=== PATIENT | female | born 1950 | race Caucasian/White ===

== ENCOUNTER 2016-12-15 07:00 | Emergency (ER) | payer SELFPAY ==
[~2016-12-15] VITALS: Ht 162.6 cm; Wt 79.4 kg
[~2016-12-15 07:00] MED LIST: AML5T; AZIT250T PO; CEFD300C3 PO; CEFP500T4 PO; ENAL20TA76 PO; EZET1TAB31; FLUT16SP22 NS; HCT25T; HYDR115S2 PO; LORA10TA7 PO; RANI150T90 PO; SIMV20TA3 PO
[2016-12-15] MEDS ORDERED: NS IV 1000 ML 1,000 ML ONE (07:21)
[2016-12-15] MEDS ORDERED: PROMETHAZINE INJ 25 MG/ML (PHENERGAN) AMP ONE (07:21)
[2016-12-15] MEDS ORDERED: NS IV 1000 ML 1,000 ML IV ONE (07:23)
[2016-12-15 07:29] LABS: BASOPHILS # (AUTO) 0.1 10^3/uL (0.0-0.1); BASOPHILS % (AUTO) 0 % (0-10); EOSINOPHILS # (AUTO) 0.2 10^3/uL (0.0-0.3); EOSINOPHILS % (AUTO) 2 % (0-10); LYMPHOCYTES # (AUTO) 2.6 X 10^3 (1.0-4.0); LYMPHOCYTES % (AUTO) 24 % (12-44); MEAN CORPUSCULAR HEMOGLOBIN 31 PG (25-34); MEAN CORPUSCULAR HGB CONC 33 G/DL (32-36); MEAN CORPUSCULAR VOLUME 94 FL (80-99); MEAN PLATELET VOLUME 10.9 FL (7.4-10.4); MONOCYTES # (AUTO) 0.6 X 10^3 (0.0-1.0); MONOCYTES % (AUTO) 6 % (0-12); NEUTROPHILS # (AUTO) 7.7 X 10^3 (1.8-7.8); NEUTROPHILS % (AUTO) 69 % (42-75); PLATELET COUNT 248 10^3/uL (130-400); RED BLOOD COUNT 4.33 10^6/uL (4.35-5.85); RED CELL DISTRIBUTION WIDTH 14.3 % (10.0-14.5); WHITE BLOOD COUNT 11.2 10^3/uL (4.3-11.0)
[2016-12-15] MEDS ORDERED: PROMETHAZINE INJ 25 MG/ML (PHENERGAN) AMP IVP ONE (07:30)
--- NOTE | 2016-12-15 07:37 | ED General ---
General Chief Complaint: Dizziness/Syncope Stated Complaint: DIZZY/N/V/HEADACHE Nursing Triage Note: PT ARRIVED PER EMS, PT CO OF DIZZINESS AND NAUSEA SINCE 0200 THIS AM, WHEN WOKE UP AT 0530 STATES HAS ROSS RATES 12/22. PT HAS SL IN L WRIST Nursing Sepsis Screen: No Definite Risk Source of Information: Patient Exam Limitations: No Limitations History of Present Illness Time Seen by Provider: 07:25 Initial Comments This 66-year-old woman presents to emergency room with relatively sudden onset of dizziness, weakness, nausea, and vomiting. She initially woke with the symptoms around 02:00. She went back to bed but then woke up again at 05:30. She needed to use the restroom but was so dizzy she could not get up. EMS was activated and patient was transported to the emergency room. EMS reports stable vital signs. Patient was ambulatory to the cot. She denies any chest pain or shortness of breath. She describes her dizziness as a vertigo or spinning sensation. It is much worse with movement of the head or position changes. gis analyst shows normal sinus rhythm with a heart rate in the 70s. She received Zofran 4 mg by EMS. She complained of left-sided earache last night which has improved today. Allergies and Home Medications Allergies Coded Allergies: green dye (Verified Allergy, Unknown, 07/06/09) red dye (Verified Allergy, Unknown, 07/06/09) Uncoded Allergies: ALLERGY TO RED/GREEN DYE (Allergy, Unknown, 05/25/09) FEMURA (Adverse Reaction, Unknown, 04/16/16) Home Medications Amlodipine Besylate 5 Mg Tablet, DAILY, Ref 0 (Reported) Azithromycin 250 Mg Tablet, 250 MG PO DAILY, #4 Ref 0 Prescribed by: SHANELLE WILLS on 04/16/16 0213 Cefdinir 300 Mg Capsule, 300 MG PO BID, #20 Ref 0 Prescribed by: SHANELLE WILLS on 04/16/16 0213 Diazepam 5 Mg Tablet, 2.5-5 MG PO TID PRN for DIZZINESS, #10 Prescribed by: ALYSIA PATEL on 12/15/16 1136 Enalapril Maleate 20 Mg Tablet, 40 MG PO DAILY, Ref 0 (Reported) Fluticasone Propionate 16 Gm [place].susp, Unknown Dose NS PRN, (Reported) Hydrochlorothiazide 25 Mg Tab, DAILY, Ref 0 (Reported) Hydrocodone/Chlorphen P-Stirex 480 Ml Tanya.er.12h, 5 ML PO Q12H PRN for COUGH/ PAIN, #120 Ref 0 Prescribed by: SHANELLE WILLS on 04/16/16 0213 Loratadine 10 Mg Tablet, 10 MG PO DAILY, (Reported) Meclizine HCl 25 Mg Tablet, 25 MG PO Q6H PRN for DIZZINESS, #20 Prescribed by: ALYSIA PATEL on 12/15/16 1136 Promethazine HCl 25 Mg Tablet, 25 MG PO Q6H PRN for NAUSEA/VOMITING, #10 Prescribed by: ALYSIA PATEL on 12/15/16 1136 Ranitidine HCl 150 Mg Tablet, 150 MG PO BID, (Reported) Simvastatin 20 Mg Tablet, 20 MG PO DAILY, (Reported) Constitutional: see HPI, weakness EENTM: see HPI Respiratory: no symptoms reported Cardiovascular: no symptoms reported Gastrointestinal: see HPI Genitourinary: no symptoms reported : No Musculoskeletal: no symptoms reported Skin: no symptoms reported Psychiatric/Neurological: See HPI Hematologic/Lymphatic: No Symptoms Reported Past Vbmilwv-Eqfilp-Xraaie Hx Patient Social History Alcohol Use: Denies Use Recreational Drug Use: No Smoking Status: Former Smoker Type Used: Cigarettes Recent Foreign Travel: No Contact w/Someone Who Travel: No Recent Infectious Disease Expo: No Recent Hopitalizations: No Seasonal Allergies Seasonal Allergies: No Surgeries HX Surgeries: Yes (R lumpectomy, 37 lymph nodes removed R side) Surgeries: Abdominal (ectopic ), Breast, Cardiac (cardiac catheter in 2009 with normal coronary arteries), Section, Orthopedic (knee) Respiratory Hx Respiratory Disorders: Yes Respiratory Disorders: Asthma Cardiovascular Hx Cardiac Disorders: Yes Cardiac Disorders: High Cholesterol, Hypertension Neurological Hx Neurological Disorders: No Reproductive System Hx Reproductive Disorders: Yes Genitourinary Hx Genitourinary Disorders: No Gastrointestinal Hx Gastrointestinal Disorders: Yes Gastrointestinal Disorders: Gastroesophageal Reflux Musculoskeletal Hx Musculoskeletal Disorders: No Endocrine Hx Endocrine Disorders: No HEENT HX ENT Disorders: No Cancer Hx Cancer: Yes Cancer: Breast Psychosocial Hx Psychiatric Problems: No Blood Transfusions Hx Blood Disorders: No Physical Exam Vital Signs Vital Sign - Last 12Hours 12/15/16 07:00 Temp 98.1 Pulse 81 Resp 18 B/P (MAP) 131/62 Pulse Ox 95 Capillary Refill : Less Than 3 Seconds General Appearance: WD/WN, Mild Distress, Obese HEENT: PERRL/EOMI, TMs Normal, Normal ENT Inspection, Other (oropharynx somewhat dry) Neck: Normal Inspection, No Carotid Bruit, No JVD Respiratory: Lungs Clear, Normal Breath Sounds, No Accessory Muscle Use, No Respiratory Distress Cardiovascular: Regular Rate, Rhythm, No Edema, No Murmur Gastrointestinal: Normal Bowel Sounds, Non Tender, Soft Extremity: Normal Inspection, No Pedal Edema Neurologic/Psychiatric: Alert, Oriented x3, No Motor/Sensory Deficits, Normal 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, 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 Norm as Tested Skin: Normal Color, Warm/Dry Progress/Results/Core Measures Results/Orders Lab Results Laboratory Tests Test 12/15/16 07:05 12/15/16 09:09 Range/Units White Blood Count 11.2 H 4.3-11.0 10^3/uL Red Blood Count 4.33 L 4.35-5.85 10^6/uL Hemoglobin 13.5 11.5-16.0 G/DL Hematocrit 41 35-52 % Mean Corpuscular Volume 94 80-99 FL Mean Corpuscular Hemoglobin 31 25-34 PG Mean Corpuscular Hemoglobin Concent 33 32-36 G/DL Red Cell Distribution Width 14.3 10.0-14.5 % Platelet Count 248 130-400 10^3/uL Mean Platelet Volume 10.9 H 7.4-10.4 FL Neutrophils (%) (Auto) 69 42-75 % Lymphocytes (%) (Auto) 24 12-44 % Monocytes (%) (Auto) 6 0-12 % Eosinophils (%) (Auto) 2 0-10 % Basophils (%) (Auto) 0 0-10 % Neutrophils # (Auto) 7.7 1.8-7.8 X 10^3 Lymphocytes # (Auto) 2.6 1.0-4.0 X 10^3 Monocytes # (Auto) 0.6 0.0-1.0 X 10^3 Eosinophils # (Auto) 0.2 0.0-0.3 10^3/uL Basophils # (Auto) 0.1 0.0-0.1 10^3/uL Sodium Level 142 135-145 MMOL/L Potassium Level 4.0 3.6-5.0 MMOL/L Chloride Level 106 98-107 MMOL/L Carbon Dioxide Level 24 21-32 MMOL/L Anion Gap 12 5-14 MMOL/L Blood Urea Nitrogen 14 7-18 MG/DL Creatinine 0.68 0.60-1.30 MG/DL Estimat Glomerular Filtration Rate > 60 BUN/Creatinine Ratio 21 Glucose Level 155 H 70-105 MG/DL Calcium Level 9.5 8.5-10.1 MG/DL Total Bilirubin 0.3 0.1-1.0 MG/DL Aspartate Amino Transf (AST/SGOT) 19 5-34 U/L Alanine Aminotransferase (ALT/SGPT) 18 0-55 U/L Alkaline Phosphatase 70 40-136 U/L Total Protein 7.7 6.4-8.2 GM/DL Albumin 3.8 3.2-4.5 GM/DL Urine Color YELLOW Urine Clarity SLIGHTLY CLOUDY Urine pH 7 5-9 Urine Specific Rueter 1.010 L 1.016-1.022 Urine Protein NEGATIVE NEGATIVE Urine Glucose (UA) NEGATIVE NEGATIVE Urine Ketones NEGATIVE NEGATIVE Urine Nitrite NEGATIVE NEGATIVE Urine Bilirubin NEGATIVE NEGATIVE Urine Urobilinogen NORMAL NORMAL MG/DL Urine Leukocyte Esterase NEGATIVE NEGATIVE Urine RBC (Auto) NEGATIVE NEGATIVE Urine RBC NONE /HPF Urine WBC NONE /HPF Urine Squamous Epithelial Cells 2-5 /HPF Urine Crystals NONE /LPF Urine Bacteria NEGATIVE /HPF Urine Casts NONE /LPF Urine Mucus NEGATIVE /LPF Urine Culture Indicated NO My Orders Orders - ALYSIA DOWELL MD Cbc With Automated Diff (12/15/16 07:23) Comprehensive Metabolic Panel (12/15/16 07:23) Ua Culture If Indicated (12/15/16 07:23) Saline Lock/Iv-Start (12/15/16 07:23) Ns Iv 1000 Ml (Sodium Chloride 0.9%) (12/15/16 07:23) Promethazine Injection (Phenergan Injec (12/15/16 07:30) Monitor-Rhythm Ecg Trace Only (12/15/16 07:23) Promethazine Injection (Phenergan Injec (12/15/16 07:21) Ns Iv 1000 Ml (Sodium Chloride 0.9%) (12/15/16 07:21) Meclizine Tablet (Antivert Tablet) (12/15/16 08:45) Meclizine Tablet (Antivert Tablet) (12/15/16 08:32) Ct Angio Head/Neck (12/15/16 09:41) Iohexol Injection (Omnipaque 350 Mg/Ml 1 (12/15/16 09:45) Ns (Ivpb) (Sodium Chloride 0.9% Ivpb Bag (12/15/16 09:45) Diazepam Tablet (Valium Tablet) (12/15/16 10:30) Medications Given in ED Current Medications Medications Dose Ordered Sig/Faith Route Start Time Stop Time Status Last Admin Dose Admin Diazepam 5 mg ONCE ONCE PO 12/15/16 10:30 12/15/16 10:31 DC 12/15/16 10:29 5 MG Iohexol 100 ml ONCE ONCE IV 12/15/16 09:45 12/15/16 09:49 DC 12/15/16 09:57 85 ML Meclizine HCl 25 mg ONCE ONCE PO 12/15/16 08:45 12/15/16 08:46 DC 12/15/16 08:41 25 MG Promethazine HCl 25 mg ONCE ONCE IVP 12/15/16 07:30 12/15/16 07:31 DC 12/15/16 07:30 25 MG Sodium Chloride 100 ml ONCE ONCE IV 12/15/16 09:45 12/15/16 09:49 DC 12/15/16 09:57 80 ML Sodium Chloride 1,000 ml @ 0 mls/hr Q0M ONCE IV 12/15/16 07:23 12/15/16 07:26 DC 12/15/16 07:30 1,000 MLS/HR Vital Signs/I&O Vital Sign - Last 12Hours 12/15/16 12/15/16 07:00 11:49 Temp 98.1 Pulse 81 81 Resp 18 18 B/P (MAP) 131/62 Pulse Ox 95 95 Blood Pressure Mean: 85 Progress Note #1: Time: 07:44 Progress Note Patient was seen and examined. Labs are pending. Phenergan and a liter of IV fluids have been ordered. Patient remains nauseated after receiving Zofran by EMS. Progress Note #2: Time: 08:28 Progress Note Cristofer-Hallpike maneuver reproduced symptoms on the right. Isaias maneuver was performed with incomplete relief of symptoms. Progress Note #3: Time: 09:42 Progress Note Patient states dizziness is improved but still significant, especially with head movement. Isaias maneuver was not successful in curing the dizziness. Patient would really like some answers regarding her dizziness. We discussed performing CT scan to evaluate for further causes. CT angiogram of the head and neck will be obtained to evaluate for possible stroke and/or prostatic disease. Patient has not had any imaging of the head at this facility since 2009. Progress Note #4: Time: 10:32 Progress Note Patient was still significantly dizzy when getting up to the commode. Valium was ordered for further treatment. CT angiogram of the head and neck is pending. Progress Note #5: Progress Note Dizziness was significantly improved with Valium prior to dismissal. Diagnostic Imaging Diagonstic Imaging: CT Plain Films/CT/US/NM/MRI: head Comments CT angiogram of the head and neck viewed by me and report reviewed. See report below: NAME: [facility]ENETTA [facility] REC#: [id number] PT STATUS: REG ER : 1950 PHYSICIAN: ALYSIA DOWELL MD ADMIT DATE: 12/15/16/ER Draft Date of Exam:12/15/16 CT ANGIO HEAD/NECK PROCEDURE: CT angiography of the head and CT angiography of the neck with and without contrast. TECHNIQUE: Contiguous noncontrast images were obtained from the skull base through the vertex. After intravenous contrast administration, helical CT angiography of the neck was performed. Source data was reformatted into multiple MIP projections. Delayed post contrast acquisitions were also obtained. INDICATION: Head and neck pain. Dizziness. CONTRAST: 75 mL of Omnipaque 350 was administered intravenously. FINDINGS: CTA NECK: The origins of the great vessels are below the mscla-ju-ldon of this study. The remaining portion of these vessels visualized including the brachiocephalic artery, left common carotid, and left subclavian arteries appear patent. The right subclavian artery is also patent. There is calcified plaque along the distal right common carotid artery. The right internal carotid artery is tortuous with no significant plaque or stenosis, however. The right external carotid artery is patent. The left common carotid artery distally demonstrates a small calcified plaque as well. The left ICA is tortuous with no significant stenosis. The left external carotid artery is patent. The vertebral arteries are patent. No significantly enlarged lymph nodes are seen in the cervical chain bilaterally. The submandibular and parotid glands as well as the thyroid gland appear grossly unremarkable. CTA HEAD: The intracranial segments of the internal carotid arteries are patent. The A1 segment of the right internal carotid artery is hypoplastic. There is an azygos single A2 segment in a common trunk and two patent A3 segments of both anterior cerebral arteries are seen. The MCA on both sides is patent. The vertebrobasilar arteries and both BOOTS AND SHOES SUPERVISOR arteries are patent. The main intracranial venous sinuses are opacified normally. No high-grade stenosis, occlusion, or aneurysm is seen. The unenhanced phase imaging of the brain demonstrates no intracranial hemorrhage, edema, or mass effect. The parenchymal enhancement phase demonstrates no enhancing mass. No hydrocephalus. No extra-axial fluid collection is seen. There is mild mucosal thickening in the left sphenoidal sinus. IMPRESSION: CTA NECK: The point of origin of the great vessels from the arch is not included on this exam. There is minimal atherosclerotic plaque along the distal common carotid artery on both sides with no significant stenosis. CTA HEAD: No high-grade stenosis, vessel occlusion, or aneurysm is seen. Dictated on workstation # [id number] Dict: 12/15/16 1025 Trans: 12/15/16 1059 [id number] Interpreted by: PERICO NEWMAN MD Departure Impression Impression: Primary Impression: Vertigo Additional Impression: Nausea and vomiting Qualified Codes: R11.2 - Nausea with vomiting, unspecified Disposition: 01 HOME, SELF-CARE Condition: Improved Departure-Patient Inst. Decision time for Depature: 11:33 Referrals: [facility] (PCP/Family) Primary Care Physician Patient Instructions: Vertigo (a Type of Dizziness) (DC) Add. Discharge Instructions: For nausea take promethazine (Phenergan) as prescribed. For dizziness, try meclizine first. If meclizine is not effective, then try the Valium (diazepam) as prescribed. Follow-up with your primary care provider as soon as possible. All discharge instructions reviewed with patient and/or family. Voiced understanding. Scripts Meclizine HCl (Meclizine HCl) 25 Mg Tablet 25 MG PO Q6H Y for DIZZINESS, #20 TAB Prov: ALYSIA DOWELL MD 12/15/16 Diazepam (Valium) 5 Mg Tablet 2.5-5 MG PO TID Y for DIZZINESS, #10 TAB Prov: ALYSIA DOWELL MD 12/15/16 Promethazine HCl (Promethazine Tablet) 25 Mg Tablet 25 MG PO Q6H Y for NAUSEA/VOMITING, #10 TAB Prov: ALYSIA DOWELL MD 12/15/16 Copy Copies To 1: EMILI STEVENS MD, JOSHUA T MD Dec 15, 2016 07:37
[2016-12-15 07:44] LABS: ALANINE AMINOTRANSFERASE 18 U/L (0-55); ALBUMIN 3.8 GM/DL (3.2-4.5); ANION GAP 12 MMOL/L (5-14); ASPARTATE AMINO TRANSFERASE 19 U/L (5-34); BILIRUBIN,TOTAL 0.3 MG/DL (0.1-1.0); BLOOD UREA NITROGEN 14 MG/DL (7-18); BUN/CREATININE RATIO 21; CALCIUM 9.5 MG/DL (8.5-10.1); CARBON DIOXIDE 24 MMOL/L (21-32); CHLORIDE 106 MMOL/L (98-107); CREATININE SERUM 0.68 MG/DL (0.60-1.30); GFR ESTIMATED > 60; GLUCOSE 155 MG/DL (70-105); SODIUM 142 MMOL/L (135-145); TOTAL PROTEIN 7.7 GM/DL (6.4-8.2)
[2016-12-15] MEDS ORDERED: MECLIZINE 25 MG (ANTIVERT) TAB ONE (08:32)
[2016-12-15] MEDS ORDERED: MECLIZINE 25 MG (ANTIVERT) TAB PO ONE (08:45)
[2016-12-15 09:15] LABS: BILIRUBIN,URINE NEGATIVE (NEGATIVE); KETONES,URINE NEGATIVE (NEGATIVE); LEUKOCYTE ESTERASE ,URINE NEGATIVE (NEGATIVE); NITRITE,URINE NEGATIVE (NEGATIVE); PH,URINE 7 (5-9); PROTEIN,URINE NEGATIVE (NEGATIVE); UROBILINOGEN,URINE NORMAL (NORMAL)
[2016-12-15] MEDS ORDERED: IOHEXOL 350 MG/ML 100 ML (OMNIPAQUE 350) VIAL IV ONE (09:45)
[2016-12-15] MEDS ORDERED: NS 100 ML (IVPB) BAG IV ONE (09:45)
[2016-12-15] MEDS ORDERED: DIAZEPAM 5 MG (VALIUM) TABLET PO ONE (10:30)
--- NOTE | 2016-12-15 10:59 | Diagnostic Imaging Report ---
PROCEDURE: CT angiography of the head and CT angiography of the neck with and without contrast. TECHNIQUE: Contiguous noncontrast images were obtained from the skull base through the vertex. After intravenous contrast administration, helical CT angiography of the neck was performed. Source data was reformatted into multiple MIP projections. Delayed post contrast acquisitions were also obtained. INDICATION: Head and neck pain. Dizziness. CONTRAST: 75 mL of Omnipaque 350 was administered intravenously. FINDINGS: CTA NECK: The origins of the great vessels are below the dmvqv-ue-gvne of this study. The remaining portion of these vessels visualized including the brachiocephalic artery, left common carotid, and left subclavian arteries appear patent. The right subclavian artery is also patent. There is calcified plaque along the distal right common carotid artery. The right internal carotid artery is tortuous with no significant plaque or stenosis, however. The right external carotid artery is patent. The left common carotid artery distally demonstrates a small calcified plaque as well. The left ICA is tortuous with no significant stenosis. The left external carotid artery is patent. The vertebral arteries are patent. No significantly enlarged lymph nodes are seen in the cervical chain bilaterally. The submandibular and parotid glands as well as the thyroid gland appear grossly unremarkable. CTA HEAD: The intracranial segments of the internal carotid arteries are patent. The A1 segment of the right internal carotid artery is hypoplastic. There is an azygos single A2 segment in a common trunk and two patent A3 segments of both anterior cerebral arteries are seen. The MCA on both sides is patent. The vertebrobasilar arteries and both ACCESS CONTROL OFFICER arteries are patent. The main intracranial venous sinuses are opacified normally. No high-grade stenosis, occlusion, or aneurysm is seen. The unenhanced phase imaging of the brain demonstrates no intracranial hemorrhage, edema, or mass effect. The parenchymal enhancement phase demonstrates no enhancing mass. No hydrocephalus. No extra-axial fluid collection is seen. There is mild mucosal thickening in the left sphenoidal sinus. IMPRESSION: CTA NECK: The point of origin of the great vessels from the arch is not included on this exam. There is minimal atherosclerotic plaque along the distal common carotid artery on both sides with no significant stenosis. CTA HEAD: No high-grade stenosis, vessel occlusion, or aneurysm is seen. Dictated by: Dictated on workstation # [id number]
[2016-12-15] MEDS ORDERED: DIAZ5TAB PO (11:36)
[2016-12-15] MEDS ORDERED: MECL-106 PO (11:36)
[2016-12-15] MEDS ORDERED: PROM25TA14 PO (11:36)
[2016-12-15 11:49] VITALS: BP 139/78
--- OUTSIDE RECORDS SUMMARY | 2016-12-17 14:40 | XMS REPORT ---
Author Author CHRISTINE PHAN [facility] eClinicalWorks Address Unknown Phone Unavailable Care Team Providers Care Gun Fertilizer Name Role Phone CHRISTINE PHAN CP Unavailable Allergies, Adverse Reactions, Alerts Substance Reaction Event Type Femara heart attack symptoms Drug Allergy Problems Problem Type Condition ICD-9 Code Onset Dates Condition Status Problem Special screening examination, human papillomavirus [HPV] V73.81 Active Problem Other specified counseling V65.49 Active Problem Special screening for malignant neoplasms, colon V76.51 Active Problem Hypertension 401.9 Active Problem Unspecified otalgia 388.70 Active Problem Asthma 493.90 Active Problem Extrinsic asthma, unspecified 493.00 Active Problem Unspecified otitis media 382.9 Active Problem Epistaxis 784.7 Active Problem 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 [address]-38 160-4.5 mcg/actuation November 29, 2013 inhale 2 puffs by inhalation route 2 times per day in the morning and evening Flonase [facility] [address]-70 50 mcg/actuation December 12, 2013 take 1 sprays by Nasal route 2 times per day in each nostril Simvastatin [facility] [address]-63 20 MG Orally Once a day 1 tablet in the evening Hydrochlorothiazide [facility] [address]-09 25 MG Orally Once a day [address] [facility] 05670646060 150 MG TAKE ONE TABLET BY MOUTH TWICE DAILY Amlodipine Besylate [facility] 83328376662 5 MG TAKE ONE TABLET BY MOUTH DAILY (MUST HAVE APPOINTMENT FOR FURTHER REFILLS!!!) Loratadine [facility] [address]-36 10 MG Orally Once a day [address] [facility] [address]-34 90 mcg/actuation November 29, 2013 inhale 1 - 2 puffs by inhalation route every 4 hours as needed Use prn shortness of breath Tizanidine HCl [facility] [address]-15 4 MG Orally 2 times a day Feb 12, 2015 0.5 -1 tablet as needed Enalapril Maleate [facility] 15967524399 20 MG TAKE TWO TABLETS BY MOUTH DAILY (MUST HAVE APPOINTMENT FOR FURTHER REFILLS!!!!) Procedures Procedure Coding System Code Date Office Visit, Est Pt., Level 3 CPT-4 66674 Feb 12, 2015 Vital Signs Date/Time: Feb 12, 2015 Temperature 97.8 F Weight 195.5 lbs Height 61 in BMI 36.94 Index Blood Pressure Diastolic 86 mmHg Blood Pressure Systolic 152 mmHg Cardiac Monitoring Heart Rate 100 bpm Results No Known Results Summary Purpose eClinicalWorks Submission
--- OUTSIDE RECORDS SUMMARY | 2016-12-17 14:40 | XMS REPORT ---
Author Author KAYLYNN COLON [facility] eClinicalWorks Address Unknown Phone Unavailable Care Team Providers Care Returned Goods Repairer Name Role Phone KAYLYNN COLON CP Unavailable Allergies, Adverse Reactions, Alerts Substance Reaction Event Type Femara heart attack symptoms Drug Allergy Problems Problem Type Condition Code Onset Dates Condition Status Problem Other specified counseling V65.49 Active Problem Extrinsic asthma, unspecified 493.00 Active Problem Unspecified otitis media 382.9 Active Problem Reactive airway disease J45.909 Active Problem Asthma 493.90 Active Problem Hypertension I10 Active Problem Epistaxis 784.7 Active Problem 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 Problem Hypertension 401.9 Active Problem Unspecified otalgia 388.70 Active Assessment Acute streptococcal pharyngitis J02.0 Active Assessment Sore throat J02.9 Active Problem Nonspecific abnormal finding in stool contents 792.1 Active Problem Screening for malignant neoplasm of the cervix V76.2 Active Problem Other and unspecified hyperlipidemia 272.4 Active Problem Special screening examination, human papillomavirus [HPV] V73.81 Active Problem Esophageal reflux 530.81 Active Problem Special screening for malignant neoplasms, colon V76.51 Active Medications Medication Code System Code Instructions Start Date End Date Status Dosage Hydrochlorothiazide [facility] [address]-88 25 MG Orally Once a day 1 tablet Symbicort [facility] [address]-37 160-4.5 mcg/actuation November 29, 2013 inhale 2 puffs by inhalation route 2 times per day in the morning and evening Ranitidine HCl [facility] 40568108786 150 MG TAKE ONE TABLET BY MOUTH TWICE DAILY Fluticasone Propionate ND 13399256720 50 MCG/ACT USE ONE SPRAY IN EACH NOSTRIL TWICE DAILY Simvastatin [facility] 61230343864 20 MG TAKE ONE TABLET BY MOUTH AT BEDTIME Loratadine [facility] 03217781735 10 MG TAKE ONE TABLET BY MOUTH DAILY Amlodipine Besylate ND 10631602913 5 MG TAKE ONE TABLET BY MOUTH DAILY (MUST HAVE APPOINTMENT FOR FURTHER REFILLS!!!) Enalapril Maleate [facility] 55626906809 20 MG TAKE TWO TABLETS BY MOUTH DAILY (MUST HAVE APPOINTMENT FOR FURTHER REFILLS!!!!) Procedures Procedure Coding System Code Date BICILLIN LA/PENICILLIN G BENZATHINE CPT-4 J0561 September 28, 2015 THER/PROPH/DIAG INJ, SC/IM CPT-4 40652 September 28, 2015 STREP A ASSAY W/OPTIC CPT-4 38973 September 28, 2015 Office Visit, Est Pt., Level 3 CPT-4 04944 September 28, 2015 Vital Signs Date/Time: September 28, 2015 Temperature 98.4 F Weight 191.0 lbs Height 61 in BMI 36.09 Index Blood Pressure Diastolic 78 mmHg Blood Pressure Systolic 144 mmHg Cardiac Monitoring Heart Rate 90 bpm Results Name Result Date Reference Range Unit Abnormality Flag STREP A (IN HOUSE) ----STREP A positive [id number] ----Control + [id number] ----Lot # [id number] ----Exp date [id number] Summary Purpose eClinicalWorks Submission
--- OUTSIDE RECORDS SUMMARY | 2016-12-17 14:40 | XMS REPORT ---
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 [address]-66 25 MG Orally Once a day 1 tablet Results No Known Results Summary Purpose eClinicalWorks Submission
--- OUTSIDE RECORDS SUMMARY | 2016-12-17 14:40 | XMS REPORT ---
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 32503031 Problem Extrinsic asthma, unspecified 493.00 Active 987626938 Problem Hypertension I10 Active 06077022 Problem Reactive airway disease J45.909 Active 051384003243 Problem Unspecified otalgia 388.70 Active 17191247 Problem Epistaxis 784.7 Active 96215750 Problem Asthma 493.90 Active 923857493 Problem Hypertension 401.9 Active 05190520 Assessment Pneumonia of right upper lobe due to Mycoplasma pneumoniae J15.7 Apr, Active 98565715 Problem Other and unspecified hyperlipidemia 272.4 Active 57539271 Problem Screening for malignant neoplasm of the cervix V76.2 Active 748260762 Problem Special screening examination, human papillomavirus [HPV] V73.81 Active 673447324 Problem Esophageal reflux 530.81 Active 209235890 Problem Special screening for malignant neoplasms, colon V76.51 Active 328808008 Problem Nonspecific abnormal finding in stool contents 792.1 Active 054002404 Problem Other specified counseling V65.49 Active 995020906 ALLERGIES Substance Reaction Event Type Date Status Femara heart attack symptoms Drug Allergy Apr, Active SOCIAL HISTORY No smoking Hx information available PLAN OF CARE VITAL SIGNS Height 61 in 2016-04-30 Weight 190.4 lbs 2016-04-30 Heart Rate 80 bpm 2016-04-30 Respiratory Rate 18 2016-04-30 BMI 35.97 kg/m2 2016-04-30 Blood pressure systolic 122 mmHg 2016-04-30 Blood pressure diastolic 82 mmHg 2016-04-30 MEDICATIONS Medication Instructions Dosage Frequency Start Date End Date Duration Status Enalapril Maleate 20 mg Orally Once a day 2 tablets 24h Sep, 90 days Active Hydrochlorothiazide 25 MG Orally Once a day 1 tablet 24h 90 Active Simvastatin 20 MG TAKE ONE TABLET BY MOUTH AT BEDTIME 30 Active Amlodipine Besylate 5 MG Orally Once a day 1 tablet 24h Sep, 90 day(s) Active Ranitidine HCl 150 MG TAKE ONE TABLET BY MOUTH TWICE DAILY 30 Active Loratadine 10 MG TAKE ONE TABLET BY MOUTH DAILY 30 Active Fluticasone Propionate 50 MCG/ACT USE ONE SPRAY IN EACH NOSTRIL TWICE DAILY 30 Active Symbicort 160-4.5 mcg/actuation inhale 2 puffs by inhalation route 2 times per day in the morning and evening Nov, Active RESULTS Name Result Date Reference Range CT Scan : Chest, low dose 2016-05-02 PROCEDURES Procedure Date Ordered Related Diagnosis Body Site Office Visit, Est Pt., Level 3 Apr 30, 2016 IMMUNIZATIONS No Known Immunizations
--- OUTSIDE RECORDS SUMMARY | 2016-12-17 14:41 | XMS REPORT ---
Author Author CHRISTINE PHAN [facility] [employer] Address Unknown Phone Unavailable Care Team Providers Care Personnel Interviewer Name Role Phone CHRISTINE PHAN CP Unavailable [...] Active Problem Unspecified otalgia 388.70 Active Assessment Hypertension I10 Active Problem Nonspecific abnormal finding in stool contents 792.1 Active Problem Screening for malignant neoplasm of the cervix V76.2 Active Problem Other and unspecified hyperlipidemia 272.4 Active Problem Special screening examination, human papillomavirus [HPV] V73.81 Active Problem Esophageal reflux 530.81 Active Problem Special screening for malignant neoplasms, colon V76.51 Active Medications Medication Code System Code Instructions Start Date End Date Status Dosage Augmentin [facility] [address]-26 875-125 MG Orally every 12 hrs Mar 06, 2016 Mar 16, 2016 1 tablet Loratadine [facility] 76414097014 10 MG TAKE ONE TABLET BY MOUTH DAILY Fluticasone Propionate [facility] 01878649927 50 MCG/ACT USE ONE SPRAY IN EACH NOSTRIL TWICE DAILY Hydrochlorothiazide [facility] [address]-40 25 MG Orally Once a day 1 tablet Ranitidine HCl [facility] 38855973783 150 MG TAKE ONE TABLET BY MOUTH TWICE DAILY Enalapril Maleate [facility] [address]-22 20 mg Orally Once a day October 01, 2015 2 tablets Amlodipine Besylate [facility] [address]-86 5 MG Orally Once a day October 01, 2015 1 tablet Simvastatin [facility] [address]-36 20 MG TAKE ONE TABLET BY MOUTH AT BEDTIME Symbicort [facility] [address]-91 160-4.5 mcg/actuation November 29, 2013 inhale 2 puffs by inhalation route 2 times per day in the morning and evening Procedures Procedure Coding System Code Date Office Visit, Est Pt., Level 3 CPT-4 22338 Mar 13, 2016 Vital Signs Date/Time: Mar 13, 2016 Cardiac Monitoring Heart Rate 84 bpm Weight 190.8 lbs Height 61 in BMI 36.05 Index Blood Pressure Diastolic 79 mmHg Blood Pressure Systolic 166 mmHg Results No Known Results Summary Purpose eClinicalWorks Submission
== END 2016-12-15 11:49 | disposition home or self-care (01) ==
LOC: EDUNIT# 07:00 → ER 07:04
DX: R42 Dizziness and giddiness (principal); R11.2 Nausea with vomiting, unspecified; K21.9 Gastro-esophageal reflux disease without esophagitis; E78.00 Pure hypercholesterolemia, unspecified; I10 Essential (primary) hypertension; Z85.3 Personal history of malignant neoplasm of breast; Z87.891 Personal history of nicotine dependence
CPT/HCPCS: 36415; 70496; 70498; 80053; 81000; 85025; 93041; 96361; 96374

== ENCOUNTER → 2017-01-06 | Outpatient (CLI) | payer OTHER ==
[~2017-01-06] MED LIST changes: +DIAZ5TAB PO; +MECL-106 PO; +PROM25TA14 PO
--- NOTE | 2017-01-08 11:24 | Diagnostic Imaging Report ---
EXAM: Bilateral screening mammogram 2D views with tomosynthesis The current study was also evaluated with a Computer Aided Detection (CAD) system. INDICATION: Screening. No current complaints stated on the questionnaire. COMPARISON: 11/10/2013. FINDINGS: The breasts are composed of scattered fibroglandular densities. There are postoperative changes seen in the right breast with scarring and overall smaller size of the right breast remaining tissue. There are bilateral benign-appearing calcifications. Allowing for technique and positional differences, no suspicious change is seen. IMPRESSION: No significant change. ACR BI-RADS Category 2: Benign findings. Result letter will be mailed to the patient. Note: At least 10% of breast cancer is not imaged by mammography. Dictated by: Dictated on workstation # [id number]
== END ==
LOC: RAD 09:30
PROVIDERS: ATTEND Nurse Practitioner Family
DX: Z12.31 Encounter for screening mammogram for malignant neoplasm of breast (principal)
CPT/HCPCS: 77067

== ENCOUNTER 2017-05-07 19:21 | Emergency (ER) | payer SELFPAY ==
[~2017-05-07] VITALS: Ht 162.6 cm; Wt 81.6 kg
--- NOTE | 2017-05-07 19:58 | ED Back Pain ---
General Chief Complaint: Back Problems Stated Complaint: PAIN,DIZZINESS FROM FALL Nursing Triage Note: PT TO ED 8 W/ FAMILY FOR C/O BACK PAIN, DIZZINESS ET NAUSEA ONSET AFTER BEING HIT ON THE BACK W/ A LARGE TV WHILE AT [email or web address] DURING THE Thursday SALE. PT DENIES HITTING HER HEAD. DENIES LOC. DENIES NECK PAIN Nursing Sepsis Screen: No Definite Risk Source of Information: Patient Exam Limitations: No Limitations History of Present Illness Time Seen by Provider: 19:58 Allergies and Home Medications Allergies Coded Allergies: green dye (Verified Allergy, Unknown, 07/06/09) red dye (Verified Allergy, Unknown, 07/06/09) Uncoded Allergies: ALLERGY TO RED/GREEN DYE (Allergy, Unknown, 05/25/09) FEMURA (Adverse Reaction, Unknown, 04/16/16) Home Medications Amlodipine Besylate 5 Mg Tablet, DAILY, Ref 0 (Reported) Enalapril Maleate 20 Mg Tablet, 40 MG PO DAILY, Ref 0 (Reported) Fluticasone Propionate 16 Gm [place].susp, Unknown Dose NS PRN, (Reported) Hydrochlorothiazide 25 Mg Tab, DAILY, Ref 0 (Reported) Loratadine 10 Mg Tablet, 10 MG PO DAILY, (Reported) Meclizine HCl 25 Mg Tablet, 25 MG PO Q6H PRN for DIZZINESS, #20 Prescribed by: ALYSIA PATEL on 12/15/16 1136 Ranitidine HCl 150 Mg Tablet, 150 MG PO BID, (Reported) Simvastatin 20 Mg Tablet, 20 MG PO DAILY, (Reported) Past Pmilgse-Onyypo-Ayxezu Hx Patient Social History Alcohol Use: Denies Use Recreational Drug Use: No Smoking Status: Never a Smoker Type Used: Cigarettes Recent Foreign Travel: No Contact w/Someone Who Travel: No Recent Infectious Disease Expo: No Recent Hopitalizations: No Physical Abuse: No Sexual Abuse: No Mistreated: No Fear: No Seasonal Allergies Seasonal Allergies: No Surgeries History of Surgeries: Yes (R lumpectomy, 37 lymph nodes removed R side) Surgeries: Abdominal, Breast, Cardiac, Section, Orthopedic Respiratory History of Respiratory Disorde: Yes Respiratory Disorders: Asthma Cardiovascular History of Cardiac Disorders: Yes Cardiac Disorders: High Cholesterol, Hypertension Neurological History of Neurological Disord: No Reproductive System Hx Reproductive Disorders: Yes Gastrointestinal History of Gastrointestinal Di: Yes Gastrointestinal Disorders: Gastroesophageal Reflux Musculoskeletal History of Musculoskeletal Dis: No Endocrine History of Endocrine Disorders: No Cancer History of Cancer: Yes Cancer: Breast Psychosocial History of Psychiatric Problem: No Suicide Risk Score: 0 Blood Transfusions History of Blood Disorders: No Physical Exam Vital Signs Vital Sign - Last 12Hours 05/07/17 19:27 Temp 97.6 Pulse 101 Resp 20 B/P (MAP) 137/69 Pulse Ox 97 O2 Delivery Room Air Capillary Refill : Less Than 3 Seconds Progress/Results/Core Measures Results/Orders My Orders Orders - RYLEY AMOS Ondansetron Oral Dissolve Tab (Zofran (05/07/17 20:09) Ct Thoracic Spine Wo (05/07/17 20:09) Ketorolac Injection (Toradol Injection) (05/07/17 20:09) Orphenadrine Injection (Norflex Injectio (05/07/17 20:09) Vital Signs/I&O Vital Sign - Last 12Hours 05/07/17 19:27 Temp 97.6 Pulse 101 Resp 20 B/P (MAP) 137/69 Pulse Ox 97 O2 Delivery Room Air Blood Pressure Mean: 91 Diagnostic Imaging Diagonstic Imaging: CT Plain Films/CT/US/NM/MRI: other (thoracic spine) Comments CT THORACIC SPINE WO PROCEDURE: CT thoracic spine without contrast. TECHNIQUE: Multiple axial computerized tomography images were obtained from the base of the thoracic spine to the vertex without intravenous contrast. INDICATION: Back injury and pain. COMPARISON: None. FINDINGS: Normal alignment. Vertebral body heights are preserved. No fractures. There are moderate diffuse degenerative endplate changes. No evidence of high-grade spinal canal or neural foraminal narrowing on this non-intrathecal contrast examination. Moderate atherosclerotic calcifications. The visualized paravertebral soft tissues are otherwise unremarkable. IMPRESSION: No acute thoracic spine CT findings. Moderate spondylotic changes result in no high-grade neural impingement. Dictated on workstation # [id number] Reviewed: Reviewed by Me (radiology report reviewed by me) Departure Impression Impression: Primary Impression: Upper back strain Additional Impression: Contusion of mid back Disposition: 01 HOME, SELF-CARE Condition: Improved Departure-Patient Inst. Decision time for Depature: 21:24 Referrals: [facility] (PCP/Family) Primary Care Physician Patient Instructions: Upper Back Pain (DC) Add. Discharge Instructions: All discharge instructions reviewed with patient and/or family. Voiced understanding. Medications as instructed. Tylenol owaj-eny-gyywnhu as directed for pain. Ice packs or heating pad as needed for pain. Avoid heavy lifting or strenuous activity for 3-5 days. Follow-up with your family practitioner if no improvement in symptoms in 7-10 days. Return to the emergency department for worsened symptoms or any other concerns. Scripts Naproxen (Naprosyn) 500 Mg Tablet 500 MG PO BID Y for pain, #20 TAB 0 Refills Prov: RYLEY AMOS 05/07/17 Orphenadrine Citrate (Orphenadrine Citrate) 100 Mg Tablet.er 100 MG PO BID Y for SPASMS, #10 TAB 0 Refills Prov: RYLEY AMOS 05/07/17 RYLEY AMOS May 07, 2017 19:58
[2017-05-07] MEDS ORDERED: ORPHENADRINE 60 MG/2 ML (NORFLEX) AMP IM STA (20:09)
[2017-05-07] MEDS ORDERED: ONDANSETRON 4 MG (ZOFRAN) ORAL DISSOLVE TAB SL STA (20:09)
[2017-05-07] MEDS ORDERED: KETOROLAC 60 MG/2 ML VIAL IM STA (20:09)
--- NOTE | 2017-05-07 21:07 | Diagnostic Imaging Report ---
PROCEDURE: CT thoracic spine without contrast. TECHNIQUE: Multiple axial computerized tomography images were obtained from the base of the thoracic spine to the vertex without intravenous contrast. INDICATION: Back injury and pain. COMPARISON: None. FINDINGS: Normal alignment. Vertebral body heights are preserved. No fractures. There are moderate diffuse degenerative endplate changes. No evidence of high-grade spinal canal or neural foraminal narrowing on this non-intrathecal contrast examination. Moderate atherosclerotic calcifications. The visualized paravertebral soft tissues are otherwise unremarkable. IMPRESSION: No acute thoracic spine CT findings. Moderate spondylotic changes result in no high-grade neural impingement. Dictated by: Dictated on workstation # [id number]
[2017-05-07] MEDS ORDERED: NAPR500T PO (21:40)
[2017-05-07] MEDS ORDERED: ORPH100T PO (21:40)
[2017-05-07] MEDS ORDERED: RX-HYDROCODONE/APAP 5/325 MG #4 TAB PK PO PRN (21:45)
[2017-05-07 21:47] VITALS: BP 131/70
== END 2017-05-07 21:47 | disposition home or self-care (01) ==
LOC: EDUNIT# 19:21 → ER 19:25
DX: S20.229A Contusion of unspecified back wall of thorax, initial encounter (principal); J45.909 Unspecified asthma, uncomplicated; E78.00 Pure hypercholesterolemia, unspecified; I10 Essential (primary) hypertension; K21.9 Gastro-esophageal reflux disease without esophagitis; Z85.3 Personal history of malignant neoplasm of breast; Z90.11 Acquired absence of right breast and nipple; Z87.59 Personal history of other complications of pregnancy, childbirth and the puerperium; W01.198A Fall on same level from slipping, tripping and stumbling with subsequent striking against other object, initial encounter; Y92.59 Other trade areas as the place of occurrence of the external cause
CPT/HCPCS: 72128; 99284

== ENCOUNTER 2018-06-08 19:51 | Inpatient (IN) | payer MEDICARE ==
[~2018-06-08] VITALS: Ht 154.9 cm; Wt 89.8 kg
[~2018-06-08 19:51] MED LIST changes: +NAPR-1071 PO; +ORPH100T PO
[2018-06-08] MEDS ORDERED: KETOROLAC 30 MG/ML VIAL IVP STA (20:43)
[2018-06-08] MEDS ORDERED: cefTRIAXone FOR IV USE 1,000 MG in NS (IVPB) 50 ML IV ONE (20:45)
[2018-06-08 20:51] LABS: BASOPHILS % (AUTO) 0 % (0-10); EOSINOPHILS # (AUTO) 0.3 10^3/uL (0.0-0.3); EOSINOPHILS % (AUTO) 2 % (0-10); HEMATOCRIT 41 % (35-52); HEMOGLOBIN 13.8 G/DL (11.5-16.0); LYMPHOCYTES # (AUTO) 2.8 X 10^3 (1.0-4.0); LYMPHOCYTES % (AUTO) 20 % (12-44); MEAN CORPUSCULAR HEMOGLOBIN 32 PG (25-34); MEAN CORPUSCULAR HGB CONC 34 G/DL (32-36); MEAN CORPUSCULAR VOLUME 96 FL (80-99); MEAN PLATELET VOLUME 10.4 FL (7.4-10.4); MONOCYTES # (AUTO) 1.1 X 10^3 (0.0-1.0); MONOCYTES % (AUTO) 8 % (0-12); NEUTROPHILS # (AUTO) 9.4 X 10^3 (1.8-7.8); NEUTROPHILS % (AUTO) 69 % (42-75); PLATELET COUNT 269 10^3/uL (130-400); RED BLOOD COUNT 4.28 10^6/uL (4.35-5.85); RED CELL DISTRIBUTION WIDTH 14.6 % (10.0-14.5); WHITE BLOOD COUNT 13.6 10^3/uL (4.3-11.0)
[2018-06-08 21:05] LABS: ALANINE AMINOTRANSFERASE 21 U/L (0-55); ALBUMIN 4.2 GM/DL (3.2-4.5); ALKALINE PHOSPHATASE 77 U/L (40-136); BILIRUBIN,TOTAL 0.5 MG/DL (0.1-1.0); BUN/CREATININE RATIO 23; CALCIUM 10.1 MG/DL (8.5-10.1); CARBON DIOXIDE 26 MMOL/L (21-32); CHLORIDE 102 MMOL/L (98-107); GFR ESTIMATED > 60; GLUCOSE 176 MG/DL (70-105); POTASSIUM 3.7 MMOL/L (3.6-5.0); SODIUM 138 MMOL/L (135-145); TOTAL PROTEIN 8.1 GM/DL (6.4-8.2)
[2018-06-08 21:10] LABS: ERYTHROCYTE SEDIMENTATION RATE 39 MM/HR (0-30)
[2018-06-08 21:17] LABS: PROTHROMBIN TIME PATIENT 13.1 SEC (12.2-14.7)
[2018-06-08] MEDS ORDERED: VANCOMYCIN INJECTION 1,000 MG in NS (IVPB) 250 ML IV ONE (21:45)
[2018-06-08] MEDS ORDERED: ENOXAPARIN 100 MG/1 ML (LOVENOX) SYR SC ONE (21:45)
[2018-06-09] VITALS: BP 133/60
[2018-06-09] MEDS ORDERED: ACETAMINOPHEN 500 MG TAB (TYLENOL) PO PRN (01:00)
[2018-06-09] MEDS ORDERED: KETOROLAC 30 MG/ML VIAL IV PRN (01:00)
[2018-06-09 04:00] VITALS: BP 130/63
[2018-06-09 04:59] LABS: BASOPHILS % (AUTO) 0 % (0-10); EOSINOPHILS # (AUTO) 0.3 10^3/uL (0.0-0.3); EOSINOPHILS % (AUTO) 3 % (0-10); HEMATOCRIT 39 % (35-52); HEMOGLOBIN 12.7 G/DL (11.5-16.0); LYMPHOCYTES # (AUTO) 2.9 X 10^3 (1.0-4.0); LYMPHOCYTES % (AUTO) 28 % (12-44); MEAN CORPUSCULAR HEMOGLOBIN 32 PG (25-34); MEAN CORPUSCULAR HGB CONC 33 G/DL (32-36); MEAN CORPUSCULAR VOLUME 97 FL (80-99); MEAN PLATELET VOLUME 10.4 FL (7.4-10.4); MONOCYTES % (AUTO) 10 % (0-12); NEUTROPHILS # (AUTO) 6.2 X 10^3 (1.8-7.8); NEUTROPHILS % (AUTO) 59 % (42-75); PLATELET COUNT 258 10^3/uL (130-400); RED BLOOD COUNT 3.99 10^6/uL (4.35-5.85); RED CELL DISTRIBUTION WIDTH 14.6 % (10.0-14.5); WHITE BLOOD COUNT 10.5 10^3/uL (4.3-11.0)
[2018-06-09 05:19] LABS: ALANINE AMINOTRANSFERASE 19 U/L (0-55); ALBUMIN 3.7 GM/DL (3.2-4.5); ALKALINE PHOSPHATASE 65 U/L (40-136); BILIRUBIN,TOTAL 0.3 MG/DL (0.1-1.0); BUN/CREATININE RATIO 26; CALCIUM 9.4 MG/DL (8.5-10.1); CARBON DIOXIDE 25 MMOL/L (21-32); CHLORIDE 105 MMOL/L (98-107); CREATININE SERUM 0.68 MG/DL (0.60-1.30); GFR ESTIMATED > 60; GLUCOSE 106 MG/DL (70-105); POTASSIUM 3.6 MMOL/L (3.6-5.0); SODIUM 140 MMOL/L (135-145); TOTAL PROTEIN 6.9 GM/DL (6.4-8.2)
[2018-06-09] MEDS: inSUlin ASPART (NovoLOG) 1 UNIT/0.01 ML (CHARGE PER UNIT) SC SCH ×2 (06:54→11:19)
[2018-06-09] MEDS ORDERED: FLU QUADRIvalent (5+ YOA) 2018-2019 (AFLURIA) 0.5 ML IM ONE (07:15)
[2018-06-09] MEDS ORDERED: CATHETER FLUSH 10 ML SYR IV PRN (07:15)
[2018-06-09] MEDS ORDERED: VANCOMYCIN 1500 MG/NS 500 ML IVPB IV SCH ×2 (08:00)
[2018-06-09 08:58] VITALS: BP 119/57
--- NOTE | 2018-06-09 09:57 | Short Stay Summary ---
History of Present Illness History of Present Illness Reason for visit/HPI This is a 67yo female patient of Nicolasa Velazquez APRN at [facility]. Pt reports on the day of admission she was typing on the computer when she noticed that her right hand was swollen. She rolled up her sleeve and noted that the redness extended up to her shoulder. No known injury. Pt denied fever but admits to warmth in the arm. Pt has had eczema on her fingers and noted that her fingers have been cracking recently. Pt has hx of lymphedema to the RUE following mastectomy for breast cancer. She reports she intermittently has swelling and the swelling takes a long time to subside. Pt denies fever or chills and feels better since admission. Erythema has decreased since admission. Pt was admitted on IV Vanco, no recent treatment with po antibiotics. Date of Admission Jun 08, 2018 at 21:40 Date of Discharge Jun 09, 2018 Time Seen by Provider: 09:15 Attending Physician Vic Zapata DO Admitting Physician [place] Consult Allergies and Home Medications Allergies Coded Allergies: green dye (Verified Allergy, Unknown, 07/06/09) red dye (Verified Allergy, Unknown, 07/06/09) Uncoded Allergies: ALLERGY TO RED/GREEN DYE (Allergy, Unknown, 05/25/09) FEMURA (Adverse Reaction, Unknown, 04/16/16) Home Medications Albuterol Sulfate 1 Puff Puff, 2 PUFF INH Q4H PRN for SHORTNESS OF BREATH, ( Reported) Amlodipine Besylate 5 Mg Tablet, 5 MG PO DAILY, (Reported) Budesonide/Formoterol Fumarate 10.2 Gm Hfa.aer.ad, 2 PUFF INH BID PRN for SHORTNESS OF BREATH, (Reported) Enalapril Maleate 20 Mg Tablet, 40 MG PO DAILY, (Reported) Fluticasone Propionate 9.9 Ml [place].susp, 1 SPRAY NS DAILY PRN for CONGESTION, ( Reported) Hydrochlorothiazide 25 Mg Tablet, 25 MG PO DAILY, (Reported) Loratadine 10 Mg Tablet, 10 MG PO DAILY, (Reported) Ranitidine HCl 150 Mg Tablet, 150 MG PO BID, (Reported) Sulfamethoxazole/Trimethoprim 1 Each Tablet, 1 EACH PO BID Prescribed by: VIC ZAPATA on 06/09/18 1210 Patient Home Medication List Home Medication List Reviewed: Yes Past Qqracwf-Wykaos-Ftmztj Hx Patient Social History Alcohol Use: Denies Use Recreational Drug Use: No Smoking Status: Never a Smoker Type Used: Cigarettes Physical Abuse Screen: No Sexual Abuse: No Recent Foreign Travel: No Contact w/other who traveled: No Recent Hopitalizations: No Recent Infectious Disease Expo: No Seasonal Allergies Seasonal Allergies: No Surgeries Yes (R lumpectomy, 37 lymph nodes removed R side) Abdominal, Breast, Cardiac, Section, Orthopedic Respiratory Yes Cardiovascular Yes High Cholesterol, Hypertension Neurological No Reproductive System Hx Reproductive Disorders: Yes Genitourinary No Gastrointestinal Yes Gastroesophageal Reflux Musculoskeletal No Endocrine History of Endocrine Disorders: No Cancer Yes Breast Type of Treatment: Surgical Intervention Psychosocial History of Psychiatric Problem: No Integumentary History of Skin or Integumenta: No Blood Transfusions History of Blood Disorders: No Adverse Reaction to a Blood Tr: No Family Medical History Significant Family History: No Pertinent Family Hx Review of Systems Constitutional: see HPI Physical Exam Vital Signs Vital Signs - First Documented 06/08/18 20:32 Temp 99.3 Pulse 101 Resp 20 B/P (MAP) 147/67 (93) Pulse Ox 96 O2 Delivery Room Air Capillary Refill : Less Than 3 Seconds Height, Weight, BMI Height: 5'1.00" Weight: 198lbs. 0.0oz. 89.038241zu; 37.4 BMI Method:Stated General Appearance: No Apparent Distress, WD/WN HEENT: PERRL/EOMI Respiratory: Lungs Clear, Normal Breath Sounds Cardiovascular: Regular Rate, Rhythm Extremity: Swelling (RUE, mild erythema decreased for marked borders. Cracked fingertips, no other break in the skin.) Skin: Normal Color, Warm/Dry Clinical Quality Measures DVT/VTE Risk/Contraindication: Risk Factor Score Per Nursin RFS Level Per Nursing on Admit: 3=High Short Stay Diagnosis Discharge Diagnosis-Short Stay Admission Diagnosis: 1. RUE cellulitis 2. Hx of lymphedema secondary to mastectomy Final Discharge Diagnosis: 1. RUE cellulitis 2. Hx of lymphedema secondary to mastectomy Conclusion Labs Laboratory Tests 06/08/18 20:38: White Blood Count 13.6H, Red Blood Count 4.28L, Hemoglobin 13.8, Hematocrit 41, Mean Corpuscular Volume 96, Mean Corpuscular Hemoglobin 32, Mean Corpuscular Hemoglobin Concent 34, Red Cell Distribution Width 14.6H, Platelet Count 269, Mean Platelet Volume 10.4, Neutrophils (%) (Auto) 69, Lymphocytes (%) (Auto) 20 , Monocytes (%) (Auto) 8, Eosinophils (%) (Auto) 2, Basophils (%) (Auto) 0, Neutrophils # (Auto) 9.4H, Lymphocytes # (Auto) 2.8, Monocytes # (Auto) 1.1H, Eosinophils # (Auto) 0.3, Basophils # (Auto) 0.0, Erythrocyte Sedimentation Rate 39H, Prothrombin Time 13.1, INR Comment 1.0, Activated Partial Thromboplast Time 33, Sodium Level 138, Potassium Level 3.7, Chloride Level 102 , Carbon Dioxide Level 26, Anion Gap 10, Blood Urea Nitrogen 18, Creatinine 0.80 , Estimat Glomerular Filtration Rate > 60, BUN/Creatinine Ratio 23, Glucose Level 176H, Calcium Level 10.1, Corrected Calcium 9.9, Total Bilirubin 0.5, Aspartate Amino Transf (AST/SGOT) 20, Alanine Aminotransferase (ALT/SGPT) 21, Alkaline Phosphatase 77, C-Reactive Protein High Sensitivity 6.94H, Total Protein 8.1, Albumin 4.2 06/08/18 20:54: Lactic Acid Level 1.67 06/09/18 04:40: White Blood Count 10.5, Red Blood Count 3.99L, Hemoglobin 12.7, Hematocrit 39, Mean Corpuscular Volume 97, Mean Corpuscular Hemoglobin 32, Mean Corpuscular Hemoglobin Concent 33, Red Cell Distribution Width 14.6H, Platelet Count 258, Mean Platelet Volume 10.4, Neutrophils (%) (Auto) 59, Lymphocytes (%) (Auto) 28 , Monocytes (%) (Auto) 10, Eosinophils (%) (Auto) 3, Basophils (%) (Auto) 0, Neutrophils # (Auto) 6.2, Lymphocytes # (Auto) 2.9, Monocytes # (Auto) 1.0, Eosinophils # (Auto) 0.3, Basophils # (Auto) 0.0, Sodium Level 140, Potassium Level 3.6, Chloride Level 105, Carbon Dioxide Level 25, Anion Gap 10, Blood Urea Nitrogen 18, Creatinine 0.68, Estimat Glomerular Filtration Rate > 60, BUN/ Creatinine Ratio 26, Glucose Level 106H, Calcium Level 9.4, Corrected Calcium 9.6, Total Bilirubin 0.3, Aspartate Amino Transf (AST/SGOT) 18, Alanine Aminotransferase (ALT/SGPT) 19, Alkaline Phosphatase 65, Total Protein 6.9, Albumin 3.7 06/09/18 06:40: Glucometer 101 Conclusion/Plan 1. RUE cellulitis - Admitted and started on IV antibiotics - improving, wbc normal, afebrile - DC home on po Bactrim x7 days. 2. Hx of lymphedema secondary to mastectomy Discharge Inst-[facility] Discharge Medications New, Converted or Re-Newed RX: Transmitted to Pharmacy ([facility]) New Medications: Sulfamethoxazole/Trimethoprim (Bactrim Ds Tablet) 1 Each Tablet 1 EACH PO BID for 7 Days, #14 TAB 0 Refills Continued Medications: Albuterol Sulfate (Proair Hfa) 1 Puff Puff 2 PUFF INH Q4H PRN for SHORTNESS OF BREATH, INHALER Amlodipine Besylate (Amlodipine Besylate) 5 Mg Tablet 5 MG PO DAILY, TAB Budesonide/Formoterol Fumarate (Symbicort 160-4.5 Mcg Inhaler) 10.2 Gm Hfa.aer.ad 2 PUFF INH BID PRN for SHORTNESS OF BREATH, INHALER Enalapril Maleate (Enalapril Maleate) 20 Mg Tablet 40 MG PO DAILY, TAB Fluticasone Propionate (Flonase Allergy Relief) 9.9 Ml [place].susp 1 SPRAY NS DAILY PRN for CONGESTION, EACH Hydrochlorothiazide (Hydrochlorothiazide) 25 Mg Tablet 25 MG PO DAILY, TAB Loratadine (Loratadine) 10 Mg Tablet 10 MG PO DAILY, TAB Ranitidine HCl (Acid Molding Engineer (RANITIDINE)) 150 Mg Tablet 150 MG PO BID, TAB Patient Instructions Goal/Follow Up Appt: F/u with Nicolasa Velazquez at [facility] 06/16/17 at 1:20pm Activity & Diet Discharge Diet: No Restrictions Orders-Post D/C & Referrals Pneu Vac Indicated: Yes VIC ZAPATA DO Jun 09, 2018 09:56
--- NOTE | 2018-06-09 10:09 | Diagnostic Imaging Report ---
INDICATION: Right arm pain and swelling. FINDINGS: The right internal jugular vein as well as the right subclavian and axillary vein are patent. The brachial vein is patent. Basilic and cephalic as well as the radial and ulnar veins are patent. No thrombus is seen. IMPRESSION: No evidence of right upper extremity DVT. Dictated by: Dictated on workstation # [id number]
[2018-06-09] MEDS ORDERED: FLUT9.9S NS (10:32)
[2018-06-09] MEDS ORDERED: HYDR25TA4 PO (10:32)
[2018-06-09] MEDS ORDERED: AMLO5TAB7 PO (10:32)
[2018-06-09] MEDS ORDERED: RT-ALBUINH INH (10:34)
[2018-06-09] MEDS ORDERED: ENAL20TA PO (10:34)
[2018-06-09] MEDS ORDERED: BUDE10.2 INH (10:34)
[2018-06-09 11:16] VITALS: BP 131/62
[2018-06-09] MEDS ORDERED: SULF1TAB35 PO (12:10)
--- NOTE | 2018-06-09 12:12 | Discharge Instructions ---
Discharge Inst-[facility] Discharge Medications New, Converted or Re-Newed RX: Transmitted to Pharmacy ([facility]) New Medications: Sulfamethoxazole/Trimethoprim (Bactrim Ds Tablet) 1 Each Tablet 1 EACH PO BID for 7 Days, #14 TAB 0 Refills Continued Medications: Albuterol Sulfate (Proair Hfa) 1 Puff Puff 2 PUFF INH Q4H PRN for SHORTNESS OF BREATH, INHALER Amlodipine Besylate (Amlodipine Besylate) 5 Mg Tablet 5 MG PO DAILY, TAB Budesonide/Formoterol Fumarate (Symbicort 160-4.5 Mcg Inhaler) 10.2 Gm Hfa.aer.ad 2 PUFF INH BID PRN for SHORTNESS OF BREATH, INHALER Enalapril Maleate (Enalapril Maleate) 20 Mg Tablet 40 MG PO DAILY, TAB Fluticasone Propionate (Flonase Allergy Relief) 9.9 Ml [place].susp 1 SPRAY NS DAILY PRN for CONGESTION, EACH Hydrochlorothiazide (Hydrochlorothiazide) 25 Mg Tablet 25 MG PO DAILY, TAB Loratadine (Loratadine) 10 Mg Tablet 10 MG PO DAILY, TAB Ranitidine HCl (Acid Jewelry Engraver (RANITIDINE)) 150 Mg Tablet 150 MG PO BID, TAB Patient Instructions Goal/Follow Up Appt: F/u with Nicolasa Velazquez at [facility] 06/16/17 at 1:20pm Activity & Diet Discharge Diet: No Restrictions Orders-Post D/C & Referrals Pneu Vac Indicated: Yes VIC ZAPATA DO Jun 09, 2018 12:11
[2018-06-09] MEDS ORDERED: CATHETER FLUSH 10 ML SYR IV SCH (14:00)
[2018-06-10] MEDS ORDERED: TROUGH ORDER-PHARMACY XX NR (19:00)
== END 2018-06-09 12:44 | disposition home or self-care (01) | DRG 603 ==
LOC: EDUNIT# 19:51 → ER 19:53 → 4TH 21:40
PROVIDERS: ADMIT Family Medicine; ATTEND Family Medicine
DX: L03.113 Cellulitis of right upper limb (principal); I10 Essential (primary) hypertension; E78.00 Pure hypercholesterolemia, unspecified; K21.9 Gastro-esophageal reflux disease without esophagitis; Z85.3 Personal history of malignant neoplasm of breast; Z90.11 Acquired absence of right breast and nipple; Z87.898 Personal history of other specified conditions
CPT/HCPCS: 36415; 80053; 82962; 83036; 83605; 85025; 85610; 85652; 85730; 86141; 87040; 96365; 96367; 96372; 96375

== ENCOUNTER 2019-01-07 13:28 | Emergency (ER) | payer MEDICARE ==
[~2019-01-07] VITALS: Ht 154.9 cm; Wt 88.5 kg
[~2019-01-07 13:28] MED LIST changes: +AMLO5TAB9 PO; +BUDE10.2 INH; +ENAL20TA PO; +FLUT9.9S NS; +HYDR25TA4 PO; +RT-ALBUINH INH; +SULF1TAB35 PO
[2019-01-07] MEDS ORDERED: LIDOCAINE 1% INJ 20 ML 20 ML VIAL INJ ONE (13:45)
--- OUTSIDE RECORDS SUMMARY | 2019-01-07 14:01 | XMS REPORT ---
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 Name Role Phone CHRISTINE PHAN Unavailable PROBLEMS Type Condition ICD9-CM Code PQZ52-BJ Code Onset Dates Condition Status SNOMED Code Problem Hyperlipidemia, unspecified E78.5 Active 95265411 Problem Current chronic use of systemic steroids Z79.52 Active 800407301004261 Problem Gastroesophageal reflux disease without esophagitis K21.9 Active 498410535 Problem Reactive airway disease J45.909 Active 454436945118 Problem Hypertension I10 Active 58159538 Problem Psoriasis L40.9 Active 4906645 ALLERGIES No Information ENCOUNTERS Encounter Location Date Diagnosis [facility] [address] [address] Sep, Psoriasis L40.9 ; Hypertension I10 ; Hyperlipidemia, unspecified E78.5 ; Weight gain R63.5 and Current chronic use of systemic steroids Z79.52 [facility] [id number] [place] [address] Sep, Wheezing R06.2 [facility] IN [facility] [address] [place] [id number] [place] [address] Jul, Non-recurrent acute suppurative otitis media of left ear without spontaneous rupture of tympanic membrane H66.002 [facility] [address] [place] [address] Jun, Cellulitis of right upper extremity L03.113 and Psoriasis L40.9 [facility] [address] [place] [id number] [place] [address] Jan, Moderate asthma with exacerbation, unspecified whether persistent J45.[id number] [address] 09 Dec, 2017 Psoriasis L40.9 [facility] [place] [address] [address] Sep, Seasonal allergic rhinitis, unspecified trigger J30.2 and Acute bronchitis, unspecified organism J20.9 [facility] [address] [address] Jun, Fever R50.9 and Acute nasopharyngitis [address] [place] [address] [address] Jun, Psoriasis L40.9 [place] [address] [address] May, Hyperlipidemia, unspecified E78.[address] [address] Apr, Exposure to hepatitis C Z20.5 [facility] [address] [place] [address] Feb, Acute recurrent maxillary sinusitis J01.01 [facility] [address] [address] Jan, Sore throat J02.9 and Acute non-recurrent maxillary sinusitis J01.[address] [address] Jan, [facility] [address] [place] [address] Dec, Partial thickness burn of palm of right hand, initial encounter T23.251A [address] [address] Dec, Screening for breast cancer Z12.[address] [address] Nov, Hyperlipidemia, unspecified E78.5 [place] [address] [place] [address] 08 Nov, 2016 Hypertension I10 ; Hyperlipidemia, unspecified E78.5 ; Reactive airway disease J45.909 and Breast cancer screening Z12.39 [place] [address] [id number] [place] [address] 10 Sep, 2016 Psoriasis L40.9 [place] [address] [address] 16 Apr, 2016 Pneumonia of right upper lobe due to Mycoplasma pneumoniae J15.7 [place] [address] [place] [id number] [place] [address] 29 Feb, 2016 Hypertension I10 [facility] [place] [id number] [place] [address] 22 Feb, 2016 Acute non-recurrent maxillary sinusitis J01.00 [facility] [place] [id number] [place] [address] October, Upper respiratory tract infection, unspecified type J06.9 [facility] [place] [id number] [place] [address] 15 Sep, 2015 Sore throat J02.9 and Acute streptococcal pharyngitis J02.0 [place] [address] [address] [id number] [place] [address] 10 Aug, 2015 Hypertension I10 and Reactive airway disease J45.909 [place] [address] [address] [id number] [place] [address] 10 Aug, 2015 Hypertension 401.9 [place] [address] [id number] [place] [address] 09 Aug, 2015 [place] [address] [id number] [place] [address] 07 Aug, 2015 [facility] [place] [id number] [place] [address] Jul, Acute bacterial sinusitis J01.90 [facility] [address] [id number] [address] May, [facility] [address] [address] Jan, Carpal tunnel syndrome 354.0 ; Hypertension 401.9 and Other and unspecified hyperlipidemia 272.4 [facility] [address] [address] Nov, Screening for breast cancer V76.10 and URI, acute 465.9 [facility] [address] [address] October, Asthma 493.90 ; Hypertension 401.9 and Visit for screening mammogram V76.12 [facility] [address], [place] [address] Sep, [facility] [address], [place] [address] Sep, [facility] [address], [place] [address] Aug, [facility] [address], [place] [address] Aug, [facility] [address], [place] [address] Jul, [facility] [address] [address] Jun, [facility] [id number] [address] Jun, [facility] [address] [id number] [address] Apr, [facility] [id number] [address] Apr, [facility] [address] [address] Mar, [facility] [place] [facility] [address] [id number] [place] [address] Mar, [facility] [place] [facility] [address] [id number] [place] [address] Mar, [facility] [place] [facility] [address] [id number] [place] [address] Mar, [facility] [place] [facility] [address] [id number] [place] [address] Mar, [facility] [place] [facility] [address] [id number] [place] [address] 30 Feb, 2014 [facility] [place] [facility] [address] [id number] [place] [address] 30 Feb, 2013 [facility] [place] [facility] [address] [id number] [place] [address] 29 Feb, 2013 [facility] [place] [facility] [address] [id number] [place] [address] 29 Feb, 2013 [facility] [place] [facility] [address] [id number] [place] [address] 23 Feb, 2013 [facility] [place] [facility] [address] [id number] [place] [address] 23 Feb, 2013 [facility] [place] [facility] [address] [id number] [place] [address] 23 Feb, 2013 [facility] [place] [facility] [address] [id number] [place] [address] 23 Feb, 2013 [facility] [place] [facility] [address] [id number] [place] [address] 22 Feb, 2013 [facility] [place] [facility] [address] [id number] [place] [address] 22 Feb, 2013 [facility] [place] [facility] [address] [id number] [place] [address] 12 Feb, 2013 [facility] [place] [facility] [address] [id number] [place] [address] Feb, [facility] [place] [facility] [address] [id number] [place] [address] Feb, [facility] [place] [facility] [address] [id number] [place] [address] Feb, [facility] [place] [facility] [address] [id number] [place] [address] Jan, [facility] [place] [facility] [address] [id number] [place] [address] Dec, [facility] [place] [facility] [address] [id number] [place] [address] Nov, [facility] [place] [facility] [address] [id number] [place] [address] Nov, [facility] [place] [facility] [address] [id number] [place] [address] Nov, [facility] [place] [facility] [address] [id number] [place] [address] Nov, [facility] [place] [facility] [address] [id number] [place] [address] Nov, [facility] [place] [facility] [address] [id number] [place] [address] Nov, [facility] [place] [facility] [address] [id number] [place] [address] Nov, [facility] [place] [facility] [address] [id number] [place] [address] Nov, [facility] [place] [facility] [address] [id number] [place] [address] October, [facility] [place] [facility] [address] [id number] [place] [address] October, [facility] [place] [facility] [address] [id number] [place] [address] October, [facility] [place] [facility] [address] [id number] [place] [address] October, [facility] [place] [facility] [address] [id number] [place] [address] October, [facility] [place] [facility] [address] [id number] [place] [address] October, [facility] [place] [facility] [address] [id number] [place] [address] October, [facility] [place] [facility] [address] [id number] [place] [address] Sep, [facility] [place] [facility] [address] [id number] [place] [address] Sep, [facility] [place] [facility] [address] [id number] [place] [address] Aug, [facility] [place] [facility] [address] [id number] [place] [address] Aug, [facility] [place] [facility] [address] [id number] [place] [address] Aug, [facility] [place] [facility] [address] [id number] [place] [address] Aug, [facility] [place] [facility] [address] [id number] [place] [address] Jun, [facility] [place] [facility] [address] [id number] [place] [address] Jun, [facility] [place] [facility] [address] [id number] [place] [address] Jun, [facility] [place] [facility] [address] [id number] [place] [address] Jun, [facility] [place] [facility] [address] [id number] [place] [address] Apr, [facility] [place] [facility] [address] [id number] [place] [address] Apr, [facility] [place] [facility] [address] [id number] [place] [address] Apr, [facility] [place] [facility] [address] [id number] [place] [address] Apr, [facility] [place] [facility] [address] [id number] [place] [address] Mar, [facility] [place] [facility] [address] [id number] [place] [address] Mar, [facility] [place] [facility] [address] [id number] [place] [address] Mar, [facility] [place] [facility] [address] [id number] [place] [address] Mar, [facility] [place] [facility] [address] [id number] [place] [address] Mar, [facility] [place] [facility] [address] [id number] [address] Mar, [facility] [place] [facility] [address] [id number] [place] [address] Mar, [facility] [place] [facility] [address] [id number] [place] [address] 16 Mar, 2013 [facility] [place] [facility] [address] [id number], [place] [address] Mar, [facility] [place] [facility] [address] [id number], [place] [address] 24 Feb, 2013 [facility] [place] [facility] [address] [id number] [place] [address] 24 Feb, 2013 [facility] [place] [facility] [address] [id number], [place] [address] Feb, [facility] [place] [facility] [address] [id number], [place] [address] Jan, [facility] [place] [facility] [address] [id number] [place] [address] Dec, [facility] [place] [facility] [address] [id number] [place] [address] Nov, [facility] [place] [facility] [address] [id number] [place] [address] Sep, [facility] [place] [facility] [address] [id number] [place] [address] Aug, [facility] [place] [facility] [address] [id number] [place] [address] Aug, [facility] [place] [facility] [address] [id number] [place] [address] Jul, [facility] [place] [facility] [address] [id number] [place] [address] Jun, [facility] [place] [facility] [address] [id number] [place] [address] Mar, [facility] [place] [facility] [address] [id number] [place] [address] Mar, [facility] [place] [facility] [address] [id number] [place] [address] Mar, [facility] [place] [facility] [address] [id number] [place] [address] Mar, [facility] [place] [facility] [address] [id number] [place] [address] Mar, [facility] [place] [facility] [address] [id number] [place] [address] Mar, [facility] [place] [facility] [address] [id number] [place] [address] 30 Feb, 2012 [facility] [place] [facility] [address] [id number] [place] [address] Feb, [facility] [place] [facility] [address] [id number] [place] [address] Dec, [facility] [address] [facility] [id number] [place] [address] Sep, [facility] [address] [facility] [id number] [address] Sep, [facility] [address] [facility] [id number] [place] [address] Sep, [facility] [address] [facility] [id number], [place] [address] Aug, [facility] [address] [facility] [id number] [place] [address] Aug, [facility] [address] [facility] [id number] [address] Aug, [facility] [address] [facility] [id number], [place] [address] Jul, [facility] [address] [facility] [id number], [place] [address] Jun, [facility] [id number], [place] [address] Jun, [facility] [id number], [place] [address] May, [facility] [id number], [place] [address] Apr, [facility] [id number], [place] [address] 14 Mar, 2011 [facility] [address] [facility] [id number], [place] [address] Apr, [facility] [address] [facility] [id number], [place] [address] Apr, [facility] [id number], [place] [address] 14 Feb, 2010 IMMUNIZATIONS No Known Immunizations SOCIAL HISTORY Never Assessed REASON FOR VISIT PLAN OF CARE VITAL SIGNS MEDICATIONS No Known Medications RESULTS No Results PROCEDURES No Known procedures INSTRUCTIONS MEDICATIONS ADMINISTERED No Known Medications MEDICAL (GENERAL) HISTORY Type Description Date Medical History hypertension Medical History gastroesophageal reflux disease (GERD) Medical History hyperlipidemia Medical History ascites Medical History breast cancer Medical History pre-diabetes Medical History post-menopausal bleeding Medical History asthma Surgical History arthroscopic knee surgery Surgical History lumpectomy w/ removal of 37 nodes Surgical History oopherectomy (R) s/p ectopic Surgical History section Hospitalization History surgeries Hospitalization History Vertigo ER visit 12/15/16 Hospitalization History Lymphedema
--- OUTSIDE RECORDS SUMMARY | 2019-01-07 14:02 | XMS REPORT ---
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 Name Role Phone CHRISTINE PHAN Unavailable PROBLEMS Type Condition ICD9-CM Code RTU34-AT Code Onset Dates Condition Status SNOMED Code Problem Hyperlipidemia, unspecified E78.5 Active 29032913 Problem Current chronic use of systemic steroids Z79.52 Active 177582428381239 Problem Gastroesophageal reflux disease without esophagitis K21.9 Active 116313274 Problem Reactive airway disease J45.909 Active 269593095393 Problem Hypertension I10 Active 31584970 Problem Psoriasis L40.9 Active 9193186 ALLERGIES No Information ENCOUNTERS Encounter Location Date Diagnosis [facility] [address] [address] Sep, Psoriasis L40.9 ; Hypertension I10 ; Hyperlipidemia, unspecified E78.5 ; Weight gain R63.5 and Current chronic use of systemic steroids Z79.52 [facility] [id number] [place] [address] Sep, Wheezing R06.2 [facility] [address] [place] [id number] [place] [address] Jul, Non-recurrent acute suppurative otitis media of left ear without spontaneous rupture of tympanic membrane H66.002 [facility] [address] [place] [address] Jun, Cellulitis of right upper extremity L03.113 and Psoriasis L40.9 [facility] [address] [place] [id number] [place] [address] Jan, Moderate asthma with exacerbation, unspecified whether persistent J45.[address] [place] [id number] [address] 09 Dec, 2017 Psoriasis L40.9 [facility] [place] [address] [address] Sep, Seasonal allergic rhinitis, unspecified trigger J30.2 and Acute bronchitis, unspecified organism J20.9 [facility] [address] [address] Jun, Fever R50.9 and Acute nasopharyngitis [address] [place] [address] [address] Jun, Psoriasis L40.9 [place] [address] [address] May, Hyperlipidemia, unspecified E78.[address] [address] Apr, Exposure to hepatitis C Z20.5 [facility] [address] [place] [address] Feb, Acute recurrent maxillary sinusitis J01.01 [facility] [address] [address] Jan, Sore throat J02.9 and Acute non-recurrent maxillary sinusitis J01.[address] [address] Jan, [facility] [address] [place] [address] Dec, Partial thickness burn of palm of right hand, initial encounter T23.251A [address] [address] Dec, Screening for breast cancer Z12.[address] [address] Nov, Hyperlipidemia, unspecified E78.5 [place] [id number] [place] [address] 08 Nov, 2016 Hypertension I10 ; Hyperlipidemia, unspecified E78.5 ; Reactive airway disease J45.909 and Breast cancer screening Z12.39 [place] [id number] [place] [address] 10 Sep, 2016 Psoriasis L40.9 [place] [address] [address] 16 Apr, 2016 Pneumonia of right upper lobe due to Mycoplasma pneumoniae J15.7 [place] [address] [id number] [place] [address] 29 Feb, 2016 Hypertension I10 [facility] [place] [id number] [place] [address] 22 Feb, 2016 Acute non-recurrent maxillary sinusitis J01.00 [facility] [place] [id number] [place] [address] October, Upper respiratory tract infection, unspecified type J06.9 [facility] [place] [id number] [place] [address] 15 Sep, 2015 Sore throat J02.9 and Acute streptococcal pharyngitis J02.0 [place] [id number] [place] [address] 10 Aug, 2015 Hypertension I10 and Reactive airway disease J45.909 [place] [id number] [place] [address] 10 Aug, 2015 Hypertension 401.9 [place] [address] [id number] [place] [address] 09 Aug, 2015 [place] [address] [id number] [place] [address] 07 Aug, 2015 [facility] [place] [id number] [place] [address] Jul, Acute bacterial sinusitis J01.90 [facility] [id number] [address] May, [facility] [address] [address] Jan, Carpal tunnel syndrome 354.0 ; Hypertension 401.9 and Other and unspecified hyperlipidemia 272.4 [facility] [address] [address] Nov, Screening for breast cancer V76.10 and URI, acute 465.9 [facility] [address] [address] October, Asthma 493.90 ; Hypertension 401.9 and Visit for screening mammogram V76.12 [facility] [address] [address] Sep, [facility] [address] [address] Sep, [facility] [address] [address] Aug, [facility] [address] [address] Aug, [facility] [address] [address] Jul, [facility] [address] [address] Jun, [facility] [id number] [address] Jun, [facility] [id number] [address] Apr, [facility] [id number] [address] Apr, [facility] [address] [address] Mar, [facility] [place] [facility] [address] [id number] [place] [address] Mar, [facility] [place] [facility] [address] [id number] [place] [address] Mar, [facility] [place] [facility] [address] [id number] [place] [address] Mar, [facility] [place] [facility] [address] [id number] [place] [address] Mar, [facility] [place] [facility] [address] [id number] [place] [address] 30 Feb, 2014 [facility] [place] [facility] [address] [id number] [place] [address] 30 Feb, 2013 [facility] [place] [facility] [address] [id number] [place] [address] 29 Feb, 2013 [facility] [place] [facility] [address] [id number] [place] [address] 29 Feb, 2013 [facility] [place] [facility] [address] [id number] [place] [address] 23 Feb, 2013 [facility] [place] [facility] [address] [id number] [place] [address] 23 Feb, 2013 [facility] [place] [facility] [address] [id number] [place] [address] 23 Feb, 2013 [facility] [place] [facility] [address] [id number] [place] [address] 23 Feb, 2013 [facility] [place] [facility] [address] [id number] [place] [address] 22 Feb, 2013 [facility] [place] [facility] [address] [id number] [place] [address] 22 Feb, 2013 [facility] [place] [facility] [address] [id number] [place] [address] 12 Feb, 2013 [facility] [place] [facility] [address] [id number] [place] [address] Feb, [facility] [place] [facility] [address] [id number] [place] [address] Feb, [facility] [place] [facility] [address] [id number] [place] [address] Feb, [facility] [place] [facility] [address] [id number] [place] [address] Jan, [facility] [place] [facility] [address] [id number] [place] [address] Dec, [facility] [place] [facility] [address] [id number] [place] [address] Nov, [facility] [place] [facility] [address] [id number] [place] [address] Nov, [facility] [place] [facility] [address] [id number] [place] [address] Nov, [facility] [place] [facility] [address] [id number] [place] [address] Nov, [facility] [place] [facility] [address] [id number] [place] [address] Nov, [facility] [place] [facility] [address] [id number] [place] [address] Nov, [facility] [place] [facility] [address] [id number] [place] [address] Nov, [facility] [place] [facility] [address] [id number] [place] [address] Nov, [facility] [place] [facility] [address] [id number] [place] [address] October, [facility] [place] [facility] [address] [id number] [place] [address] October, [facility] [place] [facility] [address] [id number] [place] [address] October, [facility] [place] [facility] [address] [id number] [place] [address] October, [facility] [place] [facility] [address] [id number] [place] [address] October, [facility] [place] [facility] [address] [id number] [place] [address] October, [facility] [place] [facility] [address] [id number] [place] [address] October, [facility] [place] [facility] [address] [id number] [place] [address] Sep, [facility] [place] [facility] [address] [id number] [place] [address] Sep, [facility] [place] [facility] [address] [id number] [place] [address] Aug, [facility] [place] [facility] [address] [id number] [place] [address] Aug, [facility] [place] [facility] [address] [id number] [place] [address] Aug, [facility] [place] [facility] [address] [id number] [place] [address] Aug, [facility] [place] [facility] [address] [id number] [place] [address] Jun, [facility] [place] [facility] [address] [id number] [place] [address] Jun, [facility] [place] [facility] [address] [id number] [place] [address] Jun, [facility] [place] [facility] [address] [id number] [place] [address] Jun, [facility] [place] [facility] [address] [id number] [place] [address] Apr, [facility] [place] [facility] [address] [id number] [place] [address] Apr, [facility] [place] [facility] [address] [id number] [place] [address] Apr, [facility] [place] [facility] [address] [id number] [place] [address] Apr, [facility] [place] [facility] [address] [id number] [place] [address] Mar, [facility] [place] [facility] [address] [id number] [place] [address] Mar, [facility] [place] [facility] [address] [id number] [place] [address] Mar, [facility] [place] [facility] [address] [id number] [place] [address] Mar, [facility] [place] [facility] [address] [id number] [place] [address] Mar, [facility] [place] [facility] [address] [id number], [place] [address] Mar, [facility] [place] [facility] [address] [id number] [place] [address] Mar, [facility] [place] [facility] [address] [id number] [place] [address] 16 Mar, 2013 [facility] [place] [facility] [address] [id number] [address] Mar, [facility] [place] [facility] [address] [id number], [place] [address] 24 Feb, 2013 [facility] [place] [facility] [address] [id number] [place] [address] 24 Feb, 2013 [facility] [place] [facility] [address] [id number], [place] [address] Feb, [facility] [place] [facility] [address] [id number], [place] [address] Jan, [facility] [place] [facility] [address] [id number] [place] [address] Dec, [facility] [place] [facility] [address] [id number] [place] [address] Nov, [facility] [place] [facility] [address] [id number] [place] [address] Sep, [facility] [place] [facility] [address] [id number] [place] [address] Aug, [facility] [place] [facility] [address] [id number] [place] [address] Aug, [facility] [place] [facility] [address] [id number] [place] [address] Jul, [facility] [place] [facility] [address] [id number] [place] [address] Jun, [facility] [place] [facility] [address] [id number] [place] [address] Mar, [facility] [place] [facility] [address] [id number] [place] [address] Mar, [facility] [place] [facility] [address] [id number] [place] [address] Mar, [facility] [place] [facility] [address] [id number] [place] [address] Mar, [facility] [place] [facility] [address] [id number] [place] [address] Mar, [facility] [place] [facility] [address] [id number] [place] [address] Mar, [facility] [place] [facility] [address] [id number] [place] [address] 30 Feb, 2012 [facility] [place] [facility] [address] [id number] [place] [address] Feb, [facility] [place] [facility] [address] [id number] [place] [address] Dec, [facility] [address] [facility] [id number] [place] [address] Sep, [facility] [address] [facility] [id number] [address] Sep, [facility] [address] [facility] [id number] [place] [address] Sep, [facility] [address] [facility] [id number] [address] Aug, [facility] [address] [facility] [id number] [place] [address] Aug, [facility] [address] [facility] [id number] [address] Aug, [facility] [address] [facility] [id number], [place] [address] Jul, [facility] [address] [facility] [id number], [place] [address] Jun, [facility] [id number] [address] Jun, [facility] [id number] [address] May, [facility] [id number] [address] Apr, [facility] [id number] [address] 14 Mar, 2011 [facility] [address] [facility] [id number], [place] [address] Apr, [facility] [address] [facility] [id number], [place] [address] Apr, [facility] [id number] [address] 14 Feb, 2010 IMMUNIZATIONS No Known Immunizations [...]
--- OUTSIDE RECORDS SUMMARY | 2019-01-07 14:02 | XMS REPORT ---
Author Author Migration, Doctor Organization [facility] Address Unknown Phone Unavailable Care Team Providers Care Lawn Service Manager Name Role Phone Migration, Doctor Unavailable Unavailable PROBLEMS Type Condition ICD9-CM Code JWF51-IP Code Onset Dates Condition Status SNOMED Code Problem Hyperlipidemia, unspecified E78.5 Active 40376759 Problem Current chronic use of systemic steroids Z79.52 Active 876201826501722 Problem Gastroesophageal reflux disease without esophagitis K21.9 Active 386826857 Problem Reactive airway disease J45.909 Active 896832554230 Problem Hypertension I10 Active 05496831 Problem Psoriasis L40.9 Active 3937853 ALLERGIES No Information ENCOUNTERS Encounter Location Date Diagnosis [address] [address] Sep, Psoriasis L40.9 ; Hypertension I10 ; Hyperlipidemia, unspecified E78.5 ; Weight gain R63.5 and Current chronic use of systemic steroids Z79.52 [facility] [address] [place] [address] Sep, Wheezing R06.2 [facility] [address] [address] Jul, Non-recurrent acute suppurative otitis media of left ear without spontaneous rupture of tympanic membrane H66.[address] [address] Jun, Cellulitis of right upper extremity L03.113 and Psoriasis L40.9 [facility] [address] [place] [address] Jan, Moderate asthma with exacerbation, unspecified whether persistent J45.[address] [address] Dec, Psoriasis L40.9 [facility] [id number] [place] [address] Sep, Seasonal allergic rhinitis, unspecified trigger J30.2 and Acute bronchitis, unspecified organism J20.9 [facility] WALK IN [facility] [address] [address] Jun, Fever R50.9 and Acute nasopharyngitis J00 [place] [address] [address] 2017 Psoriasis L40.9 [place] [address] [address] May, Hyperlipidemia, unspecified E78.5 [place] [address] [address] Apr, Exposure to hepatitis C Z20.5 [facility] WALK IN [place] [address] [address] Feb, Acute recurrent maxillary sinusitis J01.01 [facility] WALK IN [place] [address] [address] Jan, Sore throat J02.9 and Acute non-recurrent maxillary sinusitis J01.00 [place] [address] [address] Jan, [facility] WALK IN [facility] [address] [address] Dec, Partial thickness burn of palm of right hand, initial encounter T23.251A [place] [address] [address] Dec, Screening for breast cancer Z12.31 [place] [address] [address] 09 Nov, 2016 Hyperlipidemia, unspecified E78.5 [place] [address] [address] Nov, Hypertension I10 ; Hyperlipidemia, unspecified E78.5 ; Reactive airway disease J45.909 and Breast cancer screening Z12.39 [place] [id number] [place] [address] 10 Sep, 2016 Psoriasis L40.9 [place] [id number] [place] [address] 16 Apr, 2016 Pneumonia of right upper lobe due to Mycoplasma pneumoniae J15.7 [place] [id number] [place] [address] 29 Feb, 2016 Hypertension I10 [facility] WALK IN [place] [address] [address] 22 Feb, 2016 Acute non-recurrent maxillary sinusitis J01.00 [facility] WALK IN [place] [id number] [place] [address] October, Upper respiratory tract infection, unspecified type J06.9 [facility] WALK IN [place] [id number] [place] [address] 15 Sep, 2015 Sore throat J02.9 and Acute streptococcal pharyngitis J02.0 [place] [address] [id number] [place] [address] Aug, Hypertension I10 and Reactive airway disease J45.909 [place] [address] [place] [id number] [place] [address] 10 Aug, 2015 Hypertension 401.9 [place] [id number] [place] [address] 09 Aug, 2015 [place] [id number] [place] [address] 07 Aug, 2015 [facility] WALK IN [place] [id number] [place] [address] 20 Jul, 2015 Acute bacterial sinusitis J01.90 [place] [address] [address] May, [facility] [address] [address] Jan, Carpal tunnel syndrome 354.0 ; Hypertension 401.9 and Other and unspecified hyperlipidemia 272.4 [facility] [address] [place] [address] Nov, Screening for breast cancer V76.10 and URI, acute 465.9 [facility] [id number] [place] [address] October, Asthma 493.90 ; Hypertension 401.9 and Visit for screening mammogram V76.12 [facility] [id number] [place] [address] 14 Sep, 2014 [facility] [id number] [place] [address] Sep, [facility] [id number] [place] [address] Aug, [facility] [address] [address] Aug, [facility] [address] [place] [address] Jul, [facility] [address] [place] [address] Jun, [facility] [address] [place] [address] Jun, [facility] [address] [place] [address] Apr, [facility] [id number] [address] Apr, [facility] [id number] [address] Mar, [facility] [id number] [address] Mar, [facility] [place] [facility] [address] [id number] [place] [address] Mar, [facility] [place] [facility] [address] [id number] [place] [address] Mar, [facility] [place] [facility] [address] [id number] [place] [address] Mar, [facility] [place] [facility] [address] [id number] [place] [address] 30 Feb, 2013 [facility] [place] [facility] [address] [id number] [place] [address] 30 Feb, 2013 [facility] [place] [facility] [address] [id number] [place] [address] 29 Feb, 2013 [facility] [place] [facility] [address] [id number] [place] [address] 29 Feb, 2013 [facility] [place] [facility] [address] [id number] [place] [address] 23 Feb, 2013 [facility] [place] [facility] [address] [id number] [place] [address] 23 Feb, 2013 [facility] [place] [facility] [address] [id number] [place] [address] 23 Feb, 2013 [facility] [place] [facility] [address] [id number] [place] [address] 23 Feb, 2013 [facility] [place] [facility] [address] [id number] [place] [address] 22 Feb, 2013 [facility] [place] [facility] [address] [id number] [place] [address] 22 Feb, 2013 [facility] [place] [facility] [address] [id number] [place] [address] 12 Feb, 2013 [facility] [place] [facility] [address] [id number] [place] [address] 12 Feb, 2013 [facility] [place] [facility] [address] [id number] [place] [address] Feb, [facility] [place] [facility] [address] [id number] [place] [address] Feb, [facility] [place] [facility] [address] [id number] [place] [address] Jan, [facility] [place] [facility] [address] [id number] [place] [address] Dec, [facility] [place] [facility] [address] [id number] [place] [address] Nov, [facility] [place] [facility] [address] [id number] [place] [address] Nov, [facility] [place] [facility] [address] [id number] [place] [address] Nov, [facility] [place] [facility] [address] [id number] [place] [address] Nov, [facility] [place] [facility] [address] [id number] [place] [address] Nov, [facility] [place] [facility] [address] [id number] [place] [address] Nov, [facility] [place] [facility] [address] [id number] [place] [address] Nov, [facility] [place] [facility] [address] [id number] [place] [address] Nov, [facility] [place] [facility] [address] [id number] [place] [address] October, [facility] [place] [facility] [address] [id number] [place] [address] October, [facility] [place] [facility] [address] [id number] [place] [address] October, [facility] [place] [facility] [address] [id number] [place] [address] October, [facility] [place] [facility] [address] [id number] [place] [address] October, [facility] [place] [facility] [address] [id number] [place] [address] October, [facility] [place] [facility] [address] [id number] [place] [address] October, [facility] [place] [facility] [address] [id number] [place] [address] Sep, [facility] [place] [facility] [address] [id number] [place] [address] Sep, [facility] [place] [facility] [address] [id number] [place] [address] Aug, [facility] [place] [facility] [address] [id number] [place] [address] Aug, [facility] [place] [facility] [address] [id number] [place] [address] Aug, [facility] [place] [facility] [address] [id number] [place] [address] Aug, [facility] [place] [facility] [address] [id number] [place] [address] Jun, [facility] [place] [facility] [address] [id number] [place] [address] Jun, [facility] [place] [facility] [address] [id number] [address] Jun, [facility] [place] [facility] [address] [id number] [place] [address] Jun, [facility] [place] [facility] [address] [id number] [place] [address] Apr, [facility] [place] [facility] [address] [id number] [place] [address] Apr, [facility] [place] [facility] [address] [id number] [place] [address] Apr, [facility] [place] [facility] [address] [id number] [place] [address] Apr, [facility] [place] [facility] [address] [id number] [place] [address] Mar, [facility] [place] [facility] [address] [id number] [place] [address] Mar, [facility] [place] [facility] [address] [id number] [place] [address] Mar, [facility] [place] [facility] [address] [id number] [place] [address] Mar, [facility] [place] [facility] [address] [id number] [place] [address] Mar, [facility] [place] [facility] [address] [id number] [place] [address] Mar, [facility] [place] [facility] [address] [id number] [place] [address] Mar, [facility] [place] [facility] [address] [id number] [place] [address] Mar, [facility] [place] [facility] [address] [id number] [place] [address] Mar, [facility] [place] [facility] [address] [id number] [place] [address] 24 Feb, 2013 [facility] [place] [facility] [address] [id number] [place] [address] Feb, [facility] [place] [facility] [address] [id number] [place] [address] Feb, [facility] [place] [facility] [address] [id number] [place] [address] Jan, [facility] [place] [facility] [address] [id number] [place] [address] Dec, [facility] [place] [facility] [address] [id number] [place] [address] Nov, [facility] [place] [facility] [address] [id number] [place] [address] Sep, [facility] [place] [facility] [address] [id number] [place] [address] Aug, [facility] [place] [facility] [address] [id number] [place] [address] Aug, [facility] [place] [facility] [address] [id number] [place] [address] Jul, [facility] [place] [facility] [address] [id number] [place] [address] Jun, [facility] [place] [facility] [address] [id number] [place] [address] Mar, [facility] [place] [facility] [address] [id number] [place] [address] Mar, [facility] [place] [facility] [address] [id number] [place] [address] Mar, [facility] [place] [facility] [address] [id number] [place] [address] Mar, [facility] [place] [facility] [address] [id number] [place] [address] Mar, [facility] [place] [facility] [address] [id number] [place] [address] Mar, [facility] [place] [facility] [address] [id number] [place] [address] 30 Feb, 2012 [facility] [place] [facility] [address] [id number] [place] [address] Feb, [facility] [place] [facility] [address] [id number] [place] [address] Dec, [facility] [place] [facility] [address] [id number] [address] Sep, [facility] [address], [place] [address] Sep, [facility] [address], [place] [address] Sep, [facility] [address], [place] [address] Aug, [facility] [id number] [place] [address] Aug, [facility] [address], [place] [address] Aug, [facility] [id number] [place] [address] Jul, [facility] [id number] [place] [address] Jun, [facility] [address], [place] [address] Jun, [facility] [id number] [place] [address] May, [facility] [address], [place] [address] Apr, [facility] [address], [place] [address] Mar, [facility] [address], [place] [address] Apr, [facility] [address], [place] [address] Apr, [facility] [address], [place] [address] Feb, IMMUNIZATIONS No Known Immunizations SOCIAL HISTORY Never Assessed REASON FOR VISIT EMR-[facility] [place] PLAN OF CARE VITAL SIGNS MEDICATIONS No [...]
--- OUTSIDE RECORDS SUMMARY | 2019-01-07 14:03 | XMS REPORT ---
Author Author Migration, Doctor Organization [facility] Address Unknown Phone Unavailable Care Team Providers Care Production Associate Name Role Phone Migration, Doctor Unavailable Unavailable PROBLEMS Type Condition ICD9-CM Code DBU47-PB Code Onset Dates Condition Status SNOMED Code Problem Hyperlipidemia, unspecified E78.5 Active 40558130 Problem Current chronic use of systemic steroids Z79.52 Active 524508700835430 Problem Gastroesophageal reflux disease without esophagitis K21.9 Active 923427279 Problem Reactive airway disease J45.909 Active 589701221524 Problem Hypertension I10 Active 79685918 Problem Psoriasis L40.9 Active 8262255 ALLERGIES No Information ENCOUNTERS Encounter Location Date Diagnosis [address] [address] October, [address] [address] Sep, Psoriasis L40.9 ; Hypertension I10 ; Hyperlipidemia, unspecified E78.5 ; Weight gain R63.5 and Current chronic use of systemic steroids Z79.52 [facility] [address] [place] [id number] [place] [address] Sep, Wheezing R06.2 [facility] [address] [address] Jul, Non-recurrent acute suppurative otitis media of left ear without spontaneous rupture of tympanic membrane H66.[address] [address] Jun, Cellulitis of right upper extremity L03.113 and Psoriasis L40.9 [facility] [address] [place] [id number] [place] [address] Jan, Moderate asthma with exacerbation, unspecified whether persistent J45.901 [place] [address] [address] Dec, Psoriasis L40.9 [facility] [place] [address] [address] Sep, Seasonal allergic rhinitis, unspecified trigger J30.2 and Acute bronchitis, unspecified organism J20.9 [facility] [address] [address] Jun, Fever R50.9 and Acute nasopharyngitis J00 [place] [address] [address] Jun, Psoriasis L40.9 [place] [address] [address] May, Hyperlipidemia, unspecified E78.[address] [address] Apr, Exposure to hepatitis C Z20.5 [facility] [address] [address] Feb, Acute recurrent maxillary sinusitis J01.01 [facility] [address] [address] Jan, Sore throat J02.9 and Acute non-recurrent maxillary sinusitis J01.00 [place] [address] [address] Jan, [facility] [address] [address] Dec, Partial thickness burn of palm of right hand, initial encounter T23.251A [place] [address] [address] Dec, Screening for breast cancer Z12.[address] [address] 09 Jere, 2017 Hyperlipidemia, unspecified E78.5 [facility] [address] [place] [address] 08 Nov, 2016 Hypertension I10 ; Hyperlipidemia, unspecified E78.5 ; Reactive airway disease J45.909 and Breast cancer screening Z12.39 [place] [address] [address] [place] [id number] [place] [address] 10 Sep, 2016 Psoriasis L40.9 [place] [address] [address] [place] [id number] [place] [address] 16 Apr, 2016 Pneumonia of right upper lobe due to Mycoplasma pneumoniae J15.7 [place] [address] [address] [place] [id number] [place] [address] 29 Feb, 2016 Hypertension I10 [facility] [place] [address] [address] [place] [id number] [place] [address] 22 Feb, 2016 Acute non-recurrent maxillary sinusitis J01.00 [facility] [place] [address] [address] [place] [id number] [place] [address] October, Upper respiratory tract infection, unspecified type J06.9 [facility] [place] [address] [address] [place] [id number] [place] [address] 15 Sep, 2015 Sore throat J02.9 and Acute streptococcal pharyngitis J02.0 [place] [address] [place] [address] 10 Aug, 2015 Hypertension I10 and Reactive airway disease J45.909 [place] [address] [place] [address] 10 Aug, 2015 Hypertension 401.9 [place] [address] [address] [place] [id number] [place] [address] 09 Aug, 2015 [place] [address] [place] [id number] [place] [address] 07 Aug, 2015 [facility] [place] [address] [address] [place] [id number] [place] [address] Jul, Acute bacterial sinusitis J01.90 [facility] [address] [address] May, [facility] [address] [place] [id number] [address] Jan, Carpal tunnel syndrome 354.0 ; Hypertension 401.9 and Other and unspecified hyperlipidemia 272.4 [facility] [address] [place] [id number] [place] [address] Nov, Screening for breast cancer V76.10 and URI, acute 465.9 [facility] [address] [place] [id number] [address] October, Asthma 493.90 ; Hypertension 401.9 and Visit for screening mammogram V76.12 [facility] [address] [address] Sep, [facility] [address] [place] [id number] [address] Sep, [facility] [address] [address] Aug, [facility] [address] [address] Aug, [facility] [address] [place] [address] Jul, [facility] [address] [address] Jun, [facility] [address] [place] [id number] [address] Jun, [facility] [address] [place] [address] Apr, [facility] [address] [place] [id number] [address] Apr, [facility] [address] [place] [address] Mar, [facility] [place] [facility] [address] [id number] [place] [address] Mar, [facility] [place] [facility] [address] [id number] [place] [address] Mar, [facility] [place] [facility] [address] [id number] [place] [address] Mar, [facility] [place] [facility] [address] [id number] [place] [address] Mar, [facility] [place] [facility] [address] [id number] [place] [address] 30 Feb, 2014 [facility] [place] [facility] [address] [id number] [place] [address] 30 Feb, 2013 [facility] [place] [facility] [address] [id number] [place] [address] 29 Feb, 2013 [facility] [place] [facility] [address] [id number] [place] [address] 29 Feb, 2013 [facility] [place] [facility] [address] [id number] [place] [address] 23 Feb, 2013 [facility] [place] [facility] [address] [id number] [place] [address] 23 Feb, 2013 [facility] [place] [facility] [address] [id number] [place] [address] 23 Feb, 2013 [facility] [place] [facility] [address] [id number] [place] [address] 23 Feb, 2013 [facility] [place] [facility] [address] [id number] [place] [address] 22 Feb, 2013 [facility] [place] [facility] [address] [id number] [place] [address] 22 Feb, 2013 [facility] [place] [facility] [address] [id number] [place] [address] 12 Feb, 2013 [facility] [place] [facility] [address] [id number] [place] [address] Feb, [facility] [place] [facility] [address] [id number] [place] [address] Feb, [facility] [place] [facility] [address] [id number] [place] [address] Feb, [facility] [place] [facility] [address] [id number] [place] [address] Jan, [facility] [place] [facility] [address] [id number] [place] [address] Dec, [facility] [place] [facility] [address] [id number] [place] [address] Nov, [facility] [place] [facility] [address] [id number] [place] [address] Nov, [facility] [place] [facility] [address] [id number] [place] [address] Nov, [facility] [place] [facility] [address] [id number] [place] [address] Nov, [facility] [place] [facility] [address] [id number] [place] [address] Nov, [facility] [place] [facility] [address] [id number] [place] [address] Nov, [facility] [place] [facility] [address] [id number] [place] [address] Nov, [facility] [place] [facility] [address] [id number] [place] [address] Nov, [facility] [place] [facility] [address] [id number] [place] [address] October, [facility] [place] [facility] [address] [id number] [place] [address] October, [facility] [place] [facility] [address] [id number] [place] [address] October, [facility] [place] [facility] [address] [id number] [place] [address] October, [facility] [place] [facility] [address] [id number] [place] [address] October, [facility] [place] [facility] [address] [id number] [place] [address] October, [facility] [place] [facility] [address] [id number] [place] [address] October, [facility] [place] [facility] [address] [id number] [place] [address] Sep, [facility] [place] [facility] [address] [id number] [place] [address] Sep, [facility] [place] [facility] [address] [id number] [place] [address] Aug, [facility] [place] [facility] [address] [id number] [place] [address] Aug, [facility] [place] [facility] [address] [id number] [place] [address] Aug, [facility] [place] [facility] [address] [id number] [place] [address] Aug, [facility] [place] [facility] [address] [id number] [place] [address] Jun, [facility] [place] [facility] [address] [id number] [place] [address] Jun, [facility] [place] [facility] [address] [id number] [place] [address] Jun, [facility] [place] [facility] [address] [id number] [place] [address] Jun, [facility] [place] [facility] [address] [id number] [place] [address] Apr, [facility] [place] [facility] [address] [id number] [place] [address] Apr, [facility] [place] [facility] [address] [id number] [place] [address] Apr, [facility] [place] [facility] [address] [id number] [place] [address] Apr, [facility] [place] [facility] [address] [id number] [place] [address] Mar, [facility] [place] [facility] [address] [id number] [place] [address] Mar, [facility] [place] [facility] [address] [id number] [place] [address] Mar, [facility] [place] [facility] [address] [id number] [place] [address] Mar, [facility] [place] [facility] [address] [id number] [place] [address] Mar, [facility] [place] [facility] [address] [id number] [place] [address] Mar, [facility] [place] [facility] [address] [id number] [place] [address] Mar, [facility] [place] [facility] [address] [id number] [place] [address] Mar, [facility] [place] [facility] [address] [id number] [place] [address] Mar, [facility] [place] [facility] [address] [id number], [place] [address] 24 Feb, 2013 [facility] [place] [facility] [address] [id number] [place] [address] 24 Feb, 2013 [facility] [place] [facility] [address] [id number] [place] [address] Feb, [facility] [place] [facility] [address] [id number] [place] [address] Jan, [facility] [place] [facility] [address] [id number] [place] [address] Dec, [facility] [place] [facility] [address] [id number] [place] [address] Nov, [facility] [place] [facility] [address] [id number] [place] [address] Sep, [facility] [place] [facility] [address] [id number] [place] [address] Aug, [facility] [place] [facility] [address] [id number] [place] [address] Aug, [facility] [place] [facility] [address] [id number] [place] [address] Jul, [facility] [place] [facility] [address] [id number] [place] [address] Jun, [facility] [place] [facility] [address] [id number] [place] [address] Mar, [facility] [place] [facility] [address] [id number] [place] [address] Mar, [facility] [place] [facility] [address] [id number] [place] [address] Mar, [facility] [place] [facility] [address] [id number] [place] [address] Mar, [facility] [place] [facility] [address] [id number] [place] [address] Mar, [facility] [place] [facility] [address] [id number] [place] [address] Mar, [facility] [place] [facility] [address] [id number] [place] [address] 30 Feb, 2012 [facility] [place] [facility] [address] [id number] [place] [address] Feb, [facility] [place] [facility] [address] [id number], [place] [address] Dec, [facility] [address] [facility] [id number] [place] [address] Sep, [facility] [address] [facility] [id number], [place] [address] Sep, [facility] [address] [facility] [id number] [place] [address] Sep, [facility] [address] [facility] [id number], [place] [address] Aug, [facility] [address] [facility] [id number] [place] [address] Aug, [facility] [address] [facility] [id number] [place] [address] Aug, [facility] [address] [facility] [id number], [place] [address] Jul, [facility] [address] [facility] [id number], [place] [address] Jun, [facility] [address] [facility] [id number], [place] [address] Jun, [facility] [address] [facility] [id number], [place] [address] May, [facility] [address] [facility] [id number], [place] [address] Apr, [facility] [address] [facility] [id number], [place] [address] 14 Mar, 2011 [facility] [address] [facility] [id number], [place] [address] Apr, [facility] [address] [facility] [id number], [place] [address] Apr, [facility] [address] [facility] [id number], [place] [address] 14 Feb, 2010 IMMUNIZATIONS No Known Immunizations SOCIAL HISTORY Never Assessed REASON FOR VISIT [facility] [place] PLAN OF CARE VITAL SIGNS MEDICATIONS Unknown Medications RESULTS No Results PROCEDURES No Known [...]
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
--- OUTSIDE RECORDS SUMMARY | 2019-01-07 14:04 | XMS REPORT ---
Author Author DOMINIC ESPINOSA [facility] WALK IN [facility] Address [address] [place] [address] Care Team Providers Care Manometer Technician Name Role Phone FRANCISCAGERTRUDISDOMINIC Unavailable PROBLEMS Type Condition ICD9-CM Code OAC81-QY Code Onset Dates Condition Status SNOMED Code Problem Hyperlipidemia, unspecified E78.5 Active 77138173 Problem Psoriasis L40.9 Active 6802669 Problem Gastroesophageal reflux disease without esophagitis K21.9 Active 246722562 Problem Hypertension I10 Active 15937665 Problem Reactive airway disease J45.909 Active [id number] ALLERGIES Substance Reaction Event Type Date Status Femara heart attack symptoms Drug Allergy Sep, Active ENCOUNTERS Encounter Location Date Diagnosis [facility] [address] [address] Dec, Psoriasis L40.9 [facility]ALK IN [facility] [address] [address] Sep, Seasonal allergic rhinitis, unspecified trigger J30.2 and Acute bronchitis, unspecified organism J20.[address] [facility] IN [facility] [id number] [place] [address] Jun, Fever R50.9 and Acute nasopharyngitis J00 [facility] [address] [address] Jun, Psoriasis L40.9 [facility] [address] [address] May, Hyperlipidemia, unspecified E78.5 [facility] [address] [address] 04 Apr, 2017 Exposure to hepatitis C Z20.5 [facility]ALK IN [facility] [address] [place] [address] 13 Feb, 2017 Acute recurrent maxillary sinusitis J01.01 [facility] [place] [id number] [place] [address] Jan, Sore throat J02.9 and Acute non-recurrent maxillary sinusitis J01.00 [place] [id number] [place] [address] Jan, [facility] [place] [id number] [place] [address] Dec, Partial thickness burn of palm of right hand, initial encounter T23.251A [place] [address] [address] Dec, Screening for breast cancer Z12.31 [place] [id number] [place] [address] 09 Nov, 2016 Hyperlipidemia, unspecified E78.5 [place] [id number] [place] [address] 08 Nov, 2016 Hypertension I10 ; Hyperlipidemia, unspecified E78.5 ; Reactive airway disease J45.909 and Breast cancer screening Z12.39 [place] [id number] [place] [address] Sep, Psoriasis L40.9 [place] [id number] [place] [address] Apr, Pneumonia of right upper lobe due to Mycoplasma pneumoniae J15.7 [place] [id number] [place] [address] Feb, Hypertension I10 [facility] [place] [id number] [place] [address] 22 Feb, 2016 Acute non-recurrent maxillary sinusitis J01.00 [facility] [place] [id number] [place] [address] 20 May, 2016 Upper respiratory tract infection, unspecified type J06.9 [facility] [address] [address] 15 Sep, 2016 Sore throat J02.9 and Acute streptococcal pharyngitis J02.0 [facility] [address] [address] 10 Aug, 2015 Hypertension I10 and Reactive airway disease J45.909 [place] [id number] [place] [address] 10 Aug, 2015 Hypertension 401.9 [place] [id number] [place] [address] 09 Aug, 2015 [place] [id number] [place] [address] 07 Aug, 2015 [facility]ALK IN [facility] [id number] [place] [address] 20 Jul, 2015 Acute bacterial sinusitis J01.90 [place] [id number] [place] [address] May, [place] [id number] [place] [address] Jan, Carpal tunnel syndrome 354.0 ; Hypertension 401.9 and Other and unspecified hyperlipidemia 272.4 [place] [id number] [place] [address] Nov, Screening for breast cancer V76.10 and URI, acute 465.9 [place] [id number] [place] [address] October, Asthma 493.90 ; Hypertension 401.9 and Visit for screening mammogram V76.12 [place] [id number] [place] [address] 14 Sep, 2014 [place] [id number] [place] [address] Sep, [place] [address] [id number] [place] [address] Aug, [facility] [place] [facility] [address] [id number] [place] [address] Aug, [facility] [place] [facility] [address] [id number] [place] [address] Jul, [facility] [place] [facility] [address] [id number] [place] [address] Jun, [facility] [place] [facility] [address] [id number] [place] [address] Jun, [facility] [place] [facility] [address] [id number] [place] [address] Apr, [facility] [place] [facility] [address] [id number] [place] [address] Apr, [facility] [place] [facility] [address] [id number] [place] [address] Mar, [facility] [place] [facility] [address] [id number] [place] [address] Mar, [facility] [place] [facility] [address] [id number] [place] [address] Mar, [facility] [place] [facility] [address] [id number] [place] [address] Mar, [facility] [place] [facility] [address] [id number] [place] [address] Mar, [facility] [place] [facility] [address] [id number] [place] [address] 30 Feb, 2014 [facility] [place] [facility] [address] [id number] [place] [address] 30 Feb, 2014 [facility] [place] [facility] [address] [id number] [place] [address] 29 Feb, 2014 [facility] [place] [facility] [address] [id number] [place] [address] 29 Feb, 2013 [facility] [place] [facility] [address] [id number] [place] [address] Feb, 2013 [facility] [place] [facility] [address] [id number] [place] [address] Feb, 2013 [facility] [place] [facility] [address] [id number] [place] [address] Feb, 2013 [facility] [place] [facility] [address] [id number] [place] [address] Feb, 2013 [facility] [place] [facility] [address] [id number] [place] [address] Feb, [facility] [place] [facility] [address] [id number] [place] [address] Feb, [facility] [place] [facility] [address] [id number] [place] [address] Feb, [facility] [place] [facility] [address] [id number] [place] [address] Feb, [facility] [place] [facility] [address] [id number] [place] [address] Feb, [facility] [place] [facility] [address] [id number] [place] [address] Feb, [facility] [place] [facility] [address] [id number] [address] Jan, [facility] [place] [facility] [address] [id number], [place] [address] Dec, [facility] [place] [facility] [address] [id number] [place] [address] Nov, [facility] [place] [facility] [address] [id number] [place] [address] 30 Nov, 2013 [facility] [place] [facility] [address] [id number] [place] [address] Nov, [facility] [place] [facility] [address] [id number] [place] [address] Nov, [facility] [place] [facility] [address] [id number] [place] [address] Nov, [facility] [place] [facility] [address] [id number] [place] [address] Nov, [facility] [place] [facility] [address] [id number] [place] [address] Nov, [facility] [place] [facility] [address] [id number] [place] [address] Nov, [facility] [place] [facility] [address] [id number] [place] [address] October, [facility] [place] [facility] [address] [id number] [place] [address] October, [facility] [place] [facility] [address] [id number] [place] [address] October, [facility] [place] [facility] [address] [id number] [place] [address] October, [facility] [place] [facility] [address] [id number] [place] [address] October, [facility] [place] [facility] [address] [id number] [place] [address] October, [facility] [place] [facility] [address] [id number] [place] [address] October, [facility] [place] [facility] [address] [id number] [place] [address] Sep, [facility] [place] [facility] [address] [id number] [place] [address] Sep, [facility] [place] [facility] [address] [id number] [place] [address] Aug, [facility] [place] [facility] [address] [id number] [place] [address] Aug, [facility] [place] [facility] [address] [id number] [place] [address] Aug, [facility] [place] [facility] [address] [id number] [place] [address] Aug, [facility] [place] [facility] [address] [id number] [place] [address] Jun, [facility] [place] [facility] [address] [id number] [place] [address] Jun, [facility] [place] [facility] [address] [id number] [place] [address] Jun, [facility] [place] [facility] [address] [id number] [place] [address] Jun, [facility] [place] [facility] [address] [id number] [place] [address] Apr, [facility] [place] [facility] [address] [id number] [place] [address] Apr, [facility] [place] [facility] [address] [id number] [place] [address] Apr, [facility] [place] [facility] [address] [id number] [place] [address] Apr, [facility] [place] [facility] [address] [id number] [place] [address] Mar, [facility] [place] [facility] [address] [id number] [place] [address] Mar, [facility] [place] [facility] [address] [id number] [place] [address] Mar, [facility] [place] [facility] [address] [id number] [place] [address] Mar, [facility] [place] [facility] [address] [id number] [place] [address] Mar, [facility] [place] [facility] [address] [id number] [place] [address] Mar, [facility] [place] [facility] [address] [id number] [place] [address] Mar, [facility] [place] [facility] [address] [id number] [place] [address] 16 Mar, 2013 [facility] [place] [facility] [address] [id number] [place] [address] Mar, [facility] [place] [facility] [address] [id number] [place] [address] 24 Feb, 2013 [facility] [place] [facility] [address] [id number] [place] [address] 24 Feb, 2013 [facility] [place] [facility] [address] [id number] [place] [address] Feb, [facility] [place] [facility] [address] [id number] [place] [address] Jan, [facility] [place] [facility] [address] [id number] [place] [address] Dec, [facility] [place] [facility] [address] [id number] [place] [address] Nov, [facility] [place] [facility] [address] [id number] [place] [address] Sep, [facility] [place] [facility] [address] [id number] [place] [address] Aug, [facility] [place] [facility] [address] [id number] [place] [address] Aug, [facility] [place] [facility] [address] [id number] [place] [address] Jul, [facility] [place] [facility] [address] [id number] [place] [address] Jun, [facility] [place] [facility] [address] [id number] [place] [address] Mar, [facility] [place] [facility] [address] [id number] [place] [address] 30 Mar, 2012 [facility] [address] [id number] [place] [address] Mar, [facility] [place] [facility] [address] [id number] [place] [address] Mar, [facility] [address] [id number] [place] [address] Mar, [facility] [place] [facility] [address] [id number] [place] [address] Mar, [facility] [address] [id number] [place] [address] Feb, [facility] [place] [facility] [address] [id number] [place] [address] Feb, [facility] [place] [facility] [address] [id number] [place] [address] Dec, [facility] [address] [id number] [place] [address] Sep, [facility] [place] [facility] [address] [id number] [place] [address] Sep, [facility] [address] [id number] [place] [address] Sep, [facility] [place] [facility] [address] [id number] [place] [address] Aug, [facility] [place] [facility] [address] [id number] [place] [address] Aug, [facility] [place] [facility] [address] [id number] [place] [address] Aug, [facility] [place] [facility] [address] [id number] [place] [address] Jul, [facility] [place] [facility] [address] [id number] [place] [address] Jun, [facility] [address] [facility] [id number] [address] Jun, [facility] [address] [address] May, [facility] [id number] [address] Apr, [facility] [id number] [address] Mar, [facility] [id number] [address] Apr, [facility] [address] [address] Apr, [facility] [address] [id number] [address] Feb, IMMUNIZATIONS No Known Immunizations SOCIAL HISTORY Never Assessed REASON FOR VISIT congestion/cough started about 3 weeks ago Yara PLAN OF CARE Activity Details Follow Up prn Reason: VITAL SIGNS Height 61 in 2017-09-24 Weight 189.2 lbs 2017-09-24 Temperature 97.7 degrees Fahrenheit 2017-09-24 Heart Rate 88 bpm 2017-09-24 Respiratory Rate 22 2017-09-24 Oximetry 96 % 2017-09-24 BMI 35.75 kg/m2 2017-09-24 Blood pressure systolic 132 mmHg 2017-09-24 Blood pressure diastolic 78 mmHg 2017-09-24 MEDICATIONS Medication Instructions Dosage Frequency Start Date End Date Duration Status Fluticasone Propionate 50 MCG/ACT USE ONE SPRAY IN EACH NOSTRIL TWICE DAILY 30 Active Loratadine 10 MG TAKE ONE TABLET BY MOUTH DAILY 30 Active Ventolin HFA 90 mcg/actuation Inhalation every 4 hrs inhale 1 - 2 puffs by inhalation route every 4 hours as needed Use prn shortness of breath 4h Nov, Active PredniSONE 20 MG Orally Once a day 2 tablet 24h Sep, Sep, 5 days Active Simvastatin 20 mg Orally Once a day 1 tablet in the evening 24h 90 Active ProAir HFA 108 (90 Base) MCG/ACT Inhalation every 6 hrs 2 puffs as needed 6h Sep, 7 days Active Symbicort 160-4.5 mcg/actuation inhale 2 puffs by inhalation route 2 times per day in the morning and evening Nov, 30 Active Amlodipine Besylate 5 MG TAKE ONE TABLET BY MOUTH ONCE DAILY 90 Active Ranitidine HCl 150 MG TAKE ONE TABLET BY MOUTH TWICE DAILY 30 Active Singulair 10 MG Orally Once a day 1 tablet in the evening 24h Sep, 30 day(s) Active Hydrochlorothiazide 25 MG TAKE ONE TABLET BY MOUTH ONCE DAILY 90 Active Enalapril Maleate 20 mg Orally Once a day 2 tablets 24h 90 Active RESULTS No Results PROCEDURES No Known [...]
--- OUTSIDE RECORDS SUMMARY | 2019-01-07 14:04 | XMS REPORT ---
Author Author CHRISTINE PHAN Organization [facility] Address [address] [place] [address] Care Team Providers Care Pipe Coverer Helper Name Role Phone CHRISTINE PHAN Unavailable PROBLEMS Type Condition ICD9-CM Code NSZ99-MY Code Onset Dates Condition Status SNOMED Code Problem Hyperlipidemia, unspecified E78.5 Active 91030059 Problem Psoriasis L40.9 Active 0276545 Problem Gastroesophageal reflux disease without esophagitis K21.9 Active 971656185 Problem Hypertension I10 Active 06816684 Problem Reactive airway disease J45.909 Active [id number] ALLERGIES No Information ENCOUNTERS Encounter Location Date Diagnosis [facility] [address] [address] Dec, [facility] [address] [address] 12 Sep, 2017 Seasonal allergic rhinitis, unspecified trigger J30.2 and Acute bronchitis, unspecified organism J20.9 [facility] [address] [place] [place] [id number] [place] [address] Jun, Fever R50.9 and Acute nasopharyngitis J00 [place] [address] [address] Jun, Psoriasis L40.9 [facility] [address] [address] 18 May, 2017 Hyperlipidemia, unspecified E78.5 [facility] [address] [address] 04 Apr, 2017 Exposure to hepatitis C Z20.5 [facility] [address] [address] 13 Feb, 2017 Acute recurrent maxillary sinusitis J01.01 [facility] [address] [address] Jan, Sore throat J02.9 and Acute non-recurrent maxillary sinusitis J01.00 [place] [address] [place] [address] Jan, [facility] [place] [id number] [place] [address] Dec, Partial thickness burn of palm of right hand, initial encounter T23.251A [place] [address] [address] 11 Dec, 2016 Screening for breast cancer Z12.31 [place] [id number] [place] [address] 09 Nov, 2016 Hyperlipidemia, unspecified E78.5 [place] [id number] [place] [address] 08 Nov, 2016 Hypertension I10 ; Hyperlipidemia, unspecified E78.5 ; Reactive airway disease J45.909 and Breast cancer screening Z12.39 [place] [id number] [place] [address] Sep, Psoriasis L40.9 [place] [id number] [place] [address] Apr, Pneumonia of right upper lobe due to Mycoplasma pneumoniae J15.7 [place] [id number] [place] [address] Feb, Hypertension I10 [facility] [place] [id number] [place] [address] Feb, Acute non-recurrent maxillary sinusitis J01.00 [facility] [place] [id number] [place] [address] October, Upper respiratory tract infection, unspecified type J06.9 [facility] [id number] [address] 15 Sep, 2015 Sore throat J02.9 and Acute streptococcal pharyngitis J02.0 [facility] [id number] [place] [address] 10 Aug, 2015 Hypertension I10 and Reactive airway disease J45.909 [facility] [id number] [place] [address] 10 Aug, 2015 Hypertension 401.9 [facility] [id number] [place] [address] 09 Aug, 2015 [place] [id number] [place] [address] 07 Aug, 2015 [facility] [id number] [place] [address] 20 Jul, 2015 Acute bacterial sinusitis J01.90 [place] [id number] [place] [address] May, [facility] [id number] [place] [address] Jan, Carpal tunnel syndrome 354.0 ; Hypertension 401.9 and Other and unspecified hyperlipidemia 272.4 [place] [id number] [place] [address] Nov, Screening for breast cancer V76.10 and URI, acute 465.9 [place] [address] [place] [address] October, Asthma 493.90 ; Hypertension 401.9 and Visit for screening mammogram V76.12 [place] [id number] [place] [address] 14 Sep, 2014 [place] [address] [place] [address] 13 Sep, 2014 [place] [id number] [place] [address] Aug, [facility] [place] [facility] [address] [id number] [place] [address] Aug, [facility] [place] [facility] [address] [id number] [place] [address] Jul, [facility] [place] [facility] [address] [facility] [id number] [place] [address] Jun, [facility] [place] [facility] [address] [id number] [place] [address] Jun, [facility] [place] [facility] [address] [id number] [place] [address] Apr, [facility] [place] [facility] [address] [id number] [place] [address] Apr, [facility] [place] [facility] [address] [id number] [place] [address] Mar, [facility] [place] [facility] [address] [id number] [place] [address] Mar, [facility] [place] [facility] [address] [id number] [place] [address] Mar, [facility] [place] [facility] [address] [facility] [id number] [place] [address] Mar, [facility] [place] [facility] [address] [id number], [place] [address] Mar, [facility] [place] [facility] [address] [id number], [place] [address] 30 Feb, 2014 [facility] [place] [facility] [address] [id number] [place] [address] 30 Feb, 2014 [facility] [place] [facility] [address] [id number] [place] [address] 29 Feb, 2014 [facility] [place] [facility] [address] [id number] [place] [address] Feb, [facility] [place] [facility] [address] [id number] [place] [address] 23 Feb, 2013 [facility] [place] [facility] [address] [id number] [place] [address] 23 Feb, 2013 [facility] [place] [facility] [address] [id number] [place] [address] Feb, 2013 [facility] [place] [facility] [address] [id number] [place] [address] Feb, 2013 [facility] [place] [facility] [address] [id number] [place] [address] Feb, 2013 [facility] [place] [facility] [address] [id number] [place] [address] Feb, 2013 [facility] [place] [facility] [address] [id number] [place] [address] Feb, 2013 [facility] [place] [facility] [address] [id number] [place] [address] Feb, 2013 [facility] [place] [facility] [address] [id number] [place] [address] Feb, 2013 [facility] [place] [facility] [address] [id number] [place] [address] Feb, 2013 [facility] [place] [facility] [address] [id number] [place] [address] Jan, [facility] [place] [facility] [address] [id number] [place] [address] Dec, [facility] [place] [facility] [address] [id number] [place] [address] Nov, [facility] [place] [facility] [address] [id number] [place] [address] Nov, [facility] [place] [facility] [address] [id number] [place] [address] Nov, [facility] [place] [facility] [address] [id number] [place] [address] Nov, [facility] [place] [facility] [address] [id number] [place] [address] Nov, [facility] [place] [facility] [address] [id number] [place] [address] Nov, [facility] [place] [facility] [address] [id number] [place] [address] Nov, [facility] [place] [facility] [address] [id number] [place] [address] Nov, [facility] [place] [facility] [address] [id number] [place] [address] October, [facility] [place] [facility] [address] [id number] [place] [address] October, [facility] [place] [facility] [address] [id number] [place] [address] October, [facility] [place] [facility] [address] [id number] [place] [address] October, [facility] [place] [facility] [address] [id number] [place] [address] October, [facility] [place] [facility] [address] [id number] [place] [address] October, [facility] [place] [facility] [address] [id number] [place] [address] October, [facility] [place] [facility] [address] [id number] [place] [address] Sep, [facility] [place] [facility] [address] [id number] [place] [address] Sep, [facility] [place] [facility] [address] [id number] [place] [address] Aug, [facility] [place] [facility] [address] [id number] [place] [address] Aug, [facility] [place] [facility] [address] [id number], [place] [address] Aug, [facility] [place] [facility] [address] [id number] [place] [address] Aug, [facility] [place] [facility] [address] [id number] [place] [address] Jun, [facility] [place] [facility] [address] [id number] [place] [address] Jun, [facility] [place] [facility] [address] [id number] [place] [address] Jun, [facility] [place] [facility] [address] [id number] [place] [address] Jun, [facility] [place] [facility] [address] [id number] [place] [address] Apr, [facility] [place] [facility] [address] [id number] [place] [address] Apr, [facility] [place] [facility] [address] [id number] [place] [address] Apr, [facility] [place] [facility] [address] [id number] [place] [address] Apr, [facility] [place] [facility] [address] [id number] [place] [address] Mar, [facility] [place] [facility] [address] [id number], [place] [address] Mar, [facility] [place] [facility] [address] [id number], [place] [address] Mar, [facility] [place] [facility] [address] [id number] [place] [address] Mar, [facility] [place] [facility] [address] [id number] [place] [address] Mar, [facility] [place] [facility] [address] [id number] [place] [address] Mar, [facility] [place] [facility] [address] [id number] [place] [address] 16 Mar, 2013 [facility] [address] [id number] [place] [address] 16 Mar, 2013 [facility] [address] [id number] [place] [address] Mar, [facility] [address] [id number] [place] [address] 24 Feb, 2013 [facility] [address] [id number] [place] [address] 24 Feb, 2013 [facility] [address] [id number] [place] [address] Feb, [facility] [address] [id number] [place] [address] Jan, [facility] [address] [id number] [place] [address] Dec, [facility] [address] [id number] [place] [address] Nov, [facility] [address] [id number] [place] [address] Sep, [facility] [address] [id number] [place] [address] Aug, [facility] [address] [id number] [place] [address] Aug, [facility] [address] [id number] [place] [address] Jul, [facility] [place] [facility] [address] [id number] [place] [address] Jun, [facility] [place] [facility] [address] [id number] [place] [address] Mar, [facility] [place] [facility] [address] [id number] [place] [address] Mar, [facility] [place] [facility] [address] [id number] [place] [address] Mar, [facility] [place] [facility] [address] [id number] [place] [address] Mar, [facility] [place] [facility] [address] [id number] [place] [address] Mar, [facility] [place] [facility] [address] [id number] [place] [address] Mar, [facility] [place] [facility] [address] [id number] [place] [address] Feb, [facility] [place] [facility] [address] [id number] [place] [address] Feb, [facility] [place] [facility] [address] [facility] [id number] [place] [address] Dec, [facility] [place] [facility] [address] [id number], [place] [address] Sep, [facility] [place] [facility] [address] [id number] [place] [address] Sep, [facility] [place] [facility] [address] [facility] [id number], [place] [address] Sep, [facility] [place] [facility] [address] [id number], [place] [address] Aug, [facility] [place] [facility] [address] [id number], [place] [address] Aug, [facility] [place] [facility] [address] [id number] [place] [address] Aug, [facility] [place] [facility] [address] [id number], [place] [address] Jul, [facility] [place] [facility] [address] [facility] [id number] [place] [address] Jun, [facility] [place] [facility] [address] [facility] [id number], [place] [address] Jun, [facility] [id number] [address] May, [facility] [id number] [address] Apr, [facility] [id number] [address] Mar, [facility] [address] [address] Apr, [facility] [address] [address] Apr, [facility] [id number] [address] 14 Feb, 2010 IMMUNIZATIONS No Known Immunizations SOCIAL HISTORY Never Assessed REASON FOR VISIT Refill request PLAN OF CARE VITAL SIGNS MEDICATIONS Medication Instructions Dosage Frequency Start Date End Date Duration Status Ranitidine HCl 150 MG TAKE ONE TABLET BY MOUTH TWICE DAILY 30 Active Simvastatin 20 mg Orally Once a day 1 tablet in the evening 24h Active RESULTS No Results PROCEDURES No Known [...]
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
--- OUTSIDE RECORDS SUMMARY | 2019-01-07 14:06 | XMS REPORT ---
Author Author FREDIS ALVARADO Organization [facility] Address [address] [place] [address] Care Team Providers Care Numerologist Name Role Phone FREDIS ALVARADO Unavailable PROBLEMS Type Condition ICD9-CM Code [id number] Code Onset Dates Condition Status SNOMED Code Problem Hyperlipidemia, unspecified E78.5 Active 85669760 Problem Psoriasis L40.9 Active 5441731 Problem Gastroesophageal reflux disease without esophagitis K21.9 Active 516218264 Problem Hypertension I10 Active 45864861 Problem Reactive airway disease J45.909 Active [id number] ALLERGIES No Information ENCOUNTERS Encounter Location Date Diagnosis [facility] [address] [address] Sep, Seasonal allergic rhinitis, unspecified trigger J30.2 and Acute bronchitis, unspecified organism J20.9 [facility] [address] [address] Jun, Fever R50.9 and Acute nasopharyngitis J00 [facility] [address] [address] Jun, Psoriasis L40.9 [facility] [address] [address] May, Hyperlipidemia, unspecified E78.5 [facility] [address] [address] Apr, Exposure to hepatitis C Z20.5 [facility] [address] [address] 13 Feb, 2017 Acute recurrent maxillary sinusitis J01.01 [facility] [address] [address] Jan, Sore throat J02.9 and Acute non-recurrent maxillary sinusitis J01.00 [place] [id number] [place] [address] Jan, [facility] [place] [address] [place] [id number] [place] [address] Dec, Partial thickness burn of palm of right hand, initial encounter T23.251A [place] [address] [place] [id number] [place] [address] 11 Dec, 2016 Screening for breast cancer Z12.31 [place] [address] [id number] [place] [address] 09 Nov, 2016 Hyperlipidemia, unspecified E78.5 [place] [address] [place] [id number] [place] [address] 08 Nov, 2016 Hypertension I10 ; Hyperlipidemia, unspecified E78.5 ; Reactive airway disease J45.909 and Breast cancer screening Z12.39 [place] [address] [id number] [place] [address] Sep, Psoriasis L40.9 [place] [address] [place] [id number] [place] [address] Apr, Pneumonia of right upper lobe due to Mycoplasma pneumoniae J15.7 [place] [address] [place] [id number] [place] [address] Feb, Hypertension I10 [facility] [place] [address] [id number] [place] [address] Feb, Acute non-recurrent maxillary sinusitis J01.00 [facility] [place] [address] [id number] [place] [address] October, Upper respiratory tract infection, unspecified type J06.9 [facility] [place] [address] [place] [address] 15 Sep, 2015 Sore throat J02.9 and Acute streptococcal pharyngitis J02.0 [facility] [address] [address] 10 Aug, 2015 Hypertension I10 and Reactive airway disease J45.909 [facility] [address] [place] [address] 10 Aug, [address] [facility] [address] [place] [id number] [place] [address] 09 Aug, [address] [facility] [address] [id number] [place] [address] Aug, [facility] [address] [id number] [place] [address] Jul, Acute bacterial sinusitis J01.90 [facility] [address] [place] [address] [id number] [place] [address] May, [facility] [address] [address] [id number] [place] [address] Jan, Carpal tunnel syndrome 354.0 ; Hypertension 401.9 and Other and unspecified hyperlipidemia 272.4 [place] [address] [id number] [place] [address] Nov, Screening for breast cancer V76.10 and URI, acute 465.9 [facility] [address] [place] [address] October, Asthma 493.90 ; Hypertension 401.9 and Visit for screening mammogram V76.12 [facility] [address] [place] [address] Sep, [place] [address] [place] [id number] [place] [address] Sep, [facility] [address] [id number] [place] [address] Aug, [facility] [address] [id number] [place] [address] Aug, [facility] [place] [facility] [address] [id number] [place] [address] Jul, [facility] [place] [facility] [address] [id number] [place] [address] Jun, [facility] [place] [facility] [address] [id number] [place] [address] Jun, [facility] [place] [facility] [address] [id number] [place] [address] Apr, [facility] [place] [facility] [address] [id number] [place] [address] Apr, [facility] [place] [facility] [address] [id number] [place] [address] Mar, [facility] [place] [facility] [address] [id number] [place] [address] Mar, [facility] [place] [facility] [address] [id number] [place] [address] Mar, [facility] [place] [facility] [address] [id number] [place] [address] Mar, [facility] [place] [facility] [address] [id number] [address] Mar, [facility] [place] [facility] [address] [id number], [place] [address] 30 Feb, 2014 [facility] [place] [facility] [address] [id number], [place] [address] 30 Feb, 2014 [facility] [place] [facility] [address] [id number] [place] [address] 29 Feb, 2014 [facility] [place] [facility] [address] [id number] [place] [address] 29 Feb, 2014 [facility] [place] [facility] [address] [id number], [place] [address] 23 Feb, 2014 [facility] [place] [facility] [address] [id number], [place] [address] 23 Feb, 2013 [facility] [place] [facility] [address] [id number] [place] [address] 23 Feb, 2013 [facility] [place] [facility] [address] [id number] [place] [address] Feb, 2013 [facility] [place] [facility] [address] [id number] [place] [address] Feb, 2013 [facility] [place] [facility] [address] [id number] [place] [address] Feb, 2013 [facility] [place] [facility] [address] [id number] [place] [address] Feb, [facility] [place] [facility] [address] [id number] [place] [address] Feb, [facility] [place] [facility] [address] [id number] [place] [address] Feb, [facility] [place] [facility] [address] [id number] [place] [address] Feb, [facility] [place] [facility] [address] [id number] [place] [address] Jan, [facility] [place] [facility] [address] [id number] [place] [address] Dec, [facility] [place] [facility] [address] [id number] [place] [address] Nov, [facility] [place] [facility] [address] [id number] [address] Nov, [facility] [place] [facility] [address] [id number] [place] [address] Nov, [facility] [place] [facility] [address] [id number] [place] [address] Nov, [facility] [place] [facility] [address] [id number] [place] [address] Nov, [facility] [place] [facility] [address] [id number] [place] [address] Nov, [facility] [place] [facility] [address] [id number] [place] [address] Nov, [facility] [place] [facility] [address] [id number] [place] [address] Nov, [facility] [place] [facility] [address] [id number] [place] [address] October, [facility] [place] [facility] [address] [id number] [place] [address] October, [facility] [place] [facility] [address] [id number] [place] [address] October, [facility] [place] [facility] [address] [id number] [place] [address] October, [facility] [place] [facility] [address] [id number] [place] [address] October, [facility] [place] [facility] [address] [id number] [place] [address] October, [facility] [place] [facility] [address] [id number] [place] [address] October, [facility] [place] [facility] [address] [id number] [place] [address] Sep, [facility] [place] [facility] [address] [id number] [place] [address] Sep, [facility] [place] [facility] [address] [id number] [place] [address] Aug, [facility] [place] [facility] [address] [id number] [place] [address] Aug, [facility] [place] [facility] [address] [id number] [place] [address] Aug, [facility] [place] [facility] [address] [id number] [place] [address] Aug, [facility] [place] [facility] [address] [id number] [place] [address] Jun, [facility] [place] [facility] [address] [id number] [place] [address] Jun, [facility] [place] [facility] [address] [id number] [place] [address] Jun, [facility] [place] [facility] [address] [id number] [place] [address] Jun, [facility] [place] [facility] [address] [id number] [place] [address] Apr, [facility] [place] [facility] [address] [id number] [place] [address] Apr, [facility] [place] [facility] [address] [id number] [place] [address] Apr, [facility] [place] [facility] [address] [id number], [place] [address] Apr, [facility] [place] [facility] [address] [id number], [place] [address] Mar, [facility] [place] [facility] [address] [id number], [place] [address] Mar, [facility] [place] [facility] [address] [id number], [place] [address] Mar, [facility] [place] [facility] [address] [id number], [place] [address] 31 Mar, 2013 [facility] [place] [facility] [address] [id number], [place] [address] Mar, [facility] [place] [facility] [address] [id number], [place] [address] Mar, [facility] [place] [facility] [address] [id number], [place] [address] 16 Mar, 2013 [facility] [place] [facility] [address] [id number] [place] [address] 16 Mar, 2013 [facility] [address] [id number] [place] [address] Mar, [facility] [place] [facility] [address] [id number] [place] [address] 24 Feb, 2013 [facility] [place] [facility] [address] [id number] [place] [address] 24 Feb, 2013 [facility] [place] [facility] [address] [id number] [place] [address] Feb, [facility] [place] [facility] [address] [id number] [place] [address] Jan, [facility] [place] [facility] [address] [id number] [place] [address] Dec, [facility] [place] [facility] [address] [id number] [place] [address] Nov, [facility] [place] [facility] [address] [id number] [place] [address] Sep, [facility] [place] [facility] [address] [id number] [place] [address] Aug, [facility] [place] [facility] [address] [id number] [place] [address] Aug, [facility] [place] [facility] [address] [id number] [place] [address] Jul, [facility] [place] [facility] [address] [id number] [place] [address] Jun, [facility] [place] [facility] [address] [id number] [place] [address] Mar, [facility] [place] [facility] [address] [id number] [place] [address] Mar, [facility] [place] [facility] [address] [id number] [place] [address] Mar, [facility] [place] [facility] [address] [id number] [place] [address] Mar, [facility] [place] [facility] [address] [id number] [place] [address] Mar, [facility] [place] [facility] [address] [id number] [place] [address] Mar, [facility] [place] [facility] [address] [id number] [place] [address] Feb, [facility] [address] [id number] [place] [address] Feb, [facility] [place] [facility] [address] [id number] [place] [address] Dec, [facility] [address] [facility] [id number] [place] [address] Sep, [facility] [place] [facility] [address] [id number] [place] [address] Sep, [facility] [place] [facility] [address] [id number] [place] [address] Sep, [facility] [place] [facility] [address] [id number] [place] [address] Aug, [facility] [place] [facility] [address] [id number] [place] [address] Aug, [facility] [place] [facility] [address] [id number], [place] [address] Aug, [facility] [place] [facility] [address] [id number] [place] [address] Jul, [facility] [place] [facility] [address] [id number] [place] [address] Jun, [facility] [place] [facility] [address] [id number] [place] [address] Jun, [facility] [place] [facility] [address] [id number], [place] [address] May, [facility] [address] [facility] [id number] [address] Apr, [facility] [address] [facility] [id number], [place] [address] Mar, [facility] [address] [facility] [id number], [place] [address] Apr, [facility] [address] [facility] [id number], [place] [address] Apr, [facility] [address] [facility] [id number], [place] [address] 14 Feb, 2010 IMMUNIZATIONS No Known Immunizations SOCIAL HISTORY Never Assessed REASON FOR VISIT Lab (walk-in) PLAN OF CARE VITAL SIGNS MEDICATIONS Unknown Medications RESULTS Name Result Date Reference Range HEP C ANTIBODY 2017-04-18 HEPATITIS C ANTIBODY NON-REACTIVE NON-REACTIVE SIGNAL TO CUT-OFF 0.02 <1.00 PROCEDURES Procedure Date Ordered Result Body Site HEPATITIS C AB TEST Apr 18, 2017 VENIPUNCT, ROUTINE* Apr 18, 2017 INSTRUCTIONS MEDICATIONS ADMINISTERED No Known Medications [...]
--- OUTSIDE RECORDS SUMMARY | 2019-01-07 14:06 | XMS REPORT ---
Author Author CHRISTINE PHAN [facility] Address [address] [place] [address] Care Team Providers Care Customer Order Clerk Name Role Phone CHRISTINE PHAN Unavailable PROBLEMS Type Condition ICD9-CM Code CMM20-XO Code Onset Dates Condition Status SNOMED Code Problem Hyperlipidemia, unspecified E78.5 Active 79786496 Problem Psoriasis L40.9 Active 1942761 Problem Gastroesophageal reflux disease without esophagitis K21.9 Active 626320078 Problem Hypertension I10 Active 05236586 Problem Reactive airway disease J45.909 Active 222532209641 ALLERGIES No Information ENCOUNTERS Encounter Location Date Diagnosis [facility] [address] [address] Jun, Fever R50.9 and Acute nasopharyngitis J00 [facility] [address] [place] [address] Jun, Psoriasis L40.9 [facility] [address] [address] May, Hyperlipidemia, unspecified E78.[address] [address] 04 Apr, 2017 Exposure to hepatitis C Z20.5 [facility] [address] [place] [address] 13 Feb, 2017 Acute recurrent maxillary sinusitis J01.01 [facility] [place] [address] [address] Jan, Sore throat J02.9 and Acute non-recurrent maxillary sinusitis J01.00 [facility] [address] [address] Jan, [facility] [place] [id number] [place] [address] Dec, Partial thickness burn of palm of right hand, initial encounter T23.251A [place] [address] [place] [id number] [place] [address] 11 Dec, 2016 Screening for breast cancer Z12.31 [place] [address] [address] 09 Nov, 2016 Hyperlipidemia, unspecified E78.5 [place] [address] [place] [id number] [place] [address] 08 Nov, 2016 Hypertension I10 ; Hyperlipidemia, unspecified E78.5 ; Reactive airway disease J45.909 and Breast cancer screening Z12.39 [place] [id number] [place] [address] Sep, Psoriasis L40.9 [place] [address] [place] [id number] [place] [address] Apr, Pneumonia of right upper lobe due to Mycoplasma pneumoniae J15.7 [place] [id number] [place] [address] Feb, Hypertension I10 [facility] [place] [id number] [place] [address] Feb, Acute non-recurrent maxillary sinusitis J01.00 [facility] [place] [id number] [place] [address] October, Upper respiratory tract infection, unspecified type J06.9 [facility] [place] [id number] [place] [address] 15 Sep, 2015 Sore throat J02.9 and Acute streptococcal pharyngitis J02.0 [place] [id number] [place] [address] Aug, Hypertension I10 and Reactive airway disease J45.909 [facility] [address] [place] [id number] [address] 10 Aug, 2015 Hypertension 401.9 [facility] [address] [address] 09 Aug, 2015 [facility] [address] [place] [id number] [address] Aug, [facility] [address] [address] Jul, Acute bacterial sinusitis J01.90 [facility] [address] [address] May, [facility] [address] [address] Jan, Carpal tunnel syndrome 354.0 ; Hypertension 401.9 and Other and unspecified hyperlipidemia 272.4 [facility] [address] [address] Nov, Screening for breast cancer V76.10 and URI, acute 465.9 [facility] [address] [address] October, Asthma 493.90 ; Hypertension 401.9 and Visit for screening mammogram V76.12 [facility] [address] [address] Sep, [facility] [id number] [address] Sep, [facility] [address] [place] [id number] [address] Aug, [facility] [id number] [address] Aug, [facility] [address] [place] [id number] [address] Jul, [facility] [id number] [place] [address] Jun, [facility] [place] [facility] [address] [id number] [place] [address] Jun, [facility] [place] [facility] [address] [id number] [place] [address] Apr, [facility] [place] [facility] [address] [id number] [place] [address] Apr, [facility] [place] [facility] [address] [id number] [place] [address] Mar, [facility] [place] [facility] [address] [id number] [place] [address] Mar, [facility] [place] [facility] [address] [id number] [place] [address] Mar, [facility] [place] [facility] [address] [id number] [place] [address] Mar, [facility] [place] [facility] [address] [id number] [place] [address] Mar, [facility] [place] [facility] [address] [id number] [place] [address] 30 Feb, 2013 [facility] [place] [facility] [address] [id number] [place] [address] 30 Feb, 2013 [facility] [place] [facility] [address] [id number] [place] [address] 29 Feb, 2013 [facility] [place] [facility] [address] [id number] [place] [address] 29 Feb, 2013 [facility] [place] [facility] [address] [id number] [place] [address] 23 Feb, 2013 [facility] [place] [facility] [address] [id number] [place] [address] Feb, 2013 [facility] [place] [facility] [address] [id number] [place] [address] 23 Feb2013 [facility] [place] [facility] [address] [id number] [place] [address] 23 Feb, 2013 [facility] [place] [facility] [address] [id number] [place] [address] Feb, [facility] [place] [facility] [address] [id number] [place] [address] Feb, 2013 [facility] [place] [facility] [address] [id number] [place] [address] Feb, [facility] [place] [facility] [address] [id number] [place] [address] Feb, [facility] [place] [facility] [address] [id number] [place] [address] Feb, [facility] [place] [facility] [address] [id number] [place] [address] Feb, [facility] [place] [facility] [address] [id number] [place] [address] Jan, [facility] [place] [facility] [address] [id number] [place] [address] Dec, [facility] [place] [facility] [address] [id number] [place] [address] Nov, [facility] [place] [facility] [address] [id number] [place] [address] Nov, [facility] [place] [facility] [address] [id number] [place] [address] Nov, [facility] [place] [facility] [address] [id number] [place] [address] Nov, [facility] [place] [facility] [address] [id number] [place] [address] Nov, [facility] [place] [facility] [address] [id number] [place] [address] Nov, [facility] [place] [facility] [address] [id number] [place] [address] Nov, [facility] [place] [facility] [address] [id number] [place] [address] Nov, [facility] [place] [facility] [address] [id number] [place] [address] October, [facility] [place] [facility] [address] [id number] [place] [address] October, [facility] [place] [facility] [address] [id number] [place] [address] October, [facility] [place] [facility] [address] [id number] [place] [address] October, [facility] [place] [facility] [address] [id number] [place] [address] October, [facility] [place] [facility] [address] [id number] [place] [address] October, [facility] [place] [facility] [address] [id number] [place] [address] October, [facility] [place] [facility] [address] [id number] [place] [address] Sep, [facility] [place] [facility] [address] [id number] [place] [address] Sep, [facility] [place] [facility] [address] [id number] [place] [address] Aug, [facility] [place] [facility] [address] [id number] [place] [address] Aug, [facility] [place] [facility] [address] [id number] [place] [address] Aug, [facility] [place] [facility] [address] [id number] [place] [address] Aug, [facility] [place] [facility] [address] [id number] [place] [address] Jun, [facility] [place] [facility] [address] [id number] [place] [address] Jun, [facility] [address] [id number] [place] [address] Jun, [facility] [place] [facility] [address] [id number] [place] [address] Jun, [facility] [address] [id number] [place] [address] Apr, [facility] [place] [facility] [address] [id number] [place] [address] Apr, [facility] [place] [facility] [address] [id number] [place] [address] Apr, [facility] [place] [facility] [address] [id number] [place] [address] Apr, [facility] [address] [id number] [place] [address] Mar, [facility] [address] [id number] [place] [address] 31 Mar, 2013 [facility] [place] [facility] [address] [id number] [place] [address] Mar, [facility] [address] [id number] [place] [address] 31 Mar, 2013 [facility] [place] [facility] [address] [id number] [place] [address] 23 Mar, 2013 [facility] [place] [facility] [address] [id number] [place] [address] 23 Mar, 2013 [facility] [place] [facility] [address] [id number] [place] [address] 16 Mar, 2012 [facility] [place] [facility] [address] [id number] [place] [address] 16 Mar, 2012 [facility] [place] [facility] [address] [id number] [place] [address] Mar, [facility] [place] [facility] [address] [id number] [place] [address] Feb, [facility] [place] [facility] [address] [id number] [place] [address] Feb, [facility] [place] [facility] [address] [id number] [place] [address] Feb, [facility] [place] [facility] [address] [id number] [place] [address] Jan, [facility] [place] [facility] [address] [id number] [place] [address] Dec, [facility] [place] [facility] [address] [id number] [place] [address] Nov, [facility] [place] [facility] [address] [id number] [place] [address] Sep, [facility] [place] [facility] [address] [id number] [place] [address] Aug, [facility] [place] [facility] [address] [id number] [place] [address] Aug, [facility] [place] [facility] [address] [id number] [place] [address] Jul, [facility] [place] [facility] [address] [id number], [place] [address] Jun, [facility] [place] [facility] [address] [id number], [place] [address] Mar, [facility] [place] [facility] [address] [id number] [place] [address] Mar, [facility] [place] [facility] [address] [id number] [place] [address] Mar, [facility] [place] [facility] [address] [id number], [place] [address] Mar, [facility] [place] [facility] [address] [id number], [place] [address] Mar, [facility] [address] [id number] [place] [address] Mar, [facility] [place] [facility] [address] [id number] [place] [address] Feb, [facility] [address] [id number] [place] [address] Feb, [facility] [place] [facility] [address] [id number] [place] [address] Dec, [facility] [address] [id number] [place] [address] Sep, [facility] [place] [facility] [address] [id number] [place] [address] Sep, [facility] [address] [place] [id number] [place] [address] Sep, [facility] [place] [facility] [address] [id number] [place] [address] Aug, [facility] [address] [facility] [id number] [place] [address] Aug, [facility] [place] [facility] [address] [facility] [id number] [place] [address] Aug, [facility] [address] [id number] [place] [address] Jul, [facility] [place] [facility] [address] [id number], [place] [address] Jun, [facility] [place] [facility] [address] [id number] [place] [address] Jun, [facility] [place] [facility] [address] [facility] [id number] [place] [address] May, [facility] [place] [facility] [address] [facility] [id number] [place] [address] Apr, [facility] [place] [facility] [address] [facility] [id number] [place] [address] 14 Mar, 2011 [facility] [address] [facility] [id number], [place] [address] 12 Apr, 2010 [facility] [address] [facility] [id number], [place] [address] 12 Apr, 2010 [facility] [address] [facility] [id number], [place] [address] 14 Feb, 2010 IMMUNIZATIONS No Known Immunizations SOCIAL HISTORY Never Assessed REASON FOR VISIT Lab (walk-in) [place] [facility] PLAN OF CARE VITAL SIGNS MEDICATIONS No Known Medications RESULTS Name Result Date Reference Range LIPID PANEL 2016-11-21 Cholesterol, Total 202 100-199 Triglycerides 121 0-149 HDL Cholesterol 47 >39 VLDL Cholesterol Walker 24 5-40 LDL Cholesterol Calc 131 0-99 Comment: CMP 2016-11-21 Glucose, Serum 93 65-99 BUN 15 8-27 Creatinine, Serum 0.66 0.57-1.00 eGFR If NonAfricn Am 94 >59 eGFR If Africn Am 108 >59 BUN/Creatinine Ratio 23 12-28 Sodium, Serum 141 134-144 Potassium, Serum 4.2 3.5-5.2 Chloride, Serum 97 96-106 Carbon Dioxide, Total 26 18-29 Calcium, Serum 9.9 8.7-10.3 Protein, Total, Serum 7.6 6.0-8.5 Albumin, Serum 4.3 3.6-4.8 Globulin, Total 3.3 1.5-4.5 A/G Ratio 1.3 1.2-2.2 Bilirubin, Total 0.5 0.0-1.2 Alkaline Phosphatase, S 78 39-117 AST (SGOT) 17 0-40 ALT (SGPT) 17 0-32 PROCEDURES Procedure Date Ordered Result Body Site LIPID PANEL November 21, 2016 COMPREHEN METABOLIC PANEL November 21, 2016 VENIPUNCT, ROUTINE* November 21, 2016 INSTRUCTIONS MEDICATIONS ADMINISTERED No Known Medications MEDICAL [...]
--- OUTSIDE RECORDS SUMMARY | 2019-01-07 14:07 | XMS REPORT ---
Author Author CHRISTINE PHAN [facility] Address [address] [place] [address] Care Team Providers Care Carpenter Rough Name Role Phone CHRISTINE PHAN Unavailable PROBLEMS Type Condition ICD9-CM Code YIR69-OB Code Onset Dates Condition Status SNOMED Code Problem Hyperlipidemia, unspecified E78.5 Active 80676385 Problem Psoriasis L40.9 Active 4642911 Problem Gastroesophageal reflux disease without esophagitis K21.9 Active 511041731 Problem Hypertension I10 Active 67671339 Problem Reactive airway disease J45.909 Active 165514289314 ALLERGIES Substance Reaction Event Type Date Status Femara heart attack symptoms Drug Allergy Sep, Active SOCIAL HISTORY Never Assessed PLAN OF CARE Activity Details Follow Up prn Reason: VITAL SIGNS Height 61 in 2016-09-22 Weight 196.4 lbs 2016-09-22 Temperature 98.2 degrees Fahrenheit 2016-09-22 Heart Rate 88 bpm 2016-09-22 Respiratory Rate 20 2016-09-22 BMI 37.11 kg/m2 2016-09-22 Blood pressure systolic 158 mmHg 2016-09-22 Blood pressure diastolic 70 mmHg 2016-09-22 MEDICATIONS Medication Instructions Dosage Frequency Start Date End Date Duration Status Ranitidine HCl 150 MG Orally 2 times a day 1 tablet 12h 30 days Active Hydrochlorothiazide 25 MG Orally Once a day 1 tablet 24h 90 Active Enalapril Maleate 20 mg Orally Once a day 2 tablets 24h Sep, 90 days Active Fluticasone Propionate 50 MCG/ACT USE ONE SPRAY IN EACH NOSTRIL TWICE DAILY 30 Active Amlodipine Besylate 5 MG Orally Once a day 1 tablet 24h Sep, 90 day(s) Active Loratadine 10 MG TAKE ONE TABLET BY MOUTH DAILY 30 Active Ventolin HFA 90 mcg/actuation inhale 1 - 2 puffs by inhalation route every 4 hours as needed Use prn shortness of breath Nov, Active Symbicort 160-4.5 mcg/actuation inhale 2 puffs by inhalation route 2 times per day in the morning and evening Nov, Active RESULTS No Results PROCEDURES No Known procedures IMMUNIZATIONS No Known Immunizations MEDICAL (GENERAL) HISTORY Type Description Date Medical [...]
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
--- OUTSIDE RECORDS SUMMARY | 2019-01-07 14:08 | XMS REPORT | Continuity of Care Document ---
Author Organization Unknown Address Unknown Allergies Active Description Code Type Severity Reaction Onset Reported/Identified Relationship to Patient Clinical Status Yes ALLERGY TO RED/GREEN DYE ALLERGY TO RED/GREEN DYE Unknown N/A 05/25/2009 Yes green dye [id number] Drug Allergy Unknown N/A 07/06/2009 Yes red dye [id number] Drug Allergy Unknown N/A 07/06/2009 Yes Femara Drug Allergy 02/26/2010 Yes Femara Drug Allergy N/A N/A 02/26/2010 Yes FEMURA FEMURA Unknown N/A 04/16/2016 Medications There is no data. Problems Date Dx Coded Attending Type Code Diagnosis Diagnosed By 02/26/2010 461.0 Acute Maxillary Sinusitis 02/26/2010 461.0 Acute Maxillary Sinusitis 02/26/2010 IVC ZAPATA DO K 461.0 Acute Maxillary Sinusitis 02/26/2010 CARROLL PHAN APRNA S 461.0 Acute Maxillary Sinusitis 02/26/2010 CARROLL PHAN APRNA S 461.0 Acute Maxillary Sinusitis 02/26/2010 FABBY DELA CRUZ APRN N 461.0 Acute Maxillary Sinusitis 02/26/2010 EMILI STEVENS MD N 461.0 Acute Maxillary Sinusitis 02/26/2010 RADHAKEATON UMANZOR ANGELES A 461.0 Acute Maxillary Sinusitis 02/26/2010 RADHAOlga UMANZOR ANGELES A 461.0 Acute Maxillary Sinusitis 02/26/2010 461.0 Acute Maxillary Sinusitis 02/26/2010 CARROLL PHAN APRNA S 461.0 Acute Maxillary Sinusitis 02/26/2010 IVAN ARRINGTON APRN R 461.0 Acute Maxillary Sinusitis 02/26/2010 CARROLL PHAN APRNA S 461.0 Acute Maxillary Sinusitis 02/26/2010 CARROLL PHAN APRNA S 461.0 Acute Maxillary Sinusitis 04/26/2010 465.9 Upper Respiratory Infection 04/26/2010 465.9 Upper Respiratory Infection 04/26/2010 ZAPATA DO, VIC K 465.9 Upper Respiratory Infection 04/26/2010 EMILIE YARDAGE CONTROL OPERATOR FORMING, CHRISTINE S 465.9 Upper Respiratory Infection 04/26/2010 EMILIE YARDAGE CONTROL OPERATOR FORMING, CHRISTINE S 465.9 Upper Respiratory Infection 04/26/2010 ROSY GUTIERREZ YARDAGE CONTROL OPERATOR FORMING, FABBY N 465.9 Upper Respiratory Infection 04/26/2010 EMILI STEVENS MD 465.9 Upper Respiratory Infection 04/26/2010 RADHA YARDAGE CONTROL OPERATOR FORMING, ANGELES A 465.9 Upper Respiratory Infection 04/26/2010 RADHA YARDAGE CONTROL OPERATOR FORMING, ANGELES A 465.9 Upper Respiratory Infection 04/26/2010 465.9 Upper Respiratory Infection 04/26/2010 EMILIE YARDAGE CONTROL OPERATOR FORMING, CHRISTINE S 465.9 Upper Respiratory Infection 04/26/2010 MURPHY YARDAGE CONTROL OPERATOR FORMING, IVAN R 465.9 Upper Respiratory Infection 04/26/2010 EMILIE YARDAGE CONTROL OPERATOR FORMING, CHRISTINE S 465.9 Upper Respiratory Infection 04/26/2010 EMILIE YARDAGE CONTROL OPERATOR FORMING, CHRISTINE S 465.9 Upper Respiratory Infection 07/22/2010 272.2 HYPERLIPIDEMIA, MIXED 07/22/2010 401.1 HYPERTENSION, BENIGN ESSENTIAL 07/22/2010 272.2 HYPERLIPIDEMIA, MIXED 07/22/2010 401.1 HYPERTENSION, BENIGN ESSENTIAL 07/22/2010 ZAPATA DO, VIC K 272.2 HYPERLIPIDEMIA, MIXED 07/22/2010 ZAPATA DO, VIC K 401.1 HYPERTENSION, BENIGN ESSENTIAL 07/22/2010 EMILIE YARDAGE CONTROL OPERATOR FORMING, CHRISTINE S 272.2 HYPERLIPIDEMIA, MIXED 07/22/2010 EMILIE YARDAGE CONTROL OPERATOR FORMING, CHRISTINE S 401.1 HYPERTENSION, BENIGN ESSENTIAL 07/22/2010 EMILIE YARDAGE CONTROL OPERATOR FORMING, CHRISTINE S 272.2 HYPERLIPIDEMIA, MIXED 07/22/2010 EMILIE YARDAGE CONTROL OPERATOR FORMING, CHRISTINE S 401.1 HYPERTENSION, BENIGN ESSENTIAL 07/22/2010 GALLEGOS CASHERO YARDAGE CONTROL OPERATOR FORMING, FABBY N 272.2 HYPERLIPIDEMIA, MIXED 07/22/2010 GALLEGOS CASHERO YARDAGE CONTROL OPERATOR FORMING, FABBY N 401.1 HYPERTENSION, BENIGN ESSENTIAL 07/22/2010 EMILI STEVENS MD N 272.2 HYPERLIPIDEMIA, MIXED 07/22/2010 EMILI STEVENS MD N 401.1 HYPERTENSION, BENIGN ESSENTIAL 07/22/2010 RADHA YARDAGE CONTROL OPERATOR FORMING, ANGELES A 272.2 HYPERLIPIDEMIA, MIXED 07/22/2010 RADHA YARDAGE CONTROL OPERATOR FORMING, ANGELES A 401.1 HYPERTENSION, BENIGN ESSENTIAL 07/22/2010 RADHA YARDAGE CONTROL OPERATOR FORMING, ANGELES A 272.2 HYPERLIPIDEMIA, MIXED 07/22/2010 RADHA YARDAGE CONTROL OPERATOR FORMING, ANGELES A 401.1 HYPERTENSION, BENIGN ESSENTIAL 07/22/2010 272.2 HYPERLIPIDEMIA, MIXED 07/22/2010 401.1 HYPERTENSION, BENIGN ESSENTIAL 07/22/2010 EMILIE YARDAGE CONTROL OPERATOR FORMING, CHRISTINE S 272.2 HYPERLIPIDEMIA, MIXED 07/22/2010 EMILIE YARDAGE CONTROL OPERATOR FORMING, CHRISTINE S 401.1 HYPERTENSION, BENIGN ESSENTIAL 07/22/2010 MURPHY YARDAGE CONTROL OPERATOR FORMING, IVAN R 272.2 HYPERLIPIDEMIA, MIXED 07/22/2010 MURPHY YARDAGE CONTROL OPERATOR FORMING, IVAN R 401.1 HYPERTENSION, BENIGN ESSENTIAL 07/22/2010 EMILIE YARDAGE CONTROL OPERATOR FORMING, CHRISTINE S 272.2 HYPERLIPIDEMIA, MIXED 07/22/2010 EMILIE YARDAGE CONTROL OPERATOR FORMING, CHRISTINE S 401.1 HYPERTENSION, BENIGN ESSENTIAL 07/22/2010 EMILIE YARDAGE CONTROL OPERATOR FORMING, CHRISTINE S 272.2 HYPERLIPIDEMIA, MIXED 07/22/2010 EMILIE YARDAGE CONTROL OPERATOR FORMING, CHRISTINE S 401.1 HYPERTENSION, BENIGN ESSENTIAL 01/06/2011 461.9 Acute Sinusitis Unspecified 01/06/2011 461.9 Acute Sinusitis Unspecified 01/06/2011 VIC ZAPATA DO K 461.9 Acute Sinusitis Unspecified 01/06/2011 EMILIE YARDAGE CONTROL OPERATOR FORMING, CHRISTINE S 461.9 Acute Sinusitis Unspecified 01/06/2011 EMILIE KERRN, CHRISTINE S 461.9 Acute Sinusitis Unspecified 01/06/2011 ROSY GUTIERREZ APRN, FABBY N 461.9 Acute Sinusitis Unspecified 01/06/2011 EMILI STEVENS MD N 461.9 Acute Sinusitis Unspecified 01/06/2011 RADHA YARDAGE CONTROL OPERATOR FORMING, ANGELES A 461.9 Acute Sinusitis Unspecified 01/06/2011 RADHA YARDAGE CONTROL OPERATOR FORMING, ANGELES A 461.9 Acute Sinusitis Unspecified 01/06/2011 461.9 Acute Sinusitis Unspecified 01/06/2011 EMILIE YARDAGE CONTROL OPERATOR FORMING, CHRISTINE S 461.9 Acute Sinusitis Unspecified 01/06/2011 MURPHY YARDAGE CONTROL OPERATOR FORMING, IVAN R 461.9 Acute Sinusitis Unspecified 01/06/2011 EMILIE YARDAGE CONTROL OPERATOR FORMING, CHRISTINE S 461.9 Acute Sinusitis Unspecified 01/06/2011 EMILIE YARDAGE CONTROL OPERATOR FORMING, CHRISTINE S 461.9 Acute Sinusitis Unspecified 01/14/2011 626.8 DYSFUNCTIONAL UTERINE BLEEDING 01/14/2011 626.8 DYSFUNCTIONAL UTERINE BLEEDING 01/14/2011 VIC ZAPATA DO K 626.8 DYSFUNCTIONAL UTERINE BLEEDING 01/14/2011 EMILIE YARDAGE CONTROL OPERATOR FORMING, CHRISTINE S 626.8 DYSFUNCTIONAL UTERINE BLEEDING 01/14/2011 EMILIE YARDAGE CONTROL OPERATOR FORMING, CHRISTINE S 626.8 DYSFUNCTIONAL UTERINE BLEEDING 01/14/2011 ROSY GUTIERREZ APRN, FABBY N 626.8 DYSFUNCTIONAL UTERINE BLEEDING 01/14/2011 EMILI STEVENS MD N 626.8 DYSFUNCTIONAL UTERINE BLEEDING 01/14/2011 RADHA YARDAGE CONTROL OPERATOR FORMING, ANGELES A 626.8 DYSFUNCTIONAL UTERINE BLEEDING 01/14/2011 RADHA YARDAGE CONTROL OPERATOR FORMING, ANGELES A 626.8 DYSFUNCTIONAL UTERINE BLEEDING 01/14/2011 626.8 DYSFUNCTIONAL UTERINE BLEEDING 01/14/2011 EMILIE YARDAGE CONTROL OPERATOR FORMING, CHRISTINE S 626.8 DYSFUNCTIONAL UTERINE BLEEDING 01/14/2011 MURPHY UMANZOR IVAN R 626.8 DYSFUNCTIONAL UTERINE BLEEDING 01/14/2011 EMILIE YARDAGE CONTROL OPERATOR FORMING, CHRISTINE S 626.8 DYSFUNCTIONAL UTERINE BLEEDING 01/14/2011 EMILIE YARDAGE CONTROL OPERATOR FORMING, CHRISTINE S 626.8 DYSFUNCTIONAL UTERINE BLEEDING 02/05/2011 790.29 HYPERGLYCEMIA 02/05/2011 V10.3 Personal History of Malignant Neoplasm of Breast 02/05/2011 V72.31 ROUTINE PELVIC EXAM 02/05/2011 V76.10 visit for: screening exam malignant neoplasm breast 02/05/2011 790.29 HYPERGLYCEMIA 02/05/2011 V10.3 Personal History of Malignant Neoplasm of Breast 02/05/2011 V72.31 ROUTINE PELVIC EXAM 02/05/2011 V76.10 visit for: screening exam malignant neoplasm breast 02/05/2011 VIC ZAPATA DO 790.29 HYPERGLYCEMIA 02/05/2011 VIC ZAPATA DO V10.3 Personal History of Malignant Neoplasm of Breast 02/05/2011 VIC ZAPATA DO V72.31 ROUTINE PELVIC EXAM 02/05/2011 VIC ZAPATA DO V76.10 visit for: screening exam malignant neoplasm breast 02/05/2011 EMILIE YARDAGE CONTROL OPERATOR FORMING, CHRISTINE S 790.29 HYPERGLYCEMIA 02/05/2011 EMILIE YARDAGE CONTROL OPERATOR FORMING, CHRISTINE S V10.3 Personal History of Malignant Neoplasm of Breast 02/05/2011 EMILIE YARDAGE CONTROL OPERATOR FORMING, CHRISTINE S V72.31 ROUTINE PELVIC EXAM 02/05/2011 EIMLIE YARDAGE CONTROL OPERATOR FORMING CHRISTINE S V76.10 visit for: screening exam malignant neoplasm breast 02/05/2011 EMILIE YARDAGE CONTROL OPERATOR FORMING, CHRISTINE S 790.29 HYPERGLYCEMIA 02/05/2011 EMILIE YARDAGE CONTROL OPERATOR FORMING, CHRISTINE S V10.3 Personal History of Malignant Neoplasm of Breast 02/05/2011 EMILIE YARDAGE CONTROL OPERATOR FORMING, CHRISTINE S V72.31 ROUTINE PELVIC EXAM 02/05/2011 EMILIE UMANZOR CHRISTINE S V76.10 visit for: screening exam malignant neoplasm breast 02/05/2011 FABBY DELA CRUZ APRN N 790.29 HYPERGLYCEMIA 02/05/2011 FABBY DELA CRUZ APRN N V10.3 Personal History of Malignant Neoplasm of Breast 02/05/2011 FABBY DELA CRUZ APRN N V72.31 ROUTINE PELVIC EXAM 02/05/2011 FABBY DELA CRUZ APRN N V76.10 visit for: screening exam malignant neoplasm breast 02/05/2011 EMILI STEVENS MD N 790.29 HYPERGLYCEMIA 02/05/2011 EMILI STEVENS MD N V10.3 Personal History of Malignant Neoplasm of Breast 02/05/2011 EMILI STEVENS MD N V72.31 ROUTINE PELVIC EXAM 02/05/2011 EMILI STEVENS MD V76.10 visit for: screening exam malignant neoplasm breast 02/05/2011 ANGELES GARCIA APRN A 790.29 HYPERGLYCEMIA 02/05/2011 ANGELES GARCIA APRN A V10.3 Personal History of Malignant Neoplasm of Breast 02/05/2011 ANGELES GARCIA APRN A V72.31 ROUTINE PELVIC EXAM 02/05/2011 ANGELES GARCIA APRN A V76.10 visit for: screening exam malignant neoplasm breast 02/05/2011 RADHA YARDAGE CONTROL OPERATOR FORMING, ANGELES A 790.29 HYPERGLYCEMIA 02/05/2011 RADHA YARDAGE CONTROL OPERATOR FORMING, ANGELES A V10.3 Personal History of Malignant Neoplasm of Breast 02/05/2011 RADHA YARDAGE CONTROL OPERATOR FORMING, ANGELES A V72.31 ROUTINE PELVIC EXAM 02/05/2011 RADHA YARDAGE CONTROL OPERATOR FORMING, ANGELES A V76.10 visit for: screening exam malignant neoplasm breast 02/05/2011 790.29 HYPERGLYCEMIA 02/05/2011 V10.3 Personal History of Malignant Neoplasm of Breast 02/05/2011 V72.31 ROUTINE PELVIC EXAM 02/05/2011 V76.10 visit for: screening exam malignant neoplasm breast 02/05/2011 EMILIE YARDAGE CONTROL OPERATOR FORMING, CHRISTINE S 790.29 HYPERGLYCEMIA 02/05/2011 EMILIE KERRN, CHRISTINE S V10.3 Personal History of Malignant Neoplasm of Breast 02/05/2011 EMILIE YARDAGE CONTROL OPERATOR FORMING, CHRISTINE S V72.31 ROUTINE PELVIC EXAM 02/05/2011 EMILIE YARDAGE CONTROL OPERATOR FORMING, CHRISTINE S V76.10 visit for: screening exam malignant neoplasm breast 02/05/2011 MURPHY KERRN, IVAN R 790.29 HYPERGLYCEMIA 02/05/2011 MURPHY KERRN, IVAN R V10.3 Personal History of Malignant Neoplasm of Breast 02/05/2011 MURPHY YARDAGE CONTROL OPERATOR FORMING, IVAN R V72.31 ROUTINE PELVIC EXAM 02/05/2011 MURPHY YARDAGE CONTROL OPERATOR FORMING, IVAN R V76.10 visit for: screening exam malignant neoplasm breast 02/05/2011 EMILIE KERRN, CHRISTINE S 790.29 HYPERGLYCEMIA 02/05/2011 EMILIE UMANZOR CHRISTINE S V10.3 PERSONAL HISTORY OF MALIGNANT NEOPLASM OF BREAST 02/05/2011 EMILIE KERRN, CHRISTINE S V72.31 ROUTINE PELVIC EXAM 02/05/2011 EMILIE YARDAGE CONTROL OPERATOR FORMING, CHRISTINE S V76.10 VISIT FOR: SCREENING EXAM MALIGNANT NEOPLASM BREAST 02/05/2011 EMILIE YARDAGE CONTROL OPERATOR FORMING, CHRISTINE S 790.29 HYPERGLYCEMIA 02/05/2011 EMILIE YARDAGE CONTROL OPERATOR FORMING, CHRISTINE S V10.3 PERSONAL HISTORY OF MALIGNANT NEOPLASM OF BREAST 02/05/2011 EMILIE YARDAGE CONTROL OPERATOR FORMING, CHRISTINE S V72.31 ROUTINE PELVIC EXAM 02/05/2011 EMILIE KERRN, CHRISTINE S V76.10 VISIT FOR: SCREENING EXAM MALIGNANT NEOPLASM BREAST 02/19/2011 708.9 URTICARIA/HIVES UNSPEC 02/19/2011 708.9 URTICARIA/HIVES UNSPEC 02/19/2011 ZAPATA DO, VIC K 708.9 URTICARIA/HIVES UNSPEC 02/19/2011 EMILIE YARDAGE CONTROL OPERATOR FORMING, CHRISTINE S 708.9 URTICARIA/HIVES UNSPEC 02/19/2011 EMILIE UMANZOR, CHRISTINE S 708.9 URTICARIA/HIVES UNSPEC 02/19/2011 ROSY GUTIERREZ YARDAGE CONTROL OPERATOR FORMINGFABBY Espinoza N 708.9 URTICARIA/HIVES UNSPEC 02/19/2011 EMILI STEVENS MD N 708.9 URTICARIA/HIVES UNSPEC 02/19/2011 RADHA YARDAGE CONTROL OPERATOR FORMING, ANGELES A 708.9 URTICARIA/HIVES UNSPEC 02/19/2011 RADHA YARDAGE CONTROL OPERATOR FORMING, ANGELES A 708.9 URTICARIA/HIVES UNSPEC 02/19/2011 708.9 URTICARIA/HIVES UNSPEC 02/19/2011 EMILIE UMANZOR CHRISTINE S 708.9 URTICARIA/HIVES UNSPEC 02/19/2011 IVAN ARRINGTON APRN R 708.9 URTICARIA/HIVES UNSPEC 02/19/2011 EMILIE YARDAGE CONTROL OPERATOR FORMING, CHRISTINE S 708.9 URTICARIA/HIVES UNSPEC 02/19/2011 EMILIE UMANZOR CHRISTINE S 708.9 URTICARIA/HIVES UNSPEC 04/21/2011 461.9 SINUSITIS ACUTE 04/21/2011 466.0 BRONCHITIS, ACUTE 04/21/2011 461.9 SINUSITIS ACUTE 04/21/2011 466.0 BRONCHITIS, ACUTE 04/21/2011 JODI GARCIA VIC K 461.9 SINUSITIS ACUTE 04/21/2011 KIM ZAPATA DOA K 466.0 BRONCHITIS, ACUTE 04/21/2011 EMILIE YARDAGE CONTROL OPERATOR FORMING, CHRISTINE S 461.9 SINUSITIS ACUTE 04/21/2011 EMILIE UMANZOR CHRISTINE S 466.0 BRONCHITIS, ACUTE 04/21/2011 EMILIE YARDAGE CONTROL OPERATOR FORMING, CHRISTINE S 461.9 SINUSITIS ACUTE 04/21/2011 EMILIE UMANZOR, CHRISTINE S 466.0 BRONCHITIS, ACUTE 04/21/2011 FABBY DELA CRUZ APRN N 461.9 SINUSITIS ACUTE 04/21/2011 ROSY GUTIERREZ YARDAGE CONTROL OPERATOR FORMING, FABBY N 466.0 BRONCHITIS, ACUTE 04/21/2011 EMILI STEVENS MD N 461.9 SINUSITIS ACUTE 04/21/2011 EMILI STEVENS MD N 466.0 BRONCHITIS, ACUTE 04/21/2011 RADHA YARDAGE CONTROL OPERATOR FORMING, ANGELES A 461.9 SINUSITIS ACUTE 04/21/2011 RADHA YARDAGE CONTROL OPERATOR FORMING, ANGELES A 466.0 BRONCHITIS, ACUTE 04/21/2011 RADHA YARDAGE CONTROL OPERATOR FORMING, ANGELES A 461.9 SINUSITIS ACUTE 04/21/2011 RADHA YARDAGE CONTROL OPERATOR FORMING, ANGELES A 466.0 BRONCHITIS, ACUTE 04/21/2011 461.9 SINUSITIS ACUTE 04/21/2011 466.0 BRONCHITIS, ACUTE 04/21/2011 EMILIE YARDAGE CONTROL OPERATOR FORMING, CHRISTINE S 461.9 SINUSITIS ACUTE 04/21/2011 EMILIE YARDAGE CONTROL OPERATOR FORMING, CHRISTINE S 466.0 BRONCHITIS, ACUTE 04/21/2011 MURPHY YARDAGE CONTROL OPERATOR FORMING, IVAN R 461.9 SINUSITIS ACUTE 04/21/2011 MURPHY YARDAGE CONTROL OPERATOR FORMING, IVAN R 466.0 BRONCHITIS, ACUTE 04/21/2011 EMILIE YARDAGE CONTROL OPERATOR FORMING, CHRISTINE S 461.9 SINUSITIS ACUTE 04/21/2011 EMILIE YARDAGE CONTROL OPERATOR FORMING, CHRISTINE S 466.0 BRONCHITIS, ACUTE 04/21/2011 EMILIE YARDAGE CONTROL OPERATOR FORMING, CHRISTINE S 461.9 SINUSITIS ACUTE 04/21/2011 EMILIE YARDAGE CONTROL OPERATOR FORMING, CHRISTINE S 466.0 BRONCHITIS, ACUTE 06/26/2011 465.9 UPPER RESPIRATORY INFECTION 06/26/2011 786.2 COUGH 06/26/2011 465.9 UPPER RESPIRATORY INFECTION 06/26/2011 786.2 COUGH 06/26/2011 ZAPATA DO, VIC K 465.9 UPPER RESPIRATORY INFECTION 06/26/2011 ZAPATA DO, VIC K 786.2 COUGH 06/26/2011 EMILIE YARDAGE CONTROL OPERATOR FORMING, CHRISTINE S 465.9 UPPER RESPIRATORY INFECTION 06/26/2011 EMILIE YARDAGE CONTROL OPERATOR FORMING, CHRISTINE S 786.2 COUGH 06/26/2011 EMILIE YARDAGE CONTROL OPERATOR FORMING, CHRISTINE S 465.9 UPPER RESPIRATORY INFECTION 06/26/2011 EMILIE YARDAGE CONTROL OPERATOR FORMING, CHRISTINE S 786.2 COUGH 06/26/2011 ROSY GUTIERREZ YARDAGE CONTROL OPERATOR FORMING, FABBY N 465.9 UPPER RESPIRATORY INFECTION 06/26/2011 ROSY GUTIERREZ YARDAGE CONTROL OPERATOR FORMING, FABBY N 786.2 COUGH 06/26/2011 EMILI STEVENS MD N 465.9 UPPER RESPIRATORY INFECTION 06/26/2011 EMILI STEVENS MD N 786.2 COUGH 06/26/2011 RADHA YARDAGE CONTROL OPERATOR FORMING, ANGELES A 465.9 UPPER RESPIRATORY INFECTION 06/26/2011 RADHA YARDAGE CONTROL OPERATOR FORMING, ANGELES A 786.2 COUGH 06/26/2011 RADHA YARDAGE CONTROL OPERATOR FORMING, ANGELES A 465.9 UPPER RESPIRATORY INFECTION 06/26/2011 RADHA YARDAGE CONTROL OPERATOR FORMING, ANGELES A 786.2 COUGH 06/26/2011 465.9 UPPER RESPIRATORY INFECTION 06/26/2011 786.2 COUGH 06/26/2011 EMILIE UMANZOR, CHRISTINE S 465.9 UPPER RESPIRATORY INFECTION 06/26/2011 EMILIE YARDAGE CONTROL OPERATOR FORMING, CHRISTINE S 786.2 COUGH 06/26/2011 MURPHY YARDAGE CONTROL OPERATOR FORMING, IVAN R 465.9 UPPER RESPIRATORY INFECTION 06/26/2011 MURPHY YARDAGE CONTROL OPERATOR FORMING, IVAN R 786.2 COUGH 06/26/2011 EMILIE KERRN, CHRISTINE S 465.9 UPPER RESPIRATORY INFECTION 06/26/2011 EMILIE KERRN, CHRISTINE S 786.2 COUGH 06/26/2011 EMILIE KERRN, CHRISTINE S 465.9 UPPER RESPIRATORY INFECTION 06/26/2011 EMILIE UMANZOR, CHRISTINE S 786.2 COUGH 07/30/2011 457.1 OTHER LYMPHEDEMA 07/30/2011 457.1 OTHER LYMPHEDEMA 07/30/2011 VIC ZAPATA DO 457.1 OTHER LYMPHEDEMA 07/30/2011 EMILIE UMANZOR CHRISTINE S 457.1 OTHER LYMPHEDEMA 07/30/2011 EMILIE UMANZOR CHRISTINE S 457.1 OTHER LYMPHEDEMA 07/30/2011 ROSY GUTIERREZ APRN, FABBY N 457.1 OTHER LYMPHEDEMA 07/30/2011 EMILI STEVENS MD N 457.1 OTHER LYMPHEDEMA 07/30/2011 RADHA UMANZOR, ANGELES A 457.1 OTHER LYMPHEDEMA 07/30/2011 RADHA UMANZOR, ANGELES A 457.1 OTHER LYMPHEDEMA 07/30/2011 457.1 OTHER LYMPHEDEMA 07/30/2011 CARROLL PHAN APRNA S 457.1 OTHER LYMPHEDEMA 07/30/2011 MICHAEL ARRINGTON APRNINA R 457.1 OTHER LYMPHEDEMA 07/30/2011 LONDON PHAN APRNNDA S 457.1 OTHER LYMPHEDEMA 07/30/2011 LONDON PHAN APRNNDA S 457.1 OTHER LYMPHEDEMA 09/15/2011 274.01 ACUTE GOUTY ARTHROPATHY 09/15/2011 274.01 ACUTE GOUTY ARTHROPATHY 09/15/2011 VIC ZAPATA DO K 274.01 ACUTE GOUTY ARTHROPATHY 09/15/2011 LONDON PHAN APRNNDA S 274.01 ACUTE GOUTY ARTHROPATHY 09/15/2011 LONDON PHAN APRNNDA S 274.01 ACUTE GOUTY ARTHROPATHY 09/15/2011 FABBY DELA CRUZ APRN N 274.01 ACUTE GOUTY ARTHROPATHY 09/15/2011 EMILI STEVENS MD 274.01 ACUTE GOUTY ARTHROPATHY 09/15/2011 ANGELES GARCIA APRN A 274.01 ACUTE GOUTY ARTHROPATHY 09/15/2011 SOTERO GARCIA APRNIDI A 274.01 ACUTE GOUTY ARTHROPATHY 09/15/2011 274.01 ACUTE GOUTY ARTHROPATHY 09/15/2011 LONDON PHAN APRNNDA S 274.01 ACUTE GOUTY ARTHROPATHY 09/15/2011 MICHAEL ARRINGTON APRNINA R 274.01 ACUTE GOUTY ARTHROPATHY 09/15/2011 LONDON PHAN APRNNDA S 274.01 ACUTE GOUTY ARTHROPATHY 09/15/2011 EMILIE UMANZOR CHRISTINE S 274.01 ACUTE GOUTY ARTHROPATHY 04/09/2012 784.91 POSTNASAL DRIP 04/09/2012 784.91 POSTNASAL DRIP 04/09/2012 VIC ZAPATA DO K 784.91 POSTNASAL DRIP 04/09/2012 LONDON PHAN APRNNDA S 784.91 POSTNASAL DRIP 04/09/2012 LONDON PHAN APRNNDA S 784.91 POSTNASAL DRIP 04/09/2012 FABBY DELA CRUZ APRN N 784.91 POSTNASAL DRIP 04/09/2012 EMILI STEVENS MD 784.91 POSTNASAL DRIP 04/09/2012 RADHA UMANZOR ANGELES A 784.91 POSTNASAL DRIP 04/09/2012 RADHA YARDAGE CONTROL OPERATOR FORMING, ANGELES A 784.91 POSTNASAL DRIP 04/09/2012 784.91 POSTNASAL DRIP 04/09/2012 EMILIE YARDAGE CONTROL OPERATOR FORMING, CHRISTINE S 784.91 POSTNASAL DRIP 04/09/2012 MURPHY YARDAGE CONTROL OPERATOR FORMING, IVAN R 784.91 POSTNASAL DRIP 04/09/2012 EMILIE YARDAGE CONTROL OPERATOR FORMING, CHRISTINE S 784.91 POSTNASAL DRIP 04/09/2012 EMILIE YARDAGE CONTROL OPERATOR FORMING, CHRISTINE S 784.91 POSTNASAL DRIP 08/09/2012 530.81 GERD 08/09/2012 JODI DO, VIC K 530.81 GERD 08/09/2012 EMILIE YARDAGE CONTROL OPERATOR FORMING, CHRISTINE S 530.81 GERD 08/09/2012 EMILIE YARDAGE CONTROL OPERATOR FORMING, CHRISTINE S 530.81 GERD 08/09/2012 ROSY GUTIERREZ APRN, FABBY N 530.81 GERD 08/09/2012 EMILI STEVENS MD N 530.81 GERD 08/09/2012 RADHA YARDAGE CONTROL OPERATOR FORMING, ANGELES A 530.81 GERD 08/09/2012 RADHA YARDAGE CONTROL OPERATOR FORMING, ANGELES A 530.81 GERD 08/09/2012 EMILIE YARDAGE CONTROL OPERATOR FORMING, CHRISTINE S 530.81 GERD 08/09/2012 MURPHY UMANZOR, IVAN R 530.81 GERD 08/09/2012 EMILIE YARDAGE CONTROL OPERATOR FORMING, CHRISTINE S 530.81 GERD 08/09/2012 EMILIE YARDAGE CONTROL OPERATOR FORMING, CHRISTINE S 530.81 GERD 04/14/2013 EMILIE KERRN, CHRISTINE S 272.4 HYPERLIPIDEMIA 04/14/2013 ROSY GUTIERREZ APRN, FABBY N 272.4 HYPERLIPIDEMIA 04/14/2013 EMILI STEVENS MD N 272.4 HYPERLIPIDEMIA 04/14/2013 RADHA YARDAGE CONTROL OPERATOR FORMING, ANGELES A 272.4 HYPERLIPIDEMIA 04/14/2013 RADHA YARDAGE CONTROL OPERATOR FORMING, ANGELES A 272.4 HYPERLIPIDEMIA 04/14/2013 EMILIE YARDAGE CONTROL OPERATOR FORMING, CHRISTINE S 272.4 HYPERLIPIDEMIA 04/14/2013 MURPHY UMANZOR, IVAN R 272.4 HYPERLIPIDEMIA 04/14/2013 EMILIE YARDAGE CONTROL OPERATOR FORMING, CHRISTINE S 272.4 HYPERLIPIDEMIA 04/14/2013 EMILIE KERRN, CHRISTINE S 272.4 HYPERLIPIDEMIA 06/16/2013 GALLEGOS CASHERO YARDAGE CONTROL OPERATOR FORMING, FABBY N 388.70 OTALGIA UNSPECIFIED 06/16/2013 GALLEGOS CASHERO YARDAGE CONTROL OPERATOR FORMING, FABBY N 461.9 ACUTE SINUSITIS UNSPECIFIED 06/16/2013 GALLEGOS CASHERO YARDAGE CONTROL OPERATOR FORMING, FABBY N 465.9 ACUTE UPPER RESPIRATORY INFECTIONS OF UNSPECIFIED SITE 06/16/2013 EMILI STEVENS MD N 388.70 OTALGIA UNSPECIFIED 06/16/2013 EMILI STEVENS MD N 461.9 ACUTE SINUSITIS UNSPECIFIED 06/16/2013 EMILI STEVENS MD N 465.9 ACUTE UPPER RESPIRATORY INFECTIONS OF UNSPECIFIED SITE 06/16/2013 RADHA YARDAGE CONTROL OPERATOR FORMING, ANGELES A 388.70 OTALGIA UNSPECIFIED 06/16/2013 RADHA YARDAGE CONTROL OPERATOR FORMING, ANGELES A 461.9 ACUTE SINUSITIS UNSPECIFIED 06/16/2013 RADHA YARDAGE CONTROL OPERATOR FORMING, ANGELES A 465.9 ACUTE UPPER RESPIRATORY INFECTIONS OF UNSPECIFIED SITE 06/16/2013 RADHA YARDAGE CONTROL OPERATOR FORMING, ANGELES A 388.70 OTALGIA UNSPECIFIED 06/16/2013 RADHA YARDAGE CONTROL OPERATOR FORMING, ANGELES A 461.9 ACUTE SINUSITIS UNSPECIFIED 06/16/2013 RADHA YARDAGE CONTROL OPERATOR FORMING, ANGELES A 465.9 ACUTE UPPER RESPIRATORY INFECTIONS OF UNSPECIFIED SITE 06/16/2013 EMILIE YARDAGE CONTROL OPERATOR FORMING, CHRISTINE S 388.70 OTALGIA UNSPECIFIED 06/16/2013 EMILIE YARDAGE CONTROL OPERATOR FORMING, CHRISTINE S 461.9 ACUTE SINUSITIS UNSPECIFIED 06/16/2013 EMILIE YARDAGE CONTROL OPERATOR FORMING, CHRISTINE S 465.9 ACUTE UPPER RESPIRATORY INFECTIONS OF UNSPECIFIED SITE 06/16/2013 MURPHY YARDAGE CONTROL OPERATOR FORMING, IVAN R 388.70 OTALGIA UNSPECIFIED 06/16/2013 MURPHY YARDAGE CONTROL OPERATOR FORMING, IVAN R 461.9 ACUTE SINUSITIS UNSPECIFIED 06/16/2013 MURPHY YARDAGE CONTROL OPERATOR FORMING, IVAN R 465.9 ACUTE UPPER RESPIRATORY INFECTIONS OF UNSPECIFIED SITE 06/16/2013 EMILIE YARDAGE CONTROL OPERATOR FORMING, CHRISTINE S 388.70 OTALGIA UNSPECIFIED 06/16/2013 EMILIE YARDAGE CONTROL OPERATOR FORMING, CHRISTINE S 461.9 ACUTE SINUSITIS UNSPECIFIED 06/16/2013 EMILIE YARDAGE CONTROL OPERATOR FORMING, CHRISTINE S 465.9 ACUTE UPPER RESPIRATORY INFECTIONS OF UNSPECIFIED SITE 06/16/2013 EMILIE YARDAGE CONTROL OPERATOR FORMING, CHRISTINE S 388.70 OTALGIA UNSPECIFIED 06/16/2013 EMILIE YARDAGE CONTROL OPERATOR FORMING, CHRISTINE S 461.9 ACUTE SINUSITIS UNSPECIFIED 06/16/2013 EMILIE YARDAGE CONTROL OPERATOR FORMING, CHRISTINE S 465.9 ACUTE UPPER RESPIRATORY INFECTIONS OF UNSPECIFIED SITE 08/30/2013 EMILI STEVENS MD N 382.9 OTITIS MEDIA 08/30/2013 RDAHA YARDAGE CONTROL OPERATOR FORMING, ANGELES A 382.9 OTITIS MEDIA 08/30/2013 RADHA YARDAGE CONTROL OPERATOR FORMING, ANGELES A 382.9 OTITIS MEDIA 08/30/2013 EMILIE YARDAGE CONTROL OPERATOR FORMING, CHRISTINE S 382.9 OTITIS MEDIA 08/30/2013 MURPHY YARDAGE CONTROL OPERATOR FORMING, IVAN R 382.9 OTITIS MEDIA 08/30/2013 EMILIE YARDAGE CONTROL OPERATOR FORMING, CHRISTINE S 382.9 OTITIS MEDIA 08/30/2013 EMILIE YARDAGE CONTROL OPERATOR FORMING, CHRISTINE S 382.9 OTITIS MEDIA 10/31/2013 RADHA UMANZOR, ANGELES A 786.2 COUGH 10/31/2013 RADHA UMANZOR, ANGELES A 786.2 COUGH 10/31/2013 EMILIE KERRN, CHRISTINE S 786.2 COUGH 10/31/2013 MURPHY YARDAGE CONTROL OPERATOR FORMING, IVAN R 786.2 COUGH 10/31/2013 EMILIE YARDAGE CONTROL OPERATOR FORMING, CHRISTINE S 786.2 COUGH 10/31/2013 EMILIE KERRN, CHRISTINE S 786.2 COUGH 11/02/2013 RADHA APRN, ANGELES A V65.49 OTHER SPECIFIED COUNSELING 11/02/2013 RADHA UMANZOR, ANGELES A V72.31 APPEALS COORDINATOR EXAM, ROUTINE 11/02/2013 RADHA UMANZOR, ANGELES A V73.81 HPV SCREENING 11/02/2013 RADHA YARDAGE CONTROL OPERATOR FORMING, ANGELES A V76.2 CERVICAL CANCER SCREENING (PAP SMEAR) 11/02/2013 RADHA YARDAGE CONTROL OPERATOR FORMING, ANGELES A V76.51 COLON CANCER SCREENING 11/02/2013 RADHA APRN, ANGELES A V65.49 OTHER SPECIFIED COUNSELING 11/02/2013 RADHA YARDAGE CONTROL OPERATOR FORMING, ANGELES A V72.31 APPEALS COORDINATOR EXAM, ROUTINE 11/02/2013 RADHA YARDAGE CONTROL OPERATOR FORMING, ANGELES A V73.81 HPV SCREENING 11/02/2013 RADHA YARDAGE CONTROL OPERATOR FORMING, ANGELES A V76.2 CERVICAL CANCER SCREENING (PAP SMEAR) 11/02/2013 RADHA UMANZOR ANGELES A V76.51 COLON CANCER SCREENING 11/02/2013 EMILIE UMANZOR CHRISTINE S V65.49 OTHER SPECIFIED COUNSELING 11/02/2013 EMILIE UMANZOR CHRISTINE S V72.31 APPEALS COORDINATOR EXAM, ROUTINE 11/02/2013 EMILIE UMANZOR CHRISTINE S V73.81 HPV SCREENING 11/02/2013 EMILIE UMANZOR CHRISTINE S V76.2 CERVICAL CANCER SCREENING (PAP SMEAR) 11/02/2013 EMILIE UMANZOR CHRISTINE S V76.51 COLON CANCER SCREENING 11/02/2013 MURPHY YARDAGE CONTROL OPERATOR FORMING, IVAN R V65.49 OTHER SPECIFIED COUNSELING 11/02/2013 MURPHY YARDAGE CONTROL OPERATOR FORMING, IVAN R V72.31 APPEALS COORDINATOR EXAM, ROUTINE 11/02/2013 MURPHY YARDAGE CONTROL OPERATOR FORMING, IVAN R V73.81 HPV SCREENING 11/02/2013 MURPHY YARDAGE CONTROL OPERATOR FORMING, IVAN R V76.2 CERVICAL CANCER SCREENING (PAP SMEAR) 11/02/2013 MURPHY YARDAGE CONTROL OPERATOR FORMING, IVAN R V76.51 COLON CANCER SCREENING 11/02/2013 EMILIE UMANZOR CHRISTINE S V65.49 OTHER SPECIFIED COUNSELING 11/02/2013 EMILIE UMANZOR CHRISTINE S V72.31 APPEALS COORDINATOR EXAM, ROUTINE 11/02/2013 EMILIE UMANZOR CHRISTINE S V73.81 HPV SCREENING 11/02/2013 EMILIE UMANZOR CHRISTINE S V76.2 CERVICAL CANCER SCREENING (PAP SMEAR) 11/02/2013 EMILIE UMANZOR CHRISTINE S V76.51 COLON CANCER SCREENING 11/02/2013 EMILIE UMANZOR CHRISTINE S V65.49 OTHER SPECIFIED COUNSELING 11/02/2013 EMILIE UMANZOR CHRISTINE S V72.31 APPEALS COORDINATOR EXAM, ROUTINE 11/02/2013 EMILIE YARDAGE CONTROL OPERATOR FORMING, CHRISTINE S V73.81 HPV SCREENING 11/02/2013 EMILIE UMANZOR CHRISTINE S V76.2 CERVICAL CANCER SCREENING (PAP SMEAR) 11/02/2013 EMILIE UMANZOR CHRISTINE S V76.51 COLON CANCER SCREENING 11/04/2013 ANGELES GARCIA APRN A 792.1 Hemoccult positive stool 11/04/2013 ANGELES GARCIA APRN A 792.1 Hemoccult positive stool 11/04/2013 EMILIE UMANZOR, CHRISTINE S 792.1 Hemoccult positive stool 11/04/2013 MURPHY YARDAGE CONTROL OPERATOR FORMING, IVAN R 792.1 Hemoccult positive stool 11/04/2013 EMILIE YARDAGE CONTROL OPERATOR FORMING, CHRISTINE S 792.1 HEMOCCULT POSITIVE STOOL 11/04/2013 EMILIE KERRN, CHRISTINE S 792.1 HEMOCCULT POSITIVE STOOL 11/29/2013 EMILIE UMANZOR, CHRISTINE S 493.00 EXTRINSIC ASTHMA UNSPECIFIED 11/29/2013 MURPHY YARDAGE CONTROL OPERATOR FORMING, IVAN R 493.00 EXTRINSIC ASTHMA UNSPECIFIED 11/29/2013 EMILIE YARDAGE CONTROL OPERATOR FORMING, CHRISTINE S 493.00 EXTRINSIC ASTHMA UNSPECIFIED 11/29/2013 EMILIE KERRN, CHRISTINE S 493.00 EXTRINSIC ASTHMA UNSPECIFIED 02/18/2014 MURPHY UMANZOR, IVAN R 784.7 EPISTAXIS 02/18/2014 LONDON PHAN APRNNDA S 784.7 EPISTAXIS 02/18/2014 EMILIE UMANZOR, CHRISTINE S 784.7 EPISTAXIS 02/24/2014 L[place] PHAN APRNNDA S V81.1 HYPERTENSION SCREENING 02/24/2014 L[place] PHAN APRNNDA S V81.1 HYPERTENSION SCREENING 04/16/2016 Ot J18.9 PNEUMONIA, UNSPECIFIED ORGANISM 04/16/2016 Ot R07.89 OTHER CHEST PAIN 04/16/2016 Ot J18.9 PNEUMONIA, UNSPECIFIED ORGANISM 04/16/2016 Ot R07.89 OTHER CHEST PAIN 04/16/2016 Ot J18.9 PNEUMONIA, UNSPECIFIED ORGANISM 04/16/2016 Ot R07.89 OTHER CHEST PAIN 05/01/2016 Ot 626.8 MENSTRUAL DISORDER NEC 05/01/2016 ANGELES GARCIA APRN Ot V65.49 OTHER SPECIFIED COUNSELING 05/01/2016 ANGELES GARCIA APRN Ot V72.31 ROUTINE GYNECOLOGICAL EXAMINATION 05/01/2016 ANGELES GARCIA APRN Ot V73.81 SPECIAL SCREENING EXAMINATION, HUMAN PAP 05/01/2016 ANGELES GARCIA APRN Ot V76.12 OTH SCREEN MAMMO-MALIGN NEOPLASM OF KARLY 05/01/2016 ANGELES GARCIA APRN Ot V76.2 SCREEN MAL NEOP-CERVIX 05/01/2016 ANGELES GARCIA APRN Ot V76.51 SCREEN MAL NEOP-COLON 05/06/2016 CHRISTINE PHAN ADMISSIONS REPRESENTATIVE Ot J15.7 PNEUMONIA DUE TO MYCOPLASMA PNEUMONIAE 05/08/2016 CHRISTINE PHAN ADMISSIONS REPRESENTATIVE Ot J15.7 PNEUMONIA DUE TO MYCOPLASMA PNEUMONIAE 12/15/2016 ALYSIA DOWELL MD Ot E78.00 PURE HYPERCHOLESTEROLEMIA, UNSPECIFIED 12/15/2016 ALYSIA DOWELL MD Ot I10 ESSENTIAL (PRIMARY) HYPERTENSION 12/15/2016 ALYSIA DOEWLL MD Ot K21.9 GASTRO-ESOPHAGEAL REFLUX DISEASE WITHOUT 12/15/2016 ALYSIA DOWELL MD Ot R11.2 NAUSEA WITH VOMITING, UNSPECIFIED 12/15/2016 ALYSIA DOWELL MD Ot R42 DIZZINESS AND GIDDINESS 12/15/2016 ALYSIA DOWELL MD T Ot Z85.3 PERSONAL HISTORY OF MALIGNANT NEOPLASM O 12/15/2016 ALYSIA DOWELL MD T Ot Z87.891 PERSONAL HISTORY OF NICOTINE DEPENDENCE 12/17/2016 ALYSIA DOWELL MD Ot E78.00 PURE HYPERCHOLESTEROLEMIA, UNSPECIFIED 12/17/2016 ALYSIA DOWELL MD T Ot I10 ESSENTIAL (PRIMARY) HYPERTENSION 12/17/2016 ALYSIA DOWELL MD T Ot K21.9 GASTRO-ESOPHAGEAL REFLUX DISEASE WITHOUT 12/17/2016 ALYSIA DOWELL MD T Ot R11.2 NAUSEA WITH VOMITING, UNSPECIFIED 12/17/2016 ALYSIA DOWELL MD T Ot R42 DIZZINESS AND GIDDINESS 12/17/2016 ALYSIA DOWELL MD T Ot Z85.3 PERSONAL HISTORY OF MALIGNANT NEOPLASM O 12/17/2016 ALYSIA DOWELL MD T Ot Z87.891 PERSONAL HISTORY OF NICOTINE DEPENDENCE 01/06/2017 ANGELES GARCIA APRN Ot V65.49 OTHER SPECIFIED COUNSELING 01/06/2017 ANGELES GARCIA YARDAGE CONTROL OPERATOR FORMING Ot V72.31 ROUTINE GYNECOLOGICAL EXAMINATION 01/06/2017 ANGELES GARCIA YARDAGE CONTROL OPERATOR FORMING Ot V73.81 SPECIAL SCREENING EXAMINATION, HUMAN PAP 01/06/2017 ANGELES GARCIA YARDAGE CONTROL OPERATOR FORMING Ot V76.12 OTH SCREEN MAMMO-MALIGN NEOPLASM OF KARLY 01/06/2017 ANGELES GARCIA YARDAGE CONTROL OPERATOR FORMING Ot V76.2 SCREEN MAL NEOP-CERVIX 01/06/2017 SOTERO GARCIAIDI Marquez YARDAGE CONTROL OPERATOR FORMING Ot V76.51 SCREEN MAL NEOP-COLON 01/06/2017 CHRISTINE PHAN ADMISSIONS REPRESENTATIVE Ot J15.7 PNEUMONIA DUE TO MYCOPLASMA PNEUMONIAE 06/08/2018 ANGELES GARCIA YARDAGE CONTROL OPERATOR FORMING Ot V65.49 OTHER SPECIFIED COUNSELING 06/08/2018 ANGELES GARCIA YARDAGE CONTROL OPERATOR FORMING Ot V72.31 ROUTINE GYNECOLOGICAL EXAMINATION 06/08/2018 ANGELES GARCIA YARDAGE CONTROL OPERATOR FORMING Ot V73.81 SPECIAL SCREENING EXAMINATION, HUMAN PAP 06/08/2018 ANGELES GARCIA YARDAGE CONTROL OPERATOR FORMING Ot V76.12 OTH SCREEN MAMMO-MALIGN NEOPLASM OF KARLY 06/08/2018 ANGELES GARCIA YARDAGE CONTROL OPERATOR FORMING Ot V76.2 SCREEN MAL NEOP-CERVIX 06/08/2018 ANGELES GARCIA YARDAGE CONTROL OPERATOR FORMING Ot V76.51 SCREEN MAL NEOP-COLON 06/08/2018 CHRISTINE PHAN ADMISSIONS REPRESENTATIVE Ot J15.7 PNEUMONIA DUE TO MYCOPLASMA PNEUMONIAE 06/08/2018 ANTHONY OAKLEY ADMISSIONS REPRESENTATIVE Ot Z12.31 ENCNTR SCREEN MAMMOGRAM FOR MALIGNANT NE 06/09/2018 ALEXIS SPENCER MD Ot E78.00 PURE HYPERCHOLESTEROLEMIA, UNSPECIFIED 06/09/2018 ALEXIS SPENCER MD Ot I10 ESSENTIAL (PRIMARY) HYPERTENSION 06/09/2018 ALEXIS SPENCER MD Ot K21.9 GASTRO-ESOPHAGEAL REFLUX DISEASE WITHOUT 06/09/2018 ALEXIS SPENCER MD, Ot L03.113 CELLULITIS OF RIGHT UPPER LIMB 06/09/2018 ALEXIS SPENCER MD, Ot Z85.3 PERSONAL HISTORY OF MALIGNANT NEOPLASM O 06/09/2018 ALEXIS SPENCER MD, Ot Z87.898 PERSONAL HISTORY OF OTHER SPECIFIED COND 06/09/2018 ALEXIS SPENCER MD, Ot Z90.11 ACQUIRED ABSENCE OF RIGHT BREAST AND NIP Procedures Code Description [place] [address] OXIMETRY 03/21/2013 95797 ROUTINE VENIPUNCTURE 04/14/2013 63365 CBC 04/14/2013 8580893 GFR CALC (RESULT ONLY) 04/14/2013 08992 CMP 04/14/2013 68706 LIPID PANEL 04/14/2013 42113 INFLUENZA A & B (IN-HOUSE) 06/16/2013 77877 MAMMOGRAM, SCREENING 11/02/2013 Q0091 PAP SMEAR OBTAIN SMEAR 11/02/2013 33578 HEMOCCULT 11/02/2013 77185 PAP SMEAR 11/04/2013 2000F BLOOD PRESSURE CHECK 02/24/2014 87039 ROUTINE VENIPUNCTURE 03/06/2014 67132 CMP 03/06/2014 47152 LIPID PANEL 03/06/2014 3289659 GFR CALC (RESULT ONLY) 03/06/2014 60641 CBC 03/06/2014 88289 TSH 03/06/2014 89223 HEMOCCULT 03/14/2014 Results Test Result Range Complete blood count (CBC) with automated white blood cell (WBC) differential - 12/15/16 07:05 Blood leukocytes automated count (number/volume) 11.2 10*3/uL 4.3-11.0 Blood erythrocytes automated count (number/volume) 4.33 10*6/uL 4.35-5.85 Venous blood hemoglobin measurement (mass/volume) 13.5 g/dL 11.5-16.0 Blood hematocrit (volume fraction) 41 % 35-52 Automated erythrocyte mean corpuscular volume 94 [foz_us] 80-99 Automated erythrocyte mean corpuscular hemoglobin (mass per erythrocyte) 31 pg 25-34 Automated erythrocyte mean corpuscular hemoglobin concentration measurement (mass/volume) 33 g/dL 32-36 Automated erythrocyte distribution width ratio 14.3 % 10.0- 14.5 Automated blood platelet count (count/volume) 248 10*3/uL 130-400 Automated blood platelet mean volume measurement 10.9 [foz_us] 7.4-10.4 Automated blood neutrophils/100 leukocytes 69 % 42-75 Automated blood lymphocytes/100 leukocytes 24 % 12-44 Blood monocytes/100 leukocytes 6 % 0-12 Automated blood eosinophils/100 leukocytes 2 % 0-10 Automated blood basophils/100 leukocytes 0 % 0-10 Blood neutrophils automated count (number/volume) 7.7 10*3 1.8-7.8 Blood lymphocytes automated count (number/volume) 2.6 10*3 1.0-4.0 Blood monocytes automated count (number/volume) 0.6 10*3 0.0- 1.0 Automated eosinophil count 0.2 10*3/uL 0.0-0.3 Automated blood basophil count (count/volume) 0.1 10*3/uL 0.0-0.1 Comprehensive metabolic panel - 12/15/16 07:05 Serum or plasma sodium measurement (moles/volume) 142 mmol/L 135-145 Serum or plasma potassium measurement (moles/volume) 4.0 mmol/L 3.6-5.0 Serum or plasma chloride measurement (moles/volume) 106 mmol/L 98-107 Carbon dioxide 24 mmol/L 21-32 Serum or plasma anion gap determination (moles/volume) 12 mmol/L 5-14 Serum or plasma urea nitrogen measurement (mass/volume) 14 mg/dL 7-18 Serum or plasma creatinine measurement (mass/volume) 0.68 mg/dL 0.60-1.30 Serum or plasma urea nitrogen/creatinine mass ratio 21 NRG Serum or plasma creatinine measurement with calculation of estimated glomerular filtration rate > NRG Serum or plasma glucose measurement (mass/volume) 155 mg/dL 70-105 Serum or plasma calcium measurement (mass/volume) 9.5 mg/dL 8.5-10.1 Serum or plasma total bilirubin measurement (mass/volume) 0.3 mg/dL 0.1-1.0 Serum or plasma alkaline phosphatase measurement (enzymatic activity/volume) 70 U/L 40-136 Serum or plasma aspartate aminotransferase measurement (enzymatic activity/volume) 19 U/L 5-34 Serum or plasma alanine aminotransferase measurement (enzymatic activity/volume) 18 U/L 0-55 Serum or plasma protein measurement (mass/volume) 7.7 g/dL 6.4-8.2 Serum or plasma albumin measurement (mass/volume) 3.8 g/dL 3.2-4.5 Complete urinalysis with reflex to culture - 12/15/16 09:09 Urine color determination YELLOW NRG Urine clarity determination SLIGHTLY CLOUDY NRG Urine pH measurement by test strip 7 5-9 Specific gravity of urine by test strip 1.010 1.016-1.022 Urine protein assay by test strip, semi-quantitative NEGATIVE NEGATIVE Urine glucose detection by automated test strip NEGATIVE NEGATIVE Erythrocytes detection in urine sediment by light microscopy NEGATIVE NEGATIVE Urine ketones detection by automated test strip NEGATIVE NEGATIVE Urine nitrite detection by test strip NEGATIVE NEGATIVE Urine total bilirubin detection by test strip NEGATIVE NEGATIVE Urine urobilinogen measurement by automated test strip (mass/volume) NORMAL NORMAL Urine leukocyte esterase detection by dipstick NEGATIVE NEGATIVE Automated urine sediment erythrocyte count by microscopy (number/high power field) NONE NRG Automated urine sediment leukocyte count by microscopy (number/high power field) NONE NRG Bacteria detection in urine sediment by light microscopy NEGATIVE NRG Squamous epithelial cells detection in urine sediment by light microscopy 2-5 NRG Crystals detection in urine sediment by light microscopy NONE NRG Casts detection in urine sediment by light microscopy NONE NRG Mucus detection in urine sediment by light microscopy NEGATIVE NRG Complete urinalysis with reflex to culture NO NRG HEP C ANTIBODY - 04/18/17 10:06 HEPATITIS C ANTIBODY NON-REACTIVE NON-REACTIVE SIGNAL TO CUT-OFF 0.02 <1.00 Complete blood count (CBC) with automated white blood cell (WBC) differential - 06/08/18 20:38 Blood leukocytes automated count (number/volume) 13.6 10*3/uL 4.3-11.0 Blood erythrocytes automated count (number/volume) 4.28 10*6/uL 4.35-5.85 Venous blood hemoglobin measurement (mass/volume) 13.8 g/dL 11.5-16.0 Blood hematocrit (volume fraction) 41 % 35-52 Automated erythrocyte mean corpuscular volume 96 [foz_us] 80-99 Automated erythrocyte mean corpuscular hemoglobin (mass per erythrocyte) 32 pg 25-34 Automated erythrocyte mean corpuscular hemoglobin concentration measurement (mass/volume) 34 g/dL 32-36 Automated erythrocyte distribution width ratio 14.6 % 10.0- 14.5 Automated blood platelet count (count/volume) 269 10*3/uL 130-400 Automated blood platelet mean volume measurement 10.4 [foz_us] 7.4-10.4 Automated blood neutrophils/100 leukocytes 69 % 42-75 Automated blood lymphocytes/100 leukocytes 20 % 12-44 Blood monocytes/100 leukocytes 8 % 0-12 Automated blood eosinophils/100 leukocytes 2 % 0-10 Automated blood basophils/100 leukocytes 0 % 0-10 Blood neutrophils automated count (number/volume) 9.4 10*3 1.8-7.8 Blood lymphocytes automated count (number/volume) 2.8 10*3 1.0-4.0 Blood monocytes automated count (number/volume) 1.1 10*3 0.0- 1.0 Automated eosinophil count 0.3 10*3/uL 0.0-0.3 Automated blood basophil count (count/volume) 0.0 10*3/uL 0.0-0.1 Comprehensive metabolic panel - 06/08/18 20:38 Serum or plasma sodium measurement (moles/volume) 138 mmol/L 135-145 Serum or plasma potassium measurement (moles/volume) 3.7 mmol/L 3.6-5.0 Serum or plasma chloride measurement (moles/volume) 102 mmol/L 98-107 Carbon dioxide 26 mmol/L 21-32 Serum or plasma anion gap determination (moles/volume) 10 mmol/L 5-14 Serum or plasma urea nitrogen measurement (mass/volume) 18 mg/dL 7-18 Serum or plasma creatinine measurement (mass/volume) 0.80 mg/dL 0.60-1.30 Serum or plasma urea nitrogen/creatinine mass ratio 23 NRG Serum or plasma creatinine measurement with calculation of estimated glomerular filtration rate > NRG Serum or plasma glucose measurement (mass/volume) 176 mg/dL 70-105 Serum or plasma calcium measurement (mass/volume) 10.1 mg/dL 8.5-10.1 Serum or plasma total bilirubin measurement (mass/volume) 0.5 mg/dL 0.1-1.0 Serum or plasma alkaline phosphatase measurement (enzymatic activity/volume) 77 U/L 40-136 Serum or plasma aspartate aminotransferase measurement (enzymatic activity/volume) 20 U/L 5-34 Serum or plasma alanine aminotransferase measurement (enzymatic activity/volume) 21 U/L 0-55 Serum or plasma protein measurement (mass/volume) 8.1 g/dL 6.4-8.2 Serum or plasma albumin measurement (mass/volume) 4.2 g/dL 3.2-4.5 CALCIUM CORRECTED 9.9 mg/dL 8.5-10.1 Serum or plasma C reactive protein measurement (mass/volume) - 06/08/18 20:38 Serum or plasma C reactive protein measurement (mass/volume) 6.94 mg/dL 0.00-0.50 Erythrocyte sedimentation rate by westergren method - 06/08/18 20:38 Erythrocyte sedimentation rate by westergren method 39 mm 0-30 PT panel in platelet poor plasma by coagulation assay - 06/08/18 20:38 Prothrombin time (PT) in platelet poor plasma by coagulation assay 13.1 s 12.2-14.7 INR in platelet poor plasma or blood by coagulation assay 1.0 0.8-1.4 Activated partial thromboplastin time (aPTT) in platelet poor plasma bycoagulation assay - 06/08/18 20:38 Activated partial thromboplastin time (aPTT) in platelet poor plasma bycoagulation assay 33 s 24-35 Hemoglobin A1c - 06/08/18 20:38 Blood hemoglobin A1C measurement (mass/volume) 6.0 % 4.0-5.6 MEAN BLOOD GLUCOSE 126 % <=126 Blood lactic acid measurement (moles/volume) - 06/08/18 20:54 Blood lactic acid measurement (moles/volume) 1.67 mmol/L 0.50- 2.00 Bacterial blood culture - 06/08/18 20:54 Bacterial blood culture NG NRG Bacterial blood culture - 06/08/18 21:06 Bacterial blood culture NG NRG Complete blood count (CBC) with automated white blood cell (WBC) differential - 06/09/18 04:40 Blood leukocytes automated count (number/volume) 10.5 10*3/uL 4.3-11.0 Blood erythrocytes automated count (number/volume) 3.99 10*6/uL 4.35-5.85 Venous blood hemoglobin measurement (mass/volume) 12.7 g/dL 11.5-16.0 Blood hematocrit (volume fraction) 39 % 35-52 Automated erythrocyte mean corpuscular volume 97 [foz_us] 80-99 Automated erythrocyte mean corpuscular hemoglobin (mass per erythrocyte) 32 pg 25-34 Automated erythrocyte mean corpuscular hemoglobin concentration measurement (mass/volume) 33 g/dL 32-36 Automated erythrocyte distribution width ratio 14.6 % 10.0- 14.5 Automated blood platelet count (count/volume) 258 10*3/uL 130-400 Automated blood platelet mean volume measurement 10.4 [foz_us] 7.4-10.4 Automated blood neutrophils/100 leukocytes 59 % 42-75 Automated blood lymphocytes/100 leukocytes 28 % 12-44 Blood monocytes/100 leukocytes 10 % 0-12 Automated blood eosinophils/100 leukocytes 3 % 0-10 Automated blood basophils/100 leukocytes 0 % 0-10 Blood neutrophils automated count (number/volume) 6.2 10*3 1.8-7.8 Blood lymphocytes automated count (number/volume) 2.9 10*3 1.0-4.0 Blood monocytes automated count (number/volume) 1.0 10*3 0.0- 1.0 Automated eosinophil count 0.3 10*3/uL 0.0-0.3 Automated blood basophil count (count/volume) 0.0 10*3/uL 0.0-0.1 Comprehensive metabolic panel - 06/09/18 04:40 Serum or plasma sodium measurement (moles/volume) 140 mmol/L 135-145 Serum or plasma potassium measurement (moles/volume) 3.6 mmol/L 3.6-5.0 Serum or plasma chloride measurement (moles/volume) 105 mmol/L 98-107 Carbon dioxide 25 mmol/L 21-32 Serum or plasma anion gap determination (moles/volume) 10 mmol/L 5-14 Serum or plasma urea nitrogen measurement (mass/volume) 18 mg/dL 7-18 Serum or plasma creatinine measurement (mass/volume) 0.68 mg/dL 0.60-1.30 Serum or plasma urea nitrogen/creatinine mass ratio 26 NRG Serum or plasma creatinine measurement with calculation of estimated glomerular filtration rate > NRG Serum or plasma glucose measurement (mass/volume) 106 mg/dL 70-105 Serum or plasma calcium measurement (mass/volume) 9.4 mg/dL 8.5-10.1 Serum or plasma total bilirubin measurement (mass/volume) 0.3 mg/dL 0.1-1.0 Serum or plasma alkaline phosphatase measurement (enzymatic activity/volume) 65 U/L 40-136 Serum or plasma aspartate aminotransferase measurement (enzymatic activity/volume) 18 U/L 5-34 Serum or plasma alanine aminotransferase measurement (enzymatic activity/volume) 19 U/L 0-55 Serum or plasma protein measurement (mass/volume) 6.9 g/dL 6.4-8.2 Serum or plasma albumin measurement (mass/volume) 3.7 g/dL 3.2-4.5 CALCIUM CORRECTED 9.6 mg/dL 8.5-10.1 Capillary blood glucose measurement by glucometer (mass/volume) - 06/09/18 06:40 Capillary blood glucose measurement by glucometer (mass/volume) 101 mg/dL 70-110 Capillary blood glucose measurement by glucometer (mass/volume) - 06/09/18 11:17 Capillary blood glucose measurement by glucometer (mass/volume) 105 mg/dL 70-110 LIPID PANEL - 12/23/18 08:48 CHOLESTEROL, TOTAL 161 mg/dL <200 HDL CHOLESTEROL 53 mg/dL >50 TRIGLYCERIDES 94 mg/dL <150 LDL-CHOLESTEROL 89 mg/dL (calc) NRG CHOL/HDLC RATIO 3.0 (calc) <5.0 NON HDL CHOLESTEROL 108 mg/dL (calc) <130 CMP - 12/23/18 08:48 GLUCOSE 99 mg/dL 65-99 UREA NITROGEN (BUN) 17 mg/dL 7-25 CREATININE 0.68 mg/dL 0.50-0.99 eGFR NON-AFR. BURKINAN 91 mL/min/1.73m2 > OR=60 eGFR 106 mL/min/1.73m2 > OR=60 BUN/CREATININE RATIO NOT APPLICABLE (calc) 6-22 SODIUM 141 mmol/L 135-146 POTASSIUM 3.9 mmol/L 3.5-5.3 CHLORIDE 102 mmol/L 98-110 CARBON DIOXIDE 30 mmol/L 20-32 CALCIUM 9.8 mg/dL 8.6-10.4 PROTEIN, TOTAL 7.4 g/dL 6.1-8.1 ALBUMIN 4.2 g/dL 3.6-5.1 GLOBULIN 3.2 g/dL (calc) 1.9-3.7 ALBUMIN/GLOBULIN RATIO 1.3 (calc) 1.0-2.5 BILIRUBIN, TOTAL 0.6 mg/dL 0.2-1.2 ALKALINE PHOSPHATASE 69 U/L 33-130 AST 15 U/L 10-35 ALT 15 U/L 6-29 Encounters ACCT No. Visit Date/Time Discharge Status Pt. Type Provider Facility Loc./Unit Complaint [id number] 12/23/2018 08:40:00 12/23/2018 23:59:59 CLS Outpatient CHRISTINE PHAN APRN [facility] [id number] 12/23/2018 08:40:00 Document Registration [id number] 04/18/2017 10:00:00 Document Registration [id number] 03/14/2014 17:40:00 03/14/2014 23:59:59 CLS Outpatient CHRISTINE PHAN APRN [id number] 03/07/2014 08:50:00 03/07/2014 23:59:59 CLS Outpatient CHRISTINE PHAN APRN [id number] 02/18/2014 09:25:00 02/18/2014 23:59:59 CLS Outpatient IVAN ARRINGTON APRN [place] [id number] 11/29/2013 13:53:00 11/29/2013 23:59:59 CLS Outpatient EMILIE UMANZOR CHRISTINE Riley [id number] 11/02/2013 14:08:00 11/02/2013 23:59:59 CLS Outpatient ANGELES GARCIA APRN A [id number] 11/02/2013 14:08:00 11/02/2013 23:59:59 CLS Outpatient ANGELES GARCIA APRN A [id number] 08/30/2013 14:30:00 08/30/2013 23:59:59 CLS Outpatient EMILI STEVENS MD [id number] 06/16/2013 09:04:00 06/16/2013 23:59:59 CLS Outpatient FABBY DELA CRUZ APRN [place] [id number] 04/14/2013 08:21:00 04/14/2013 23:59:59 CLS Outpatient EMILIE YARDAGE CONTROL OPERATOR FORMINGCHRISTINE Espinoza [id number] 03/30/2013 15:21:00 03/30/2013 23:59:59 CLS Outpatient EMILIE YARDAGE CONTROL OPERATOR FORMINGCHRISTINE Espinoza [id number] 09/01/2012 10:53:00 09/01/2012 23:59:59 CLS Outpatient VIC ZAPATA DO [id number] 08/09/2012 10:01:00 08/09/2012 23:59:59 CLS Outpatient [id number] 07/05/2012 14:04:00 07/05/2012 23:59:59 CLS Outpatient [id number] 04/13/2012 10:38:00 04/13/2012 23:59:59 CLS Outpatient [id number] 06/08/2018 21:40:00 06/09/2018 12:44:00 DIS Inpatient TJ GUZMAN, ALEXIS Cornejo [facility] 4TH CELLULITIS R ARM,HX OF LYMPHEDEMA [id number] 05/07/2017 19:25:00 05/07/2017 21:47:00 DIS Emergency DANDRE LORENZO, RYLEY Drake [facility] ER PAIN,DIZZINESS FROM FALL [id number] 01/06/2017 09:30:00 01/06/2017 23:59:59 CLS Outpatient CELE ANTHONYDINESH OLSEN [facility] RAD Z12.31 SCREENING [id number] 12/15/2016 07:04:00 12/15/2016 11:49:00 DIS Emergency DELMER GUZMAN, ALYSIA Velasquez [facility] ER DIZZY/N/V/HEADACHE [id number] 05/02/2016 13:08:00 05/02/2016 23:59:59 CLS Outpatient CHRISTINE PHAN [facility] RAD PNUEMONIA OF RT UPPER LOBE [id number] 11/10/2013 08:50:00 11/10/2013 23:59:59 CLS Outpatient ANGELES GARCIA APRN [facility] RAD ROUTINE [id number] 05/01/2016 09:02:00 Document Registration [id number] 05/01/2016 09:02:00 Document Registration [id number] 04/15/2016 22:56:00 Document Registration [id number] 01/28/2011 10:44:00 Document Registration
[2019-01-07] MEDS ORDERED: TETANUS,DIPTH,PERTUSS P/F (BOOSTRIX) 0.5 ML VIAL IM ONE (14:15)
[2019-01-07] MEDS ORDERED: CEPH500T PO (14:20)
--- NOTE | 2019-01-07 14:20 | ED Upper Extremity ---
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 Nursing Sepsis Screen: No Definite Risk History of Present Illness Date Seen by Provider: Jan 07, 2019 Time Seen by Provider: 13:48 Initial Comments 68 -year-old female presents for a splinter under her right ring finger nail. She states that she was picking something up off the floor when her nail caught the would trend at the baseboard resulting in a splinter. She went to [facility] and it was attempted to be removed that she would not tolerate a digital block. She has a history of lymphedema after multiple node removals in the right arm. Onset: this morning Pain/Injury Location: right 4th finger Method of Injury: other (Foreign body right 4th finger nail) Allergies and Home Medications Allergies Coded Allergies: green dye (Verified Allergy, Unknown, 07/06/09) red dye (Verified Allergy, Unknown, 07/06/09) Uncoded Allergies: ALLERGY TO RED/GREEN DYE (Allergy, Unknown, 05/25/09) FEMURA (Adverse Reaction, Unknown, 04/16/16) Home Medications Albuterol Sulfate 1 Puff Puff, 2 PUFF INH Q4H PRN for SHORTNESS OF BREATH, (Reported) Amlodipine Besylate 5 Mg Tablet, 5 MG PO DAILY, (Reported) Budesonide/Formoterol Fumarate 10.2 Gm Hfa.aer.ad, 2 PUFF INH BID PRN for SHORTNESS OF BREATH, (Reported) Cephalexin 500 Mg Tablet, 500 MG PO QID Prescribed by: JODI BEAN on 01/07/19 1420 Enalapril Maleate 20 Mg Tablet, 40 MG PO DAILY, (Reported) Fluticasone Propionate 9.9 Ml [place].susp, 1 SPRAY NS DAILY PRN for CONGESTION, (Reported) Hydrochlorothiazide 25 Mg Tablet, 25 MG PO DAILY, (Reported) Loratadine 10 Mg Tablet, 10 MG PO DAILY, (Reported) Ranitidine HCl 150 Mg Tablet, 150 MG PO BID, (Reported) Sulfamethoxazole/Trimethoprim 1 Each Tablet, 1 EACH PO BID Prescribed by: VIC ZAPATA on 06/09/18 1210 Patient Home Medication List Home Medication List Reviewed: Yes Review of Systems Constitutional: no symptoms reported, see HPI Skin: see HPI, other (Foreign body right 4th nail) All Other Systems Reviewed Negative Unless Noted: Yes Past Afravyw-Zgqjwu-Vlwati Hx Past Med/Social Hx: Reviewed Nursing Past Med/Soc Hx Patient Social History Alcohol Use: Denies Use Recreational Drug Use: No Smoking Status: Never a Smoker Type Used: Cigarettes Recent Foreign Travel: No Contact w/Someone Who Travel: No Recent Infectious Disease Expo: No Recent Hopitalizations: No Seasonal Allergies Seasonal Allergies: No Past Medical History Surgeries: Yes Abdominal, Breast, Cardiac, Section, Orthopedic, Tonsillectomy Respiratory: Yes (OCCASIONALLY USES INHALER) Asthma Cardiac: Yes (NORMAL CARDIAC CATH 2009) High Cholesterol, Hypertension Neurological: No Reproductive Disorders: Yes Genitourinary: No Gastrointestinal: Yes Gastroesophageal Reflux Musculoskeletal: Yes (OCCASIONAL LYMPHEDEMA RIGHT ARM. RIGHT KNEE SURGERY X 2 ) Endocrine: No HEENT: Yes (S/P TONSILLECTOMY) Tonsilitis Cancer: Yes Breast Did You Recieve Any Treatments: Yes What Type of Treatment Did You: Surgical Intervention Psychosocial: No Integumentary: No Blood Disorders: No Adverse Reaction/Blood Tranf: No Family Medical History No Pertinent Family Hx Physical Exam Vital Signs Vital Signs - First Documented 01/07/19 13:45 Temp 98.0 Pulse 83 Resp 14 B/P (MAP) 146/80 (102) Pulse Ox 96 O2 Delivery Room Air Capillary Refill : Less Than 3 Seconds Height, Weight, BMI Height: 5'1.00" Weight: 195lbs. 0.0oz. 88.833509oi; 37.4 BMI Method:Stated General Appearance: WD/WN, no apparent distress Cardiovascular: normal peripheral pulses, regular rate, rhythm Respiratory: chest non-tender, lungs clear, normal breath sounds Hand: normal inspection, Right, nail injury (small splinter noted under right 4th nail, tender to palpation. ) Neurologic/Psychiatric: no motor/sensory deficits, alert, normal mood/affect, oriented x 3 Skin: normal color, warm/dry Procedures/Interventions I&D : Site: right 4th nail I & D Procedure: betadine prep Progress Explanation of plan of care explained to the patient and her , they agreed with this. Sterile technique for right 4th finger Digital block with 8ml of Lidocaine 1%. Once adequate local anesthesia obtained, the nail was trimmed back to the site of the splinter and it was removed. The finger and wound were copiously irrigated with 500 ml of sterile saline. A bulky sterile dressings, there was good hemostasis. Patient tolerated the procedure well. Progress/Results/Core Measures Results/Orders My Orders Orders - JODI BEAN PRETTY Lidocaine 1% Inj 20 Ml (Xylocaine 1% Inj (01/07/19 13:45) Dipht,Pertuss(Acell),Tet Adult (Boostrix (01/07/19 14:15) Medications Given in ED Current Medications Medications Dose Ordered Sig/Faith Route Start Time Stop Time Status Last Admin Dose Admin Diphtheria/ Tetanus/Acell Pertussis 0.5 ml ONCE ONCE IM 01/07/19 14:15 01/07/19 14:16 DC 01/07/19 14:18 0.5 ML Lidocaine HCl 20 ml ONCE ONCE INJ 01/07/19 13:45 01/07/19 13:46 DC 01/07/19 13:50 20 ML Vital Signs/I&O 01/07/19 01/07/19 13:45 14:25 Temp 98.0 Pulse 83 83 Resp 14 14 B/P (MAP) 146/80 (102) 146/80 (102) Pulse Ox 96 96 O2 Delivery Room Air Room Air Blood Pressure Mean: 102 Departure Impression Primary Impression: Foreign body of right ring finger Disposition: HOME, SELF-CARE Condition: Improved Departure-Patient Inst. Decision time for Depature: 14:15 Referrals: [facility] (PCP/Family) Primary Care Physician Patient Instructions: Foreign Body in Skin (DC) Add. Discharge Instructions: Keep wound clean and dry 24 hours. You may shower tomorrow, just don't submerge the right ring finger in sink of water, bath tub, hot tub or swimming pool for 3 weeks. Take Antibiotic as prescribed. May alternate between Tylenol 650 mg and ibuprofen 600 mg every 4 hours for pain or fever. Ice and elevate right ring finger every 2 hours for pain or swelling. Follow-up with your primary care provider if symptoms are not improving or worsen Return to emergency department for fever greater than 101 not relieved by Tylenol or ibuprofen, increased pain or redness, discolored or foul-smelling drainage from wound, or new urgent concerns. All discharge instructions reviewed with patient and/or family. Voiced understanding. Scripts Cephalexin (Cephalexin) 500 Mg Tablet 500 MG PO QID, #20 TAB 0 Refills Prov: JODI BEAN 01/07/19 JODI BEAN Jan 07, 2019 14:20
[2019-01-07 14:25] VITALS: BP 146/80
== END 2019-01-07 14:30 | disposition home or self-care (01) ==
LOC: EDUNIT# 13:28 → ER 13:30
DX: S60.454A Superficial foreign body of right ring finger, initial encounter (principal); J45.909 Unspecified asthma, uncomplicated; I10 Essential (primary) hypertension; E78.00 Pure hypercholesterolemia, unspecified; K21.9 Gastro-esophageal reflux disease without esophagitis; Z85.3 Personal history of malignant neoplasm of breast; Z88.8 Allergy status to other drugs, medicaments and biological substances; Z79.51 Long term (current) use of inhaled steroids; Z90.89 Acquired absence of other organs; W45.8XXA Other foreign body or object entering through skin, initial encounter
CPT/HCPCS: 64450; 90471; 90715

== ENCOUNTER → 2019-01-28 | Outpatient (CLI) | payer MEDICARE ==
[~2019-01-28] MED LIST changes: +CEPH500T PO
--- NOTE | 2019-01-28 19:11 | Diagnostic Imaging Report ---
INDICATION: Routine screening. COMPARISON: Comparison is made with prior mammograms from 01/06/2017 and 11/10/2013. TECHNIQUE: 2-D and 3-D bilateral screening mammography was performed. The current study was also evaluated with a Computer Aided Detection (CAD) system. 3-D tomosynthesis was also performed and reviewed. FINDINGS: Scattered fibroglandular densities are identified bilaterally. There are benign calcifications in both breasts. There are post-therapeutic changes in the right breast. This appears to be stable. No new mass or malignant-appearing microcalcifications are identified. The axillae are unremarkable. IMPRESSION: No mammographic features suspicious for malignancy are identified. ACR BI-RADS Category 2: Benign findings. Result letter will be mailed to the patient. Note: At least 10% of breast cancer is not imaged by mammography. Dictated by: Dictated on workstation # [id number]
== END ==
LOC: RAD 09:24
PROVIDERS: ATTEND Nurse Practitioner Community Health
DX: Z12.31 Encounter for screening mammogram for malignant neoplasm of breast (principal)
CPT/HCPCS: 77067

== ENCOUNTER 2019-02-16 17:35 | Emergency (ER) | payer MEDICARE ==
[~2019-02-16] VITALS: Ht 154.9 cm; Wt 88.5 kg
--- NOTE | 2019-02-16 17:48 | NUR ---
Patient ambulatory to ER room 7 with complaint of pain and swelling to the right arm. patient states she noticed the swelling and pain around 12:30 today. Patient states she was painting this weekend and had several small cuts on the right fingers that have appeared to have healed that she is concerned is cause for infection. Patient also states she had a right breast lumpectomy with 37 lymph nodes removed from the right arm years ago.
[2019-02-16 18:20] LABS: BILIRUBIN,URINE NEGATIVE (NEGATIVE); CLARITY,URINE CLEAR; COLOR,URINE YELLOW; GLUCOSE, URINE (UA) NEGATIVE (NEGATIVE); KETONES,URINE NEGATIVE (NEGATIVE); LEUKOCYTE ESTERASE ,URINE NEGATIVE (NEGATIVE); NITRITE,URINE NEGATIVE (NEGATIVE); PH,URINE 6 (5-9); PROTEIN,URINE NEGATIVE (NEGATIVE); UROBILINOGEN,URINE NORMAL (NORMAL)
[2019-02-16 18:28] LABS: BASOPHILS % (AUTO) 0 % (0-10); EOSINOPHILS # (AUTO) 0.2 10^3/uL (0.0-0.3); EOSINOPHILS % (AUTO) 1 % (0-10); HEMATOCRIT 41 % (35-52); HEMOGLOBIN 13.5 G/DL (11.5-16.0); LYMPHOCYTES # (AUTO) 2.3 X 10^3 (1.0-4.0); LYMPHOCYTES % (AUTO) 17 % (12-44); MEAN CORPUSCULAR HEMOGLOBIN 32 PG (25-34); MEAN CORPUSCULAR HGB CONC 33 G/DL (32-36); MEAN CORPUSCULAR VOLUME 96 FL (80-99); MEAN PLATELET VOLUME 10.8 FL (7.4-10.4); MONOCYTES # (AUTO) 1.3 X 10^3 (0.0-1.0); MONOCYTES % (AUTO) 9 % (0-12); NEUTROPHILS % (AUTO) 73 % (42-75); PLATELET COUNT 236 10^3/uL (130-400); RED CELL DISTRIBUTION WIDTH 14.8 % (10.0-14.5); WHITE BLOOD COUNT 13.8 10^3/uL (4.3-11.0)
[2019-02-16 18:34] LABS: BACTERIA,URINE NEGATIVE /HPF; SQUAMOUS EPITHELIAL CELL,UR 0-2 /HPF
[2019-02-16] MEDS ORDERED: SIMV20TA3 PO (18:37)
[2019-02-16 18:44] LABS: ALANINE AMINOTRANSFERASE 18 U/L (0-55); ALBUMIN 4.1 GM/DL (3.2-4.5); ALKALINE PHOSPHATASE 71 U/L (40-136); BILIRUBIN,TOTAL 0.5 MG/DL (0.1-1.0); BUN/CREATININE RATIO 19; CALCIUM 9.9 MG/DL (8.5-10.1); CARBON DIOXIDE 30 MMOL/L (21-32); CHLORIDE 103 MMOL/L (98-107); CREATININE SERUM 0.67 MG/DL (0.60-1.30); GFR ESTIMATED > 60; GLUCOSE 83 MG/DL (70-105); POTASSIUM 3.5 MMOL/L (3.6-5.0); SODIUM 141 MMOL/L (135-145); TOTAL PROTEIN 7.9 GM/DL (6.4-8.2)
[2019-02-16] MEDS ORDERED: TRIM/SULFAMETH 160/800 (SEPTRA DS) TAB PO ONE (19:30)
[2019-02-16] MEDS ORDERED: SULF-222 PO (19:30)
--- NOTE | 2019-02-16 19:30 | ED Upper Extremity ---
General Chief Complaint: Upper Extremity Stated Complaint: RIGHT ARM SWELLING Nursing Triage Note: BELIEVES SHE HAS LYMPHODEMA IN LEFT ARM AGAIN. COMPLAINS OF EDEMA, PAIN, REDNESS STARTING THIS AM. Nursing Sepsis Screen: No Definite Risk History of Present Illness Date Seen by Provider: Feb 16, 2019 Time Seen by Provider: 17:40 Initial Comments 68 year old female with history of lymphedema, had onset of right arm pain, rash and swelling. She denies any trauma or injuries to her right upper extremity. She did pain in her kitchen this weekend and is right-hand dominant. Most of her pain and swelling is around the elbow that extends distally to the wrist. She denies any fevers. She denies paresthesias or radicular symptoms to the right upper extremity. Onset: yesterday Pain/Injury Location: left arm Method of Injury: other (lymphedema possible overuse) Modifying Factors: Improves With Rest, Improves With Other (elevation) Allergies and Home Medications Allergies Coded Allergies: green dye (Verified Allergy, Unknown, 07/06/09) red dye (Verified Allergy, Unknown, 07/06/09) Uncoded Allergies: ALLERGY TO RED/GREEN DYE (Allergy, Unknown, 05/25/09) FEMURA (Adverse Reaction, Unknown, 04/16/16) Home Medications Albuterol Sulfate 1 Puff Puff, 2 PUFF INH Q4H PRN for SHORTNESS OF BREATH, (Reported) Amlodipine Besylate 5 Mg Tablet, 5 MG PO DAILY, (Reported) Budesonide/Formoterol Fumarate 10.2 Gm Hfa.aer.ad, 2 PUFF INH BID PRN for SHORTNESS OF BREATH, (Reported) Enalapril Maleate 20 Mg Tablet, 40 MG PO DAILY, (Reported) Fluticasone Propionate 9.9 Ml [place].susp, 1 SPRAY NS DAILY PRN for CONGESTION, (Reported) Hydrochlorothiazide 25 Mg Tablet, 25 MG PO DAILY, (Reported) Loratadine 10 Mg Tablet, 10 MG PO DAILY, (Reported) Ranitidine HCl 150 Mg Tablet, 150 MG PO BID, (Reported) Simvastatin 20 Mg Tablet, 20 MG PO DAILY, (Reported) Sulfamethoxazole/Trimethoprim 1 Each Tablet, 1 EACH PO BID Prescribed by: JODI BEAN on 02/16/191929 Patient Home Medication List Home Medication List Reviewed: Yes Review of Systems Constitutional: no symptoms reported, see HPI Musculoskeletal: see HPI, muscle pain (right upper extremity) Skin: see HPI, rash, other (pain and swelling right upper extremity) All Other Systems Reviewed Negative Unless Noted: Yes Past Ouoyjhz-Gatpky-Pojijh Hx Past Med/Social Hx: Reviewed Nursing Past Med/Soc Hx Patient Social History Alcohol Use: Denies Use Recreational Drug Use: No Smoking Status: Former Smoker Type Used: Cigarettes 2nd Hand Smoke Exposure: No Recent Foreign Travel: No Contact w/Someone Who Travel: No Recent Infectious Disease Expo: No Recent Hopitalizations: No Physical Abuse: No Sexual Abuse: No Mistreated: No Fear: No Seasonal Allergies Seasonal Allergies: No Past Medical History Surgeries: Yes Abdominal, Breast, Cardiac, Section, Orthopedic, Tonsillectomy Respiratory: Yes (OCCASIONALLY USES INHALER) Asthma Cardiac: Yes (NORMAL CARDIAC CATH 2009) High Cholesterol, Hypertension Neurological: No Reproductive Disorders: Yes Genitourinary: No Gastrointestinal: Yes Gastroesophageal Reflux Musculoskeletal: Yes (OCCASIONAL LYMPHEDEMA RIGHT ARM. RIGHT KNEE SURGERY X 2 ) Endocrine: No HEENT: Yes (S/P TONSILLECTOMY) Tonsilitis Cancer: Yes Breast Did You Recieve Any Treatments: Yes What Type of Treatment Did You: Surgical Intervention Psychosocial: No Integumentary: No Blood Disorders: No Adverse Reaction/Blood Tranf: No Family Medical History No Pertinent Family Hx Physical Exam Vital Signs Vital Signs - First Documented 02/16/19 17:35 Temp 99.6 Pulse 87 Resp 16 B/P (MAP) 159/84 (109) Pulse Ox 97 O2 Delivery Room Air Capillary Refill : Less Than 3 Seconds Height, Weight, BMI Height: 5'1.00" Weight: 195lbs. 0.0oz. 88.884309ed; 37.4 BMI Method:Stated General Appearance: WD/WN, no apparent distress HEENT: PERRL/EOMI, normal ENT inspection, TMs normal, pharynx normal Neck: non-tender, full range of motion, supple, normal inspection Cardiovascular: normal peripheral pulses, regular rate, rhythm, no murmur, other (radial and ulnar pulses 2+ and symmetric. Cap refill on the right hand is less than 2 seconds.) Respiratory: chest non-tender, lungs clear, normal breath sounds Gastrointestinal: normal bowel sounds, non tender, soft Elbow/Forearm: Right, soft tissue tenderness, swelling Wrist: Yes normal ROM; No bone tenderness, No limited ROM; Yes soft tissue tenderness, Yes swelling Hand: normal inspection, non-tender, no evidence of injury, normal ROM, Right Neurologic/Tendon: normal sensation, normal motor functions, normal tendon functions Neurologic/Psychiatric: no motor/sensory deficits, alert, normal mood/affect, oriented x 3 Skin: normal color, warm/dry, rash (trace macular rash to right upper extremity, nontender) Progress/Results/Core Measures Results/Orders Lab Results Laboratory Tests Test 02/16/19 18:00 02/16/19 18:16 Range/Units Urine Color YELLOW Urine Clarity CLEAR Urine pH 6 5-9 Urine Specific [place] 1.010 L 1.016-1.022 Urine Protein NEGATIVE NEGATIVE Urine Glucose (UA) NEGATIVE NEGATIVE Urine Ketones NEGATIVE NEGATIVE Urine Nitrite NEGATIVE NEGATIVE Urine Bilirubin NEGATIVE NEGATIVE Urine Urobilinogen NORMAL NORMAL MG/DL Urine Leukocyte Esterase NEGATIVE NEGATIVE Urine RBC (Auto) NEGATIVE NEGATIVE Urine RBC NONE /HPF Urine WBC NONE /HPF Urine Squamous Epithelial Cells 0-2 /HPF Urine Crystals NONE /LPF Urine Bacteria NEGATIVE /HPF Urine Casts NONE /LPF Urine Mucus NEGATIVE /LPF Urine Culture Indicated NO Sodium Level 141 135-145 MMOL/L Potassium Level 3.5 L 3.6-5.0 MMOL/L Chloride Level 103 98-107 MMOL/L Carbon Dioxide Level 30 21-32 MMOL/L Anion Gap 8 5-14 MMOL/L Blood Urea Nitrogen 13 7-18 MG/DL Creatinine 0.67 0.60-1.30 MG/DL Estimat Glomerular Filtration Rate > 60 BUN/Creatinine Ratio 19 Glucose Level 83 70-105 MG/DL Calcium Level 9.9 8.5-10.1 MG/DL Corrected Calcium 9.8 8.5-10.1 MG/DL Total Bilirubin 0.5 0.1-1.0 MG/DL Aspartate Amino Transf (AST/SGOT) 17 5-34 U/L Alanine Aminotransferase (ALT/SGPT) 18 0-55 U/L Alkaline Phosphatase 71 40-136 U/L C-Reactive Protein High Sensitivity 2.32 H 0.00-0.50 MG/DL Total Protein 7.9 6.4-8.2 GM/DL Albumin 4.1 3.2-4.5 GM/DL White Blood Count 13.8 H 4.3-11.0 10^3/uL Red Blood Count 4.25 L 4.35-5.85 10^6/uL Hemoglobin 13.5 11.5-16.0 G/DL Hematocrit 41 35-52 % Mean Corpuscular Volume 96 80-99 FL Mean Corpuscular Hemoglobin 32 25-34 PG Mean Corpuscular Hemoglobin Concent 33 32-36 G/DL Red Cell Distribution Width 14.8 H 10.0-14.5 % Platelet Count 236 130-400 10^3/uL Mean Platelet Volume 10.8 H 7.4-10.4 FL Neutrophils (%) (Auto) 73 42-75 % Lymphocytes (%) (Auto) 17 12-44 % Monocytes (%) (Auto) 9 0-12 % Eosinophils (%) (Auto) 1 0-10 % Basophils (%) (Auto) 0 0-10 % Neutrophils # (Auto) 10.0 H 1.8-7.8 X 10^3 Lymphocytes # (Auto) 2.3 1.0-4.0 X 10^3 Monocytes # (Auto) 1.3 H 0.0-1.0 X 10^3 Eosinophils # (Auto) 0.2 0.0-0.3 10^3/uL Basophils # (Auto) 0.0 0.0-0.1 10^3/uL My Orders Orders - JODI BEAN Cbc With Automated Diff (02/16/19 17:52) Comprehensive Metabolic Panel (02/16/19 17:52) Hs C Reactive Protein (02/16/19 17:52) Ua Culture If Indicated (02/16/19 17:52) Sulfamethoxazole/Trimet Ds Tab (Bactrim (02/16/19 19:30) Medications Given in ED Current Medications Medications Dose Ordered Sig/Faith Route Start Time Stop Time Status Last Admin Dose Admin Trimethoprim/ Sulfamethoxazole 1 ea ONCE ONCE PO 02/16/19 19:30 02/16/19 19:31 DC 02/16/19 19:38 1 EA Vital Signs/I&O 02/16/19 02/16/19 17:35 19:38 Temp 99.6 99.8 Pulse 87 81 Resp 16 14 B/P (MAP) 159/84 (109) 144/74 (97) Pulse Ox 97 99 O2 Delivery Room Air Room Air Blood Pressure Mean: 109 Progress Progress Note : Time: 17:40 Progress Note Patient seen and evaluated, will obtain labs.right arm elevated. 1830 labs essentially normal, 4 inch Elio wrap applied to the right upper extremity. Discharge instructions and return precautions reviewed. Departure Impression Primary Impression: Lymphedema of right upper extremity Disposition: HOME, SELF-CARE Condition: Improved Departure-Patient Inst. Decision time for Depature: 19:10 Referrals: [facility] (PCP) Primary Care Physician CHRISTINE PHAN (Family) Primary Care Physician Patient Instructions: Lymphedema (DC) Add. Discharge Instructions: Keep right arm elevated. Keep right arm wrapped with Elio wrap. Take antibiotics as prescribed. Follow-up with your primary care provider if symptoms are not improving or worsen. You may alternate between Tylenol 650 mg and ibuprofen 600 mg every 4 hours for pain or fever Return to emergency department for fever greater than 101 not relieved by Tylenol or ibuprofen, increased redness/warmth/pain in the right arm or new, urgent health care problems. All discharge instructions reviewed with patient and/or family. Voiced understanding. Scripts Sulfamethoxazole/Trimethoprim (Sulfamethoxazole-Tmp Ds Tablet) 1 Each Tablet 1 EACH PO BID, #20 TAB 0 Refills Prov: JODI BEAN 02/16/19 JODI BEAN Feb 16, 2019 19:30
[2019-02-16 19:38] VITALS: BP 144/74
== END 2019-02-16 19:42 | disposition home or self-care (01) ==
LOC: EDUNIT# 17:35 → ER 17:37
DX: I89.0 Lymphedema, not elsewhere classified (principal); J45.909 Unspecified asthma, uncomplicated; I10 Essential (primary) hypertension; E78.00 Pure hypercholesterolemia, unspecified; K21.9 Gastro-esophageal reflux disease without esophagitis; Z85.3 Personal history of malignant neoplasm of breast; Z88.8 Allergy status to other drugs, medicaments and biological substances; Z87.891 Personal history of nicotine dependence; Z90.89 Acquired absence of other organs
CPT/HCPCS: 36415; 80053; 81000; 85025; 86141

== ENCOUNTER 2020-04-23 05:37 | Emergency (ER) | payer MEDICARE ==
[~2020-04-23] VITALS: Ht 154 cm; Wt 90.0 kg
[~2020-04-23 05:37] MED LIST changes: +AMLO-250 PO; -AMLO5TAB9 PO; -ENAL20TA PO; +ENAL20TA16 PO; -MECL-106 PO; +MECL-149 PO; +SIMV20TA26 PO; -SIMV20TA3 PO; +SULF-222 PO
[2020-04-23 05:52] LABS: BILIRUBIN,URINE NEGATIVE (NEGATIVE); CLARITY,URINE CLEAR; COLOR,URINE YELLOW; GLUCOSE, URINE (UA) NEGATIVE (NEGATIVE); KETONES,URINE NEGATIVE (NEGATIVE); LEUKOCYTE ESTERASE ,URINE NEGATIVE (NEGATIVE); NITRITE,URINE NEGATIVE (NEGATIVE); PROTEIN,URINE NEGATIVE (NEGATIVE)
--- NOTE | 2020-04-23 06:05 | ED Back Pain ---
General Chief Complaint: Back Problems Stated Complaint: R LOWER BACK PAIN Nursing Triage Note: PT TO ED W/ C/O RT LOWER BACK PAIN ONSET 1800 YESTERDAY. DENIES INJURY Nursing Sepsis Screen: No Definite Risk Source of Information: Patient History of Present Illness Date Seen by Provider: Apr 23, 2020 Time Seen by Provider: 05:50 Initial Comments PT ARRIVES VIA POV FROM HOME C/O RIGHT FLANK PAIN SINCE 1800 LAST NIGHT PAIN BEGAN WHILE SITTING ON COUCH PAIN IS WORSENED AND IMPROVED BY CERTAIN POSITIONC NO RADIATION OF PAIN NO PARESTHESIAS OR MOTOR DEFICITS NO URINARY SYMPTOMS NO NAUSEA/VOMITING/DIARRHEA OR ABDOMINAL PAIN NO COUGH OR SHORTNESS OF BREATH NO FEVER NO HISTORY OF SIMILAR HAS NOT TAKEN ANYTHING FOR PAIN AT ANY TIME HAS NOT APPLIED ICE OR HEAT NO INJURY OR UNUSUAL ACTIVITY PT HAS IN-HOME DAY CARE. Other Comments PCP: [facility], STEVIE PHAN Allergies and Home Medications Allergies Coded Allergies: green dye (Verified Allergy, Unknown, 07/06/09) red dye (Verified Allergy, Unknown, 07/06/09) Uncoded Allergies: ALLERGY TO RED/GREEN DYE (Allergy, Unknown, 05/25/09) FEMURA (Adverse Reaction, Unknown, 04/16/16) Home Medications Albuterol Sulfate 1 Puff Puff, 2 PUFF INH Q4H PRN for SHORTNESS OF BREATH, (Reported) Amlodipine Besylate 5 Mg Tablet, 5 MG PO DAILY, (Reported) Budesonide/Formoterol Fumarate 10.2 Gm Hfa.aer.ad, 2 PUFF INH BID PRN for SHORT NESS OF BREATH, (Reported) Cyclobenzaprine HCl 10 Mg Tablet, 10 MG PO Q8H PRN for SPASMS Prescribed by: JALIL PAEZ on 04/23/20623 Enalapril Maleate 20 Mg Tablet, 40 MG PO DAILY, (Reported) Fluticasone Propionate 9.9 Ml [place].susp, 1 SPRAY NS DAILY PRN for CONGESTION, (Reported) Hydrochlorothiazide 25 Mg Tablet, 25 MG PO DAILY, (Reported) Loratadine 10 Mg Tablet, 10 MG PO DAILY, (Reported) Meloxicam 15 Mg Tablet, 15 MG PO DAILY Prescribed by: JALIL PAEZ on 04/23/20623 Ranitidine HCl 150 Mg Tablet, 150 MG PO BID, (Reported) Simvastatin 20 Mg Tablet, 20 MG PO DAILY, (Reported) Sulfamethoxazole/Trimethoprim 1 Each Tablet, 1 EACH PO BID Prescribed by: JODI BEAN on 02/16/191929 Patient Home Medication List Home Medication List Reviewed: Yes Review of Systems Constitutional: no symptoms reported Respiratory: no symptoms reported Cardiovascular: no symptoms reported Gastrointestinal: no symptoms reported Genitourinary: no symptoms reported : No Musculoskeletal: see HPI, back pain Skin: no symptoms reported Psychiatric/Neurological: No Symptoms Reported Past Skinxas-Mywgcy-Fkarmw Hx Past Med/Social Hx: Reviewed and Corrections made Patient Social History Alcohol Use: Denies Use Recreational Drug Use: No Smoking Status: Never a Smoker 2nd Hand Smoke Exposure: No Recent Foreign Travel: No Contact w/Someone Who Travel: No Recent Infectious Disease Expo: No Recent Hopitalizations: No Physical Abuse: No Sexual Abuse: No Mistreated: No Fear: No Seasonal Allergies Seasonal Allergies: Yes Past Medical History Surgeries: Yes Abdominal, Breast, Cardiac, Section, Orthopedic, Tonsillectomy Respiratory: Yes (OCCASIONALLY USES INHALER) Asthma Cardiac: Yes (NORMAL CARDIAC CATH 2009) High Cholesterol, Hypertension Neurological: No Reproductive Disorders: 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 RIGHT KNEE SURGERY X 2 ) Endocrine: No HEENT: Yes (S/P TONSILLECTOMY) Tonsilitis Cancer: Yes Breast Did You Recieve Any Treatments: Yes What Type of Treatment Did You: Surgical Intervention BREAST CANCER 2003 S/P RIGHT BREAST LUMPECTOMY WITH 37 LYMPH NODES REMOVED Psychosocial: No Integumentary: No Blood Disorders: No Adverse Reaction/Blood Tranf: No Family Medical History No Pertinent Family Hx PAST SURGICAL HISTORY: -TONSILLECTOMY -ECTOPIC - X 1 -RIGHT KNEE SURGERY X 2-TO REMOVE BONE CHIPS -RIGHT BREAST LUMPECTOMY WITH 37 LYMPH NODES REMOVED Physical Exam Vital Signs Vital Signs - First Documented 04/23/20 05:41 Temp 36.5 Pulse 109 Resp 20 B/P (MAP) 144/80 (101) Pulse Ox 95 O2 Delivery Room Air Capillary Refill : Less Than 3 Seconds Height, Weight, BMI Height: 5'1.00" Weight: 195lbs. 0.0oz. 88.123991rd; 37.00 BMI Method:Stated General Appearance: No Apparent Distress, WD/WN, Obese Neck: Normal Inspection Cardiovascular: Regular Rate, Rhythm, No Murmur, Normal Peripheral Pulses Respiratory: Normal Breath Sounds, No Accessory Muscle Use, No Respiratory Distress Gastrointestinal: Non Tender, Soft Back: No Vertebral Tenderness, CVA Tenderness (R), Decreased Range of Motion, Muscle Spasm Extremity: Normal Inspection Neurologic/Psychiatric: Alert, Oriented x3, No Motor/Sensory Deficits, Normal Mood/Affect, solicitor patent II-XII Norm as Tested Skin: Normal Color, Warm/Dry; No Rash Progress/Results/Core Measures Results/Orders Lab Results Laboratory Tests Test 04/23/20 05:43 Range/Units Urine Color YELLOW Urine Clarity CLEAR Urine pH 6.0 5-9 Urine Specific [place] 1.015 L 1.016-1.022 Urine Protein NEGATIVE NEGATIVE Urine Glucose (UA) NEGATIVE NEGATIVE Urine Ketones NEGATIVE NEGATIVE Urine Nitrite NEGATIVE NEGATIVE Urine Bilirubin NEGATIVE NEGATIVE Urine Urobilinogen 0.2 < = 1.0 MG/DL Urine Leukocyte Esterase NEGATIVE NEGATIVE Urine RBC (Auto) NEGATIVE NEGATIVE Urine RBC NONE /HPF Urine WBC NONE /HPF Urine Squamous Epithelial Cells 0-2 /HPF Urine Crystals NONE /LPF Urine Bacteria NEGATIVE /HPF Urine Casts NONE /LPF Urine Mucus NEGATIVE /LPF Urine Culture Indicated NO My Orders Orders - JALIL PAEZ DO Ketorolac Injection (Toradol Injection) (04/23/20 06:21) Orphenadrine Inj (Ed Only) (Norflex Inje (04/23/20 06:30) Medications Given in ED Current Medications Medications Dose Ordered Sig/Faith Route Start Time Stop Time Status Last Admin Dose Admin Orphenadrine Citrate 60 mg ONCE ONCE IM 04/23/20 06:30 04/23/20 06:31 DC 04/23/20 06:29 60 MG Vital Signs/I&O 04/23/20 04/23/20 05:41 06:43 Temp 36.5 Pulse 109 98 Resp 20 20 B/P (MAP) 144/80 (101) 140/78 Pulse Ox 95 96 O2 Delivery Room Air Room Air Blood Pressure Mean: 101 Departure Impression Primary Impression: Right flank pain Disposition: 01 HOME, SELF-CARE Condition: Stable Departure-Patient Inst. Referrals: [facility] (PCP) Primary Care Physician CHRISTINE PHAN (Family) Primary Care Physician Patient Instructions: Flank Pain (DC) Add. Discharge Instructions: LOTS OF CLEAR LIQUIDS MOIST HEAT TO AREA AT 20 MINUTE INTERVALS NO LIFTING OVER 5 LBS, NO TWISTING OR BENDING AT WAIST UNTIL YOU ARE BETTER FOLLOW UP WITH [facility] IN 2-3 DAYS IF NO BETTER All discharge instructions reviewed with patient and/or family. Voiced understanding. Scripts Meloxicam (Mobic) 15 Mg Tablet 15 MG PO DAILY, #10 TAB Prov: JALIL PAEZ DO 04/23/20 Cyclobenzaprine HCl (Cyclobenzaprine HCl) 10 Mg Tablet 10 MG PO Q8H PRN for SPASMS, #15 TAB 0 Refills Prov: JALIL PAEZ DO 04/23/20 JALIL PAEZ DO Apr 23, 2020 06:05
[2020-04-23 06:15] LABS: BACTERIA,URINE NEGATIVE /HPF; SQUAMOUS EPITHELIAL CELL,UR 0-2 /HPF
--- NOTE | 2020-04-23 06:18 | NUR ---
DR PAEZ IN W/ PT
[2020-04-23] MEDS ORDERED: KETOROLAC 60 MG/2 ML VIAL IM STA (06:21)
[2020-04-23] MEDS ORDERED: CYCL10TA9 PO (06:24)
[2020-04-23] MEDS ORDERED: MELO15TA14 PO (06:24)
[2020-04-23] MEDS ORDERED: ORPHENADRINE 60 MG/2 ML (NORFLEX) AMP (ED ONLY) IM ONE (06:30)
[2020-04-23 06:43] VITALS: BP 140/78
== END 2020-04-23 06:43 | disposition home or self-care (01) ==
LOC: EDUNIT# 05:37 → ER 05:39
DX: R10.31 Right lower quadrant pain (principal); I10 Essential (primary) hypertension; J45.909 Unspecified asthma, uncomplicated; K21.00 Gastro-esophageal reflux disease with esophagitis, without bleeding; E78.00 Pure hypercholesterolemia, unspecified; Z85.3 Personal history of malignant neoplasm of breast
CPT/HCPCS: 81000; 99284

== ENCOUNTER → 2021-03-21 | Outpatient (CLI) | payer MEDICARE ==
[~2021-03-21] MED LIST changes: +CYCL10TA9 PO; +MELO15TA14 PO; +RT-ALBUTEROL SULF 2.5 MG/3 ML PRE-MIX VIAL INH ONE; -SULF1TAB35 PO; +SULF1TAB38 PO
== END ==
LOC: RT 09:15
PROVIDERS: ATTEND Nurse Practitioner Family
DX: J45.909 Unspecified asthma, uncomplicated (principal); J41.1 Mucopurulent chronic bronchitis
CPT/HCPCS: 94060; 94726; 94729

== ENCOUNTER 2021-09-28 18:24 | Emergency (ER) | payer MEDICARE ==
[~2021-09-28] VITALS: Ht 154 cm; Wt 83.0 kg
[~2021-09-28 18:24] MED LIST changes: +CYCL10TA25 PO; -CYCL10TA9 PO; -RT-ALBUTEROL SULF 2.5 MG/3 ML PRE-MIX VIAL INH ONE
[2021-09-28 18:30] VITALS: BP 153/71
--- NOTE | 2021-09-28 18:47 | ED Back Pain ---
General Chief Complaint: Back Problems Stated Complaint: RIGHT SIDE BACK PAIN Nursing Triage Note: WOKE UP AT 0230 WITH RIGHT LOWER BACK PAIN. STATES HE HAS TAKEN TYLENOL AND MELOXICAM FOR PAIN WHICH HAS NOT HELP. DENIES INJURY OR ANY OTHER URINARY SX. Source of Information: Patient Exam Limitations: No Limitations History of Present Illness Date Seen by Provider: Sep 28, 2021 Time Seen by Provider: 18:41 Initial Comments Patient is a 71-year-old female who presents to the emergency department today with a chief complaint of right upper posterior hip pain. She woke up with the pain about 230 this morning. Took some Tylenol at 330 and has had no relief of symptoms. She states the pain has progressively worsened throughout the day and evening. She also took some meloxicam without much relief. She denies any recent injuries or overuse activities that would have precipitated the pain. 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 She denies any numbness, tingling or weakness to her right leg. No incontinence of bowel or bladder. No problems urinating, dysuria urgency or frequency. No rashes. She is up-to-date on her shingles vaccine. She recently had a well visit with her primary care physician. Movement and bearing weight makes the pain worse nothing really makes it any better. It comes and intense waves. All other review of systems reviewed and negative except as stated. Location: Other (ight posterior hip) Timing/Duration: 12 Hours Severity: Severe Method of Injury: Unknown Modifying Factors: Worse With Movement Associated Symptoms: denies symptoms Allergies and Home Medications Allergies Coded Allergies: green dye (Verified Allergy, Unknown, 07/06/09) red dye (Verified Allergy, Unknown, 07/06/09) Uncoded Allergies: ALLERGY TO RED/GREEN DYE (Allergy, Unknown, 05/25/09) FEMURA (Adverse Reaction, Unknown, 04/16/16) Patient Home Medication List Home Medication List Reviewed: Yes Albuterol Sulfate (Proair Hfa) 1 Puff Puff, 2 PUFF INH Q4H PRN for SHORTNESS OF BREATH, (Reported) Entered as Reported by: TAMICA BELTRAN on 06/09/18 1034 Amlodipine Besylate (Amlodipine Besylate) 5 Mg Tablet, 5 MG PO DAILY, (Reported) Entered as Reported by: TAMICA BELTRAN on 06/09/18 1032 Budesonide/Formoterol Fumarate (Symbicort 160-4.5 Mcg Inhaler) 10.2 Gm Hfa.aer.ad, 2 PUFF INH BID PRN for SHORTNESS OF BREATH, (Reported) Entered as Reported by: TAMICA BELTRAN on 06/09/18 1034 Cyclobenzaprine HCl (Cyclobenzaprine HCl) 10 Mg Tablet, 10 MG PO Q8H PRN for SPASMS Prescribed by: JALIL PAEZ on 04/23/20623 Enalapril Maleate (Enalapril Maleate) 20 Mg Tablet, 40 MG PO DAILY, (Reported) Entered as Reported by: TAMICA BELTRAN on 06/09/18 1034 Fluticasone Propionate (Flonase Allergy Relief) 9.9 Ml [place].susp, 1 SPRAY NS DAILY PRN for CONGESTION, (Reported) Entered as Reported by: TAMICA BELTRAN on 06/09/18 1032 Hydrochlorothiazide (Hydrochlorothiazide) 25 Mg Tablet, 25 MG PO DAILY, (Reported) Entered as Reported by: TAMICA BELTRAN on 06/09/18 1032 Loratadine (Loratadine) 10 Mg Tablet, 10 MG PO DAILY, (Reported) Entered as Reported by: JANEL FARR on 04/15/162312 Meloxicam (Mobic) 15 Mg Tablet, 15 MG PO DAILY Prescribed by: JALIL PAEZ on 04/23/20623 Ranitidine HCl (Acid Stage Director (RANITIDINE)) 150 Mg Tablet, 150 MG PO BID, (Reported) Entered as Reported by: JANEL FARR on 04/15/162312 Simvastatin (Simvastatin) 20 Mg Tablet, 20 MG PO DAILY, (Reported) Entered as Reported by: LEONA REIS on 02/16/191836 Sulfamethoxazole/Trimethoprim (Sulfamethoxazole-Tmp Ds Tablet) 1 Each Tablet, 1 EACH PO BID Prescribed by: JODI BEAN on 02/16/191929 Review of Systems Constitutional: see HPI EENTM: no symptoms reported Respiratory: no symptoms reported Cardiovascular: no symptoms reported Gastrointestinal: no symptoms reported Genitourinary: no symptoms reported Musculoskeletal: other (right upper posterior hip pain) Skin: no symptoms reported Psychiatric/Neurological: No Symptoms Reported All Other Systems Reviewed Negative Unless Noted: Yes Past Hexsmip-Ucesvv-Vpgzoe Hx Seasonal Allergies Seasonal Allergies: Yes Past Medical History Surgeries: Yes Abdominal, Breast, Cardiac, Section, Orthopedic, Tonsillectomy Respiratory: Yes (OCCASIONALLY USES INHALER) Asthma Cardiac: Yes (NORMAL CARDIAC CATH 2009) High Cholesterol, Hypertension Neurological: No 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 RIGHT KNEE SURGERY X 2 ) Endocrine: No HEENT: Yes (S/P TONSILLECTOMY) Tonsilitis Cancer: Yes Breast Did You Recieve Any Treatments: Yes What Type of Treatment Did You: Surgical Intervention Psychosocial: No Integumentary: No Blood Disorders: No Adverse Reaction/Blood Tranf: No Family Medical History No Pertinent Family Hx PAST SURGICAL HISTORY: -TONSILLECTOMY -ECTOPIC - X 1 -RIGHT KNEE SURGERY X 2-TO REMOVE BONE CHIPS -RIGHT BREAST LUMPECTOMY WITH 37 LYMPH NODES REMOVED Physical Exam Vital Signs Vital Signs - First Documented 09/28/21 18:30 Temp 36.9 Pulse 105 Resp 16 B/P (MAP) 153/71 (98) Pulse Ox 97 O2 Delivery Room Air Capillary Refill : Less Than 3 Seconds Height, Weight, BMI Height: 5'1.00" Weight: 195lbs. 0.0oz. 88.726541fl; 34.00 BMI Method:Stated General Appearance: No Apparent Distress, WD/WN Cardiovascular: Regular Rate, Rhythm, Normal Peripheral Pulses Respiratory: Lungs Clear, Normal Breath Sounds, No Accessory Muscle Use, No Respiratory Distress Gastrointestinal: Normal Bowel Sounds, Non Tender, Soft Back: No Vertebral Tenderness, Other (Patient has point tenderness over the right posterior superior iliac crest and down to the right in the region of the sciatic nerve. No overlying rashes to the buttock. Pain is exacerbated by straight leg raise on the right. Motor and sensory function are intact to the right lower extremity.) Extremity: Normal Inspection, Normal Range of Motion Neurologic/Psychiatric: Alert, Oriented x3, No Motor/Sensory Deficits, Normal Mood/Affect Skin: Normal Color, Warm/Dry Progress/Results/Core Measures Results/Orders Vital Signs/I&O 09/28/21 18:30 Temp 36.9 Pulse 105 Resp 16 B/P (MAP) 153/71 (98) Pulse Ox 97 O2 Delivery Room Air Blood Pressure Mean: 98 Progress Progress Note : Time: 18:54 Progress Note Discussed plan of care with the patient to include a round of steroids, pain me dication, heating pad, lidocaine patches. Instructed her to follow-up with her primary care physician. Return precautions discussed. Patient verbalized understanding. All questions are sought and answered. Departure Impression Primary Impression: Sacro-iliac pain Disposition: 01 HOME, SELF-CARE Condition: Stable Departure-Patient Inst. Decision time for Depature: 18:55 Referrals: [facility] (PCP/Family) Primary Care Physician Patient Instructions: Sacroiliac Joint Pain Add. Discharge Instructions: Take the prednisone as directed, it will be a taper over several days. This medication may make you feel a little bit hot and sweaty, increase your blood pressure slightly. 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 Heating pad to the affected area will help. Lben-kws-mcbqxci lidocaine patches, apply as directed on the packaging. Hydrocodone 1 pill every 6 hours as needed for more severe pain. This medi cation can cause constipation you should take a stool softener while taking hydrocodone. Please use it only as needed. You may supplement all of the above with the little Tylenol as needed as well. If you develop any numbness, tingling or weakness to the right leg please return to the emergency department for reevaluation. Please also follow-up with your primary care physician Scripts Hydrocodone/Acetaminophen (Hydrocodone-Acetamin 5-325 mg) 1 Each Tablet 1 TAB PO Q6H PRN for PAIN-MODERATE (5-7), #10 TAB Prov: CHAVEZ SUTTON MD 09/28/21 Prednisone (Prednisone) 10 Mg Tab.ds.pk 10 MG PO DAILY, #42 EA Take 6 tabs(60mg)daily,decrease by 1 tab(10mg)every other day. Prov: CHAVEZ SUTTON MD 09/28/21 CHAVEZ SUTTON MD Sep 28, 2021 18:46
[2021-09-28] MEDS ORDERED: ACHD5005 PO (18:58)
[2021-09-28] MEDS ORDERED: PRED10TA22 PO (18:58)
[2021-09-28] MEDS ORDERED: predniSONE 20 MG TAB PO ONE (19:00)
[2021-09-28] MEDS ORDERED: HYDROcodone/APAP 5 MG/325 MG (LORTAB) TAB PO ONE (19:00)
[2021-09-28] MEDS ORDERED: predniSONE 10 MG TAB PO ONE (19:00)
[2021-09-29] MEDS ORDERED: LIDOCAINE 4% (SALONPAS) PATCH TOP SCH (09:00)
== END 2021-09-28 19:13 | disposition home or self-care (01) ==
LOC: EDUNIT# 18:24 → ER 18:26
DX: M53.3 Sacrococcygeal disorders, not elsewhere classified (principal)
CPT/HCPCS: 99283

== ENCOUNTER 2022-12-07 10:35 | Emergency (ER) | payer MEDICARE ==
[~2022-12-07] VITALS: Ht 154.9 cm; Wt 89.4 kg
[~2022-12-07 10:35] MED LIST changes: +ACHD5005 PO; +ALBU8.5H6 INH; +ENAL-70 PO; -ENAL20TA16 PO; -ORPH100T PO; +ORPH100T3 PO; +PRED10TA22 PO; -RT-ALBUINH INH
--- NOTE | 2022-12-07 11:18 | ED Abdominal Pain ---
General Chief Complaint: - Reproductive Stated Complaint: AB PAIN/VAG BLEEDING Source of Information: Patient Exam Limitations: No Limitations History of Present Illness Date Seen by Provider: Dec 07, 2022 Time Seen by Provider: 11:00 Initial Comments 72-year-old female presents to the ER with complaints of abdominal pain for the last month and problems with constipation for the last 2 months. She also reports history of hemorrhoids due to constipation. She states that she came in today because she is tired of the pain and she also started spotting. She thinks that the bleeding is coming from her vagina. She reports she went through menopause 20 years ago when she was being treated for breast cancer. Lien ku is complaining of abdominal pain on bilateral sides, mid lower, and mid upper. She states she last had a bowel movement this morning, states that it was very small and soft. She reports she has been taking many ysss-vpz-dkpyiuu medications for constipation and she has been using suppositories for her hemorrhoids. She reports she is passing gas, but states she has a lot of diff iculty doing this. She denies fevers, dysuria. Reports some nausea, no vomiting. Abdominal surgeries include surgery for an ectopic . Other past medical history includes asthma, hypertension, hyperlipidemia. Allergies and Home Medications Allergies Coded Allergies: green dye (Verified Allergy, Unknown, 07/06/09) red dye (Verified Allergy, Unknown, 07/06/09) Uncoded Allergies: ALLERGY TO RED/GREEN DYE (Allergy, Unknown, 05/25/09) FEMURA (Adverse Reaction, Unknown, 04/16/16) Patient Home Medication List Home Medication List Reviewed: Yes Albuterol Sulfate (Ventolin Hfa) 1 Puff Puff, 2 PUFF INH Q4H PRN for SHORTNESS OF BREATH, (Reported) Entered as Reported by: TAMICA BELTRAN on 06/09/18 1034 Amlodipine Besylate (Amlodipine Besylate) 5 Mg Tablet, 5 MG PO DAILY, (Reported) Entered as Reported by: TAMICA BELTRAN on 06/09/18 1032 Budesonide/Formoterol Fumarate (Symbicort 160-4.5 Mcg Inhaler) 10.2 Gm Hfa.aer.ad, 2 PUFF INH BID PRN for SHORTNESS OF BREATH, (Reported) Entered as Reported by: TAMICA BELTRAN on 06/09/18 1034 Cyclobenzaprine HCl (Cyclobenzaprine HCl) 10 Mg Tablet, 10 MG PO Q8H PRN for SPASMS Prescribed by: JALIL PAEZ on 04/23/20623 Enalapril Maleate (Enalapril Maleate) 20 Mg Tablet, 40 MG PO DAILY, (Reported) Entered as Reported by: TAMICA BELTRAN on 06/09/18 1034 Fluticasone Propionate (Flonase Allergy Relief) 9.9 Ml [place].susp, 1 SPRAY NS DAILY PRN for CONGESTION, (Reported) Entered as Reported by: TAMICA BELTRAN on 06/09/18 1032 Hydrochlorothiazide (Hydrochlorothiazide) 25 Mg Tablet, 25 MG PO DAILY, (R eported) Entered as Reported by: TAMICA BELTRAN on 06/09/18 1032 Hydrocodone/Acetaminophen (Hydrocodone-Acetamin 5-325 mg) 1 Each Tablet, 1 TAB PO Q6H PRN for PAIN-MODERATE (5-7) Prescribed by: CHAVEZ SUTTON on 09/28/211857 Loratadine (Loratadine) 10 Mg Tablet, 10 MG PO DAILY, (Reported) Entered as Reported by: JANEL FARR on 04/15/162312 Meloxicam (Mobic) 15 Mg Tablet, 15 MG PO DAILY Prescribed by: JALIL PAEZ on 04/23/20623 Prednisone (Prednisone) 10 Mg Tab.ds.pk, 10 MG PO DAILY Prescribed by: CHAVEZ SUTTON on 09/28/211857 Ranitidine HCl (Acid Cessation Systems Outreach Specialist (RANITIDINE)) 150 Mg Tablet, 150 MG PO BID, (Reported) Entered as Reported by: JANEL FARR on 04/15/162312 Simvastatin (Simvastatin) 20 Mg Tablet, 20 MG PO DAILY, (Reported) Entered as Reported by: LEONA REIS on 02/16/191836 Sulfamethoxazole/Trimethoprim (Sulfamethoxazole-Tmp Ds Tablet) 1 Each Tablet, 1 EACH PO BID Prescribed by: JODI BEAN on 02/16/191929 Review of Systems Review of Systems Constitutional: see HPI Past Gcknmqv-Zrphzk-Kpkmsu Hx Seasonal Allergies Seasonal Allergies: Yes Past Medical History Surgeries: Yes Abdominal, Breast, Cardiac, Section, Orthopedic, Tonsillectomy Respiratory: Yes (OCCASIONALLY USES INHALER) Asthma Cardiac: Yes (NORMAL CARDIAC CATH 2009) High Cholesterol, Hypertension Neurological: No 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 RIGHT KNEE SURGERY X 2 ) Endocrine: No HEENT: Yes (S/P TONSILLECTOMY) Tonsilitis Cancer: Yes Breast Did You Recieve Any Treatments: Yes What Type of Treatment Did You: Surgical Intervention Psychosocial: No Integumentary: No Blood Disorders: No Adverse Reaction/Blood Tranf: No Family Medical History No Pertinent Family Hx PAST SURGICAL HISTORY: -TONSILLECTOMY -ECTOPIC - X 1 -RIGHT KNEE SURGERY X 2-TO REMOVE BONE CHIPS -RIGHT BREAST LUMPECTOMY WITH 37 LYMPH NODES REMOVED Physical Exam Vital Signs Vital Signs - First Documented 12/07/22 12/07/22 10:56 13:40 Temp 36.3 Pulse 94 Resp 18 B/P (MAP) 142/83 (102) Pulse Ox 95 O2 Delivery Room Air Capillary Refill : Height/Weight/BMI Height: 5'1.00" Weight: 195lbs. 0.0oz. 88.804763ch; 34.00 BMI Method:Stated General Appearance: WD/WN, no apparent distress Neck: supple, normal inspection Respiratory: lungs clear, normal breath sounds, no respiratory distress, no accessory muscle use Cardiovascular: tachycardia Gastrointestinal: normal bowel sounds, soft, guarding (Left upper quadrant), tenderness (All 4 quadrants) Genital/Rectal: heme negative stool Extremities: normal range of motion, normal inspection Pelvic: normal external exam; No mass (No obvious mass, but difficult to examine due to patient discomfort and inability to tolerate exam); tender w/ cervical motion, vaginal bleeding (Small amount, 1 small clot noted) Neurologic/Psychiatric: alert, normal mood/affect Skin: normal color, warm/dry Progress/Results/Core Measures Results/Orders Lab Results Laboratory Tests Test 12/07/22 11:28 Range/Units White Blood Count 13.8 H 4.3-11.0 10^3/uL Red Blood Count 4.56 3.80-5.11 10^6/uL Hemoglobin 14.0 11.5-16.0 g/dL Hematocrit 43 35-52 % Mean Corpuscular Volume 94 80-99 fL Mean Corpuscular Hemoglobin 31 25-34 pg Mean Corpuscular Hemoglobin Concent 33 32-36 g/dL Red Cell Distribution Width 13.8 10.0-14.5 % Platelet Count 323 130-400 10^3/uL Mean Platelet Volume 10.9 9.0-12.2 fL Immature Granulocyte % (Auto) 0 % Neutrophils (%) (Auto) 77 H 42-75 % Lymphocytes (%) (Auto) 14 12-44 % Monocytes (%) (Auto) 7 0-12 % Eosinophils (%) (Auto) 2 0-10 % Basophils (%) (Auto) 1 0-10 % Neutrophils # (Auto) 10.7 H 1.8-7.8 10^3/uL Lymphocytes # (Auto) 1.9 1.0-4.0 10^3/uL Monocytes # (Auto) 0.9 0.0-1.0 10^3/uL Eosinophils # (Auto) 0.2 0.0-0.3 10^3/uL Basophils # (Auto) 0.1 0.0-0.1 10^3/uL Immature Granulocyte # (Auto) 0.0 0.0-0.1 10^3/uL Urine Color YELLOW Urine Clarity CLEAR Urine pH 6.0 5-9 Urine Specific [place] 1.010 L 1.016-1.022 Urine Protein TRACE H NEGATIVE Urine Glucose (UA) NEGATIVE NEGATIVE Urine Ketones 1+ H NEGATIVE Urine Nitrite NEGATIVE NEGATIVE Urine Bilirubin 1+ H NEGATIVE Urine Urobilinogen 1.0 < = 1.0 MG/DL Urine Leukocyte Esterase NEGATIVE NEGATIVE Urine RBC (Auto) 3+ H NEGATIVE Urine RBC 2-5 H /HPF Urine WBC NONE /HPF Urine Squamous Epithelial Cells 0-2 /HPF Urine Crystals NONE /LPF Urine Bacteria NEGATIVE /HPF Urine Casts NONE /LPF Urine Mucus NEGATIVE /LPF Urine Culture Indicated NO Sodium Level 141 135-145 MMOL/L Potassium Level 3.8 3.6-5.0 MMOL/L Chloride Level 104 98-107 MMOL/L Carbon Dioxide Level 25 21-32 MMOL/L Anion Gap 12 5-14 MMOL/L Blood Urea Nitrogen 9 7-18 MG/DL Creatinine 0.68 0.60-1.30 MG/DL Estimat Glomerular Filtration Rate 94 BUN/Creatinine Ratio 13 Glucose Level 102 70-105 MG/DL Calcium Level 10.0 8.5-10.1 MG/DL Corrected Calcium 10.0 8.5-10.1 MG/DL Total Bilirubin 0.4 0.1-1.0 MG/DL Aspartate Amino Transf (AST/SGOT) 15 5-34 U/L Alanine Aminotransferase (ALT/SGPT) 13 0-55 U/L Alkaline Phosphatase 71 40-136 U/L Total Protein 7.5 6.4-8.2 GM/DL Albumin 4.0 3.2-4.5 GM/DL Lipase 5 L 8-78 U/L Micro Results Microbiology 12/07/22 Wet Prep - Final, Complete My Orders Orders - HARRISON DEL CID APRN Comprehensive Metabolic Panel (12/07/22 11:11) Lipase (12/07/22 11:11) Ua Culture If Indicated (12/07/22 11:11) Ed Iv/Invasive Line Start (12/07/22 11:11) Cbc With Automated Diff (12/07/22 11:11) Ct Abdomen/Pelvis W (12/07/22 11:11) Iohexol Injection (Omnipaque 350 Mg/Ml 1 (12/07/22 11:30) Received Contrast (Hold Metformin- Contr (12/07/22 11:30) Ns (Ivpb) (Sodium Chloride 0.9% Ivpb Bag (12/07/22 11:30) Ns Iv 1000 Ml (Sodium Chloride 0.9%) (12/07/22 11:30) Fentanyl Inj (Sublimaze Injection) (12/07/22 11:30) Wet Prep (12/07/22 12:34) Fecal Occult Bedside (12/07/22 12:34) Medications Given in ED Current Medications Medications Dose Ordered Sig/Faith Route Start Time Stop Time Status Last Admin Dose Admin Fentanyl Citrate 50 mcg ONCE ONCE IVP 12/07/22 11:30 12/07/22 11:31 DC 12/07/22 11:58 50 MCG Iohexol 100 ml ONCE ONCE IV 12/07/22 11:30 12/07/22 11:31 DC 12/07/22 12:22 100 ML Sodium Chloride 100 ml ONCE ONCE IV 12/07/22 11:30 12/07/22 11:31 DC 12/07/22 12:22 80 ML Vital Signs/I&O 12/07/22 12/07/22 10:56 13:40 Temp 36.3 Pulse 94 99 Resp 18 18 B/P (MAP) 142/83 (102) 136/67 Pulse Ox 95 97 O2 Delivery Room Air Progress Progress Note : Time: 11:18 Progress Note Patient seen and evaluated, resting comfortably in bed, no acute distress. Based on exam and symptoms, work-up initiated including CBC, CMP, lipase, CT abdomen pelvis. Will perform a pelvic exam. IV fluids and fentanyl ordered. 1238 labs reviewed. CBC shows elevated WBC 13.8, slightly elevated neutrophil percentage 77. CMP grossly normal. Lipase normal. Urinalysis shows trace protein, 1+ ketones, 1+ bilirubin, 3+ RBCs. No WBCs, leukocytes, nitrates or bacteria. Pelvic exam performed, small amount of blood noted in vaginal canal, patient had a lot of pain with examination, did not tolerate exam well. 1300 CT reviewed. Small amount of ascites with infiltrative edema in the omentum. Possible omental caking noted, this could indicate neoplasm including metastasis. Results discussed with patient. Patient instructed that she needs to follow-up with gynecology, informed that she can call [facility] to get it set up with a provider there. She has an appointment scheduled with a new primary care provider, but it is not until January 10. She is going to call to get an appointment scheduled sooner. I offered a prescription for a stronger pain medication, patient declined. Discharge instructions and return precautions provided. I had attempted to call [facility] earlier, they called me back and were able to schedule a follow-up appointment for patient on December 22 at 10 AM with Trinidad Ventura APRN. Patient was informed of this appointment. Diagnostic Imaging Diagonstic Imaging: CT Plain Films/CT/US/NM/MRI: abdomen, pelvis Comments [facility] [place], [place] NAME: RENETTA CONLEY [facility] REC#: [id number] PT STATUS: REG ER : 1950 PHYSICIAN: HARRISON DEL CID APRN ADMIT DATE: 12/07/22/ER Signed Date of Exam:12/07/22 CT ABDOMEN/PELVIS W PROCEDURE: CT abdomen and pelvis with contrast. TECHNIQUE: Multiple contiguous axial images were obtained through the abdomen and pelvis after administration of intravenous contrast. Auto Exposure Controls were utilized during the CT exam to meet ALARA standards for radiation dose reduction. All CT scans use one or more of the following dose optimizing techniques: automated exposure control, MA and/or KvP adjustment based on patient size and exam type or iterative reconstruction. INDICATION: Generalized abdominal pain. COMPARISON: None. FINDINGS: The lung bases are clear. The heart is normal in size. There is no pericardial effusion. The liver demonstrates no focal lesions. There is a small amount of ascites in the abdomen. The spleen appears normal. The pancreas is mildly atrophic but otherwise unremarkable. The adrenal glands appear normal. The kidneys demonstrate no enhancing lesions and no hydronephrosis. The appendix appears normal. The bowel loops are nondistended without obstruction. No significant bowel wall thickening is appreciated. There is diffuse infiltrative edema throughout the mesentery and anterior omentum. There may be some nodularity to this as well. No acute osseous abnormality is seen. There are degenerative changes in the spine. IMPRESSION: Small amount of ascites with infiltrative edema in the omentum. Somewhat nodular appearance could be due to omental caking and neoplasm including metastasis is in the differential. Dictated by: Dictated on workstation # [id number] Dict: 12/07/22 1228 Trans: 12/07/22 1239 [id number] Interpreted by: MOIRA DAWSON MD Electronically signed by: MOIRA DAWSON MD 12/07/22 1239 Departure Impression Primary Impression: Postmenopausal vaginal bleeding Additional Impression: Abdominal pain Qualified Codes: R10.9 - Unspecified abdominal pain Disposition: 01 HOME, SELF-CARE Condition: Stable Departure-Patient Inst. Decision time for Depature: 13:05 Referrals: [facility] (PCP/Family) Primary Care Physician Patient Instructions: Bleeding After Menopause Add. Discharge Instructions: You have an appointment with Trinidad Ventura APRN on December 22 at 10 AM. You will need to be evaluated because this could be cancer. Return if you are saturating a heavy menstrual pad every hour for several hours, feeling dizzy or lightheaded, pass out, or any other new, concerning, or worsening symptoms. All discharge instructions reviewed with patient and/or family. Voiced understanding. Copy Copies To 1: [facility]/HARRISON NIX APRN Dec 07, 2022 11:18
[2022-12-07] MEDS ORDERED: fentaNYL INJ 100 MCG/2 ML AMP IVP ONE (11:30)
[2022-12-07] MEDS ORDERED: HOLD METFORMIN - RECEIVED CONTRAST 20 ML VIAL IV SCH (11:30)
[2022-12-07] MEDS ORDERED: IOHEXOL 350 MG/ML 100 ML (OMNIPAQUE 350) VIAL IV ONE (11:30)
[2022-12-07] MEDS ORDERED: NS 100 ML (IVPB) BAG IV ONE (11:30)
[2022-12-07] MEDS ORDERED: NS IV 1000 ML 1,000 ML IV SCH (11:30)
[2022-12-07 11:32] LABS: BASOPHILS # (AUTO) 0.1 10^3/uL (0.0-0.1); BASOPHILS % (AUTO) 1 % (0-10); CLARITY,URINE CLEAR; COLOR,URINE YELLOW; EOSINOPHILS # (AUTO) 0.2 10^3/uL (0.0-0.3); EOSINOPHILS % (AUTO) 2 % (0-10); GLUCOSE, URINE (UA) NEGATIVE (NEGATIVE); HEMATOCRIT 43 % (35-52); KETONES,URINE 1+ (NEGATIVE); LEUKOCYTE ESTERASE ,URINE NEGATIVE (NEGATIVE); LYMPHOCYTES # (AUTO) 1.9 10^3/uL (1.0-4.0); LYMPHOCYTES % (AUTO) 14 % (12-44); MEAN CORPUSCULAR HEMOGLOBIN 31 pg (25-34); MEAN CORPUSCULAR HGB CONC 33 g/dL (32-36); MEAN CORPUSCULAR VOLUME 94 fL (80-99); MEAN PLATELET VOLUME 10.9 fL (9.0-12.2); MONOCYTES # (AUTO) 0.9 10^3/uL (0.0-1.0); MONOCYTES % (AUTO) 7 % (0-12); NEUTROPHILS # (AUTO) 10.7 10^3/uL (1.8-7.8); NEUTROPHILS % (AUTO) 77 % (42-75); NITRITE,URINE NEGATIVE (NEGATIVE); PLATELET COUNT 323 10^3/uL (130-400); PROTEIN,URINE TRACE (NEGATIVE); WHITE BLOOD COUNT 13.8 10^3/uL (4.3-11.0)
[2022-12-07 12:06] LABS: POTASSIUM 3.8 MMOL/L (3.6-5.0)
[2022-12-07 12:09] LABS: TOTAL PROTEIN 7.5 GM/DL (6.4-8.2)
[2022-12-07 12:11] LABS: BILIRUBIN,TOTAL 0.4 MG/DL (0.1-1.0)
[2022-12-07 12:12] LABS: CREATININE SERUM 0.68 MG/DL (0.60-1.30)
[2022-12-07 12:19] LABS: BACTERIA,URINE NEGATIVE /HPF; BILIRUBIN,URINE 1+ (NEGATIVE); SQUAMOUS EPITHELIAL CELL,UR 0-2 /HPF
--- NOTE | 2022-12-07 12:38 | Diagnostic Imaging Report ---
PROCEDURE: CT abdomen and pelvis with contrast. TECHNIQUE: Multiple contiguous axial images were obtained through the abdomen and pelvis after administration of intravenous contrast. Auto Exposure Controls were utilized during the CT exam to meet ALARA standards for radiation dose reduction. All CT scans use one or more of the following dose optimizing techniques: automated exposure control, MA and/or KvP adjustment based on patient size and exam type or iterative reconstruction. INDICATION: Generalized abdominal pain. COMPARISON: None. FINDINGS: The lung bases are clear. The heart is normal in size. There is no pericardial effusion. The liver demonstrates no focal lesions. There is a small amount of ascites in the abdomen. The spleen appears normal. The pancreas is mildly atrophic but otherwise unremarkable. The adrenal glands appear normal. The kidneys demonstrate no enhancing lesions and no hydronephrosis. The appendix appears normal. The bowel loops are nondistended without obstruction. No significant bowel wall thickening is appreciated. There is diffuse infiltrative edema throughout the mesentery and anterior omentum. There may be some nodularity to this as well. No acute osseous abnormality is seen. There are degenerative changes in the spine. IMPRESSION: Small amount of ascites with infiltrative edema in the omentum. Somewhat nodular appearance could be due to omental caking and neoplasm including metastasis is in the differential. Dictated by: Dictated on workstation # [id number]
[2022-12-07 13:40] VITALS: BP 136/67
== END 2022-12-07 13:45 | disposition home or self-care (01) ==
LOC: EDUNIT# 10:35 → ER 10:37
DX: N95.0 Postmenopausal bleeding (principal); R10.12 Left upper quadrant pain; D72.829 Elevated white blood cell count, unspecified
CPT/HCPCS: 36415; 74177; 80053; 81000; 82274; 83690; 85025; 87210

== ENCOUNTER 2023-01-09 12:20 | Inpatient (IN) | payer MEDICARE ==
[~2023-01-09] VITALS: Ht 154.9 cm; Wt 86.6 kg
[2023-01-09] MEDS ORDERED: NS IV 1000 ML 1,000 ML IV SCH (13:00)
[2023-01-09] MEDS ORDERED: ONDANSETRON 4 MG/2 ML (SDV) Z0FRAN IVP ONE (13:00)
[2023-01-09 13:07] LABS: BASOPHILS # (AUTO) 0.1 10^3/uL (0.0-0.1); BASOPHILS % (AUTO) 1 % (0-10); EOSINOPHILS # (AUTO) 0.1 10^3/uL (0.0-0.3); EOSINOPHILS % (AUTO) 1 % (0-10); HEMATOCRIT 41 % (35-52); HEMOGLOBIN 13.6 g/dL (11.5-16.0); LYMPHOCYTES # (AUTO) 1.1 10^3/uL (1.0-4.0); LYMPHOCYTES % (AUTO) 9 % (12-44); MEAN CORPUSCULAR HEMOGLOBIN 30 pg (25-34); MEAN CORPUSCULAR HGB CONC 33 g/dL (32-36); MEAN CORPUSCULAR VOLUME 92 fL (80-99); MEAN PLATELET VOLUME 11.1 fL (9.0-12.2); MONOCYTES # (AUTO) 1.3 10^3/uL (0.0-1.0); MONOCYTES % (AUTO) 10 % (0-12); NEUTROPHILS # (AUTO) 10.5 10^3/uL (1.8-7.8); NEUTROPHILS % (AUTO) 80 % (42-75); PLATELET COUNT 399 10^3/uL (130-400); WHITE BLOOD COUNT 13.2 10^3/uL (4.3-11.0)
--- NOTE | 2023-01-09 13:08 | ED Abdominal Pain ---
General Chief Complaint: Abdominal/GI Problems Stated Complaint: NAUSEA | VOMITING | WEAKNESS Nursing Triage Note: SENT FROM [facility] WITH N/V, WEAKNESS, POSITIVE ORTHOSTATS. DX WITH ENDOMETRIAL CA LAST WEEK AT . Source of Information: Patient Exam Limitations: No Limitations History of Present Illness Date Seen by Provider: Jan 09, 2023 Time Seen by Provider: 12:49 Initial Comments 72-year-old female presents to the ER with complaint of weakness, nausea, vomiting for the past week. She states she has been unable to keep anything down, thinks the last time she kept food down was about a week ago. She states she has been able to sip water, and sometimes able to keep it down. She reports she has been belching a lot, and she still is passing gas. She was seen here 1 month ago for abdominal pain, and was found to have possible cancer, since then she was diagnosed with endometrial cancer by biopsy. She has an appointment next Thursday with for a consult for a hysterectomy. She denies chest pain, shortness of air, diarrhea, dysuria. She reports current abdominal pain which she has been dealing for for a many months, she states there has been no change in this abdominal pain and states that it feels the same as it always does. She reports that she felt warm the other day, but did not check her temperature. After the hysterectomy, if she needs chemo and/or radiation it will be completed here in [place]. Allergies and Home Medications Allergies Coded Allergies: green dye (Verified Allergy, Unknown, 07/06/09) red dye (Verified Allergy, Unknown, 07/06/09) Uncoded Allergies: ALLERGY TO RED/GREEN DYE (Allergy, Unknown, 05/25/09) FEMURA (Adverse Reaction, Unknown, 04/16/16) Patient Home Medication List Home Medication List Reviewed: Yes Albuterol Sulfate (Ventolin Hfa) 1 Puff Puff, 2 PUFF INH Q4H PRN for SHORTNESS OF BREATH, (Reported) Entered as Reported by: TAMICA BELTRAN on 06/09/18 1034 Amlodipine Besylate (Amlodipine Besylate) 5 Mg Tablet, 5 MG PO DAILY, (Reported) Entered as Reported by: TAMICA BELTRAN on 06/09/18 1032 Budesonide/Formoterol Fumarate (Symbicort 160-4.5 Mcg Inhaler) 10.2 Gm Hfa.aer.ad, 2 PUFF INH BID PRN for SHORTNESS OF BREATH, (Reported) Entered as Reported by: TAMICA BELTRAN on 06/09/18 1034 Cyclobenzaprine HCl (Cyclobenzaprine HCl) 10 Mg Tablet, 10 MG PO Q8H PRN for SPASMS Prescribed by: JALIL PAEZ on 04/23/20 0624 Enalapril Maleate (Enalapril Maleate) 20 Mg Tablet, 40 MG PO DAILY, (Reported) Entered as Reported by: TAMICA BELTRAN on 06/09/18 1034 Fluticasone Propionate (Flonase Allergy Relief) 9.9 Ml Nimitz.susp, 1 SPRAY NS DAILY PRN for CONGESTION, (Reported) Entered as Reported by: TAMICA BELTRAN on 06/09/18 1032 Hydrochlorothiazide (Hydrochlorothiazide) 25 Mg Tablet, 25 MG PO DAILY, ( Reported) Entered as Reported by: TAMICA BELTRAN on 06/09/18 1032 Hydrocodone/Acetaminophen (Hydrocodone-Acetamin 5-325 mg) 1 Each Tablet, 1 TAB PO Q6H PRN for PAIN-MODERATE (5-7) Prescribed by: CHAVEZ SUTTON on 09/28/211857 Loratadine (Loratadine) 10 Mg Tablet, 10 MG PO DAILY, (Reported) Entered as Reported by: JANEL FARR on 04/15/162312 Meloxicam (Mobic) 15 Mg Tablet, 15 MG PO DAILY Prescribed by: JALIL PAEZ on 04/23/20 0624 Prednisone (Prednisone) 10 Mg Tab.ds.pk, 10 MG PO DAILY Prescribed by: CHAVEZ USTTON on 09/28/211857 Ranitidine HCl (Acid [employer] Counter Salesperson (RANITIDINE)) 150 Mg Tablet, 150 MG PO BID, (Reported) Entered as Reported by: JANEL FARR on 04/15/162312 Simvastatin (Simvastatin) 20 Mg Tablet, 20 MG PO DAILY, (Reported) Entered as Reported by: LEONA REIS on 02/16/191836 Sulfamethoxazole/Trimethoprim (Sulfamethoxazole-Tmp Ds Tablet) 1 Each Tablet, 1 EACH PO BID Prescribed by: JODI BEAN on 02/16/19 193 Review of Systems Review of Systems Constitutional: see HPI Past Tsggjdp-Yuadtk-Wqhanl Hx Patient Social History Tobacco Use?: Yes Smoking Status: Former Smoker Substance use?: No Alcohol Use?: No Immunizations Up To Date First/Initial COVID19 Vaccinat: UNKNOWN DATE Second COVID19 Vaccination Valerio: UNKNOWN DATE Third COVID19 Vaccination Date: UNKNOWN DATE Seasonal Allergies Seasonal Allergies: Yes Past Medical History Surgery/Hospitalization HX: BREASET CANCER, ETOPIC , ASTHMA HTN, HIGH CHOLESTEROL Surgeries: Yes Abdominal, Breast, Cardiac, Section, Orthopedic, Tonsillectomy Respiratory: Yes (OCCASIONALLY USES INHALER) Asthma Cardiac: Yes (NORMAL CARDIAC CATH 2009) High Cholesterol, Hypertension Neurological: No Reproductive Disorders: Yes 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 RIGHT KNEE SURGERY X 2 ) Endocrine: No HEENT: Yes (S/P TONSILLECTOMY) Tonsilitis Cancer: Yes Breast Did You Recieve Any Treatments: Yes What Type of Treatment Did You: Surgical Intervention Psychosocial: No Integumentary: No Blood Disorders: No Adverse Reaction/Blood Tranf: No Family Medical History No Pertinent Family Hx PAST SURGICAL HISTORY: -TONSILLECTOMY -ECTOPIC - X 1 -RIGHT KNEE SURGERY X 2-TO REMOVE BONE CHIPS -RIGHT BREAST LUMPECTOMY WITH 37 LYMPH NODES REMOVED Physical Exam Vital Signs Vital Signs - First Documented 01/09/23 12:30 Temp 37.7 Pulse 116 Resp 16 B/P (MAP) 129/63 (85) Pulse Ox 87 O2 Delivery Room Air Capillary Refill : Less Than 3 Seconds Height/Weight/BMI Height: 5'1.00" Weight: 195lbs. 0.0oz. 88.145813mg; 34.00 BMI Method:Stated General Appearance: WD/WN, no apparent distress Neck: supple, normal inspection Respiratory: lungs clear, normal breath sounds, no respiratory distress, no accessory muscle use Cardiovascular: regular rate, rhythm Gastrointestinal: normal bowel sounds, soft, distended, tenderness (Left upper and left lower quadrant) Extremities: normal range of motion, normal inspection Neurologic/Psychiatric: alert, normal mood/affect Skin: normal color, warm/dry Focused Exam Lactate Level 01/09/23 15:10: Lactic Acid Level 0.83 Lactic Acid Level Laboratory Tests Test 01/09/23 15:10 Lactic Acid Level 0.83 MMOL/L (0.50-2.00) Progress/Results/Core Measures Results/Orders Lab Results Laboratory Tests Test 01/09/23 12:40 01/09/23 15:10 01/09/23 16:43 Range/Units White Blood Count 13.2 H 4.3-11.0 10^3/uL Red Blood Count 4.51 3.80-5.11 10^6/uL Hemoglobin 13.6 11.5-16.0 g/dL Hematocrit 41 35-52 % Mean Corpuscular Volume 92 80-99 fL Mean Corpuscular Hemoglobin 30 25-34 pg Mean Corpuscular Hemoglobin Concent 33 32-36 g/dL Red Cell Distribution Width 13.8 10.0-14.5 % Platelet Count 399 130-400 10^3/uL Mean Platelet Volume 11.1 9.0-12.2 fL Immature Granulocyte % (Auto) 0 % Neutrophils (%) (Auto) 80 H 42-75 % Lymphocytes (%) (Auto) 9 L 12-44 % Monocytes (%) (Auto) 10 0-12 % Eosinophils (%) (Auto) 1 0-10 % Basophils (%) (Auto) 1 0-10 % Neutrophils # (Auto) 10.5 H 1.8-7.8 10^3/uL Lymphocytes # (Auto) 1.1 1.0-4.0 10^3/uL Monocytes # (Auto) 1.3 H 0.0-1.0 10^3/uL Eosinophils # (Auto) 0.1 0.0-0.3 10^3/uL Basophils # (Auto) 0.1 0.0-0.1 10^3/uL Immature Granulocyte # (Auto) 0.0 0.0-0.1 10^3/uL Sodium Level 137 135-145 MMOL/L Potassium Level 3.3 L 3.6-5.0 MMOL/L Chloride Level 95 L 98-107 MMOL/L Carbon Dioxide Level 28 21-32 MMOL/L Anion Gap 14 5-14 MMOL/L Blood Urea Nitrogen 13 7-18 MG/DL Creatinine 0.78 0.60-1.30 MG/DL Estimat Glomerular Filtration Rate 82 BUN/Creatinine Ratio 17 Glucose Level 103 70-105 MG/DL Calcium Level 10.2 H 8.5-10.1 MG/DL Corrected Calcium 10.6 H 8.5-10.1 MG/DL Magnesium Level 1.7 1.6-2.4 MG/DL Total Bilirubin 0.6 0.1-1.0 MG/DL Aspartate Amino Transf (AST/SGOT) 15 5-34 U/L Alanine Aminotransferase (ALT/SGPT) 8 0-55 U/L Alkaline Phosphatase 60 40-136 U/L Total Protein 7.4 6.4-8.2 GM/DL Albumin 3.5 3.2-4.5 GM/DL Lipase 13 8-78 U/L Lactic Acid Level 0.83 0.50-2.00 MMOL/L Blood Gas Puncture Site L RADIAL Blood Gas Patient Temperature 37.7 Arterial Blood pH 7.41 7.37-7.43 Arterial Blood Partial Pressure CO2 46 H 35-45 MMHG Arterial Blood Partial Pressure O2 82 79-93 MMHG Arterial Blood HCO3 28 H 23-27 MMOL/L Arterial Blood Total CO2 29.6 21.0-31.0 MMOL/L Arterial Blood Oxygen Saturation 97 94-100 % Arterial Blood Base Excess 3.9 H -2.5-2.5 MMOL/L Keenan Test POSITIVE Blood Gas Ventilator Setting NO Blood Gas Inspired Oxygen 2 L My Orders Orders - HARRISON AYON APRN Comprehensive Metabolic Panel (01/09/23 12:59) Lipase (01/09/23 12:59) Ua Culture If Indicated (01/09/23 12:59) Ed Iv/Invasive Line Start (01/09/23 12:59) Acute Abd Series (01/09/23 12:59) Cbc With Automated Diff (01/09/23 12:59) Magnesium (01/09/23 12:59) Ns Iv 1000 Ml (Sodium Chloride 0.9%) (01/09/23 13:00) Ondansetron Injection (Zofran Injectio (01/09/23 13:00) Ct Chest W (01/09/23 14:44) Blood Culture (01/09/23 14:45) Lactic Acid Analyzer (01/09/23 14:45) Potassium Chloride (Tablet) (K Dur Table (01/09/23 15:15) Cefepime Injection (Cefepime Injection) (01/09/23 16:15) Vancomycin Injection (Vancomycin Injecti (01/09/23 16:15) Ed Admission (Communication) (01/09/23 16:07) Arterial Blood Gas (01/09/23 16:43) Medications Given in ED Current Medications Medications Dose Ordered Sig/Faith Route Start Time Stop Time Status Last Admin Dose Admin Cefepime HCl 1000 mg/Sodium Chloride 50 ml @ 100 mls/hr ONCE ONCE IV 01/09/23 16:15 01/09/23 16:44 DC 01/09/23 16:18 100 MLS/HR Iohexol 75 ml ONCE ONCE IV 01/09/23 15:00 01/09/23 15:14 DC 01/09/23 15:32 75 ML Ondansetron HCl 4 mg ONCE ONCE IVP 01/09/23 13:00 01/09/23 13:02 DC 01/09/23 13:22 4 MG Potassium Chloride 40 meq ONCE ONCE PO 01/09/23 15:15 01/09/23 15:16 DC 01/09/23 16:18 40 MEQ Sodium Chloride 100 ml ONCE ONCE IV 01/09/23 15:00 01/09/23 15:14 DC 01/09/23 15:32 100 ML Vancomycin HCl 1000 mg/Sodium Chloride 250 ml @ 250 mls/hr ONCE ONCE IV 01/09/23 16:15 01/09/23 18:15 DC 01/09/23 17:24 250 MLS/HR Vital Signs/I&O 01/09/23 12:30 Temp 37.7 Pulse 116 Resp 16 B/P (MAP) 129/63 (85) Pulse Ox 87 O2 Delivery Room Air Blood Pressure Mean: 85 Progress Progress Note : Progress Note Patient seen and evaluated, resting comfortably in bed, no acute distress. Based on exam and symptoms, work-up initiated including CBC, CMP, lipase, UA, magnesium level, acute abdominal series which includes the chest. IV fluids and Zofran ordered. Patient declined pain medication at this time. Patient's oxygen saturation is low at 91%. 1445 Labs reviewed. CBC shows elevated WBC 13.2. CMP shows decreased potassium 3.3. Decreased chloride 95. Waiting on urinalysis. Acute abdominal series shows moderate left pleural effusions and overlying atelectasis. Normal gas pattern. Patient has continued to have low oxygen saturation, dropping down to as low as 84% on room air. Patient placed on 2 L of O2 via nasal cannula. CT chest ordered to evaluate the pleural effusion and to further assess for pneumonia. 1557 CT reviewed. It shows a large left pleural effusion. There is associated total relaxation atelectasis within the left lower lobe. No pneumonia or edema. Small right pleural effusion. Moderate to large volume abdominal ascites has increased from previous as well. I call Dr. Roque, [facility] hospitalist, regarding admission. She agrees to admit patient to ICU for acute respiratory failure. She would also like to treat for possible pneumonia, she would like cefepime and vancomycin. These have been ordered. She also request an ABG which has been ordered. She would like me to consult with Dr. Gonzales, surgery, regarding pleural effusion and ascites. [address] oGnzales, surgery, regarding patient. He agrees to see patient. Results and plan of care has been discussed with patient. Patient agreeable to admission. Diagnostic Imaging Diagonstic Imaging: Xray Plain Films/CT/US/NM/MRI: abdomen Comments [facility], [place] NAME: RENETTA CONLEY [facility] REC#: [id number] PT STATUS: REG ER : 1950 PHYSICIAN: HARRISON AYON APRN ADMIT DATE: 01/09/23/ER Draft Date of Exam:01/09/23 ACUTE ABD SERIES EXAMINATION: Abdominal series and chest radiograph. HISTORY: Abdominal pain. COMPARISON: None available. FINDINGS: There is a moderate left pleural effusion with overlying atelectasis. No pneumothorax. No dilated bowel. No free air. IMPRESSION: 1. Moderate left pleural effusion and overlying atelectasis. 2. Normal bowel gas pattern. Dictated on workstation # [id number] Dict: 01/09/23 1335 Trans: 01/09/23 1338 [id number] Interpreted by: MARK RAMIREZ MD Electronically signed by: Departure Communication (Admissions) Time/Spoke to Admitting Phy: 15:57 Dr. Roque, [facility] hospitalist, see progress note. Time/Spoke to Consulting Phy: 16:05 Dr. Gonzales, surgery, see progress note. Impression Primary Impression: Acute respiratory failure Additional Impressions: Ascites Pleural effusion Disposition: ADMITTED INPATIENT Condition: Improved Admissions Decision to Admit Reason: Admit from ER (General) Decision to Admit/Date: Jan 09, 2023 Time/Decision to Admit Time: 15:57 Departure-Patient Inst. Referrals: MAIK PATEL APRN (PCP/Family) Primary Care Physician HARRISON AYON APRN Jan 09, 2023 13:08
[2023-01-09 13:09] LABS: ALBUMIN 3.5 GM/DL (3.2-4.5)
[2023-01-09 13:10] LABS: POTASSIUM 3.3 MMOL/L (3.6-5.0)
[2023-01-09 13:11] LABS: CALCIUM 10.2 MG/DL (8.5-10.1)
[2023-01-09 13:12] LABS: TOTAL PROTEIN 7.4 GM/DL (6.4-8.2)
[2023-01-09 13:14] LABS: BILIRUBIN,TOTAL 0.6 MG/DL (0.1-1.0)
[2023-01-09 13:16] LABS: CREATININE SERUM 0.78 MG/DL (0.60-1.30)
[2023-01-09 13:19] LABS: MAGNESIUM 1.7 MG/DL (1.6-2.4)
--- NOTE | 2023-01-09 13:38 | Diagnostic Imaging Report ---
EXAMINATION: Abdominal series and chest radiograph. HISTORY: Abdominal pain. COMPARISON: None available. FINDINGS: There is a moderate left pleural effusion with overlying atelectasis. No pneumothorax. No dilated bowel. No free air. IMPRESSION: 1. Moderate left pleural effusion and overlying atelectasis. 2. Normal bowel gas pattern. Dictated by: Dictated on workstation # [id number]
[2023-01-09] MEDS ORDERED: HOLD METFORMIN - RECEIVED CONTRAST 20 ML VIAL IV SCH (15:00)
[2023-01-09] MEDS ORDERED: NS 100 ML (IVPB) BAG IV ONE (15:00)
[2023-01-09] MEDS ORDERED: IOHEXOL 350 MG/ML 100 ML (OMNIPAQUE 350) VIAL IV ONE (15:00)
[2023-01-09] MEDS ORDERED: KCL 20 MEQ TAB (K-DUR) PO ONE (15:15)
--- NOTE | 2023-01-09 15:47 | Diagnostic Imaging Report ---
CT CHEST W TECHNIQUE: Multiple contiguous axial images were obtained through the chest without the use of intravenous contrast. All CT scans use one or more of the following dose optimizing techniques: automated exposure control, MA and/or KvP adjustment based on patient size and exam type or iterative reconstruction. INDICATION: Pleural effusion and hypoxia. COMPARISON: CT abdomen and pelvis from 12/07/2022. Low-dose CT chest of 05/02/2016. FINDINGS: Lungs and airway: No abnormality in the trachea. There is no pneumonia or edema. Subtotal relaxation atelectasis is present in the left lower lobe associated with the pleural effusion. Pleura: Large left pleural effusion is nonloculated. Small left pleural effusion is also present. Heart and mediastinum: Thyroid is normal. No supraclavicular or axillary lymphadenopathy. No mediastinal or hilar lymphadenopathy. Heart is normal in size without pericardial effusion. Normal caliber thoracic aorta. Mild circumferential wall thickening of the esophagus. Upper abdomen: A moderate to large amount of ascites is present. Musculoskeletal: No worrisome focal osseous lesion. IMPRESSION: 1. Large left pleural effusion is nonloculated. 2. There is associated subtotal relaxation atelectasis within the left lower lobe. No pneumonia or edema. 3. Small right pleural effusion. 4. Moderate to large volume of abdominal ascites has increased since prior exam of 12/07/2022. Dictated by: Dictated on workstation # [id number]
[2023-01-09] MEDS ORDERED: CEFEPIME 1 GM/10 ML VIAL ONE (16:10)
[2023-01-09] MEDS ORDERED: CEFEPIME INJECTION 1,000 MG in NS (IVPB) 50 ML 50 ML IV ONE (16:15)
[2023-01-09] MEDS ORDERED: VANCOMYCIN INJECTION 1,000 MG in NS (IVPB) 250 ML 250 ML IV ONE (16:15)
--- NOTE | 2023-01-09 16:45 | Consultation - Surgery ---
History of Present Illness History of Present Illness Patient Consulted On(myriam/time) 01/09/23 16:38 Time Seen by Provider: 16:19 History of Present Illness Surgery asked to consult regarding hypoxia, pleural effusion. HPI per ED: 72-year-old female presents to the ER with complaint of weakness, nausea, vomiting for the past week. She states she has been unable to keep anything down, thinks the last time she kept food down was about a week ago. She states she has been able to sip water, and sometimes able to keep it down. She reports she has been belching a lot, and she still is passing gas. She was seen here 1 month ago for abdominal pain, and was found to have possible cancer, since then she was diagnosed with endometrial cancer by biopsy. She has an appointment next Thursday with for a consult for hysterectomy. She denies chest pain, shortness of air, diarrhea, dysuria. She reports current abdominal pain, but states there has been no change in this abdominal pain and states that it feels the same as it always does. She reports that she felt warm the other day, but did not check her temperature. After the hysterectomy, if she needs chemoradiation it will be completed here in [place]. When I spoke to pt she stated she came in because she hasn't been able to eat of keep anything down for a couple of weeks. Last thing she tried was spoonful of mashed potatoes 2 days ago and vomited it back up. Has been able to keep down "water and some orange Gatorade". She stated she has appt up at to talk to surgeon about possible Hysterectomy. She states she gets some occasional sharp pains in her stomach, but they don't last long. She didn't think she was having trouble breathing, but stated she has been having some "shallow breathing". Allergies and Home Medications Allergies Coded Allergies: green dye (Verified Allergy, Unknown, 07/06/09) red dye (Verified Allergy, Unknown, 07/06/09) Uncoded Allergies: ALLERGY TO RED/GREEN DYE (Allergy, Unknown, 05/25/09) FEMURA (Adverse Reaction, Unknown, 04/16/16) Patient Home Medication List Home Medication List Reviewed: Yes Albuterol Sulfate (Ventolin Hfa) 1 Puff Puff, 2 PUFF INH Q4H PRN for SHORTNESS OF BREATH, (Reported) Entered as Reported by: TAMICA BELTRAN on 06/09/18 1034 Amlodipine Besylate (Amlodipine Besylate) 5 Mg Tablet, 5 MG PO DAILY, (Reported) Entered as Reported by: TAMICA BELTRAN on 06/09/18 1032 Budesonide/Formoterol Fumarate (Symbicort 160-4.5 Mcg Inhaler) 10.2 Gm Hfa.aer.ad, 2 PUFF INH BID PRN for SHORTNESS OF BREATH, (Reported) Entered as Reported by: TAMICA BELTRAN on 06/09/18 1034 Cyclobenzaprine HCl (Cyclobenzaprine HCl) 10 Mg Tablet, 10 MG PO Q8H PRN for SPASMS Prescribed by: JALIL PAEZ on 04/23/20 0624 Enalapril Maleate (Enalapril Maleate) 20 Mg Tablet, 40 MG PO DAILY, (Reported) Entered as Reported by: TAMICA BELTRAN on 06/09/18 1034 Fluticasone Propionate (Flonase Allergy Relief) 9.9 Ml Bow.susp, 1 SPRAY NS DAILY PRN for CONGESTION, (Reported) Entered as Reported by: TAMICA BELTRAN on 06/09/18 1032 Hydrochlorothiazide (Hydrochlorothiazide) 25 Mg Tablet, 25 MG PO DAILY, (Reported) Entered as Reported by: TAMICA BELTRAN on 06/09/18 1032 Hydrocodone/Acetaminophen (Hydrocodone-Acetamin 5-325 mg) 1 Each Tablet, 1 TAB PO Q6H PRN for PAIN-MODERATE (5-7) Prescribed by: CHAVEZ SUTTON on 09/28/211857 Loratadine (Loratadine) 10 Mg Tablet, 10 MG PO DAILY, (Reported) Entered as Reported by: JANEL FARR on 04/15/162312 Meloxicam (Mobic) 15 Mg Tablet, 15 MG PO DAILY Prescribed by: JALIL PAEZ on 04/23/20 0624 Prednisone (Prednisone) 10 Mg Tab.ds.pk, 10 MG PO DAILY Prescribed by: CHAVEZ SUTTON on 09/28/211857 Ranitidine HCl (Acid Procurement Cost Coordinator (RANITIDINE)) 150 Mg Tablet, 150 MG PO BID, (Reported) Entered as Reported by: JANEL FARR on 11/1/16 2313 Simvastatin (Simvastatin) 20 Mg Tablet, 20 MG PO DAILY, (Reported) Entered as Reported by: LEONA REIS on 02/16/19 1837 Sulfamethoxazole/Trimethoprim (Sulfamethoxazole-Tmp Ds Tablet) 1 Each Tablet, 1 EACH PO BID Prescribed by: JODI BEAN on 02/16/19 1930 Past Vpotsra-Sggpyr-Larear Hx Patient Social History Smoking Status: Former Smoker 2nd Hand Smoke Exposure: No Recent Hopitalizations: No Alcohol Use?: No Seasonal Allergies Seasonal Allergies: Yes Surgeries History of Surgeries: Yes Surgeries: Abdominal, Breast, Cardiac, Section, Orthopedic, Tonsillectomy Respiratory History of Respiratory Disorde: Yes (OCCASIONALLY USES INHALER) Respiratory Disorders: Asthma Cardiovascular History of Cardiac Disorders: Yes (NORMAL CARDIAC CATH 2009) Cardiac Disorders: High Cholesterol, Hypertension Neurological History of Neurological Disord: No Reproductive System Hx Reproductive Disorders: Yes 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 RIGHT KNEE SURGERY X 2 ) Endocrine History of Endocrine Disorders: No HEENT History of HEENT Disorders: Yes (S/P TONSILLECTOMY) HEENT Disorders: Tonsilitis Cancer History of Cancer: Yes Cancer: Breast Psychosocial History of Psychiatric Problem: No Integumentary History of Skin or Integumenta: No Blood Transfusions History of Blood Disorders: No Adverse Reaction to a Blood Tr: No Family Medical History Significant Family History: Cancer (Father of [place]) Review of Systems-General Constitutional: No chills, No diaphoresis; malaise, weakness, weight loss (30 lbs) EENTM: No blurred vision, No double vision, No mouth swelling, No epistaxis Respiratory: No cough, No dyspnea on exertion, No hemoptysis; short of breath Cardiovascular: No chest pain, No palpitations Gastrointestinal: abdominal pain (and distention); No hematemesis, No jaundice; loss of appetite; No melena; nausea, vomiting Genitourinary: No dysuria, No frequency, No hematuria Musculoskeletal: joint pain, muscle stiffness Skin: No change in color, No change in hair/nails Psychiatric/Neurological: Denies Anxiety, Denies Depressed, Denies Seizure, Denies Tremors Physical Exam-General Problems Physical Exam Vital Signs Vital Signs - First Documented 01/09/23 12:30 Temp 37.7 Pulse 116 Resp 16 B/P (MAP) 129/63 (85) Pulse Ox 87 O2 Delivery Room Air Capillary Refill : Less Than 3 Seconds General Appearance: WD/WN, mild distress Eyes: Bilateral Eye PERRL, Bilateral Eye EOMI HEENT: pharynx normal; No scleral icterus (R), No scleral icterus (L) Neck: non-tender, supple Respiratory: no respiratory distress, no accessory muscle use, decreased breath sounds (left) Cardiovascular: no murmur, tachycardia Gastrointestinal: soft, no organomegaly, distended, other (??fluid wave) Rectal: deferred Back: no CVA tenderness, no vertebral tenderness Extremities: non-tender, no pedal edema, no calf tenderness Neurologic/Psychiatric: alert, oriented x 3 Skin: normal color, warm/dry Lymphatic: no adenopathy (neck, supraclavicular or axillary) Data Review Labs Laboratory Tests 01/09/23 12:40: White Blood Count 13.2H, Red Blood Count 4.51, Hemoglobin 13.6, Hematocrit 41, Mean Corpuscular Volume 92, Mean Corpuscular Hemoglobin 30, Mean Corpuscular Hemoglobin Concent 33, Red Cell Distribution Width 13.8, Platelet Count 399, Mean Platelet Volume 11.1, Immature Granulocyte % (Auto) 0, Neutrophils (%) (Auto) 80H, Lymphocytes (%) (Auto) 9L, Monocytes (%) (Auto) 10, Eosinophils (%) (Auto) 1, Basophils (%) (Auto) 1, Neutrophils # (Auto) 10.5H, Lymphocytes # (Auto) 1.1, Monocytes # (Auto) 1.3H, Eosinophils # (Auto) 0.1, Basophils # (Auto) 0.1, Immature Granulocyte # (Auto) 0.0, Sodium Level 137, Potassium Level 3.3L, Chloride Level 95L, Carbon Dioxide Level 28, Anion Gap 14, Blood Urea Nitrogen 13, Creatinine 0.78, Estimat Glomerular Filtration Rate 82, BUN/Creatinine Ratio 17, Glucose Level 103, Calcium Level 10.2H, Corrected Calcium 10.6H, Magnesium Level 1.7, Total Bilirubin 0.6, Aspartate Amino Transf (AST/SGOT) 15, Alanine Aminotransferase (ALT/SGPT) 8, Alkaline Phosphatase 60, Total Protein 7.4, Albumin 3.5, Lipase 13 01/09/23 15:10: Lactic Acid Level 0.83 Radiology Date of Exam:01/09/[address] CHEST W TECHNIQUE: Multiple contiguous axial images were obtained through the chest without the use of intravenous contrast. All CT scans use one or more of the following dose optimizing techniques: automated exposure control, MA and/or KvP adjustment based on patient size and exam type or iterative reconstruction. INDICATION: Pleural effusion and hypoxia. COMPARISON: CT abdomen and pelvis from 12/07/2022. Low-dose CT chest of 05/02/2016. FINDINGS: Lungs and airway: No abnormality in the trachea. There is no pneumonia or edema. Subtotal relaxation atelectasis is present in the left lower lobe associated with the pleural effusion. Pleura: Large left pleural effusion is nonloculated. Small left pleural effusion is also present. Heart and mediastinum: Thyroid is normal. No supraclavicular or axillary lymphadenopathy. No mediastinal or hilar lymphadenopathy. Heart is normal in size without pericardial effusion. Normal caliber thoracic aorta. Mild circumferential wall thickening of the esophagus. Upper abdomen: A moderate to large amount of ascites is present. Musculoskeletal: No worrisome focal osseous lesion. IMPRESSION: 1. Large left pleural effusion is nonloculated. 2. There is associated subtotal relaxation atelectasis within the left lower lobe. No pneumonia or edema. 3. Small right pleural effusion. 4. Moderate to large volume of abdominal ascites has increased since prior exam of 12/07/2022. Dictated by: Dictated on workstation # [id number] Dict: 01/09/23 1539 Trans: 01/09/23 1638 MERGED WITH [facility] [id number] Interpreted by: ASIA CRAWFORD MD Electronically signed by: ASIA CRAWFORD MD 01/09/23 1638 Assessment/Plan Assessment/Plan Assessment/Plan Pleural Effusion Ascites Intractable Nausea/Vomiting Decreased appetite Hypoxia Uterine Cancer with possible omental caking. Pt does not appear to be in respiratory distress at this time. She may need Thoracentesis and Paracentesis for Diagnostic reasons, but does not appear to need anything emergently. Will reassess in am. Talked to pt about this and all questions answered to her satisfaction. It is possible the ascites is causing her N/V and decreased appetite. I reviewed the CT today and from last month, as well as discussed case with Hospitalist and ED provider. TANYA GALLEGO DO Jan 09, 2023 16:45
--- NOTE | 2023-01-09 16:45 | History & Physical-Hospitalist ---
History of Present Illness HPI/Chief Complaint Chief complaint: Severe nausea and vomiting and endometrial cancer with ascites and pleural effusion with hypoxia and acute respiratory failure HPI: This is a 72-year-old female who was recently diagnosed with endometrial cancer via endometrial biopsy by Dr. Beavers who had plans for a consultation at the on Thursday who presented to the ER with nausea and vomiting which progressed to severe. CT scans revealed ascites and bilateral pleural effusions so Dr. Gonzales has been consulted and will evaluate the need for paracentesis and/or thoracentesis. Due to the hypoxia and effusion we will cover for pneumonia with cefepime and vancomycin considering her immunocompromise state with endometrial cancer and will place her in the ICU for observation and maintain oxygen. She denies any pain. Source: patient, family, RN/MD, old records Exam Limitations: no limitations Date Seen 01/09/23 Time Seen by a Provider: 16:40 Attending Physician Gia Nixon Aprn PCP Admitting Physician: Attending Physician: Referring Physician Date of Admission Home Medications & Allergies Home Medications Reviewed patient Home Medication Reconciliation performed by pharmacy medication reconciliations community development technician and/or nursing. Patients Allergies have been reviewed. Allergies Allergies Coded Allergies green dye (Verified Allergy, Unknown, 07/06/09) red dye (Verified Allergy, Unknown, 07/06/09) Uncoded Allergies ALLERGY TO RED/GREEN DYE ( Allergy, Unknown, 05/25/09) FEMURA ( Adverse Reaction, Unknown, 04/16/16) Past Okxlhkx-Onspkk-Ctnasr Hx Patient Social History Marrital Status: Employed/Student: retired Tobacco Use?: Yes Smoking Status: Former Smoker Substance use?: No Alcohol Use?: No Immunizations Up To Date First/Initial COVID19 Vaccinat: UNKNOWN DATE Second COVID19 Vaccination Valerio: UNKNOWN DATE Seasonal Allergies Seasonal Allergies: Yes Current Status Advance Directives: No Primary Language: Ivorian Preferred Spoken Language: Ivorian Past Medical History Surgeries: Abdominal, Breast, Cardiac, Section, Orthopedic, Tonsillectomy Asthma High Cholesterol, Hypertension [employer] History: Menopausal Gastroesophageal Reflux, Esophagitis Tonsilitis Breast Did You Recieve Any Treatments: Yes What Type of Treatment Did You: Surgical Intervention Blood Disorders: No Adverse Reaction/Blood Tranf: No Family Medical History No Pertinent Family Hx PAST SURGICAL HISTORY: -TONSILLECTOMY -ECTOPIC - X 1 -RIGHT KNEE SURGERY X 2-TO REMOVE BONE CHIPS -RIGHT BREAST LUMPECTOMY WITH 37 LYMPH NODES REMOVED Review of Systems Constitutional: see HPI, malaise, weakness Gastrointestinal: abdominal pain, loss of appetite, nausea, vomiting Physical Exam Physical Exam Vital Signs Vital Signs - First Documented 01/09/23 01/09/23 12:30 17:15 Temp 37.7 Pulse 116 Resp 16 B/P (MAP) 129/63 (85) Pulse Ox 87 O2 Delivery Room Air O2 Flow Rate 2.00 Capillary Refill : Less Than 3 Seconds Height, Weight, BMI Height: 5'1.00" Weight: 195lbs. 0.0oz. 88.199243cv; 34.00 BMI Method:Stated General Appearance: Anxious, Chronically ill, Mild Distress, Obese Eyes: Right Eye Normal Inspection, Right Eye PERRL HEENT: PERRL/EOMI, Normal ENT Inspection, Pharynx Normal, Moist Mucous Membranes Neck: Full Range of Motion, Normal Inspection, Non Tender Respiratory: Chest Non Tender, No Accessory Muscle Use, No Respiratory Distress, Decreased Breath Sounds Cardiovascular: Regular Rate, Rhythm, No Edema, No Gallop, No JVD, No Murmur, Normal Peripheral Pulses Gastrointestinal: Normal Bowel Sounds, No Organomegaly, No Pulsatile Mass, Non Tender, Soft, Distended Back: Normal Inspection, No CVA Tenderness, No Vertebral Tenderness Extremity: Normal Capillary Refill, Normal Inspection, Normal Range of Motion, Non Tender, No Calf Tenderness, No Pedal Edema Neurologic/Psychiatric: Alert, Oriented x3, No Motor/Sensory Deficits, Normal Mood/Affect, industrial organizational psychologist II-XII Norm as Tested Skin: Normal Color, Warm/Dry Lymphatic: No Adenopathy Results Results/Procedures Labs Laboratory Tests 01/09/23 12:40 Patient resulted labs reviewed. Assessment/Plan Admission Diagnosis Assessment: Acute hypoxic respiratory failure requiring supplemental oxygen Suspected pneumonia Refractory nausea and vomiting Bilateral large pleural effusions likely malignant type Endometrial cancer new diagnosis by endometrial biopsy by Dr. Beavers as consultation up at on Thursday Severe ascites Hypokalemia History of hypertension Plan: Supportive care ICU Gentle IV fluid IV antibiotics Possible paracentesis or thoracentesis tomorrow Admission Status: Inpatient Order (span 2 midnights) Reason for Inpatient Admission: acute resp faiure with effusions and asites and endometrial cancer CLARITZA CHUNG DO Jan 09, 2023 16:45
[2023-01-09 16:50] LABS: ABG BASE EXCESS 3.9 MMOL/L (-2.5-2.5); ABG OXYGEN SATURATION 97 % (94-100); ABG PCO2 46 MMHG (35-45); ABG PH 7.41 (7.37-7.43); ABG PO2 82 MMHG (79-93); ABG TCO2 29.6 MMOL/L (21.0-31.0)
[2023-01-09 16:51] LABS: ALLENS TEST POSITIVE; INSPIRED O2 2 L; PATIENT TEMP 37.7; VENTILATOR NO
[2023-01-09] MEDS ORDERED: MILK OF MAGNESIA 400 MG/5 ML 30 ML UDC PO PRN (17:45)
[2023-01-09] MEDS ORDERED: PHARMACY TO DOSE IV SCH (17:45)
[2023-01-09] MEDS ORDERED: MELATONIN 3 MG TABLET PO PRN (17:45)
[2023-01-09] MEDS ORDERED: ANTACID SUSP 30 ML UDC (MYLANTA) PO PRN (17:45)
[2023-01-09] MEDS ORDERED: LACTULOSE SYRUP 10GM/15ML (ENULOSE) 30ML UDC PO PRN (17:45)
[2023-01-09] MEDS ORDERED: CALCIUM CARBONATE 500 MG CHEW TABLET PO PRN (17:45)
[2023-01-09] MEDS ORDERED: polyethylene glycoL POWDER 17 GM (MIRALAX) PACK PO PRN (17:45)
[2023-01-09] MEDS ORDERED: PROMETHAZINE INJ 25 MG/ML (PHENERGAN) AMP IM PRN (17:45)
[2023-01-09] MEDS ORDERED: NS IV 500 ML 500 ML IV PRN (17:45)
[2023-01-09] MEDS ORDERED: BISACODYL 10 MG SUPPOSITORY PR PRN (17:45)
[2023-01-09] MEDS ORDERED: ACETAMINOPHEN 325 MG TABLET PO PRN (17:45)
[2023-01-09] MEDS ORDERED: diphenhydrAMINE INJ 50 MG/ML VIAL IVP PRN (17:45)
[2023-01-09] MEDS ORDERED: diphenhydrAMINE 25 MG TABLET PO PRN (17:45)
[2023-01-09] MEDS ORDERED: ONDANSETRON 4 MG (ZOFRAN) ORAL DISSOLVE TAB PO PRN (17:45)
[2023-01-09] MEDS ORDERED: ALPRAZolam 0.25 MG TABLET PO PRN (17:45)
[2023-01-09] MEDS ORDERED: HYDROmorphone 2 MG/ML VIAL (DILAUDID) IV PRN (17:45)
[2023-01-09 18:21] VITALS: BP 129/63
[2023-01-09] MEDS ORDERED: VANCOMYCIN 500 MG/NS 100 ML IV NR ×2 (18:30)
[2023-01-09] MEDS ORDERED: RT-ALBUTEROL SULF 2.5 MG/3 ML PRE-MIX VIAL INH PRN (18:45)
[2023-01-09] MEDS: ENOXAPARIN 40 MG/0.4 ML SYRINGE SC SCH (18:49)
[2023-01-09] MEDS: ONDANSETRON 4 MG/2 ML (SDV) Z0FRAN IV PRN (18:50)
[2023-01-09] MEDS: NS IV 1000 ML 1,000 ML IV SCH (18:52)
[2023-01-09] MEDS: SENNOSIDES 8.6 MG (SENOKOT) TAB PO SCH (20:38)
[2023-01-09] MEDS: RT-ALBUTEROL SULF 2.5 MG/3 ML PRE-MIX VIAL INH SCH (20:59)
[2023-01-09] MEDS ORDERED: CEFEPIME INJECTION 2,000 MG in NS (IVPB) 50 ML 50 ML IV SCH (21:00)
[2023-01-09] MEDS ORDERED: DOCUSATE SODIUM 100 MG CAPSULE PO SCH (21:00)
[2023-01-10] MEDS ORDERED: CEFEPIME 1,000 MG/NS 50 ML IVPB IV SCH ×2
[2023-01-10 04:54] LABS: BASOPHILS # (AUTO) 0.1 10^3/uL (0.0-0.1); BASOPHILS % (AUTO) 1 % (0-10); EOSINOPHILS # (AUTO) 0.1 10^3/uL (0.0-0.3); EOSINOPHILS % (AUTO) 1 % (0-10); HEMATOCRIT 36 % (35-52); HEMOGLOBIN 11.9 g/dL (11.5-16.0); LYMPHOCYTES # (AUTO) 0.9 10^3/uL (1.0-4.0); LYMPHOCYTES % (AUTO) 9 % (12-44); MEAN CORPUSCULAR HEMOGLOBIN 30 pg (25-34); MEAN CORPUSCULAR HGB CONC 33 g/dL (32-36); MEAN CORPUSCULAR VOLUME 92 fL (80-99); MEAN PLATELET VOLUME 10.9 fL (9.0-12.2); MONOCYTES # (AUTO) 1.3 10^3/uL (0.0-1.0); MONOCYTES % (AUTO) 12 % (0-12); NEUTROPHILS # (AUTO) 8.5 10^3/uL (1.8-7.8); NEUTROPHILS % (AUTO) 78 % (42-75); PLATELET COUNT 322 10^3/uL (130-400); WHITE BLOOD COUNT 10.9 10^3/uL (4.3-11.0)
[2023-01-10 05:03] LABS: ALBUMIN 2.9 GM/DL (3.2-4.5)
[2023-01-10 05:04] LABS: POTASSIUM 3.7 MMOL/L (3.6-5.0)
[2023-01-10 05:05] LABS: CALCIUM 8.9 MG/DL (8.5-10.1)
[2023-01-10 05:06] LABS: TOTAL PROTEIN 6.1 GM/DL (6.4-8.2)
[2023-01-10 05:08] LABS: BILIRUBIN,TOTAL 0.5 MG/DL (0.1-1.0)
[2023-01-10 05:09] LABS: PHOSPHORUS 2.9 MG/DL (2.3-4.7)
[2023-01-10 05:10] LABS: CREATININE SERUM 0.7 MG/DL (0.60-1.30)
[2023-01-10 05:12] LABS: MAGNESIUM 1.5 MG/DL (1.6-2.4)
[2023-01-10] MEDS ORDERED: KCL 20 MEQ TAB (K-DUR) PO SCH (06:00)
[2023-01-10] MEDS ORDERED: POTASSIUM CL 10MEQ/50ML IVPB 50 ML IV SCH (06:00)
[2023-01-10] MEDS ORDERED: MAGNESIUM 1 GM/100 ML IVPB 100 ML IV SCH (06:00)
[2023-01-10] MEDS ORDERED: KCL 20 MEQ TAB (K-DUR) PO ONE (06:00)
[2023-01-10] MEDS: MAGNESIUM 1 GM/100 ML IVPB 100 ML IV SCH ×2 (06:06→07:42)
--- NOTE | 2023-01-10 06:44 | Progress Note - Hospitalist ---
Subjective HPI/CC On Admission Date Seen by Provider: Jan 10, 2023 Time Seen by Provider: 11:00 Chief complaint: Severe nausea and vomiting and endometrial cancer with ascites and pleural effusion with hypoxia and acute respiratory failure HPI: This is a 72-year-old female who was recently diagnosed with endometrial cancer via endometrial biopsy by Dr. Beavers who had plans for a consultation at the on Thursday who presented to the ER with nausea and vomiting which progressed to severe. CT scans revealed ascites and bilateral pleural effusions so Dr. Gonzales has been consulted and will evaluate the need for paracentesis and/or thoracentesis. Due to the hypoxia and effusion we will cover for pneumonia with cefepime and vancomycin considering her immunocompromise state with endometrial cancer and will place her in the ICU for observation and maintain oxygen. She denies any pain. Subjective/Events-last exam Feels better Less nauseated Family at bedside Dr Gonzales has decided to not perform thoracentesis or paracentesis appt Thursday CT scan reveals omentum involvement of cancer Doubt Hyst is possible but she has appt with to decide Moving to 4th floor IV maintained Review of Systems General: Fatigue, Malaise Gastrointestinal: Nausea Focused Exam Lactate Level 01/09/23 15:10: Lactic Acid Level 0.83 Objective Exam Vital Signs Vital Signs Date Time Temp Pulse Resp B/P (MAP) Pulse Ox O2 Delivery O2 Flow Rate FiO2 01/10/23 12:15 96 Nasal Cannula 2.00 01/10/23 11:33 36.5 01/10/23 11:00 96 26 135/72 (97) 01/10/23 08:37 21 Capillary Refill : Less Than 3 Seconds General Appearance: No Apparent Distress, WD/WN, Anxious, Chronically ill Respiratory: No Accessory Muscle Use, No Respiratory Distress, Decreased Breath Sounds Cardiovascular: Regular Rate, Rhythm Gastrointestinal: Distended, Other Neurologic/Psychiatric: Alert, Oriented x3, No Motor/Sensory Deficits, Normal Mood/Affect Results/Procedures Lab Laboratory Tests 01/10/23 04:45 Patient resulted labs reviewed. Assessment/Plan Assessment and Plan Assess & Plan/Chief Complaint Assessment: Acute hypoxic respiratory failure requiring supplemental oxygen Suspected pneumonia Refractory nausea and vomiting Bilateral large pleural effusions likely malignant type Endometrial cancer new diagnosis by endometrial biopsy by Dr. Beavers as c onsultation up at on Thursday Severe ascites Hypokalemia History of hypertension Plan: Supportive care Move to 4th floor Gentle IV fluid IV antibiotics CLARITZA CHUGN DO Jan 10, 2023 06:44
[2023-01-10] MEDS: NS IV 1000 ML 1,000 ML IV SCH ×2 (07:42→23:18)
[2023-01-10] MEDS: ONDANSETRON 4 MG/2 ML (SDV) Z0FRAN IV PRN (07:57)
[2023-01-10 08:17] LABS: ABG BASE EXCESS 2.4 MMOL/L (-2.5-2.5); ABG OXYGEN SATURATION 97 % (94-100); ABG PCO2 48 MMHG (35-45); ABG PH 7.37 (7.37-7.43); ABG PO2 79 MMHG (79-93); ABG TCO2 28.6 MMOL/L (21.0-31.0)
[2023-01-10 08:18] LABS: ALLENS TEST YES-POS; INSPIRED O2 2 L; PATIENT TEMP 37.1; VENTILATOR NO
--- NOTE | 2023-01-10 08:23 | Diagnostic Imaging Report ---
EXAMINATION: Chest 1 view HISTORY: Pleural effusion COMPARISON: 04/15/2016 FINDINGS: Trace right and small left pleural effusions are present. There are mild bibasilar opacities. No pneumothorax. The lungs are clear without consolidation, pleural effusion, or pneumothorax. The osseous structures are intact. IMPRESSION: 1. Small left and trace right pleural effusions with bibasilar atelectasis or consolidation. Dictated by: Dictated on workstation # [id number]
[2023-01-10] MEDS: RT-ALBUTEROL SULF 2.5 MG/3 ML PRE-MIX VIAL INH SCH ×2 (08:35→21:22)
[2023-01-10] MEDS: CEFEPIME 1,000 MG/NS 50 ML IVPB IV SCH ×6 (08:44→20:10)
[2023-01-10] MEDS: PANTOPRAZOLE 40 MG (PROTONIX) VIAL IV SCH (08:44)
--- NOTE | 2023-01-10 08:57 | Tele-ICU Consult ---
History of Present Illness History of Present Illness Date Seen by Provider: Jan 10, 2023 Time Seen by Provider: 08:51 History of Present Illness (Tele-ICU Physician , Progress Note ) Service provided via interactive audio and video telecommunBellstrike E-CARE system to a patient admitted to ICU bed in [facility]. Patient is seen today due to persistent need of ICU care Available chart/ vitals / labs / Images reviewed Video assessment done using teleICU camera, rest of exam as per RN Discussed with RN Events overnight : 72 yo F with newly diagnosed endometrial Ca, admitted with new onset of large left pleural effusions, ascites, resp distress. Started on IV Cefepime, Vancomy john for suspected PNA ABG 7.3748/79 At present not in resp distres, can speak full sentences, not in pain, some nausea, got IV Zofran, To get evaluation at next week., No hypotension full code Allergies and Home Medications Allergies Coded Allergies: green dye (Verified Allergy, Unknown, 07/06/09) red dye (Verified Allergy, Unknown, 07/06/09) Uncoded Allergies: ALLERGY TO RED/GREEN DYE (Allergy, Unknown, 05/25/09) FEMURA (Adverse Reaction, Unknown, 04/16/16) Home Medications Albuterol Sulfate 1 Puff Puff, 2 PUFF INH Q4H PRN for SHORTNESS OF BREATH, (Reported) Amlodipine Besylate 5 Mg Tablet, 5 MG PO DAILY, (Reported) Budesonide/Formoterol Fumarate 10.2 Gm Hfa.aer.ad, 2 PUFF INH BID PRN for SHORTNESS OF BREATH, (Reported) Enalapril Maleate 20 Mg Tablet, 40 MG PO DAILY, (Reported) Fluticasone Propionate 9.9 Ml Gibsonia.susp, 1 SPRAY NS DAILY PRN for CONGESTION, (Reported) Hydrochlorothiazide 25 Mg Tablet, 25 MG PO DAILY, (Reported) Loratadine 10 Mg Tablet, 10 MG PO DAILY, (Reported) Ranitidine HCl 150 Mg Tablet, 150 MG PO BID, (Reported) Simvastatin 20 Mg Tablet, 20 MG PO DAILY, (Reported) Past Medical/Social/Family Hx Patient Social History Marrital Status: Employed/Student: retired Tobacco Use?: Yes Smoking Status: Former Smoker Smokeless Tobacco Frequency: Never a User Use of E-Cig and/or Vaping dev: No Substance use?: No Alcohol Use?: No Pt stated abuse/neglect: No Immunizations Up To Date Influenza Vaccine Up-to-Date: No; Not Current First/Initial COVID19 Vaccinat: UNKNOWN DATE Second COVID19 Vaccination Valerio: UNKNOWN DATE Current Status status: No status: No Advance Directives: Yes Advance Directive Location: Home Communicates: Verbally Primary Language: Mongolian Preferred Spoken Language: Mongolian Is interpretation needed?: No Sensory deficits: Vision impairment Implanted or Applied Medical D: None Family Medical History Family Hx: PAST SURGICAL HISTORY: -TONSILLECTOMY -ECTOPIC - X 1 -RIGHT KNEE SURGERY X 2-TO REMOVE BONE CHIPS -RIGHT BREAST LUMPECTOMY WITH 37 LYMPH NODES REMOVED Review of Systems Constitutional: see HPI EENTM: see HPI Respiratory: see HPI Cardiovascular: see HPI Gastrointestinal: see HPI Genitourinary: see HPI Musculoskeletal: see HPI Skin: see HPI Psychiatric/Neurological: See HPI Focused Exam Lactate Level 01/09/23 15:10: Lactic Acid Level 0.83 Height, Weight, BMI Height: 5'1.00" Weight: 195lbs. 0.0oz. 88.238841py; 35.67 BMI Method:Stated Exam Exam Patient acknowledged, consented, and participated in this virtual visit which was conducted using real time audio/video Vital Signs Date Time Temp Pulse Resp B/P (MAP) Pulse Ox O2 Delivery O2 Flow Rate FiO2 01/10/23 08:37 97 Nasal Cannula 2.00 21 01/10/23 08:00 104 29 129/80 (87) 91 Nasal Cannula 2.00 01/10/23 07:57 36.7 01/10/23 07:00 93 149/72 (98) 93 Nasal Cannula 2.00 01/10/23 07:00 92 01/10/23 06:00 89 22 133/66 (86) 95 Nasal Cannula 2.00 01/10/23 05:00 90 24 140/69 (92) 94 Nasal Cannula 2.00 01/10/23 04:00 97 Nasal Cannula 2.00 01/10/23 04:00 86 20 129/62 (84) 95 Nasal Cannula 2.00 01/10/23 03:00 89 24 128/65 (86) 94 Nasal Cannula 2.00 01/10/23 02:00 98 20 122/63 (81) 94 Nasal Cannula 2.00 01/10/23 01:00 89 22 124/64 (86) 93 Nasal Cannula 2.00 01/10/23 01:00 92 01/10/23 00:00 36.6 20 146/67 (93) 95 Nasal Cannula 2.00 01/09/23 23:59 96 Nasal Cannula 2.00 01/09/23 23:00 96 22 126/52 (76) 95 Nasal Cannula 2.00 01/09/23 22:00 99 23 121/59 (79) 94 Nasal Cannula 2.00 01/09/23 21:04 97 Nasal Cannula 2.00 21 01/09/23 21:00 92 23 147/66 (93) 93 Nasal Cannula 2.00 01/09/23 20:05 96 Nasal Cannula 2.00 01/09/23 20:00 37.4 93 32 137/64 (101) 94 Nasal Cannula 2.00 01/09/23 19:00 94 01/09/23 19:00 95 22 145/65 (91) 96 Nasal Cannula 2.00 01/09/23 18:21 37.7 116 87 01/09/23 18:00 101 21 138/72 (94) 97 Nasal Cannula 2.00 01/09/23 17:21 Nasal Cannula 2.00 01/09/23 17:15 130/77 (94) 95 Nasal Cannula 2.00 01/09/23 17:15 97 01/09/23 17:05 100 20 136/74 94 Nasal Cannula 2.00 01/09/23 12:30 37.7 116 16 129/63 (85) 87 Room Air I & O 01/10/23 07:00 Intake Total 2000 ml Output Total 650 ml Balance 1350 ml Height & Weight Height: 5'1.00" Weight: 195lbs. 0.0oz. 88.069171un; 35.67 BMI Method:Stated General Appearance: Anxious, Chronically ill, Mild Distress, Obese HEENT: PERRL/EOMI, Normal ENT Inspection, Pharynx Normal, Moist Mucous Membranes Neck: Full Range of Motion, Normal Inspection, Non Tender Respiratory: Chest Non Tender, No Accessory Muscle Use, No Respiratory Distress, Decreased Breath Sounds, Other (left BS softer than right) Cardiovascular: Regular Rate, Rhythm, No Edema, No Gallop, No JVD, No Murmur, Normal Peripheral Pulses Capillary Refill: Less Than 3 Seconds Gastrointestinal: normal bowel sounds, soft, distended (abd very distended, probably from ascites), tenderness (Left upper and left lower quadrant) Extremity: Normal Capillary Refill, Normal Inspection, Normal Range of Motion, Non Tender, No Calf Tenderness, No Pedal Edema, Pedal Edema (tr bilateral ankle edema) Neurologic/Psychiatric: Alert, Oriented x3, No Motor/Sensory Deficits, Normal Mood/Affect, 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
[2023-01-10] MEDS: SENNOSIDES 8.6 MG (SENOKOT) TAB PO SCH ×2 (08:59→20:10)
[2023-01-10] MEDS ORDERED: FLUTICASONE NASAL SPRAY (FLONASE) 16 GM BTL NS PRN (12:00)
[2023-01-10] MEDS ORDERED: NON-FORMULARY MEDICATION 1 EA EA (Budesonide/Formoterol Fumarate (Symbicort 160-4.5 Mcg In INH PRN (12:00)
[2023-01-10 13:22] VITALS: BP 127/59
--- NOTE | 2023-01-10 13:38 | Progress Note - Surgery ---
Subjective Time Seen by a Provider: 12:41 Subjective/Events-last exam Pt seen and examined, states she feels much better and has no abdominal pain. She feels stronger, was able to eat and even urinated and had BM. States her breathing is ok. Review of Systems General: No Fatigue Pulmonary: Dyspnea; No Cough, No Pleuritic Chest Pain Cardiovascular: No: Chest Pain, Palpitations Gastrointestinal: No: Nausea, Vomiting, Abdominal Pain Focused Exam Lactate Level 01/09/23 15:10: Lactic Acid Level 0.83 Objective Exam Vital Signs Date Time Temp Pulse Resp B/P (MAP) Pulse Ox O2 Delivery O2 Flow Rate FiO2 01/10/23 12:15 96 Nasal Cannula 2.00 01/10/23 11:33 36.5 01/10/23 11:00 96 26 135/72 (97) 94 Nasal Cannula 2.00 01/10/23 10:00 100 20 146/70 (97) 94 Nasal Cannula 2.00 01/10/23 09:00 105 19 137/62 (89) Nasal Cannula 2.00 01/10/23 08:37 97 Nasal Cannula 2.00 21 01/10/23 08:00 104 29 129/80 (87) 91 Nasal Cannula 2.00 01/10/23 07:57 36.7 01/10/23 07:48 94 Nasal Cannula 2.00 01/10/23 07:00 93 149/72 (98) 93 Nasal Cannula 2.00 01/10/23 07:00 92 01/10/23 06:00 89 22 133/66 (86) 95 Nasal Cannula 2.00 01/10/23 05:00 90 24 140/69 (92) 94 Nasal Cannula 2.00 01/10/23 04:00 97 Nasal Cannula 2.00 01/10/23 04:00 86 20 129/62 (84) 95 Nasal Cannula 2.00 01/10/23 03:00 89 24 128/65 (86) 94 Nasal Cannula 2.00 01/10/23 02:00 98 20 122/63 (81) 94 Nasal Cannula 2.00 01/10/23 01:00 89 22 124/64 (86) 93 Nasal Cannula 2.00 01/10/23 01:00 92 01/10/23 00:00 36.6 20 146/67 (93) 95 Nasal Cannula 2.00 01/09/23 23:59 96 Nasal Cannula 2.00 01/09/23 23:00 96 22 126/52 (76) 95 Nasal Cannula 2.00 01/09/23 22:00 99 23 121/59 (79) 94 Nasal Cannula 2.00 01/09/23 21:04 97 Nasal Cannula 2.00 21 01/09/23 21:00 92 23 147/66 (93) 93 Nasal Cannula 2.00 01/09/23 20:05 96 Nasal Cannula 2.00 01/09/23 20:00 37.4 93 32 137/64 (101) 94 Nasal Cannula 2.00 01/09/23 19:00 94 01/09/23 19:00 95 22 145/65 (91) 96 Nasal Cannula 2.00 01/09/23 18:21 37.7 116 87 01/09/23 18:00 101 21 138/72 (94) 97 Nasal Cannula 2.00 01/09/23 17:21 Nasal Cannula 2.00 01/09/23 17:15 130/77 (94) 95 Nasal Cannula 2.00 01/09/23 17:15 97 01/09/23 17:05 100 20 136/74 94 Nasal Cannula 2.00 I & O 01/10/23 07:00 Intake Total 2000 ml Output Total 650 ml Balance 1350 ml Capillary Refill : Less Than 3 Seconds General Appearance: No Apparent Distress, Chronically ill, Obese HEENT: PERRL/EOMI, Moist Mucous Membranes Respiratory: No Accessory Muscle Use, No Respiratory Distress, Decreased Breath Sounds (left lung base) Cardiovascular: Regular Rate, Rhythm, No Murmur Gastrointestinal: soft, distended (same as yesterday), tenderness (only with deep palpation, diffuse) Extremity: Pedal Edema (tr bilateral ankle edema) Neurologic/Psychiatric: Alert, Oriented x3 Results Lab Laboratory Tests 01/09/23 15:10: Lactic Acid Level 0.83 01/09/23 16:43: Blood Gas Puncture Site L RADIAL, Blood Gas Patient Temperature 37.7, Arterial Blood pH 7.41, Arterial Blood Partial Pressure CO2 46H, Arterial Blood Partial Pressure O2 82, Arterial Blood HCO3 28H, Arterial Blood Total CO2 29.6, Arterial Blood Oxygen Saturation 97, Arterial Blood Base Excess 3.9H, Keenan Test POSITIVE, Blood Gas Ventilator Setting NO, Blood Gas Inspired Oxygen 2 L 01/10/23 04:45: White Blood Count 10.9, Red Blood Count 3.92, Hemoglobin 11.9, Hematocrit 36, Mean Corpuscular Volume 92, Mean Corpuscular Hemoglobin 30, Mean Corpuscular Hemoglobin Concent 33, Red Cell Distribution Width 14.1, Platelet Count 322, Mean Platelet Volume 10.9, Immature Granulocyte % (Auto) 0, Neutrophils (%) (Auto) 78H, Lymphocytes (%) (Auto) 9L, Monocytes (%) (Auto) 12, Eosinophils (%) (Auto) 1, Basophils (%) (Auto) 1, Neutrophils # (Auto) 8.5H, Lymphocytes # (Auto) 0.9L, Monocytes # (Auto) 1.3H, Eosinophils # (Auto) 0.1, Basophils # (Auto) 0.1, Immature Granulocyte # (Auto) 0.0, Sodium Level 138, Potassium Level 3.7, Chloride Level 102, Carbon Dioxide Level 23, Anion Gap 13, Blood Urea Nitrogen 11, Creatinine 0.70, Estimat Glomerular Filtration Rate 93, BUN/Creatinine Ratio 16, Glucose Level 91, Calcium Level 8.9, Corrected Calcium 9.8, Phosphorus Level 2.9, Magnesium Level 1.5L, Total Bilirubin 0.5, Aspartate Amino Transf (AST/SGOT) 15, Alanine Aminotransferase (ALT/SGPT) 7, Alkaline Phosphatase 52, Total Protein 6.1L, Albumin 2.9L 01/10/23 08:10: Blood Gas Puncture Site RIGHT RADIAL, Blood Gas Patient Temperature 37.1, Arterial Blood pH 7.37, Arterial Blood Partial Pressure CO2 48H, Arterial Blood Partial Pressure O2 79, Arterial Blood HCO3 27, Arterial Blood Total CO2 28.6, Arterial Blood Oxygen Saturation 97, Arterial Blood Base Excess 2.4, Keenan Test YES-POS, Blood Gas Ventilator Setting NO, Blood Gas Inspired Oxygen 2 L Assessment/Plan Assessment/Plan Assessment/Plan Pleural Effusion Ascites Intractable Nausea/Vomiting Decreased appetite Hypoxia Uterine Cancer with possible omental caking. Pt does not appear to be in respiratory distress at this time. She may need Tho racentesis and Paracentesis for Diagnostic reasons, but does not appear to need anything emergently. I used the portable US in the ICU to examine her lung and abdomen; there was very little fluid in the lung, which correlates with this mornings CXR. Definitely not enough to safely tap at this time. I then placed the US probe on abdomen and did find a spot that would be able to get some fluid. I also noted that the omentum was very prominent; which usually it is not. Again, this would be more diagnostic and talked to pt and family about waiting to do this; for two reasons, 1) they may do it at her appt with [facility] on 2) brad use it is not therapeutic, it does note need to be done at this time. I answered all questions to her and her family's satisfaction. Nothing surgical to do at this time and discussed all of this with Dr. Roque as well. TANYA GALLEGO DO Jan 10, 2023 13:37
[2023-01-10 15:22] VITALS: BP 141/63
[2023-01-10] MEDS: ENOXAPARIN 40 MG/0.4 ML SYRINGE SC SCH (17:22)
[2023-01-10] MEDS: VANCOMYCIN 1 GM/NS 250 ML IVPB IV SCH ×2 (17:23)
[2023-01-10 19:03] VITALS: BP 145/66
[2023-01-10] MEDS: FAMOTIDINE 20 MG TABLET PO SCH (20:10)
[2023-01-10] MEDS ORDERED: NON-FORMULARY MEDICATION 1 EA EA (Ranitidine HCl (Acid Reducer (RANITIDINE)) 150 MG) PO SCH (21:00)
[2023-01-10 23:52] VITALS: BP 141/76
[2023-01-11] MEDS: CEFEPIME 1,000 MG/NS 50 ML IVPB IV SCH ×8 (02:30→20:47)
[2023-01-11 03:37] VITALS: BP 155/77
[2023-01-11 05:46] LABS: BASOPHILS # (AUTO) 0.1 10^3/uL (0.0-0.1); BASOPHILS % (AUTO) 1 % (0-10); EOSINOPHILS # (AUTO) 0.2 10^3/uL (0.0-0.3); EOSINOPHILS % (AUTO) 2 % (0-10); HEMATOCRIT 36 % (35-52); HEMOGLOBIN 11.7 g/dL (11.5-16.0); LYMPHOCYTES # (AUTO) 0.8 10^3/uL (1.0-4.0); LYMPHOCYTES % (AUTO) 8 % (12-44); MEAN CORPUSCULAR HEMOGLOBIN 30 pg (25-34); MEAN CORPUSCULAR HGB CONC 32 g/dL (32-36); MEAN CORPUSCULAR VOLUME 92 fL (80-99); MEAN PLATELET VOLUME 11.3 fL (9.0-12.2); MONOCYTES # (AUTO) 1.3 10^3/uL (0.0-1.0); MONOCYTES % (AUTO) 13 % (0-12); NEUTROPHILS # (AUTO) 7.4 10^3/uL (1.8-7.8); NEUTROPHILS % (AUTO) 77 % (42-75); PLATELET COUNT 333 10^3/uL (130-400); WHITE BLOOD COUNT 9.7 10^3/uL (4.3-11.0)
[2023-01-11 06:01] LABS: ALBUMIN 2.9 GM/DL (3.2-4.5); POTASSIUM 3.6 MMOL/L (3.6-5.0)
[2023-01-11 06:02] LABS: CALCIUM 8.8 MG/DL (8.5-10.1)
[2023-01-11 06:04] LABS: TOTAL PROTEIN 6.2 GM/DL (6.4-8.2)
[2023-01-11 06:06] LABS: BILIRUBIN,TOTAL 0.4 MG/DL (0.1-1.0)
[2023-01-11 06:07] LABS: CREATININE SERUM 0.62 MG/DL (0.60-1.30)
[2023-01-11 06:11] LABS: MAGNESIUM 1.9 MG/DL (1.6-2.4)
[2023-01-11] MEDS: RT-ALBUTEROL SULF 2.5 MG/3 ML PRE-MIX VIAL INH SCH ×2 (06:34→22:07)
[2023-01-11] MEDS: FLUTICASONE/VILANTEROL 200 MCG 14'S (BREO) IH PRN (06:40)
--- NOTE | 2023-01-11 06:41 | Progress Note - Hospitalist ---
Subjective HPI/CC On Admission Date Seen by Provider: Jan 11, 2023 Time Seen by Provider: 11:00 Chief complaint: Severe nausea and vomiting and endometrial cancer with ascites and pleural effusion with hypoxia and acute respiratory failure HPI: This is a 72-year-old female who was recently diagnosed with endometrial cancer via endometrial biopsy by Dr. Beavers who had plans for a consultation at the on Thursday who presented to the ER with nausea and vomiting which progressed to severe. CT scans revealed ascites and bilateral pleural effusions so Dr. Gonzales has been consulted and will evaluate the need for paracentesis and/or thoracentesis. Due to the hypoxia and effusion we will cover for pneumonia with cefepime and vancomycin considering her immunocompromise state with endometrial cancer and will place her in the ICU for observation and maintain oxygen. She denies any pain. Subjective/Events-last exam Patient requested a very ben discussion about her prognosis and her options Spent 15 minutes exploring options She does not want to go to on Thursday for consultation for the hysterectomy in my opinion and also Dr. Gonzales they will not be performing a hysterectomy due to the widespread metastasis with malignant ascites and malignant pleural effusions Patient does want oncology options locally CT scan of the abdomen and pelvis will be performed since the CT scan of the ch est was done in the ER not abdomen/pelvis and daughter at the bedside Discussed CODE STATUS and she is a DO NOT RESUSCITATE now witnessed by and daughter. Review of Systems General: Fatigue, Malaise Pulmonary: Dyspnea Gastrointestinal: Abdominal Pain Focused Exam Lactate Level 01/09/23 15:10: Lactic Acid Level 0.83 Objective Exam Vital Signs Vital Signs Date Time Temp Pulse Resp B/P (MAP) Pulse Ox O2 Delivery O2 Flow Rate FiO2 01/11/23 12:07 37.1 105 20 143/71 (95) 94 Nasal Cannula 2.00 01/11/23 06:41 4 Capillary Refill : Less Than 3 Seconds General Appearance: No Apparent Distress, WD/WN, Anxious, Chronically ill Respiratory: Lungs Clear, Normal Breath Sounds, Decreased Breath Sounds Cardiovascular: Regular Rate, Rhythm Gastrointestinal: Other (Ascites and fluid wave) Neurologic/Psychiatric: Alert, Oriented x3, No Motor/Sensory Deficits, Normal Mood/Affect Results/Procedures Lab Laboratory Tests 01/11/23 05:07 Patient resulted labs reviewed. Assessment/Plan Assessment and Plan Assess & Plan/Chief Complaint Assessment: Acute hypoxic respiratory failure requiring supplemental oxygen Suspected pneumonia Refractory nausea and vomiting Bilateral large pleural effusions likely malignant type Endometrial cancer new diagnosis by endometrial biopsy by Dr. Beavers as consultation up at on Thursday Severe ascites likely malignant type Hypokalemia History of hypertension Plan: Supportive care Hep-Lock IV fluid IV antibiotics Dr. Gonzales consult for paracentesis tomorrow after ultrasound marked spot Requests local oncology consultation so we will arrange tomorrow Critical Care Critically Ill Patient CLARITZA CHUNG DO Jan 11, 2023 06:41
[2023-01-11 07:48] VITALS: BP 146/71
[2023-01-11] MEDS: PANTOPRAZOLE 40 MG (PROTONIX) VIAL IV SCH (08:47)
[2023-01-11] MEDS: ENALAPRIL 10 MG TABLET PO SCH (08:47)
[2023-01-11] MEDS: FAMOTIDINE 20 MG TABLET PO SCH ×2 (08:47→20:47)
[2023-01-11] MEDS: SENNOSIDES 8.6 MG (SENOKOT) TAB PO SCH ×2 (08:47→20:47)
[2023-01-11] MEDS: LORATADINE (CLARITIN) 10 MG TAB PO SCH (08:48)
[2023-01-11] MEDS: amLODIPine 5 MG TABLET PO SCH (08:48)
[2023-01-11] MEDS ORDERED: NON-FORMULARY MEDICATION 1 EA EA (Simvastatin 20 MG) PO SCH (09:00)
--- NOTE | 2023-01-11 09:03 | Diagnostic Imaging Report ---
INDICATION: Pleural effusion TECHNIQUE: Single view chest 6:00 AM CORRELATION STUDY: 01/10/2023 FINDINGS: Moderate left and small right pleural effusions persisting. Stable slightly increased on the left. Likely associated compressive atelectasis or infiltrate left lung base. Heart size and mediastinum are mildly enlarged with vascular appearing slightly increased. Multiple surgical clips over the right axilla. IMPRESSION: 1. Moderate left and small right pleural effusion may be slightly increased on the left. Likely associated compressive atelectasis and or infiltrate left lung base. Mild edema. Dictated by: Dictated on workstation # [id number]
[2023-01-11 12:07] VITALS: BP 143/71
[2023-01-11] MEDS ORDERED: CATHETER FLUSH 10 ML SYR IV PRN (12:15)
[2023-01-11] MEDS ORDERED: NS 100 ML (IVPB) BAG IV ONE (12:15)
[2023-01-11] MEDS ORDERED: IOHEXOL 350 MG/ML 100 ML (OMNIPAQUE 350) VIAL IV ONE (12:15)
[2023-01-11] MEDS ORDERED: HOLD METFORMIN - RECEIVED CONTRAST 20 ML VIAL IV SCH (12:15)
--- NOTE | 2023-01-11 13:47 | Diagnostic Imaging Report ---
EXAMINATION: CT abdomen and pelvis with intravenous contrast. TECHNIQUE: Multiple contiguous axial images were obtained through the abdomen and pelvis after the uneventful administration of intravenous contrast. All CT scans use one or more of the following dose optimizing techniques: automated exposure control, MA and/or KvP adjustment based on patient size and exam type or iterative reconstruction. HISTORY: Abdominal pain. History of endometrial cancer. COMPARISON: 12/07/2022. FINDINGS: The heart is unremarkable. Large left and small right pleural effusions are seen with bibasilar opacities. A moderate volume of ascites is seen in the abdomen and pelvis. There is suggestion of nodularity within the omentum. No discrete mass is identified. The liver, spleen, pancreas, adrenal glands, and kidneys have a normal appearance. The gallbladder is unremarkable. The bowel loops are nondilated. The appendix is visualized in the right lower quadrant and has a normal appearance. There is no free air. No acute osseous abnormalities. There is calcified aortic and iliac atherosclerotic plaque without aneurysm. Ureters and bladder are grossly normal. IMPRESSION: 1. Moderate volume of ascites in the abdomen and pelvis with findings suggestive of omental caking. The ascites has increased since the prior exam. 2. Interval development of a large left and small right pleural effusion with bibasilar opacities. Dictated by: Dictated on workstation # [id number]
[2023-01-11 15:28] VITALS: BP 135/63
[2023-01-11] MEDS: VANCOMYCIN 1 GM/NS 250 ML IVPB IV SCH ×2 (17:28)
[2023-01-11] MEDS: ENOXAPARIN 40 MG/0.4 ML SYRINGE SC SCH (17:29)
[2023-01-11 19:09] VITALS: BP 132/73
[2023-01-11 23:10] VITALS: BP 119/74
[2023-01-12] MEDS: CEFEPIME 1,000 MG/NS 50 ML IVPB IV SCH ×6 (01:21→14:17)
[2023-01-12 03:37] VITALS: BP 129/78
[2023-01-12 05:46] LABS: BASOPHILS # (AUTO) 0.1 10^3/uL (0.0-0.1); BASOPHILS % (AUTO) 1 % (0-10); EOSINOPHILS # (AUTO) 0.2 10^3/uL (0.0-0.3); EOSINOPHILS % (AUTO) 2 % (0-10); HEMATOCRIT 36 % (35-52); HEMOGLOBIN 11.6 g/dL (11.5-16.0); LYMPHOCYTES # (AUTO) 0.9 10^3/uL (1.0-4.0); LYMPHOCYTES % (AUTO) 10 % (12-44); MEAN CORPUSCULAR HEMOGLOBIN 30 pg (25-34); MEAN CORPUSCULAR HGB CONC 33 g/dL (32-36); MEAN CORPUSCULAR VOLUME 92 fL (80-99); MEAN PLATELET VOLUME 10.6 fL (9.0-12.2); MONOCYTES # (AUTO) 1.2 10^3/uL (0.0-1.0); MONOCYTES % (AUTO) 12 % (0-12); NEUTROPHILS # (AUTO) 7.1 10^3/uL (1.8-7.8); NEUTROPHILS % (AUTO) 75 % (42-75); PLATELET COUNT 326 10^3/uL (130-400); WHITE BLOOD COUNT 9.5 10^3/uL (4.3-11.0)
[2023-01-12 05:56] LABS: ALBUMIN 2.8 GM/DL (3.2-4.5)
[2023-01-12 05:57] LABS: POTASSIUM 3.4 MMOL/L (3.6-5.0)
[2023-01-12 05:58] LABS: CALCIUM 9.2 MG/DL (8.5-10.1)
[2023-01-12 05:59] LABS: TOTAL PROTEIN 5.7 GM/DL (6.4-8.2)
[2023-01-12 06:01] LABS: BILIRUBIN,TOTAL 0.4 MG/DL (0.1-1.0)
[2023-01-12 06:03] LABS: CREATININE SERUM 0.61 MG/DL (0.60-1.30)
[2023-01-12 06:06] LABS: MAGNESIUM 1.8 MG/DL (1.6-2.4)
[2023-01-12] MEDS: RT-ALBUTEROL SULF 2.5 MG/3 ML PRE-MIX VIAL INH SCH (07:01)
[2023-01-12] MEDS: FLUTICASONE/VILANTEROL 200 MCG 14'S (BREO) IH PRN (07:01)
[2023-01-12 07:41] VITALS: BP 118/71
[2023-01-12] MEDS: LORATADINE (CLARITIN) 10 MG TAB PO SCH (08:22)
[2023-01-12] MEDS: PANTOPRAZOLE 40 MG (PROTONIX) VIAL IV SCH (08:22)
[2023-01-12] MEDS: ENALAPRIL 10 MG TABLET PO SCH (08:22)
[2023-01-12] MEDS: FAMOTIDINE 20 MG TABLET PO SCH (08:22)
[2023-01-12] MEDS: amLODIPine 5 MG TABLET PO SCH (08:22)
[2023-01-12] MEDS: SENNOSIDES 8.6 MG (SENOKOT) TAB PO SCH (08:23)
--- NOTE | 2023-01-12 08:35 | Physical Therapy Evaluation ---
PT Evaluation-General Medical Diagnosis Admission Date Jan 09, 2023 at 17:14 Medical Diagnosis: acute respiratory failure/ascites,vomiting Onset Date: Jan 09, 2023 Therapy Diagnosis Therapy Diagnosis: debility Height/Weight Height (Feet): 5 Height (Inches): 1.00 Weight (Pounds): 195 Weight (Ounces): 0.0 Precautions Precautions/Isolations: Standard Precautions Referral Physician: Jude Reason for Referral: Evaluation/Treatment Medical History Pertinent Medical History: Breast CA S/P Mastectomy, HTN Current History ER from clinic due to abdominal discomfort/new diagnosis of endometriel cancer with mets Reviewed History: Yes Social History Home: Single Level Current Living Status: Spouse Entry Into Home: Stairs With Railing PT Steps Into Home: 5 Prior Prior Level of Function SCALE: Activities may be completed with or without assistive devices. 8-Fjohljimrh-kmvshyn completes the activity by him/herself with no assistance from a helper. 5-Set-up or Clean-up Assistance-helper sets up or cleans up; patient completes activity. [place] assists only prior to or following the activity. 4-Supervision or Touching Assistance-helper provides verbal cues and/or touching/steadying and/or contact guard assistance as patient completes activity. Assistance may be provided throughout the activity or intermittently. 3-Partial/Moderate Assistance-helper does LESS THAN HALF the effort. [place] lifts, holds or supports trunk or limbs, but provides less than half the effort. 2-Substantial/Maximal Assistance-helper does MORE THAN HALF the effort. [place] lifts or holds trunk or limbs and provides more than half the effort. 3-Oluzumuni-ykllpj does ALL the effort. Patient does none of the effort to complete the activity. Or, the assistance of 2 or more helpers is required for the patient to complete the activity. If activity was not attempted, code reason: 7-Patient Refused. 9-Not Applicable-not attempted and the patient did not perform the activity before the current illness, exacerbation or injury. 10-Not Attempted due to Environmental Limitations-(lack of equipment, weather restraints, etc.). 88-Not Attempted due to Medical Conditions or Safety Concerns. Bed Mobility: 6 Transfers (B,C,W/C): 6 Gait: 6 Stairs: 6 Indoor Mobility (Ambulation): Independent Stairs: Independent Prior Devices Use: None PT Evaluation-Current Subjective Patient agrees to PT. Objective Patient Orientation: Normal For Age Attachments: Oxygen ROM/Strength ROM Lower Extremities bilateral LE WFL Strength Lower Extremities 4/5 grossly bilateral LE all planes Integumentary/Posture Bowel Incontinence: No Bladder Incontinence: No Neuromuscular (Tone, Coordination, Reflexes) grossly intact Sensory Vision: Wears Glasses Hearing: Functional Transfers Sit to Stand (QC): 6 Gait Mode of Locomotion: Walk Anticipated Mode of Locomotion: Walk Walk 10 feet (QC): 6 Walk 50 ft with 2 Turns(QC): 6 Walk 150 ft (QC): 6 Distance: 400' Gait Assistive Device: None Comments/Gait Description safe and functional with no deviation Stairs #of Steps: 5 1 Step (curb) (QC): 6 4 Steps (QC): 6 Balance Sitting Static: Normal Sitting Dynamic: Normal Standing Static: Normal Standing Dynamic: Normal Assessment/Needs Patient is currently at independent [facility] with all gross motor skills safely and does not require skilled PT intervention at this time. Rehab Potential: Fair PT Plan Treatment/Plan Treatment Plan: Discontinue PT Treatment Duration: Jan 12, 2023 Frequency: 1 time per week Estimated Hrs Per Day: .25 hour per day Patient and/or Family Agrees t: Yes Time Time In: 750 Time Out: 800 DATE: Jan 12, 2023 Total Billed Treatment Time: 10 Total Billed Treatment 1 visit EVMod 10 min JAX NGUYEN PT Jan 12, 2023 08:35
--- NOTE | 2023-01-12 08:53 | Diagnostic Imaging Report ---
INDICATION: Pleural effusion Frontal chest obtained at 3:30 a.m. and compared to 01/11/2023. There is cardiomegaly. There is a prominent left pleural effusion and there is mild central vascular congestion. There is no pneumothorax. There are surgical clips in the right axilla. IMPRESSION: Cardiomegaly. Prominent left-sided pleural effusion, similar to yesterday's study. No new abnormality. Dictated by: Dictated on workstation # [id number]
[2023-01-12] MEDS ORDERED: LANS15CA PO (09:38)
[2023-01-12 11:44] VITALS: BP 106/70
[2023-01-12] MEDS ORDERED: LIDOCAINE 1% INJ 10 ML VIAL ONE (12:52)
--- NOTE | 2023-01-12 13:11 | Progress Note ---
Subjective Subjective/Events-last exam Patient feeling much better today. Sitting up in chair with family and friends. Still having some shortness of breath and occassional sharp pains to abdomen but pain is mostly controlled. Tolerating PO diet. Review of Systems General: Fatigue Pulmonary: Dyspnea Cardiovascular: Edema; No: Chest Pain, Palpitations Gastrointestinal: Abdominal Pain; No: Nausea, Vomiting Neurological: Weakness, Incoordination Focused Exam Lactate Level 01/09/23 15:10: Lactic Acid Level 0.83 Objective Exam Last Set of Vital Signs Vital Signs Date Time Temp Pulse Resp B/P (MAP) Pulse Ox O2 Delivery O2 Flow Rate FiO2 01/12/23 11:44 36.9 101 16 106/70 (82) 97 Nasal Cannula 01/12/23 08:00 2.00 01/11/23 06:41 4 Capillary Refill : Less Than 3 Seconds I&O Intake and Output 01/12/23 00:00 Intake Total 2345 ml Balance 2345 ml Intake Oral 1425 ml IV Total 920 ml IV Contrast 0 ml # Voids 7 General: Alert, Oriented X3, No Acute Distress Lungs: Clear to Auscultation, Normal Air Movement Heart: Regular Rate, No Murmurs Abdomen: Other (distended abdomen, mild diffuse ttp) Extremities: Other (1+ pitting edema) Neuro: Normal Speech Results/Procedures Lab Laboratory Tests 01/12/23 05:38: White Blood Count 9.5, Red Blood Count 3.88, Hemoglobin 11.6, Hematocrit 36, Lidia n Corpuscular Volume 92, Mean Corpuscular Hemoglobin 30, Mean Corpuscular Hemoglobin Concent 33, Red Cell Distribution Width 14.5, Platelet Count 326, Mean Platelet Volume 10.6, Immature Granulocyte % (Auto) 0, Neutrophils (%) (Auto) 75, Lymphocytes (%) (Auto) 10L, Monocytes (%) (Auto) 12, Eosinophils (%) (Auto) 2, Basophils (%) (Auto) 1, Neutrophils # (Auto) 7.1, Lymphocytes # (Auto) 0.9L, Monocytes # (Auto) 1.2H, Eosinophils # (Auto) 0.2, Basophils # (Auto) 0.1, Immature Granulocyte # (Auto) 0.0, Sodium Level 139, Potassium Level 3.4L, Chloride Level 104, Carbon Dioxide Level 24, Anion Gap 11, Blood Urea Nitrogen 7, Creatinine 0.61, Estimat Glomerular Filtration Rate 96, BUN/Creatinine Ratio 11, Glucose Level 93, Calcium Level 9.2, Corrected Calcium 10.2H, Magnesium Level 1.8, Total Bilirubin 0.4, Aspartate Amino Transf (AST/SGOT) 15, Alanine Aminotransferase (ALT/SGPT) 9, Alkaline Phosphatase 52, Total Protein 5.7L, Albumin 2.8L Microbiology 01/09/23 MRSA Screen - Final, Complete MRSA not isolated 01/09/23 Blood Culture - Preliminary, Resulted No growth Radiology Date of Exam:01/09/[address] CHEST W TECHNIQUE: Multiple contiguous axial images were obtained through the chest without the use of intravenous contrast. All CT scans use one or more of the following dose optimizing techniques: automated exposure control, MA and/or KvP adjustment based on patient size and exam type or iterative reconstruction. INDICATION: Pleural effusion and hypoxia. COMPARISON: CT abdomen and pelvis from 12/07/2022. Low-dose CT chest of 05/02/2016. FINDINGS: Lungs and airway: No abnormality in the trachea. There is no pneumonia or edema. Subtotal relaxation atelectasis is present in the left lower lobe associated with the pleural effusion. Pleura: Large left pleural effusion is nonloculated. Small left pleural effusion is also present. Heart and mediastinum: Thyroid is normal. No supraclavicular or axillary lymphadenopathy. No mediastinal or hilar lymphadenopathy. Heart is normal in size without pericardial effusion. Normal caliber thoracic aorta. Mild circumferential wall thickening of the esophagus. Upper abdomen: A moderate to large amount of ascites is present. Musculoskeletal: No worrisome focal osseous lesion. IMPRESSION: 1. Large left pleural effusion is nonloculated. 2. There is associated subtotal relaxation atelectasis within the left lower lobe. No pneumonia or edema. 3. Small right pleural effusion. 4. Moderate to large volume of abdominal ascites has increased since prior exam of 12/07/2022. Dictated by: Dictated on workstation # [id number] Dict: 01/09/23 1539 Trans: 01/09/23 1638 [facility] [id number] Interpreted by: ASIA CRAWFORD MD Electronically signed by: ASIA CRAWFORD MD 01/09/23 3011 Assessment/Plan Assessment/Plan (1) Acute respiratory failure with hypoxia Status: Acute Assessment & Plan: 01/12: Weaned off oxygen this AM, Will need home oxygen study for activity (2) Endometrial cancer Status: Acute Assessment & Plan: 01/12: Oncology consult placed (3) Malignant pleural effusion Status: Acute (4) Malignant ascites Status: Acute Assessment & Plan: 01/12: Delbertha to evaluate for paracentesis KEIRA PEÑA MD Jan 12, 2023 13:11
--- NOTE | 2023-01-12 13:57 | Progress Note-Post Operative ---
Post-Operative Progess Note Surgeon (s)/Research [employer] Insights Executive (s) Surgeon TANYA GALLEGO DO Research [employer] Insights Executive: none Pre-Operative Diagnosis ascites Post-Operative Diagnosis same Procedure & Operative Findings Date of Procedure 01/12/23 Procedure Performed/Findings Paracentesis The patient was in her floor bed. I used the portable US to find the largest pocket of fluid, elected to go on the right side. I had nurse obtain the consent and the abdomen was then prepped and draped and timeout was performed. Local anesthetic was infiltrated and #11 blade scalpel was used to make a small skin incision. Dbzq-C-Skrytaiw needle and catheter were then advanced until a greenish straw-colored fluid was withdrawn. The catheter was advanced and the needle was removed. Plan was to remove as much fluid as we can. Once done draining, the catheter will be removed and sterile bandage applied. The nurse called and they were able to get 3500ml of fluid. Pt will not need to get albumin per protocol. The patient tolerated procedure well without any complications. Anesthesia Type local lidocaine Estimated Blood Loss Estimated blood loss (mL): scant Specimens/Packing Specimens Removed ascitic fluid TANYA GALLEGO DO Jan 12, 2023 13:56
--- NOTE | 2023-01-12 14:00 | Progress Note - Surgery ---
Subjective Time Seen by a Provider: 12:35 Subjective/Events-last exam Pt seen and examined, she has been having some abdominal pain and possibly increased abdominal distention. She has decided to not go up to [facility] and would like abdomen drained for diagnosis and therapeutic. Review of Systems Pulmonary: Dyspnea; No Cough Cardiovascular: No: Chest Pain, Palpitations Gastrointestinal: Abdominal Pain; No: Nausea, Vomiting Focused Exam Lactate Level 01/09/23 15:10: Lactic Acid Level 0.83 Objective Exam Vital Signs Date Time Temp Pulse Resp B/P (MAP) Pulse Ox O2 Delivery O2 Flow Rate FiO2 01/12/23 11:44 36.9 101 16 106/70 (82) 97 Nasal Cannula 01/12/23 08:00 Nasal Cannula 2.00 01/12/23 07:41 37.0 106 18 118/71 (87) 96 Nasal Cannula 3.00 01/12/23 07:01 92 Nasal Cannula 3.00 01/12/23 03:37 36.4 93 18 129/78 (95) 94 Nasal Cannula 2.50 2.50 01/11/23 23:10 36.4 94 18 119/74 (89) 96 Nasal Cannula 2.50 2.50 01/11/23 22:09 94 Nasal Cannula 2.50 01/11/23 20:45 Nasal Cannula 2.00 01/11/23 19:09 37.2 103 18 132/73 (92) 97 Nasal Cannula 3.00 01/11/23 15:28 36.6 104 18 135/63 (87) 93 Nasal Cannula 3.00 I & O 01/12/23 07:00 Intake Total 2345 ml Balance 2345 ml Capillary Refill : Less Than 3 Seconds General Appearance: No Apparent Distress, Anxious, Chronically ill, Obese HEENT: PERRL/EOMI, Moist Mucous Membranes Respiratory: Lungs Clear, Normal Breath Sounds, Decreased Breath Sounds Cardiovascular: Regular Rate, Rhythm, No Murmur Gastrointestinal: soft, distended (same as yesterday), tenderness (only with deep palpation, diffuse) Extremity: Pedal Edema (tr bilateral ankle edema) Neurologic/Psychiatric: Alert, Oriented x3, Normal Mood/Affect Results Lab Laboratory Tests 01/12/23 05:38: White Blood Count 9.5, Red Blood Count 3.88, Hemoglobin 11.6, Hematocrit 36, Mean Corpuscular Volume 92, Mean Corpuscular Hemoglobin 30, Mean Corpuscular Hemoglobin Concent 33, Red Cell Distribution Width 14.5, Platelet Count 326, Mean Platelet Volume 10.6, Immature Granulocyte % (Auto) 0, Neutrophils (%) (Auto) 75, Lymphocytes (%) (Auto) 10L, Monocytes (%) (Auto) 12, Eosinophils (%) (Auto) 2, Basophils (%) (Auto) 1, Neutrophils # (Auto) 7.1, Lymphocytes # (Auto) 0.9L, Monocytes # (Auto) 1.2H, Eosinophils # (Auto) 0.2, Basophils # (Auto) 0.1, Immature Granulocyte # (Auto) 0.0, Sodium Level 139, Potassium Level 3.4L, Chloride Level 104, Carbon Dioxide Level 24, Anion Gap 11, Blood Urea Nitrogen 7, Creatinine 0.61, Estimat Glomerular Filtration Rate 96, BUN/Creatinine Ratio 11, Glucose Level 93, Calcium Level 9.2, Corrected Calcium 10.2H, Magnesium Level 1.8, Total Bilirubin 0.4, Aspartate Amino Transf (AST/SGOT) 15, Alanine Aminotransferase (ALT/SGPT) 9, Alkaline Phosphatase 52, Total Protein 5.7L, Albumin 2.8L Microbiology 01/09/23 MRSA Screen - Final, Complete MRSA not isolated 01/09/23 Blood Culture - Preliminary, Resulted No growth Assessment/Plan Assessment/Plan Assessment/Plan Pleural Effusion Ascites Intractable Nausea/Vomiting Decreased appetite Hypoxia Uterine Cancer with possible omental caking. Plan is to do Paracentesis at the bedside and send fluid down for cytology. I discussed the risks and complications; not limited to pain, bleeding, infection and damage to bowel. All questions answered to her satisfaction. TANYA GALLEGO DO Jan 12, 2023 14:00
--- NOTE | 2023-01-12 15:18 | Discharge Summary ---
Diagnosis/Chief Complaint Date of Admission Jan 09, 2023 at 17:14 Date of Discharge 01/12/2023 Admission Diagnosis Admission Diagnosis See problem list Discharge Diagnosis See below Problems/Diagnosis: (1) Acute respiratory failure with hypoxia Assessment & Plan: 01/12: Weaned off oxygen this AM, Will need home oxygen study for activity, Home oxygen for continuous use script sent to DME Status: Acute (2) Endometrial cancer Assessment & Plan: 01/12: Oncology consult placed, Will have outpatient f.u with Dr Elizabeth Status: Acute (3) Malignant pleural effusion Status: Acute (4) Malignant ascites Assessment & Plan: 01/12: Janet to evaluate for paracentesis, paracentesis done prior to d/c of patient Status: Acute Discharge Summary-Simple/Stand Consultations Dr Gonzales: General Surgery Dr Elizabeth: Oncology Discharge Physical Examination Allergies: Coded Allergies: green dye (Verified Allergy, Unknown, 07/06/09) red dye (Verified Allergy, Unknown, 07/06/09) Uncoded Allergies: ALLERGY TO RED/GREEN DYE (Allergy, Unknown, 05/25/09) FEMURA (Adverse Reaction, Unknown, 04/16/16) Vitals & I&Os Vital Sign - Last 12Hours Date Time Temp Pulse Resp B/P (MAP) Pulse Ox O2 Delivery O2 Flow Rate FiO2 01/12/23 11:44 36.9 101 16 106/70 (82) 97 Nasal Cannula 01/12/23 08:00 2.00 01/11/23 06:41 4 Intake and Output 01/12/23 00:00 Intake Total 1225 ml Balance 1225 ml General Appearance: Alert, Oriented X3, No Acute Distress Respiratory: Clear to Auscultation, Normal Air Movement Cardiovascular: Regular Rate, No Murmurs Abdominal: Normal Bowel Sounds, Other (mild diffuse ttp, + Ascites) Extremities: Other (1+ pitting edema) Neuro: Normal Speech Psych/Mental Status: Mental Status NL, Mood NL Hospital Course See final discharge diagnosis. Radiology Reviewed Date of Exam:01/09/[address] CHEST W TECHNIQUE: Multiple contiguous axial images were obtained through the chest without the use of intravenous contrast. All CT scans use one or more of the following dose optimizing techniques: automated exposure control, MA and/or KvP adjustment based on patient size and exam type or iterative reconstruction. INDICATION: Pleural effusion and hypoxia. COMPARISON: CT abdomen and pelvis from 12/07/2022. Low-dose CT chest of 05/02/2016. FINDINGS: Lungs and airway: No abnormality in the trachea. There is no pneumonia or edema. Subtotal relaxation atelectasis is present in the left lower lobe associated with the pleural effusion. Pleura: Large left pleural effusion is nonloculated. Small left pleural effusion is also present. Heart and mediastinum: Thyroid is normal. No supraclavicular or axillary lymphadenopathy. No mediastinal or hilar lymphadenopathy. Heart is normal in size without pericardial effusion. Normal caliber thoracic aorta. Mild circumferential wall thickening of the esophagus. Upper abdomen: A moderate to large amount of ascites is present. Musculoskeletal: No worrisome focal osseous lesion. IMPRESSION: 1. Large left pleural effusion is nonloculated. 2. There is associated subtotal relaxation atelectasis within the left lower lobe. No pneumonia or edema. 3. Small right pleural effusion. 4. Moderate to large volume of abdominal ascites has increased since prior exam of 12/07/2022. Dictated by: Dictated on workstation # [id number] Dict: 01/09/23 1539 Trans: 01/09/23 1638 [facility] [id number] Interpreted by: ASIA CRAWFORD MD Electronically signed by: ASIA CRAWFORD MD 01/09/23 1638 Discharge Condition at discharge Poor Prognosis Instructions to patient/family Please see electronic discharge instructions given to patient. Discharge Medications Reviewed and agree with Discharge Medication list on patient's Discharge Ins truction sheet KEIRA PEÑA MD Jan 12, 2023 15:18
[2023-01-12] MEDS ORDERED: FAMO20TA5 PO (15:20)
--- NOTE | 2023-01-12 15:20 | Discharge Summary ---
Discharge [facility] Discharge Medications New, Converted or Re-Newed RX: Transmitted to Pharmacy New Medications: Famotidine (Famotidine) 20 Mg Tablet 20 MG PO BID, #60 TAB Continued Medications: Albuterol Sulfate (Ventolin Hfa) 1 Puff Puff 2 PUFF INH Q4H PRN for SHORTNESS OF BREATH, INHALER Amlodipine Besylate (Amlodipine Besylate) 5 Mg Tablet 5 MG PO DAILY, TAB LAST FILLED 08-16-2022 #90/90 DAY SUPPLY Budesonide/Formoterol Fumarate (Symbicort 160-4.5 Mcg Inhaler) 10.2 Gm Hfa.aer.ad 2 PUFF INH BID PRN for SHORTNESS OF BREATH, INHALER Enalapril Maleate (Enalapril Maleate) 20 Mg Tablet 40 MG PO DAILY, TAB TAKES 2 (20MG) TABS Fluticasone Propionate (Flonase Allergy Relief) 9.9 Ml [place].susp 1 SPRAY NS DAILY PRN for CONGESTION, EACH Hydrochlorothiazide (Hydrochlorothiazide) 25 Mg Tablet 25 MG PO DAILY, TAB LAST FILLED 08-30-2022 #90/90 DAY SUPPLY Lansoprazole (Prevacid 24Hr) 15 Mg Capsule.dr 15 MG PO DAILY, CAP Loratadine (Loratadine) 10 Mg Tablet 10 MG PO DAILY, TAB Discontinued Medications: Simvastatin (Simvastatin) 20 Mg Tablet 20 MG PO DAILY, TAB Patient Instructions Goal/Follow Up Appt: Will have close f.u with Oncology for palliative treatment Activity & Diet Discharge Diet: No Restrictions Activity as Tolerated: Yes KEIRA PEÑA MD Jan 12, 2023 15:20
[2023-01-12 15:35] VITALS: BP 123/70
--- NOTE | 2023-01-12 16:53 | Oncology Consultation ---
Visit Information Visit Information Date of Admission Jan 09, 2023 at 17:14 Attending Physician Gia Nixon Aprn Admitting Physician Admitting Physician: Juliette Roque DO Attending Physician: Keira Peña MD Chief Complaint Abdominal pain and SOB. Newly diagnosed endometrial carcinoma with large ascites Interval History Ms. Wang is a 72 year old white female with remote h/o breast cancer, s/p lumpectomy and chemoradiation over 20 years ago. She has no more oncology f/u for over 10 years. She presented to ER for SOB and abdominal. CT showed large ascites. She had pearacentesis today and removed 3.5 L of ascites. She is feeling much better now. No more pain and SOB significantly improved. She had endometrial biopsy which showed endometrial carcinoma. I consulted the patient on: 01/12/23 16:47 Time Seen by Provider: 12:12 Review of Systems Constitutional: see HPI Health Status Allergies Coded Allergies: green dye (Verified Allergy, Unknown, 07/06/09) red dye (Verified Allergy, Unknown, 07/06/09) Uncoded Allergies: ALLERGY TO RED/GREEN DYE (Allergy, Unknown, 05/25/09) FEMURA (Adverse Reaction, Unknown, 04/16/16) Home Medications Albuterol Sulfate (Ventolin Hfa) 1 Puff Puff, 2 PUFF INH Q4H PRN for SHORTNESS OF BREATH, (Reported) Amlodipine Besylate (Amlodipine Besylate) 5 Mg Tablet, 5 MG PO DAILY, (Reported) LAST FILLED 08-16-2022 #90/90 DAY SUPPLY Budesonide/Formoterol Fumarate (Symbicort 160-4.5 Mcg Inhaler) 10.2 Gm Hfa.aer.ad, 2 PUFF INH BID PRN for SHORTNESS OF BREATH, (Reported) Enalapril Maleate (Enalapril Maleate) 20 Mg Tablet, 40 MG PO DAILY, (Reported) TAKES 2 (20MG) TABS Famotidine (Famotidine) 20 Mg Tablet, 20 MG PO BID, #60 Prescribed by: KEIRA PEÑA on 01/12/23 1520 Fluticasone Propionate (Flonase Allergy Relief) 9.9 Ml [place].susp, 1 SPRAY NS DAILY PRN for CONGESTION, (Reported) Hydrochlorothiazide (Hydrochlorothiazide) 25 Mg Tablet, 25 MG PO DAILY, (Reported) LAST FILLED 08-30-2022 #90/90 DAY SUPPLY Lansoprazole (Prevacid 24Hr) 15 Mg Capsule.dr, 15 MG PO DAILY, (Reported) Loratadine (Loratadine) 10 Mg Tablet, 10 MG PO DAILY, (Reported) [id number] Hx Patient Social History Marrital Status: Employed/Student: retired Smoking Status: Former Smoker 2nd Hand Smoke Exposure: No Recent Hopitalizations: No Alcohol Use?: No Family Medical History Significant Family History: Cancer (Father of Colon [place]) Physical Exam Vital Signs Vital Signs - First Documented 01/09/23 01/09/23 01/09/23 12:30 17:05 21:04 Temp 37.7 Pulse 116 Resp 16 B/P (MAP) 129/63 (85) Pulse Ox 87 O2 Delivery Room Air O2 Flow Rate 2.00 FiO2 21 Capillary Refill : Less Than 3 Seconds Height, Weight, BMI Height: 5'1.00" Weight: 195lbs. 0.0oz. [id number]; 36.09 BMI Method:Stated General Appearance: No Apparent Distress HEENT: PERRL/EOMI Respiratory: No Accessory Muscle Use, No Respiratory Distress Cardiovascular: Regular Rate, Rhythm Gastrointestinal: Non Tender, Soft, Distended Neurologic/Psychiatric: Alert, Oriented x3 Data Review Labs Laboratory Tests 01/12/23 05:38 Laboratory Tests 01/10/23 04:45: Neutrophils (%) (Auto) 78H, Lymphocytes (%) (Auto) 9L, Neutrophils # (Auto) 8.5H , Lymphocytes # (Auto) 0.9L, Monocytes # (Auto) 1.3H, Magnesium Level 1.5L, Total Protein 6.1L, Albumin 2.9L 01/10/23 08:10: Arterial Blood Partial Pressure CO2 48H 01/11/23 05:07: Neutrophils (%) (Auto) 77H, Lymphocytes (%) (Auto) 8L, Lymphocytes # (Auto) 0.8L , Monocytes # (Auto) 1.3H, Total Protein 6.2L, Albumin 2.9L, Monocytes (%) (Auto) 13H 01/12/23 05:38: Lymphocytes (%) (Auto) 10L, Lymphocytes # (Auto) 0.9L, Monocytes # (Auto) 1.2H, Total Protein 5.7L, Albumin 2.8L, Potassium Level 3.4L, Corrected Calcium 10.2H Impression & Plan Impression & Plan IMP: 1. Endometrial carcinoma and large ascities, stage IV. 2. SOB and abdominal pain relieved after paracentasis removed 3.5L. 3. h/o breast cancer over 20 years ago. Plan: 1. Pt will need port placement and prepare for chemotherapy. 2. TEMPUS test to see if any actionable markers for targeted therapy. It will take 2-3 weeks to get the results back. 3. Pt can be discharged from hem/Onc point of view 4. See me in 2-3 weeks at cancer center to discussed the TEMPUS results and treatment options. 5. check tumor marker CA 125. MARILYNN PANDYA MD Jan 12, 2023 16:53
--- NOTE | 2023-01-12 18:46 | Physician Query-Final Dx ---
AUNDREA GALAVIZ 01/12/23 1846: Final Diagnosis Give Final Diagnosis Please give Final Diagnosis Clinical Validation Clarification Dr. Ivan Suero Suspected Pneumonia has been documented in the medical record. After study, has Pneumonia been ruled out? If it has been ruled out, please document Pneumonia ruled out" in the progress notes and/or discharge summary. Yes/Agreed, Pneumonia ruled out/is not clinically valid Not agreed, Pneumonia has not been ruled out/is clinically valid* *Please document the clinical evidence supportive of this diagnosis (even if now resolved) in the Progress Notes and Discharge Summary Other, with explanation of the clinical findings Clinically undetermined, no explanation for the clinical findings Additional information: "immunocompromise state with endometrial cancer" "admitted with "acute hypoxic respiratory failure requiring supplemental oxygen, suspected pneumonia," CT Chest on admission: "atelectasis within the left lower lobe. No pneumonia or edema". No cough on admission but later documentation of productive cough. 02 sat 87% on on RA on admission Admission T 37.7, WBC 13.2.Treatment: Normal saline 1 L, cefepime IV, vancomycin IV, In responding to this query, please exercise your independent professional judgment. The purpose of this communication is to more accurately reflect the complexity of your patients condition. The fact that a question is asked does not imply that any particular answer is desired or expected. Thank you for your timely response to this clarification. Aundrea Galaviz MSN, RN Clinical [employer] KEIRA SUERO MD 01/14/23 1614: Final Diagnosis Give Final Diagnosis Yes at discharge PNA seemed to be less likely and it was more likely caused by pleural effusions and ascites. AUNDREA GALAVIZ Jan 12, 2023 18:46 KEIRA SUERO MD Jan 14, 2023 16:14
== END 2023-01-12 17:10 | disposition home or self-care (01) | DRG 754 ==
LOC: EDUNIT# 12:20 → ER 12:22 → ICU 17:14 → 4TH 01-10 13:23
PROVIDERS: ADMIT Internal Medicine; ATTEND Family Medicine
PROC: 0W9G3ZZ Drainage of Peritoneal Cavity, Percutaneous Approach (ICD-10-PCS; principal; 2023-01-12)
DX: C54.1 Malignant neoplasm of endometrium (principal); J96.01 Acute respiratory failure with hypoxia; R18.0 Malignant ascites; J91.0 Malignant pleural effusion; J98.11 Atelectasis; C78.6 Secondary malignant neoplasm of retroperitoneum and peritoneum; E87.6 Hypokalemia; J45.909 Unspecified asthma, uncomplicated; Z66 Do not resuscitate; I10 Essential (primary) hypertension; E78.00 Pure hypercholesterolemia, unspecified; K21.9 Gastro-esophageal reflux disease without esophagitis; Z85.3 Personal history of malignant neoplasm of breast; Z87.891 Personal history of nicotine dependence; Z79.899 Other long term (current) drug therapy; Z79.52 Long term (current) use of systemic steroids
CPT/HCPCS: 36415; 71045; 71260; 74022; 74177; 80053; 82805; 83605; 83690; 83735; 84100; 85025; 86304; 87040; 87070; 87081; 87205; 94640; 94760; 94761; 96361; 96365; 96375

== ENCOUNTER 2023-01-28 13:09 | Outpatient (RCR) | payer MEDICARE ==
[~2023-01-28 13:09] MED LIST changes: +FAMO20TA5 PO; +LANS15CA PO
[2023-02-11] MEDS ORDERED: OMEP40CA6 PO (12:57)
[2023-02-11] MEDS ORDERED: ASPI-999 PO (12:57)
== END 2023-02-12 | disposition home or self-care (01) ==
LOC: ONC 13:09
PROVIDERS: ATTEND Internal Medicine Hematology & Oncology
DX: C50.911 Malignant neoplasm of unspecified site of right female breast (principal); C54.1 Malignant neoplasm of endometrium; Z90.13 Acquired absence of bilateral breasts and nipples
CPT/HCPCS: 99204

== ENCOUNTER 2023-02-11 05:37 | Outpatient (CLI) | payer MEDICARE ==
[~2023-02-11] VITALS: Ht 154.9 cm; Wt 74.8 kg
[2023-02-11] MEDS ORDERED: ASPI-999 PO (12:57)
[2023-02-11] MEDS ORDERED: OMEP40CA6 PO (12:57)
== END 2023-02-11 13:22 | disposition home or self-care (01) ==
LOC: PREOP 05:37
PROVIDERS: ATTEND Surgery
DX: Z01.818 Encounter for other preprocedural examination (principal)

== ENCOUNTER 2023-02-18 07:56 | Day surgery (SDC) | payer MEDICARE ==
[~2023-02-18] VITALS: Ht 154.9 cm; Wt 74.8 kg
[~2023-02-18 07:56] MED LIST changes: +ASPI-999 PO; +OMEP40CA6 PO
[2023-02-18 08:00] VITALS: BP 141/73
[2023-02-18] MEDS ORDERED: LACTATED RINGERS 1,000 ML 1,000 ML IV PRN (08:30)
[2023-02-18] MEDS ORDERED: ceFAZolin INJECTION 2,000 MG in NS (IVPB) 50 ML 50 ML IV ONE (08:30)
--- NOTE | 2023-02-18 08:38 | Progress Note-Pre Operative ---
Pre-Operative Progress Note Date of Available H&P: Feb 10, 2023 Date H&P Reviewed: Feb 18, 2023 Time H&P Reviewed: 08:33 History & Physical: H&P Reviewed, Patient Examed, No changes noted Pre-Operative Diagnosis: Ascites TANYA GALLEGO DO Feb 18, 2023 08:38
[2023-02-18] MEDS ORDERED: LIDOCAINE/EPI 1%-1:200,000 (XYLOCAINE) 30 ML VIAL ONE (09:32)
[2023-02-18] MEDS ORDERED: MIDAZOLAM INJ 2 MG/2 ML VIAL IVP ONE (10:15)
[2023-02-18 11:20] VITALS: BP 141/73
== END 2023-02-18 11:20 | disposition home or self-care (01) ==
LOC: SDC 07:56
PROVIDERS: ATTEND Surgery
DX: R18.8 Other ascites (principal); C54.1 Malignant neoplasm of endometrium; J45.909 Unspecified asthma, uncomplicated; E66.9 Obesity, unspecified; Z68.31 Body mass index [BMI] 31.0-31.9, adult; Z99.81 Dependence on supplemental oxygen; Z53.8 Procedure and treatment not carried out for other reasons; Z87.891 Personal history of nicotine dependence
CPT/HCPCS: 87081